=== PATIENT | female | born 1940 | race Caucasian/White ===

== ENCOUNTER 2024-06-05 11:45 | Inpatient (IN) | payer MEDICARE, SELFPAY ==
[2024-06-05 12:12] VITALS: PULSE 62; RESP 16; O2SAT 99
[2024-06-05 12:18] VITALS: BMI 23.8
--- NOTE | 2024-06-05 12:22 | XR_ITS ---
Examination: CT brain head without contrast. 2-D sagittal coronal reconstructions Date and time of exam:June 05, 2024 at 1320 hours INDICATIONS: Patient fell today with injury to the head, head pain CTDI: vol (mGy):45.7 DLP: (mGycm):871 Technique: Multiple CT axial sections of the brain have been obtained, 5 mm slice thickness. Contrast has not been administered. 2-D sagittal, coronal reconstructions have been obtained Low dose protocols were performed. One or more of the following dose reduction techniques were used; automated exposure control, adjustment of the mA and/or KV according to patient size, use of iterative reconstruction technique. Findings: No significant ventricular enlargement. Intra-axial or extra-axial hemorrhage density is not seen. No mass effect or midline shift Basal cisterns are not remarkable. Fourth ventricle is midline. Cranial vault intact. Impression: Negative for acute hemorrhage, mass effect or midline shift
--- NOTE | 2024-06-05 12:22 | XR_ITS ---
Examination: CT cervical spine without contrast 2-D sagittal reconstructions 2-D coronal reconstructions 3-D reconstructions. Exam date and time:June 05, 2024 1320 hours INDICATIONS: Patient fell today with into the neck, neck pain CTDI:vol (mGy) 7.24 DLP: (mGycm) 165 Technique: Multiple 2 mm axial sections of the cervical spine have been obtained. The coronal and sagittal reconstructions have been obtained. 3-D reconstructions have been obtained. Low dose protocols were performed. One or more of the following dose reduction techniques were used; automated exposure control, adjustment of the mA and/or KV according to patient size, use of iterative reconstruction technique. Findings: Axial sections demonstrate intact base of the skull. C1 exhibit satisfactory relationship to the odontoid. No acute cervical vertebral body fracture seen. Alignment posterior spinous processes satisfactory. Cervical fusion C6-C7 Impression: No acute cervical fracture.
--- NOTE | 2024-06-05 12:22 | EKG_ITS ---
[facility] Test Date: 2024-06-05 Pat Name: RADHA CANTU Department: Room: - Gender: Female [employer] Manager: : 1940 Requested By: Familia Sanford Order Number: [id number] Reading MD: Familia Sanford Measurements Intervals [place] Rate: 62 P: 78 ND: 170 QRS: 57 QRSD: 93 T: 49 QT: 426 QTc: 433 Interpretive Statements SINUS RHYTHM NONSPECIFIC ST & T-WAVE ABNORMALITY No previous ECG available for comparison /store/S0/[id number]
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
[2024-06-05 12:26] VITALS: BP 91/46; PULSE 57; RESP 16; TEMP 36.5; O2SAT 88
--- NOTE | 2024-06-05 12:47 | XR_ITS ---
Examination:Right hip AP, lateral, AP pelvis 3 views Technique: Hip AP lateral, AP pelvis, 3 views Exam date and time:June 05, 2024 1303 hours INDICATIONS: Patient fell today with injury to right hip, right hip pain. FINDINGS: Acute intertrochanteric fracture right hip, 19 mm separation at the main fracture site Angulation at the fracture site No hip dislocation Left hip bones of the pelvis intact IMPRESSION: Acute intertrochanteric fracture right hip.
[2024-06-05 13:08] LABS: Basophils # (Auto) 0.1 Thou/mm3 (0.0-0.2); Basophils % (Auto) 1 % (0-2.5); Eosinophils # (Auto) 0.1 Thou/mm3 (0.0-0.5); Eosinophils % (Auto) 1 % (0-10); Hematocrit 36.9 % (36.0-46.0); Hemoglobin 11.9 g/dL (12.0-16.0); Immature Granulocytes % (Auto) 2 % (0-0); Immature Granulocytes Auto 0.26 Thou/mm3 (0.00-0.00); Lymphocytes # (Auto) 1.3 Thou/mm3 (1.0-4.8); Lymphocytes % (Auto) 11 % (10-50); Mean Corpuscular HGB Conc 32.2 g/dl (31.0-37.0); Mean Corpuscular Hemoglobin 26.6 pg (25.0-35.0); Mean Corpuscular Volume 83 fL (80-100); Monocytes # (Auto) 0.5 Thou/mm3 (0.0-0.8); Monocytes % (Auto) 4 % (0-12); Neutrophils # (Auto) 10.2 Thou/mm3 (1.8-7.7); Neutrophils % (Auto) 82 % (37-80); Nucleated Red Blood Cell % 0 /100 WBC (0); Platelet Count 296 Thou/mm3 (140-440); RDW Standard Deviation 41.3 fL (36.4-46.3); Red Blood Count 4.47 Miln/mm3 (4.00-5.20); White Blood Count 12.4 Thou/mm3 (3.6-11.0)
[2024-06-05 13:26] LABS: Alanine Aminotransferase 25 U/L (10-49); Albumin, Serum 3.7 gm/dL (3.4-4.8); Albumin/Globulin Ratio 1.5 (1.2-2.2); Alkaline Phosphatase 66 U/L (46-116); Anion Gap 10 (7-16); Aspartate Amino Transferase 26 U/L (0-34); BUN/Creatinine Ratio 18 Ratio (12-20); Bilirubin,Total 0.7 mg/dL (0.3-1.2); Blood Urea Nitrogen 32 mg/dL (9-23); Calcium 9.5 mg/dL (8.3-10.6); Calcium (Corrected) 9.7 mg/dL (8.5-10.1); Chloride 100 mMol/L (98-107); Creatinine (Component) 1.8 mg/dL (0.6-1.3); Estimated Creatinine Clearance 19.1 mL/min (>60); Globulin 2.5 gm/dL (2.3-3.5); Glucose 184 mg/dL (74-106); LDH (Lactate Dehydrogenase) 308 U/L (120-246); Magnesium 1.5 mg/dL (1.6-2.6); Osmolality,Calculated 280 (275-295); Sodium 134 mMol/L (136-145); Total Protein 6.2 gm/dL (5.7-8.2); Troponin I < 0.020 ng/mL (0.0-0.045); eGFR 28 See Note
[2024-06-05 13:27] LABS: B-Type Natriuretic Peptide 131 pg/mL (0-100)
[2024-06-05 13:38] LABS: INR 1.2 (0.9-1.3); Partial Thromboplastin Time 25.8 Seconds (22.0-36.0); Prothrombin Time 13.3 Seconds (9.0-12.2)
[2024-06-05] MEDS: SODIUM CHLORIDE 0.9% 1000 ML 1,000 ML 999 ML IV (14:01)
--- NOTE | 2024-06-05 14:42 | ECHO_ITS ---
Transthoracic Echo Report Ht (in): 62 Wt (lb): 130 Exam Location: Portable Status: Emergency Guide [place]: Vianney Koch Indications: Procedure Performed: BP: 123 / 91 HR: 83 Rhythm: Sinus Technical Quality: Fair MEASUREMENTS (Male / Female) Normal Values 2D ECHO LV Diastolic Diameter PLAX 4.7 cm 4.2 - 5.9 / 3.9 - 5.3 cm LV Systolic Diameter PLAX 3.4 cm IVS Diastolic Thickness 0.8 cm 0.6 - 1.0 / 0.6 - 0.9 cm LVPW Diastolic Thickness 0.9 cm 0.6 - 1.0 / 0.6 - 0.9 cm LV Relative Wall Thickness 0.4 LVOT Diameter 1.9 cm LA Volume Index 22.2 cm?/m? 16 - 28 cm?/m? Ascending Aorta Diameter 3.4 cm M-MODE Aortic Root Diameter MM 2.6 cm LA Systolic Diameter MM 4.1 cm LA Ao Ratio MM 1.6 AV Cusp Separation MM 1.8 cm DOPPLER AV Peak Velocity 108.0 cm/s AV Peak Gradient 4.7 mmHg AV Mean Gradient 3.0 mmHg AV Velocity Time Integral 22.9 cm LVOT Peak Velocity 82.0 cm/s LVOT Peak Gradient 2.7 mmHg LVOT Velocity Time Integral 16.2 cm LVOT Cardiac Index 2360.5 cm?/min?m? AV Area Cont Eq vti 2.0 cm? AV Area Cont Eq pk 2.2 cm? MV Peak Velocity 93.3 cm/s MV Peak Gradient 3.5 mmHg MV Mean Velocity 54.8 cm/s MV Mean Gradient 1.0 mmHg MV Area PHT 4.3 cm? MR Peak Velocity 274.0 cm/s MR Peak Gradient 30.0 mmHg Mitral E Point Velocity 74.7 cm/s Mitral A Point Velocity 65.5 cm/s Mitral E to A Ratio 1.1 LV E' Lateral Velocity 7.6 cm/s Mitral E to LV E' Lateral Ratio 9.8 LV E' Septal Velocity 6.4 cm/s Mitral E to LV E' Septal Ratio 11.6 TR Peak Velocity 317.7 cm/s TR Peak Gradient 40.4 mmHg FINDINGS Left Ventricle Normal left ventricular size, wall thickness, systolic function with no obvious regional wall motion abnormalities. The ejection fraction is visually estimated at 55-60%. Right Ventricle The right ventricle is normal in size and systolic function. The estimated right ventricular systoli c pressure, 48 mmHg. RAP 5. Left Atrium The left atrium is normal by two-dimensional, color flow and Doppler imaging with no structural abnormalities, no thrombus formation present. Right Atrium The right atrium is normal by two-dimensional imaging, color flow and Doppler imaging with no struct ural abnormalities, no thrombus formation present. Atrial Septum The interatrial septum appears normal with no evidence of a shunt. Aorta The aorta is normal by two-dimensional, color flow and Doppler interrogation. Mitral Valve The mitral valve is normal by two-dimensional, color flow and Doppler interrogation. There is mild mitral valve regurgitation. Aortic Valve The aortic valve is trileaflet and normal by two-dimensional, color flow and Doppler interrogation. There is mild aortic valve regurgitation. Tricuspid Valve The tricuspid valve is normal by two-dimensional, color flow and Doppler interrogation. There is mo derate tricuspid valve regurgitation. Pulmonic Valve There is trace pulmonic valve regurgitation. Vessels The pulmonary artery appears normal. The inferior vena cava pulmonary and hepatic veins appear марина l. Pericardium The pericardium is normal by two-dimensional imaging. There is no significant pericardial effusion. CONCLUSIONS The transthoracic study is normal by two-dimensional, color flow imaging and Doppler interrogation. Normal LV size and function. Estimated EF 55-60% Normal RV size and function. Estimated RVSP 48mmHg Mild mitral and trace tricuspid regurgitation Della Ledezma (Electronically Signed) Final Date: 06 June 2024 15:32
--- NOTE | 2024-06-05 14:46 | ESHP_ITS ---
Documentation for date of: 06/05/24 [facility] History of Present Illness Chief complaint: Right Hip Pain History of present illness: Ms. Hogan is a 83-year-old female with past medical history of diabetes mellitus atrial fibrillation and hyperlipidemia who presented to [facility] on 06/05/2024 status post ground-level mechanical fall with right hip pain. Patient reported that she is originally from [place] came to [facility] in [place], tripped at the door of the [facility], denies hitting head, denies loss of consciousness and was brought in by ambulance to the emergency department. Patient denies any shortness of breath, chest pain and headache. Of note patient was discharged recently from [facility] for pneumonia on oral doxycycline for 10 days. Right hip fracture noted on hip pelvis x-ray, CT head and cervical spine unremarkable. Orthopedic surgeon was consulted in the ED recommended admission for possible surgical intervention and cardiac clearance for possible surgery. ED Course: ED Vitals: On presentation in ED BP 91/46, P57, RR 16, temp 97.7 O2 sat 88 on room air ED Labs: ED labs significant for WBC 12.4, hemoglobin 11.9, neutrophil 10.2, PT 13.3, sodium 134, BUN 32, creatinine 1.8, GFR 28 mL and 1.5, LDH 308, BNP 131 ED Imaging: CT head and cervical spine negative for any acute changes. Hip/pelvis x-ray shows Acute intertrochanteric fracture right hip. ED Treatment: Patient is given 1 L NS bolus in ED. Orthopedics was consulted. Patient admitted for management of acute intertrochanteric fracture right hip. Review of Systems Review of Systems Narrative Review of Systems: ROS: -CONSTITUTIONAL: Denies weight loss, fever and chills. -HEENT: Denies changes in vision and hearing. -RESPIRATORY: Denies SOB and cough. -CV: Denies palpitations and Chest Pain. -GI: Denies abdominal pain, nausea, vomiting,constipation and diarrhea. -: Denies dysuria and urinary frequency. -MSK: Positive for right hip pain -SKIN: Denies rash and pruritus. -NEUROLOGICAL: Denies headache and syncope. -PSYCHIATRIC: Denies recent changes in mood. Denies anxiety and depression. Past Medical History Past Medical History Comments PMH COMMENT: PMH: Positive for diabetes mellitus, hyperlipidemia and atrial fibrillation PSHx: Hysterectomy in the past Allergies: No known allergies Social history: -Smoking: Denies -Alcohol Use: Denies -Illicit Drug Use: Denies Family History: Denies any family history of heart disease Exam Vital Signs Temp Pulse Resp BP Pulse Ox O2 Del Method 97.7 F 57 L 16 91/46 L 88 L Room Air 06/05/24 12:26 06/05/24 12:26 06/05/24 12:06/05/24 12:06/05/24 12:06/05/24 12:26 Narrative Exam Physical Exam General: Awake and in no acute distress. Conversational and non-toxic appearing. HEENT: Normocephalic, atraumatic, mucous membranes dry. Heart: Regular rate and rhythm, no murmurs. Lungs: Clear to auscultation with no wheezing or crackles. Abdomen: Soft, nondistended, nontender, positive bowel sounds. ?No guarding or rebound tenderness. Neurologic: Alert and oriented x3, no gross neurological deficit, and patient able to move all 4 extremities. Extremities: Right leg externally rotated, right leg shorter than left. Skin: No rash or ecchymoses. Results: Labs 06/05/24 12:34 06/05/24 12:34 Labs: Short CBC 06/05/24 Range/Units 12:34 WBC 12.4 H (3.6-11.0) Thou/mm3 Hgb 11.9 L (12.0-16.0) g/dL Hct 36.9 (36.0-46.0) % Plt Count 296 (140-440) Thou/mm3 [facility] 06/05/24 12:34 Sodium 134 L Potassium 4.0 Chloride 100 Carbon Dioxide 24.0 BUN 32 H Creatinine 1.8 H Glucose 184 H Calcium 9.5 Cardiac Enzymes 06/05/24 Range/Units 12:34 Troponin I < 0.020 (0.0-0.045) ng/mL Liver Function 06/05/24 Range/Units 12:34 Total Bilirubin 0.7 (0.3-1.2) mg/dL AST 26 (0-34) U/L ALT 25 (10-49) U/L Alkaline Phosphatase 66 (46-116) U/L Albumin 3.7 (3.4-4.8) gm/dL Quality Measures Quality Measures VTE prophylaxis Advance care planning discussed with:: patient Medications Home Medications and Allergies Home Medications ?Medication ?Instructions ?Recorded ?Confirmed ?Type apixaban 2.5 mg tablet (Eliquis) 2.5 mg PO BID 06/05/24 06/05/24 History Allergies Allergy/AdvReac Type Severity Reaction Status Date / Time No Known Allergies Allergy Verified 06/05/24 12:15 Visit Medications Acetaminophen (Acetaminophen 325 Mg Tablet) 650 mg PO Q6H PRN PRN Reason: Pain (1-3) and Fever >101.5 Stop: 07/05/24 14:34 Hydrocodone Bitart/Acetaminophen (Hydrocodone/Apap 10/325 Tab) 1 tab PO Q4H PRN PRN Reason: PAIN SCALE 4-6 (Moderate Stop: 06/10/24 14:34 Dextrose (Dextrose 50%-Water Inj 50 Ml Syringe) 25 ml IV Q15MIN PRN PRN Reason: BG 50-70 responsive npo pt Stop: 07/05/24 14:39 Dextrose (Dextrose 50%-Water Inj 50 Ml Syringe) 50 ml IV Q15MIN PRN PRN Reason: BG <50 OR BG <70 & pt unresponsive Stop: 07/05/24 14:39 Glucagon (Glucagon Inj 1 Mg Vial) 1 mg IM Q15MIN PRN PRN Reason: BG <70, and no IV access Hydromorphone HCl (Hydromorphone Inj 2 Mg/Ml Vial) 0.5 mg IVP Q6H PRN PRN Reason: PAIN SCALE 7-10 (Severe Stop: 06/10/24 14:39 Sodium Chloride (Ns) 1,000 mls @ 999 mls/hr IV .Q1H1M ONE Stop: 06/05/24 14:55 Last Admin: 06/05/24 14:01 Dose: 999 mls/hr Sodium Chloride (Ns) 1,000 mls @ 60 mls/hr IV .[id number] CLAUDY Stop: 07/05/24 14:44 Magnesium Sulfate (Magnesium Sulfate Ivpb) 4 gm in 50 mls @ 12.5 mls/hr IV X1 ONE Stop: 06/05/24 18:43 Insulin Human Lispro (Insulin Lispro (Admelog) 1 Unit/0.01 Ml Unit) 0 unit SC ACHS CLAUDY; Protocol Stop: 07/05/24 16:59 Ondansetron HCl (Ondansetron Inj 2 Mg/Ml Inj 2 Ml) 4 mg IV Q6H PRN; Protocol PRN Reason: NAUSEA OR VOMITING Stop: 07/05/24 14:34 Pantoprazole Sodium (Pantoprazole Inj 40 Mg Vial) 40 mg IVP QDAY CLAUDY Stop: 07/06/24 08:59 Sennosides (Senna Tablet) 1 tab PO QDAY PRN; Protocol PRN Reason: constipation Stop: 07/05/24 14:34 Discontinued Medications Morphine Sulfate (Morphine Sulf Inj 10 Mg/Ml Vial) 2 mg IVP X1 ONE Stop: 06/05/24 12:23 Ondansetron HCl (Ondansetron Inj 2 Mg/Ml Inj 2 Ml) 4 mg IV X1 ONE; Protocol Stop: 06/05/24 12:23 Assessment & Plan Plan Summary: Ms. Hogan is a 83-year-old female with past medical history of diabetes mellitus atrial fibrillation and hyperlipidemia who presented to [facility] on 06/05/2024 status post ground-level mechanical fall with right hip pain. #Acute Intertrochanteric Fracture Right Hip #Status post ground-level mechanical fall Presented with right hip pain reported tripping and falling secondary to loss of balance, denies hitting head, denies loss of consciousness. CT head and cervical spine negative for any acute changes. Hip/pelvis x-ray shows Acute intertrochanteric fracture right hip. Patient is given 1 L NS bolus in ED. Orthopedics was consulted. Plan: -Maintenance fluid normal saline 60 cc/h -Tylenol, [place], hydromorphone for pain control -Ordered echo, EKG -Cardiology consult for cardiac clearance for possible surgical intervention -Orthopedics consulted, appreciate recommendations # Acute kidney injury #?Chronic kidney disease Patient's BUN 32, creatinine 1.8, GFR 28 on admission Baseline function not known Plan: -Patient was given 1 L bolus in ED -Maintenance fluids normal saline 60 cc/h -Renally dose medication -Avoid nephrotoxic agents -Monitor renal panel in a.m. # Atrial fibrillation Patient has history of A-fib, on amiodarone and Eliquis 2.5 mg at home -Resumed amiodarone 200 mg twice daily -Will hold Eliquis in anticipation of surgery -Telemonitoring # Diabetes mellitus # Hyperlipidemia Blood glucose 184 on admission. Plan: -Sliding scale insulin -Follow hemoglobin A1c in morning -Hypoglycemia protocol in place -Pending med reconciliation # Hypomagnesemia # Electrolyte imbalance Patient's magnesium 1.5 on admission Corrected replace electrolytes as needed DVT prophylaxis: SCDs Heparin GI prophylaxis: IV Protonix Diet: Carbohydrate consistent, cardiac Lines: Peripheral IV Code status: Full code Case discussed with Attending Dr. Mishra. Muna Garcia PGY1 Attending Provider Attestation/Addendum I have examined the patient, reviewed labs and imaging findings, discussed the case with the resident(s), and reviewed entered orders. I agree with the plan of care as outlined in this note, with these additional summaries/recommendations: Patient is a 83-year-old female with a medical history of chronic atrial fibrillation on Eliquis, diabetes mellitus type 2, primary hypertension, hyperlipidemia, COPD/asthma, and GERD who presented to [facility] emergency department on 06/05/2024 after a ground-level mechanical fall. Patient was found to have acute hip fracture and hospitalist team consulted for continuation of care. Patient seen at bedside. She endorses having a ground-level mechanical fall earlier and denies hitting her head or losing consciousness. She reports she does take a blood thinner. CT head negative for acute hemorrhage, mass effect or midline shift. CT cervical spine was negative for acute cervical fracture. X-ray of right hip revealed acute intertrochanteric fracture right hip with 19 mm separation at the main fracture site. Orthopedics was consulted and recommends admission. Start pain management and hold home Eliquis. Consult cardiology for cardiac clearance. Blood pressure noted to be soft in the emergency department and started on IV maintenance fluids. Hold home antihypertensives. Unknown baseline kidney function although creatinine 1.8 and BUN 32 on admission. Unknown if patient has underlying CKD. Continue maintenance fluids and repeat renal panel in AM. Start insulin sliding scale for diabetes mellitus type 2. Target blood sugar of 140-180 while hospitalized. Mild hypomagnesia present and replacement given. Resume home doxycycline for history of pneumonia and minimal leukocytosis on CBC. Repeat hematology and chemistry panel in AM. Dr. Mishra
[2024-06-05 15:30] VITALS: BP 128/57; PULSE 65; RESP 16; TEMP 36.4; O2SAT 96
[2024-06-05] MEDS: Magnesium Sulfate 4 GM Ivpb 4 GM/50 ML BAG IV (15:30)
[2024-06-05] MEDS: SODIUM CHLORIDE 0.9% 1000 ML 1,000 ML 60 ML IV (15:31)
[2024-06-05 15:40] VITALS: PULSE 63; RESP 14; RESP 87; O2SAT 94
--- NOTE | 2024-06-05 17:01 | PC.CC ---
Pt Juan Hogan is an 83 yr old female admitted to hospitalist services for acute interrochanteric fracture right hip, status ground leval mechanical fall. EDY. ASW met with pt at bedside introducing self and role in pt care. At time of encounter pt is noted to be alert and oriented to person, place and situation. Pt expressed understanding admission order. Pt able to confirm demographic information. Pt is from [id number] [place] [address] in [place]. Per pt she lives in her daughters Destiny Retana [phone], home. Pt identifies her daughter as surrogate DM. Per pt, she and her daughter came to [place] to the [facility] when she fell. Per pt at baseline she is independent with ambulation and in completion of her ADLs. Per pt at home, she does not require supplemental O2. Pt states she is not diabetic and is not on dialysis. Pt is followed by [facility] in [place] for primary care. ASW spoke with pt about possible recommendation for SNF placement, pending surgical consult/intervention. Per pt she has never been in a SNF but states she is open to idea if necessary. Per pt her preference would to be placed in [facility]. [id number] made contact with pts daughter Destiny Retana. Per Mrs. Retana pt recently moved in with her from an assisted living setting. Per pts daughter pt D/c from facility after she found out pts medications were not being dispensed to her. Per pts daughter she understands admission and is in agreement for pt to D/c to SNF in [facility]. Pts daughter expressed concerns over pt potentially having early onset dementia, experiencing sun downers. Per pts daughter plan will be for pt to D/c to SNF for rehab with transition back to assisted living. ASW provided education that request for SNF placement would be for short term stay with rehab. ASW informed pts daughter that pt would require middle or intermediate school principal health coverage to fpc placement in SNF. Pts daughter expressed understanding. Per pts daughter pt is diabetic. Pt has never received services from a [facility]. Pt has no hx of ID/DD. Pt is dx with anxiety and it taking anti-anxiety medications.
[2024-06-05] MEDS: INSULIN LISPRO (AdmeLOG) 1 UNIT/0.01 ML UNIT SC ×2 (17:24→20:23)
--- NOTE | 2024-06-05 18:18 | PC.NURSE ---
report received from the Nurse Mimi from ER
--- NOTE | 2024-06-05 18:43 | PC.NURSE ---
received pt. on the floor on the [facility] with the 2 l nc
[2024-06-05 20:00] VITALS: BP 126/58; PULSE 65; RESP 16; TEMP 36.3; O2SAT 91
[2024-06-05 20:22] VITALS: BP 126/54; PULSE 62
[2024-06-05] MEDS: AMIODARONE HCL 200 MG TABLET PO (20:22)
[2024-06-05] MEDS: DOXYCYCLINE 100 MG TABLET PO (20:22)
--- NOTE | 2024-06-05 22:11 | PD.ORTHCON ---
HPI Consult details Reason for consultation narrative: Pain right hip History of present illness: Patient very nice 83-year-old who [place] and [place] breaking the right hip. No other complaints as far as upper extremities left lower extremity right knee right ankle and foot Past Medical History Past Medical History CARDIAC: Positive Atrial Fibrillation; Negative Congestive Heart Failure RESPIRATORY: Negative Chronic Obstructive Pulmonary Disease (COPD) GENITOURINARY: Negative Renal Disease ENDOCRINE: Negative Diabetes Mellitus Type 1 or Diabetes Mellitus Type 2 Social History SMOKING STATUS: Never smoker Past Medical History Comments PMH COMMENT: PMH: Positive for diabetes mellitus, hyperlipidemia and atrial fibrillation PSHx: Hysterectomy in the past Allergies: No known allergies Social history: -Smoking: Denies -Alcohol Use: Denies -Illicit Drug Use: Denies Family History: Denies any family history of heart disease Meds Home Medications and Allergies Home Medications ?Medication ?Instructions ?Recorded ?Confirmed ?Type apixaban 2.5 mg tablet (Eliquis) 2.5 mg PO BID 06/05/24 06/05/24 History Allergies Allergy/AdvReac Type Severity Reaction Status Date / Time No Known Allergies Allergy Verified 06/05/24 12:15 Exam Vital Signs Temp Pulse Resp BP Pulse Ox O2 Del Method O2 Flow Rate 97.4 F 62 16 126/54 L 91 L Nasal Cannula 2 06/05/24 20:00 06/05/24 20:22 06/05/24 20:00 06/05/24 20:22 06/05/24 20:00 06/05/24 20:00 06/05/24 15:40 Blood pressure 126/54, pulse 62 Narrative Exam Patient is alert but seems to be disoriented. She said she fell going out of the can see no and then said she fell going into the [employer]. She said she was with her daughter when she fell and that her daughter left her. She then states that she spent the night with people that she met and then came to the hospital today. Turns head [id number] without neck pain. No pain to palpation shoulders elbows wrist hands or fingers. Able to lift both arms. No chest pain to palpation or abdominal discomfort. Examination left lower extremity shows she is able to actively extend flex and extend left hip left knee left ankle and foot. Examination of right lower extremity shows that it is short externally rotated. No pain swelling or effusion right knee. No pain right ankle right foot. Both feet are a little bit cool and not cyanotic. Unable to feel pulses in either lower extremity. Very dry skin upper and lower extremities with significant wrinkling present. Her skin does not appear to tent. I talked to her about dehydration and she says she is always dehydrated. Results - Ortho Labs 06/05/24 12:34 06/05/24 12:34 Labs: Short CBC 06/05/24 Range/Units 12:34 WBC 12.4 H (3.6-11.0) Thou/mm3 Hgb 11.9 L (12.0-16.0) g/dL Hct 36.9 (36.0-46.0) % Plt Count 296 (140-440) Thou/mm3 BMP 06/05/24 12:34 Sodium 134 L Potassium 4.0 Chloride 100 Carbon Dioxide 24.0 BUN 32 H Creatinine 1.8 H Glucose 184 H Calcium 9.5 Cardiac Enzymes 06/05/24 Range/Units 12:34 Troponin I < 0.020 (0.0-0.045) ng/mL Liver Function 06/05/24 Range/Units 12:34 Total Bilirubin 0.7 (0.3-1.2) mg/dL AST 26 (0-34) U/L ALT 25 (10-49) U/L Alkaline Phosphatase 66 (46-116) U/L Albumin 3.7 (3.4-4.8) gm/dL Hemoglobin 11.9, sodium 134, potassium 4.0, BUN 32, creatinine 1.8 Assessment & Plan Additional Assessment Additional comments: Right intertrochanteric hip fracture. History of atrial fibrillation. On Eliquis. I talked to Dr. Aidan Parada who has been consulted and he is going to do an echocardiogram tomorrow. With the Eliquis she will be ready for surgery until New 's day at the earliest she is not a candidate for surgery tomorrow. Plan She is going to get a cardiac workup tomorrow. Possible surgery 06/07 or 06/08 2024.
--- NOTE | 2024-06-05 23:48 | ESCONSULT_ITS ---
RE: RADHA CANTU : 1940 DATE OF CONSULTATION: 06/05/2024 CONSULTING PHYSICIAN: _Jabari Romero MD____ REASON FOR CONSULTATION: Evaluation of the patient for cardiac risk for surgery. CHIEF COMPLAINT: Fall and fracture of hip. HISTORY OF PRESENT ILLNESS: The patient is an 83-year-old female apparently in good health except for history of atrial fibrillation on Eliquis 2.5 mg twice daily,_ , came to the [facility] to [facility] and right in front of the [place], she lost her balance and fell and fractured her right hip, intertrochanteric fracture, recommended cardiac clearance for surgery. The patient has no medical problems except for atrial fibrillation and low-dose Eliquis. Otherwise, has not had any chest pain, shortness of breath, never had any heart problems. She does not recall seeing a manual plate filler. No recent cardiac echo. PAST MEDICAL HISTORY: Significant for history of atrial fibrillation, hypercholesterolemia and type 2 diabetes mellitus, diet controlled. The patient apparently recently was [facility] with a diagnosis of pneumonia, treated and released. MEDICATIONS: Eliquis 2.5 b.i.d. SOCIAL HISTORY: The patient does not smoke, does not do any alcoholic beverages. FAMILY HISTORY: Noncontributory. PHYSICAL EXAMINATION: GENERAL: Well nourished, thin build elderly female who is alert, awake, no acute distress. VITAL SIGNS: Blood pressure is 100/56. Pulse rate is 60 and regular. Respirations 16. Temperature is normal. Pulse ox 90% on room air. HEENT: Head is atraumatic and normocephalic. Eyes normal. ENT normal. NECK: Supple. No JVD. Carotid pulses are felt with no bruits. Chest is symmetrical. LUNGS: Mostly clear. No rales or rhonchi. HEART: S1 and S2 regular. Normal sinus rhythm. ABDOMEN: Abdomen is soft._ . AND RECTAL: Not performed. CORE MACHINE OPERATOR: Normal. DIAGNOSTIC DATA: Electrocardiogram shows normal sinus rhythm, rate of 62 beats per minute, nonsteroidal changes, within normal limits. ASSESSMENT: * Intertrochanteric fracture of the hip. * History of paroxysmal atrial fibrillation on Eliquis. * Type 2 diabetes mellitus, diet controlled. RECOMMENDATIONS: I have recommended the patient to discontinue Eliquis for next three days. The patient can have surgery earliest 06/07/2024. We will get ECHO FOR ejection fraction tomorrow. We would like to thank you for referring this patient for cardiovascular evaluation. We will be glad to follow this patient and give final cardiac clearance. Because of Eliquis on board, she took today's dose, the patient should wait at least 36 to 48 hours before proceeding with surgery because of increased bleeding risk. Also recommend continuing amiodarone 200 mg twice daily and Eliquis to stop. Resume Eliquis postop day one or day two depending on any bleeding problems postoperatively. DT: 22:53:16 TT: 23:41:00 Ref: [id number] - TID: [id number] MTDD
[2024-06-06] VITALS (12 sets, daily range): BP systolic 102–134; BP diastolic 62–91; PULSE 64–141; RESP 16–87; TEMP 36.2–37.1; O2SAT 91–96
[2024-06-06 06:00] LABS: Basophils % (Auto) 0 % (0-2.5); Eosinophils % (Auto) 0 % (0-10); Hematocrit 33.1 % (36.0-46.0); Hemoglobin 11.1 g/dL (12.0-16.0); Immature Granulocytes % (Auto) 1 % (0-0); Immature Granulocytes Auto 0.33 Thou/mm3 (0.00-0.00); Lymphocytes # (Auto) 0.7 Thou/mm3 (1.0-4.8); Lymphocytes % (Auto) 2 % (10-50); Mean Corpuscular HGB Conc 33.5 g/dl (31.0-37.0); Mean Corpuscular Hemoglobin 27.5 pg (25.0-35.0); Mean Corpuscular Volume 82 fL (80-100); Monocytes # (Auto) 0.8 Thou/mm3 (0.0-0.8); Monocytes % (Auto) 3 % (0-12); Neutrophils % (Auto) 94 % (37-80); Nucleated Red Blood Cell % 0 /100 WBC (0); Platelet Count 239 Thou/mm3 (140-440); RDW Standard Deviation 40.9 fL (36.4-46.3); Red Blood Count 4.03 Miln/mm3 (4.00-5.20); White Blood Count 28.9 Thou/mm3 (3.6-11.0)
[2024-06-06 06:29] LABS: INR 1.2 (0.9-1.3); Partial Thromboplastin Time 29.1 Seconds (22.0-36.0)
[2024-06-06 06:51] LABS: Glucose Estimated Average 126 mg/dL (80-131)
[2024-06-06 06:58] LABS: Alanine Aminotransferase 22 U/L (10-49); Albumin, Serum 3.6 gm/dL (3.4-4.8); Albumin/Globulin Ratio 1.6 (1.2-2.2); Alkaline Phosphatase 63 U/L (46-116); Anion Gap 8 (7-16); Aspartate Amino Transferase 22 U/L (0-34); BUN/Creatinine Ratio 26 Ratio (12-20); Bilirubin,Total 0.8 mg/dL (0.3-1.2); Blood Urea Nitrogen 41 mg/dL (9-23); Calcium (Corrected) 9.3 mg/dL (8.5-10.1); Carbon Dioxide 24.3 mMol/L (20.0-31.0); Cardiac Risk Estimate 2.2 RATIO (3.7-5.6); Chloride 104 mMol/L (98-107); Cholesterol 115 mg/dL (132-200); Creatinine (Component) 1.6 mg/dL (0.6-1.3); Estimated Creatinine Clearance 21.4 mL/min (>60); Globulin 2.2 gm/dL (2.3-3.5); Glucose 142 mg/dL (74-106); HDL Cholesterol 52 mg/dL (40-60); LDL Cholesterol,Calculated 49 mg/dL (0-130); Magnesium 2.5 mg/dL (1.6-2.6); Osmolality,Calculated 284 (275-295); Phosphorous 3.8 mg/dL (2.4-5.1); Potassium 3.9 mMol/L (3.4-5.1); Sodium 136 mMol/L (136-145); Thyroid Stimulating Hormone 0.73 uIU/mL (0.55-4.78); Total Protein 5.8 gm/dL (5.7-8.2); Triglycerides 68 mg/dL (30-150); eGFR 32 See Note
--- NOTE | 2024-06-06 07:19 | PC.NURSE ---
Addendum entered by Mitch Chapa RN 06/06/24 07:22: Dr. Villanueva placed patient on a consistent carbohydrate diet. Original Note: VARGAS Meyer called Dr. Villanueva to notify her that Dr. Romero will do surgery on June 07 for an open reduction and internal fixation of right hip fracture. Dr. Romero said patient does not have to be NPO at this time and to call hospitalists to put in a diet. Dr. Villanueva said she will put in a diet.
[2024-06-06] MEDS: INSULIN LISPRO (AdmeLOG) 1 UNIT/0.01 ML UNIT SC (07:23)
[2024-06-06] MEDS: AMIODARONE HCL 200 MG TABLET PO ×2 (08:14→20:43)
[2024-06-06] MEDS: PANTOPRAZOLE INJ 40 MG VIAL IVP (08:14)
[2024-06-06] MEDS: DOXYCYCLINE 100 MG TABLET PO ×2 (08:14→20:44)
[2024-06-06] MEDS: SODIUM CHLORIDE 0.9% 1000 ML 1,000 ML 60 ML IV (08:15)
--- NOTE | 2024-06-06 09:56 | PC.SS ---
Addendum entered by SALLY Reed 06/06/24 14:27: Patient's daughter, Destiny to present SNF options. Destiny [facility] in [place], [place]. Attempted contact with them via phone call and they were unavailable. Voicemail was provided requesting call back. Addendum entered by SALLY Reed 06/06/24 10:23: Attempted contact with; [facility] as they responded on [employer]. Left them a voicemail. Addendum entered by SALLY Reed 06/06/24 10:13: PASRR completed; level 2. Pending review for closure. Addendum entered by SALLY Reed 06/06/24 10:08: SNF inquiry sent via [employer] platform to SNF's in [facility]. Original Note: SS follow up: spoke with patient's daughtersDestiny @ to follow up on patient's discharge plan. Destiny would like SNF placement for the patient in the [facility]. No preferred facility. Informed Destiny that the patient will require insurance authorization for SNF.
--- NOTE | 2024-06-06 09:57 | ESPR_ITS ---
<Statement entered by Valentina Chaparro MD - 06/12/24 09:02> I reviewed above note and agree with findings and plans. I have also personally examined the patient with medicine team and went over assessment and plan with medical team including news intern and resident physician. Documentation for date of: 06/06/24 Subjective Subjective Interval history: Patient seen and examined at bedside. Pending ECHO. Cardiology was consulted for cardiac clearance. Scheduled for surgery in AM. Will keep NPO after midnight and will hold SC Heparin. Denies any pain currently. Will continue to monitor. Exam Vital Signs Temp Pulse Resp BP Pulse Ox O2 Del Method O2 Flow Rate 98.4 F 68 16 132/80 H 94 L Nasal Cannula 2 06/06/24 08:00 06/06/24 08:14 06/06/24 08:05 06/06/24 08:14 06/06/24 08:05 06/06/24 08:00 06/06/24 08:00 Narrative Exam Physical Exam General: Awake and in no acute distress. Conversational and non-toxic appearing. HEENT: Normocephalic, atraumatic, mucous membranes dry. Heart: Regular rate and rhythm, no murmurs. Lungs: Clear to auscultation with no wheezing or crackles. Abdomen: Soft, nondistended, nontender, positive bowel sounds. ?No guarding or rebound tenderness. Neurologic: Alert and oriented x3, no gross neurological deficit, and patient able to move all 4 extremities. Extremities: Right leg externally rotated, right leg shorter than left. Skin: No rash or ecchymoses. Objective Labs 06/11/24 05:12 06/11/24 05:12 Labs: Laboratory Results - last 24 hr 06/05/24 06/06/24 12:34 05:19 WBC 12.4 H 28.9 H D RBC 4.47 4.03 Hgb 11.9 L 11.1 L Hct 36.9 33.1 L MCV 83 82 MCH 26.6 27.5 MCHC 32.2 33.5 RDW Std Deviation 41.3 40.9 Plt Count 296 239 D Neut % (Auto) 82 H 94 H Lymph % (Auto) 11 2 L [place] % (Auto) 4 3 Eos % (Auto) 1 0 Baso % (Auto) 1 0 Neut # (Auto) 10.2 H 27.0 H Lymph # (Auto) 1.3 0.7 L [place] # (Auto) 0.5 0.8 Eos # (Auto) 0.1 0.0 Baso # (Auto) 0.1 0.0 Immature Gran # (Auto) 0.26 H 0.33 H Absolute Nucleated RBC 0.00 0.00 Immature Gran % 2 H 1 H Nucleated RBC % 0 0 PT 13.3 H 13.0 H INR 1.2 1.2 APTT 25.8 29.1 Sodium 134 L 136 Potassium 4.0 3.9 Chloride 100 104 Carbon Dioxide 24.0 24.3 Anion Gap 10 8 BUN 32 H 41 H Creatinine 1.8 H 1.6 H Estim Creat Clear Calc 19.1 L 21.4 L eGFR 28 L 32 L BUN/Creatinine Ratio 18 26 H Glucose [address] Glu mg/dL 126 Hemoglobin A1c 6.0 Calculated Osmolality 280 284 Calcium 9.5 9.0 Corrected Calcium 9.7 9.3 Phosphorus 3.8 Magnesium 1.5 L 2.5 Total Bilirubin 0.7 0.8 AST 26 22 ALT 25 22 Alkaline Phosphatase 66 63 Lactate Dehydrogenase 308 H Troponin I < 0.020 B-Natriuretic Peptide 131 H Total Protein 6.2 5.8 Albumin 3.7 3.6 Globulin 2.5 2.2 L Albumin/Globulin Ratio 1.5 1.6 Triglycerides 68 Cholesterol 115 L LDL Cholesterol, Calc 49 HDL Cholesterol 52 Cholesterol/HDL Ratio 2.2 L TSH 0.73 Quality Measures Quality Measures VTE prophylaxis Advance care planning discussed with:: patient Assessment & Plan Assessment Current Active Medications: Generic Name Dose Route Start Last Admin Trade Name Freq PRN Reason Stop Dose Admin Acetaminophen 650 mg 06/05/24 14:35 Acetaminophen 325 Mg Tablet PO 07/05/24 14:34 Q6H PRN Pain (1-3) and Fever >101.5 Hydrocodone Bitart/Acetaminophen 1 tab 06/05/24 14:35 Hydrocodone/Apap 10/325 Tab PO 06/10/24 14:34 Q4H PRN PAIN SCALE 4-6 (Moderate Albuterol/Ipratropium 3 ml 06/06/24 09:18 Albuterol/Ipratropium (Duoneb) Rt Charline 3 Ml Nebu INH 07/06/24 10:59 Q4HRRT PRN SOB/Wheeze Amiodarone HCl 200 mg 06/05/24 21:00 06/06/24 08:14 Amiodarone Hcl 200 Mg Tablet PO 07/05/24 20:59 200 mg BID CLAUDY Administration Dextrose 25 ml 06/05/24 14:40 Dextrose 50%-Water Inj 50 Ml Syringe IV 07/05/24 14:39 Q15MIN PRN BG 50-70 responsive npo pt Dextrose 50 ml 06/05/24 14:40 Dextrose 50%-Water Inj 50 Ml Syringe IV 07/05/24 14:39 Q15MIN PRN BG <50 OR BG <70 & pt unresponsive Doxycycline Hyclate 100 mg 06/05/24 21:00 06/06/24 08:14 Doxycycline 100 Mg Tablet PO 06/07/24 21:00 100 mg BID CLAUDY Administration Glucagon 1 mg 06/05/24 14:40 Glucagon Inj 1 Mg Vial IM Q15MIN PRN BG <70, and no IV access Heparin Sodium (Porcine) 5,000 unit 06/05/24 22:00 06/06/24 05:02 Heparin Sod Inj 5000 Unit/Ml Vial SC 06/19/24 21:59 Not Given Q8HR CLAUDY Hydromorphone HCl 0.5 mg 06/05/24 14:40 Hydromorphone Inj 2 Mg/Ml Vial IVP 06/10/24 14:39 Q6H PRN PAIN SCALE 7-10 (Severe Sodium Chloride 1,000 mls @ 60 mls/hr 06/05/24 14:45 06/06/24 08:15 Ns IV 07/05/24 14:44 60 mls/hr .[id number] CLAUDY Administration Insulin Human Lispro 0 unit 06/05/24 17:00 06/06/24 07:23 Insulin Lispro (Admelog) 1 Unit/0.01 Ml Unit SC 07/05/24 16:59 1 unit ACHS CLAUDY Administration Protocol Ondansetron HCl 4 mg 06/05/24 14:35 Ondansetron Inj 2 Mg/Ml Inj 2 Ml IV 07/05/24 14:34 Q6H PRN NAUSEA OR VOMITING Protocol Pantoprazole Sodium 40 mg 06/06/24 09:00 06/06/24 08:14 Pantoprazole Inj 40 Mg Vial IVP 07/06/24 08:59 40 mg QDAY CLAUDY Administration Sennosides 1 tab 06/05/24 14:35 Senna Tablet PO 07/05/24 14:34 QDAY PRN constipation Protocol Plan Summary: Ms. Hogan is a 83-year-old female with past medical history of diabetes mellitus atrial fibrillation and hyperlipidemia who presented to [facility] on 06/05/2024 status post ground-level mechanical fall with right hip pain. #Acute Intertrochanteric Fracture Right Hip #Status post ground-level mechanical fall Presented with right hip pain reported tripping and falling secondary to loss of balance, denies hitting head, denies loss of consciousness. CT head and cervical spine negative for any acute changes. Hip/pelvis x-ray shows Acute intertrochanteric fracture right hip. Patient is given 1 L NS bolus in ED. Orthopedics was consulted. Plan: -Maintenance fluid normal saline 60 cc/h -Tylenol, [place], hydromorphone for pain control -Ordered echo, EKG -Cardiology consult for cardiac clearance for possible surgical intervention -Orthopedics consulted, appreciate recommendations -NPO after midnight # Acute kidney injury #?Chronic kidney disease Patient's BUN 32, creatinine 1.8, GFR 28 on admission Baseline function not known Patient was given 1 L bolus in ED Plan: -Maintenance fluids normal saline 60 cc/h -Renally dose medication -Avoid nephrotoxic agents -Monitor renal panel in a.m. # Atrial fibrillation Patient has history of A-fib, on amiodarone and Eliquis 2.5 mg at home -Resumed amiodarone 200 mg twice daily -Will hold Eliquis in anticipation of surgery -Telemonitoring # Diabetes mellitus # Hyperlipidemia Blood glucose 184 on admission. Hgb A1c 6.0 Plan: -Sliding scale insulin -Hypoglycemia protocol in place -Pending med reconciliation #Pneumonia #COPD/Asthma Patient was discharged from [facility] for Pneumonia Patient discharged on Doxycycline PO 100mg BID Was prescribed Levalbuterol per records -Will continue PO Doxycycline -Duonebs PRN -Supplemental oxygen as needed # Hypomagnesemia # Electrolyte imbalance Corrected replace electrolytes as needed DVT prophylaxis: SCDs Heparin GI prophylaxis: IV Protonix Diet: Carbohydrate consistent, cardiac, NPO after midnight Lines: Peripheral IV Code status: Full code Case discussed with Attending Dr. Chaparro. Muna Garcia PGY1
--- NOTE | 2024-06-06 14:36 | PC.SS ---
SS update: patient scheduled for surgery tomorrow. Plan is for SNF. Patient will require insurance authorization for SNF.
[2024-06-06] MEDS: HYDROmorphone INJ 2 MG/ML VIAL 0.5 MG IVP (15:48)
[2024-06-06 16:42] LABS: Collection Type, Urine Clean Catch
[2024-06-06 16:53] LABS: Bacteria,Urine Rare; Bilirubin,Urine Negative (Negative); Blood,Urine 1+ (Negative); Clarity,Urine Clear (Clear/Hazy); Color,Urine Lt-Yellow (Lt Yel-Yel); Glucose, Urine Negative (Negative); Hyaline Casts,Urine < 1 /hpf (0-1); Ketones,Urine Negative (Negative); Leukocyte Esterase,Urine Negative (Negative); Nitrite,Urine Negative (Negative); Protein,Urine Negative (Neg - Trace); RBC,Urine 1 /hpf (0-3); Specific Gravity,Urine 1.013 (1.001-1.035); Squamous Epithelial Cell,Urine 1 /hpf (0-5); Urobilinogen,Urine Negative mg/dL (0.0-1.0); WBC,Urine 2 /hpf (0-5)
[2024-06-06 17:18] LABS: Amphetamine/Methamp Scrn,U Negative (Negative); Barbiturate Screen,Urine Negative (Negative); Benzodiazepines Screen,Urine Negative (Negative); Benzoylecgonine Screen, Ur Negative (Negative); Fentanyl Screen,Urine Positive (Negative); Opiate Screen,Urine Negative (Negative); THC Screen,Urine Negative (Negative)
--- NOTE | 2024-06-06 19:22 | PC.NURSE ---
biodiesel technology manager Cora called regarding patient's HR ranges in 120s-150s, showing A.fib. Current HR is 141 A. fib. Patient came in for R hip fracture, pending surgery tomorrow 06/07/24. Assessed patient, no c/o SOB or chest pain anywhere. Patient does have a history of a. fib and currently taking amiodarone. Called Dr. Urbina regarding this, per Doctor will look into patient's chart. No orders received at this time.
--- NOTE | 2024-06-06 19:36 | EKG_ITS ---
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
--- NOTE | 2024-06-06 19:41 | ESPR_ITS ---
RE: RADHA HOGAN : 1940 DATE OF SERVICE: 06/06/2024 HISTORY OF PRESENT ILLNESS: Radha Hogan is an 83-year-old lady who is visiting [place], admitted to the hospital with fracture of the [place]. History of paroxysmal A-fib, has been on Eliquis, which was discontinued yesterday. Cardiac assessment was performed. Echocardiogram showed normal ejection fraction of 55% to 60% and no significant valvular heart disease. Today, she is clinically doing well. No chest pain or shortness of breath. She is not having any temperature. White count went up 28,000 possibly reactive leukocytosis and hemoglobin and hematocrit stable. Chemistry showed that creatinine is 1.6, BUN 41. The patient is waiting to have the surgery, possibly had to wait 48 hours following discontinuation of Eliquis. PHYSICAL EXAM: General: Well-nourished female. Awake, alert and in no acute distress. Vital Signs: Blood pressure 132/80. Pulse rate is 74 and regular. Respiration 16, temperature is normal. Neck: Supple. No JVD. Lungs: No rhonchi. Heart: Heart sounds regular. Abdomen: Thin and soft. Extremities: No edema. IMPRESSION: 1. Intertrochanteric fracture of the hip, awaiting surgery. 2. History of paroxysmal atrial fibrillation on Eliquis, discontinued for now, now maintaining sinus rhythm. 3. Chronic kidney disease. Creatinine clearance is 21 as of yet. No clinical signs of infection. Possible reactive leukocytosis. RECOMMENDATIONS: Continue to monitor for any signs of infection. She will require antibiotics if necessary, but the patient should wait another day or so before she can have surgery. DT: 16:59:38 TT: 19:26:00 Ref: [id number] - TID: [id number] MTDD
[2024-06-06] MEDS: METOPROLOL TARTRATE 25 MG TABLET PO (19:56)
--- NOTE | 2024-06-06 20:29 | PC.NURSE ---
Patient's daughter Destiny called for updates for patient.
--- NOTE | 2024-06-06 21:50 | XR_ITS ---
Examination: AP chest single view Technique: AP portable upright chest single view Exam date and time: June 06, 2024 at 10:00 PM Indications: Leukocytosis today. Findings: Early bibasilar pneumonia Normal heart size No pulmonary edema Significant osteopenia Impression: Early bibasilar pneumonia
--- NOTE | 2024-06-06 22:02 | PD.ORTHCONPN ---
Subjective Subjective Brief History: Patient very nice 83-year-old who [place] and [place] breaking the right hip. No other complaints as far as upper extremities left lower extremity right knee right ankle and foot Narrative: No new complaints. Exam Vital Signs Temp Pulse Resp BP Pulse Ox O2 Del Method O2 Flow Rate 97.2 F 122 H 18 114/80 95 Humidified Nasal Cannula 2 06/06/24 20:00 06/06/24 20:43 06/06/24 20:00 06/06/24 20:43 06/06/24 20:00 06/06/24 20:00 06/06/24 20:00 Blood pressure 114/80, pulse ox 95% Narrative Exam Able to move both upper and lower extremities she is alert and disoriented. Objective - Ortho Labs 06/06/24 05:19 06/06/24 05:19 Labs: Laboratory Results - last 24 hr 06/06/24 06/06/24 05:19 16:00 WBC 28.9 H D RBC 4.03 Hgb 11.1 L Hct 33.1 L MCV 82 MCH 27.5 MCHC 33.5 RDW Std Deviation 40.9 Plt Count 239 D Neut % (Auto) 94 H Lymph % (Auto) 2 L [place] % (Auto) 3 Eos % (Auto) 0 Baso % (Auto) 0 Neut # (Auto) 27.0 H Lymph # (Auto) 0.7 L [place] # (Auto) 0.8 Eos # (Auto) 0.0 Baso # (Auto) 0.0 Immature Gran # (Auto) 0.33 H Absolute Nucleated RBC 0.00 Immature Gran % 1 H Nucleated RBC % 0 PT 13.0 H INR 1.2 APTT 29.1 Sodium 136 Potassium 3.9 Chloride 104 Carbon Dioxide 24.3 Anion Gap 8 BUN 41 H Creatinine 1.6 H Estim Creat Clear Calc 21.4 L eGFR 32 L BUN/Creatinine Ratio 26 H Glucose [address] Glu mg/dL 126 Hemoglobin A1c 6.0 Calculated Osmolality 284 Calcium 9.0 Corrected Calcium 9.3 Phosphorus 3.8 Magnesium 2.5 Total Bilirubin 0.8 AST 22 ALT 22 Alkaline Phosphatase 63 Total Protein 5.8 Albumin 3.6 Globulin 2.2 L Albumin/Globulin Ratio 1.6 Triglycerides 68 Cholesterol 115 L LDL Cholesterol, Calc 49 HDL Cholesterol 52 Cholesterol/HDL Ratio 2.2 L TSH 0.73 Ur Collection Type Clean Catch Urine Color Lt-Yellow Urine Clarity Clear Urine pH 5.0 Ur Specific [place] 1.013 Urine Protein Negative Urine Glucose (UA) Negative Urine Ketones Negative Urine Blood 1+ A Urine Nitrite Negative Urine Bilirubin Negative Urine Urobilinogen (Auto) Negative Ur Leukocyte Esterase Negative Urine RBC 1 Urine WBC 2 Ur Squamous Epith Cells 1 Urine Bacteria Rare Hyaline Casts < 1 Urine Opiates Screen Negative Urine Fentanyl Screen Positive A Ur Barbiturates Screen Negative U Amphetamin/Meth Scrn Negative U Benzodiazepines Scrn Negative U Cocaine Metab Screen Negative U Marijuana (THC) Screen Negative White count 29,000 Assessment & Plan Assessment Additional comments: Recently discharged with pneumonia on doxycycline Plan Repeat CBC tonight and in a.m. Will get blood gas tonight. I want to get chest x-ray. Documentation for date of: 06/06/24
[2024-06-06 22:56] LABS: Basophils % (Auto) 0 % (0-2.5); Eosinophils % (Auto) 0 % (0-10); Hematocrit 31.1 % (36.0-46.0); Hemoglobin 10.5 g/dL (12.0-16.0); Immature Granulocytes % (Auto) 1 % (0-0); Immature Granulocytes Auto 0.35 Thou/mm3 (0.00-0.00); Lymphocytes # (Auto) 0.9 Thou/mm3 (1.0-4.8); Lymphocytes % (Auto) 2 % (10-50); Mean Corpuscular HGB Conc 33.8 g/dl (31.0-37.0); Mean Corpuscular Hemoglobin 27.6 pg (25.0-35.0); Mean Corpuscular Volume 82 fL (80-100); Monocytes # (Auto) 1.1 Thou/mm3 (0.0-0.8); Monocytes % (Auto) 3 % (0-12); Neutrophils # (Auto) 39.4 Thou/mm3 (1.8-7.7); Neutrophils % (Auto) 94 % (37-80); Nucleated Red Blood Cell % 0 /100 WBC (0); Platelet Count 196 Thou/mm3 (140-440); Red Blood Count 3.81 Miln/mm3 (4.00-5.20)
--- NOTE | 2024-06-06 22:59 | PC.NURSE ---
lab called for critical lab WBC of 41.7, notified Dr. Urbina. Per will see patient at bedside.
[2024-06-06 23:00] LABS: White Blood Count 41.7 Thou/mm3 (3.6-11.0)
--- NOTE | 2024-06-06 23:20 | PC.NURSE ---
Dr. Clifton at bedside to assess patient.
[2024-06-06 23:35] LABS: Path Review Blood Smear Sent to Pathologist
[2024-06-07] VITALS (21 sets, daily range): BP systolic 81–128; BP diastolic 59–85; PULSE 81–146; RESP 16–24; TEMP 36.1–36.6; O2SAT 91–100
[2024-06-07] MEDS: cefTRIAXone/D5w 1gm IV premix 50 ML IV ×2 (00:15→20:28)
[2024-06-07] MEDS: SODIUM CHLORIDE 0.9% 1000 ML 1,000 ML 60 ML IV (00:51)
[2024-06-07] MEDS: SENNA TABLET 1 TAB PO (05:32)
[2024-06-07] MEDS: HYDROcodone/APAP 10/325 TAB PO ×2 (05:32→23:55)
[2024-06-07 05:36] LABS: Lactate (Lactic Acid) 1.3 mMol/L (0.4-2.0)
[2024-06-07 05:47] LABS: Basophils # (Auto) 0.1 Thou/mm3 (0.0-0.2); Basophils % (Auto) 0 % (0-2.5); Eosinophils % (Auto) 0 % (0-10); Hematocrit 32.3 % (36.0-46.0); Hemoglobin 10.6 g/dL (12.0-16.0); Immature Granulocytes % (Auto) 1 % (0-0); Immature Granulocytes Auto 0.41 Thou/mm3 (0.00-0.00); Lymphocytes # (Auto) 0.9 Thou/mm3 (1.0-4.8); Lymphocytes % (Auto) 2 % (10-50); Mean Corpuscular HGB Conc 32.8 g/dl (31.0-37.0); Mean Corpuscular Hemoglobin 27.2 pg (25.0-35.0); Mean Corpuscular Volume 83 fL (80-100); Monocytes % (Auto) 3 % (0-12); Neutrophils # (Auto) 35.7 Thou/mm3 (1.8-7.7); Neutrophils % (Auto) 94 % (37-80); Nucleated Red Blood Cell % 0 /100 WBC (0); Platelet Count 186 Thou/mm3 (140-440); RDW Standard Deviation 42.2 fL (36.4-46.3); Red Blood Count 3.89 Miln/mm3 (4.00-5.20)
[2024-06-07 05:50] LABS: White Blood Count 38.1 Thou/mm3 (3.6-11.0)
[2024-06-07 06:08] LABS: Alanine Aminotransferase 17 U/L (10-49); Albumin, Serum 3.3 gm/dL (3.4-4.8); Albumin/Globulin Ratio 1.5 (1.2-2.2); Alkaline Phosphatase 75 U/L (46-116); Anion Gap 8 (7-16); Aspartate Amino Transferase 27 U/L (0-34); BUN/Creatinine Ratio 27 Ratio (12-20); Bilirubin,Total 0.7 mg/dL (0.3-1.2); Blood Urea Nitrogen 35 mg/dL (9-23); Calcium 8.9 mg/dL (8.3-10.6); Calcium (Corrected) 9.5 mg/dL (8.5-10.1); Carbon Dioxide 22.4 mMol/L (20.0-31.0); Chloride 106 mMol/L (98-107); Creatinine (Component) 1.3 mg/dL (0.6-1.3); Estimated Creatinine Clearance 26.4 mL/min (>60); Globulin 2.2 gm/dL (2.3-3.5); Glucose 83 mg/dL (74-106); Magnesium 1.7 mg/dL (1.6-2.6); Osmolality,Calculated 278 (275-295); Procalcitonin 0.25 ng/ml (0.0-0.49); Sodium 136 mMol/L (136-145); Total Protein 5.5 gm/dL (5.7-8.2); eGFR 41 See Note
[2024-06-07] MEDS: AMIODARONE HCL 200 MG TABLET PO (07:43)
--- NOTE | 2024-06-07 07:44 | XR_ITS ---
Examination: AP chest single view Technique one AP portable semiupright chest single view Exam date and time: June 27, 20242023 hrs. Comparison June 06, 2024 Indications: Preop, acute intertrochanteric fracture right hip June 05, 2024 Findings: Mild enlargement cardiac contour Mild vascular congestion Scarring versus infiltrate in the lingular segment left upper lobe obscuring detail left cardiac contour No pulmonary edema Prominent osteopenia Impression: Recommend lateral chest view follow-up to exclude infiltrate in the lingular segment left upper lobe
[2024-06-07] MEDS: PANTOPRAZOLE INJ 40 MG VIAL IVP (09:19)
[2024-06-07] MEDS: DOXYCYCLINE 100 MG TABLET PO ×2 (09:20→20:28)
--- NOTE | 2024-06-07 10:48 | ESPR_ITS ---
Documentation for date of: 06/07/24 BRIEF PRE-OP NOTE: Dr. Romero asked for anesthesiology consult for this patient for R hip surgery possibly for tomorrow. I saw her in 267. She has h/o HTN, HLD, A fib, on Amio and Eliquis. RN reported she was transferred to tele this AM due to A fib RVR and hypotension. On my visit, her HR fluctuating from 110-130s A fib on tele. She is AAO * 1, calm in bed, NAD, on NC O2, denied chest pain and dyspnea recently. If her A fib remains under control and she is hemodynamically stable and no s ignificant electrolyte abnormality, surgery can proceed tomorrow from anesthesia standpoint unless there is change in her condition that requires re-evaluation. Will defer management to the primary/floor team until time of surgery. Cresencio Abarca MD Anesthesia Progress Note Progress Note Most recent Vital Signs: Last Vital Signs Temp 97.7 F 06/07/24 07:40 Pulse 112 H 06/07/24 09:13 Resp 16 06/07/24 08:02 BP 81/59 L 06/07/24 09:13 Pulse Ox 98 06/07/24 08:02 O2 Del Method Humidified Nasal Cannula 06/07/24 07:40 O2 Flow Rate 3.5 06/07/24 08:02
[2024-06-07] MEDS: ALBUTEROL/IPRATROPIUM (Duoneb) RT SOL 3 ML NEBU INH ×4 (11:02→23:19)
--- NOTE | 2024-06-07 11:08 | PD.RESPRO ---
Documentation for date of: 06/07/24 Subjective Subjective Interval history: Patient had a rapid response called earlier this morning around 7:30 AM. Patient's heart rate 135, atrial fibrillation noted on telemetry, patient will be given 200 mg p.o. amiodarone, otherwise low blood pressure noted on patient saturating well on 3.5 L nasal cannula. Ordered chest x-ray, patient will be started on heparin drip, pending PT, APTT and INR. Ordered Scheduled breathing treatment, Incentive spirometry, will follow CXR. Overnight patient had increased WBC count of 41.7, night team ordered blood cultures, C. difficile, sputum culture Gram stain and IV ceftriaxone. Home dose of metoprolol tartrate resumed. Chest x-ray ordered at night showed mild bibasilar pneumonia. Patient seen at bedside, blood pressure soft. Patient will be given 1 L bolus and will be started on maintenance fluids. Will continue IV antibiotics, follow-up on cultures in a.m. Will continue to monitor patient. Exam Vital Signs Temp Pulse Resp BP Pulse Ox O2 Del Method O2 Flow Rate 97.7 F 112 H 16 81/59 L 98 Humidified Nasal Cannula 3.5 06/07/24 07:40 06/07/24 09:13 06/07/24 08:02 06/07/24 09:13 06/07/24 08:02 06/07/24 07:40 06/07/24 08:02 Narrative Exam Physical Exam General: Awake and in no acute distress. Conversational and non-toxic appearing. HEENT: Normocephalic, atraumatic, mucous membranes dry. Heart: Irregular rate and A Fib noted, no murmurs. Lungs: Clear to auscultation with no wheezing or crackles. Abdomen: Soft, nondistended, nontender, positive bowel sounds. ?No guarding or rebound tenderness. Neurologic: Alert and oriented x3, no gross neurological deficit, and patient able to move all 4 extremities. Extremities: Right leg externally rotated, right leg shorter than left. Skin: No rash or ecchymoses. Objective Labs 06/13/24 04:55 06/13/24 04:55 Labs: Laboratory Results - last 24 hr 06/06/24 06/06/24 06/07/24 16:00 22:36 05:23 WBC 41.7 H* D 38.1 H* RBC 3.81 L 3.89 L Hgb 10.5 L 10.6 L Hct 31.1 L 32.3 L MCV 82 83 MCH 27.6 27.2 MCHC 33.8 32.8 RDW Std Deviation 41.0 42.2 Plt Count 196 D 186 Neut % (Auto) 94 H 94 H Lymph % (Auto) 2 L 2 L [place] % (Auto) 3 3 Eos % (Auto) 0 0 Baso % (Auto) 0 0 Neut # (Auto) 39.4 H 35.7 H Lymph # (Auto) 0.9 L 0.9 L [place] # (Auto) 1.1 H 1.0 H Eos # (Auto) 0.0 0.0 Baso # (Auto) 0.0 0.1 Immature Gran # (Auto) 0.35 H 0.41 H Absolute Nucleated RBC 0.00 0.00 Immature Gran % 1 H 1 H Nucleated RBC % 0 0 Smear Path Review Sent to Pathologist Sodium 136 Potassium 5.0 D Chloride 106 Carbon Dioxide 22.4 Anion Gap 8 BUN 35 H Creatinine 1.3 Estim Creat Clear Calc 26.4 L eGFR 41 L BUN/Creatinine Ratio 27 H Glucose 83 D Calculated Osmolality 278 Lactic Acid 1.3 Calcium 8.9 Corrected Calcium 9.5 Magnesium 1.7 Total Bilirubin 0.7 AST 27 ALT 17 Alkaline Phosphatase 75 Total Protein 5.5 L Albumin 3.3 L Globulin 2.2 L Albumin/Globulin Ratio 1.5 Procalcitonin 0.25 Ur Collection Type Clean Catch Urine Color Lt-Yellow Urine Clarity Clear Urine pH 5.0 Ur Specific [place] 1.013 Urine Protein Negative Urine Glucose (UA) Negative Urine Ketones Negative Urine Blood 1+ A Urine Nitrite Negative Urine Bilirubin Negative Urine Urobilinogen (Auto) Negative Ur Leukocyte Esterase Negative Urine RBC 1 Urine WBC 2 Ur Squamous Epith Cells 1 Urine Bacteria Rare Hyaline Casts < 1 Urine Opiates Screen Negative Urine Fentanyl Screen Positive A Ur Barbiturates Screen Negative U Amphetamin/Meth Scrn Negative U Benzodiazepines Scrn Negative U Cocaine Metab Screen Negative U Marijuana (THC) Screen Negative Quality Measures Quality Measures VTE prophylaxis Advance care planning discussed with:: patient Assessment & Plan Assessment Current Active Medications: Generic Name Dose Route Start Last Admin Trade Name Freq PRN Reason Stop Dose Admin Acetaminophen 650 mg 06/05/24 14:35 Acetaminophen 325 Mg Tablet PO 07/05/24 14:34 Q6H PRN Pain (1-3) and Fever >101.5 Hydrocodone Bitart/Acetaminophen 1 tab 06/05/24 14:35 06/07/24 05:32 Hydrocodone/Apap 10/325 Tab PO 06/10/24 14:34 1 tab Q4H PRN Administration PAIN SCALE 4-6 (Moderate Albuterol/Ipratropium 3 ml 06/07/24 11:00 06/07/24 11:02 Albuterol/Ipratropium (Duoneb) Rt Charline 3 Ml Nebu INH 07/07/24 10:59 3 ml Q4HRRT CLAUDY Administration Amiodarone HCl 200 mg 06/05/24 21:00 06/07/24 07:43 Amiodarone Hcl 200 Mg Tablet PO 07/05/24 20:59 200 mg BID CLAUDY Administration Atorvastatin Calcium 40 mg 06/07/24 21:00 Atorvastatin Calcium 20 Mg Tablet PO 07/07/24 20:59 HS CLAUDY Dextrose 25 ml 06/05/24 14:40 Dextrose 50%-Water Inj 50 Ml Syringe IV 07/05/24 14:39 Q15MIN PRN BG 50-70 responsive npo pt Dextrose 50 ml 06/05/24 14:40 Dextrose 50%-Water Inj 50 Ml Syringe IV 07/05/24 14:39 Q15MIN PRN BG <50 OR BG <70 & pt unresponsive Doxycycline Hyclate 100 mg 06/05/24 21:00 06/07/24 09:20 Doxycycline 100 Mg Tablet PO 06/07/24 21:00 100 mg BID CLAUDY Administration Escitalopram Oxalate 10 mg 06/08/24 09:00 Escitalopram Oxalate 10 Mg Tablet PO 07/08/24 08:59 QDAY CLAUDY Glucagon 1 mg 06/05/24 14:40 Glucagon Inj 1 Mg Vial IM Q15MIN PRN BG <70, and no IV access Hydromorphone HCl 0.5 mg 06/05/24 14:40 06/06/24 15:48 Hydromorphone Inj 2 Mg/Ml Vial IVP 06/10/24 14:39 0.5 mg Q6H PRN Administration PAIN SCALE 7-10 (Severe Ceftriaxone Sodium/Dextrose 50 mls @ 100 mls/hr 06/06/24 23:36 06/07/24 00:15 Rocephin/D5w 1gm Iv Premix IV 06/13/24 23:35 100 mls/hr DAILY@2100 CLAUDY Administration Sodium Chloride 1,000 mls @ 999 mls/hr 06/07/24 11:00 Ns IV 06/07/24 12:00 .Q1H1M ONE Sodium Chloride 500 mls @ 60 mls/hr 06/07/24 12:30 Ns IV 06/08/24 13:29 .Q8H20M CLAUDY Insulin Human Lispro 0 unit 06/05/24 17:00 06/07/24 07:23 Insulin Lispro (Admelog) 1 Unit/0.01 Ml Unit SC 07/05/24 16:59 Not Given ACHS CLAUDY Protocol Metoprolol Tartrate 25 mg 06/07/24 09:00 06/07/24 09:13 Metoprolol Tartrate 25 Mg Tablet PO 07/07/24 08:59 Not Given BID CLAUDY Ondansetron HCl 4 mg 06/05/24 14:35 Ondansetron Inj 2 Mg/Ml Inj 2 Ml IV 07/05/24 14:34 Q6H PRN NAUSEA OR VOMITING Protocol Pantoprazole Sodium 40 mg 06/06/24 09:00 06/07/24 09:19 Pantoprazole Inj 40 Mg Vial IVP 07/06/24 08:59 40 mg QDAY CLAUDY Administration Sennosides 1 tab 06/05/24 14:35 06/07/24 05:32 Senna Tablet PO 07/05/24 14:34 1 tab QDAY PRN Administration constipation Protocol Plan Summary: Ms. Hogan is a 83-year-old female with past medical history of diabetes mellitus atrial fibrillation and hyperlipidemia who presented to [facility] on 06/05/2024 status post ground-level mechanical fall with right hip pain. # Acute Intertrochanteric Fracture Right Hip # Status post ground-level mechanical fall Presented with right hip pain reported tripping and falling secondary to loss of balance, denies hitting head, denies loss of consciousness. CT head and cervical spine negative for any acute changes. Hip/pelvis x-ray shows Acute intertrochanteric fracture right hip. Patient is given 1 L NS bolus in ED. Orthopedics was consulted. Echo shows Normal LV size and function. Estimated EF 55-60% Normal RV size and function. Estimated RVSP 48mmHg Mild mitral and trace tricuspid regurgitation Plan: -Maintenance fluid normal saline 60 cc/h -Tylenol, [place], hydromorphone for pain control -Cardiology consult for cardiac clearance for possible surgical intervention -Orthopedics consulted, appreciate recommendations -NPO after midnight # Atrial fibrillation with RVR Patient has history of A-fib, on amiodarone and Eliquis 2.5 mg at home -Resumed amiodarone 200 mg twice daily -Metoprolol tartrate 25 twice daily. -Will be started on heparin drip -Will hold Eliquis in anticipation of surgery -Telemonitoring #Acute Pyelonrphritis Sepsis Patient is tachycardic elevated WBC count. Hypertension noted. Plan: -Will be given 1 L bolus -Will start on maintenance fluids -Continue IV ceftriaxone and p.o. doxycycline -Monitor closely -Follow blood culture, Gram stain sputum culture # Acute kidney injury, improving # ?Chronic kidney disease # Dehydration Pre-renal likely, patient's BUN 32, creatinine 1.8, GFR 28 on admission Baseline function not known Patient was given 1 L bolus in ED Plan: -Maintenance fluids normal saline 60 cc/h -Renally dose medication -Avoid nephrotoxic agents -Monitor renal panel in a.m. # Diabetes mellitus # Hyperlipidemia Blood glucose 184 on admission. Hgb A1c 6.0 Plan: -Sliding scale insulin -Hypoglycemia protocol in place -Pending med reconciliation # Pneumonia # COPD/Asthma Patient was discharged from [facility] for Pneumonia Patient discharged on Doxycycline PO 100mg BID Was prescribed Levalbuterol per records -Will continue PO Doxycycline -Duonebs PRN -Supplemental oxygen as needed # Hypomagnesemia # Electrolyte imbalance Corrected replace electrolytes as needed DVT prophylaxis: SCDs Heparin GI prophylaxis: IV Protonix Diet: Carbohydrate consistent, cardiac, NPO after midnight Lines: Peripheral IV Code status: Full code Case discussed with Attending Dr. Obad. Muna Garcia PGY1 Attending Provider Attestation/Addendum 83-year-old female with multiple comorbidities including type 2 diabetes mellitus, hypertension, hyperlipidemia and atrial fibrillation who presented with right hip pain status post ground-level fall. In the ER, patient was noted to have acute intertrochanteric fracture of the right hip subsequently orthopedic team was consulted. In addition, patient was noted to have atrial fibrillation with rapid ventricular rate and subsequently started on amiodarone and heparin drip for anticoagulation. In addition, patient also noted to have sepsis with source likely being acute pyelonephritis which was found on CT imaging and plan to continue IV Rocephin. Continue above-mentioned plan and appreciate orthopedic and cardiology team. I reviewed above note and agree with findings and plans. I have also personally examined the patient with medicine team and went over assessment and plan with medical team including network internship and resident physician.
[2024-06-07] MEDS: SODIUM CHLORIDE 0.9% 1000 ML 1,000 ML 999 ML IV (11:23)
[2024-06-07 12:55] LABS: INR 1.2 (0.9-1.3); Partial Thromboplastin Time 28.7 Seconds (22.0-36.0)
--- NOTE | 2024-06-07 13:22 | PC.SS ---
Warehouse Handler (SW) Violeta received a phone call from patient's daughter, Destiny whom reported that she is concerned with patient not having surgery due the infection and heart rate. Destiny reported that she recently pulled patient out of assisted living, and now that patient might be wheelchair bound; therefore, she is concerned with a discharge plan. SW provided attentive listening skills and reported that rounds occur at 2:00 pm, SW can ask the hospitalist team to clarify plan, then we can develop a discharge plan.
[2024-06-07] MEDS: SODIUM CHLORIDE 0.9% 500 ML 500 ML 60 ML IV (13:45)
[2024-06-07] MEDS: Heparin/D5w 25K 250 ML Ivpb 25,000 UNIT/250 ML BAG 6.988 UNIT IV (14:06)
[2024-06-07] MEDS: HEPARIN SOD INJ 5000 UNIT/ML VIAL 3500 UNIT IV (14:06)
[2024-06-07] MEDS: AMIODARONE 150 MG IVPB 150 MG/100 ML BAG 600 MG IV (15:53)
[2024-06-07] MEDS: AMIODARONE 360 MG IVPB 360 MG/200 ML BAG 33.333 MG IV (16:03)
--- NOTE | 2024-06-07 19:35 | XR_ITS ---
Examination: CT chest, without intravenous contrast. CT abdomen, without intravenous contrast. CT pelvis, without intravenous contrast. 2-D sagittal and coronal reconstructions. 3-D reconstructions. Date and time of exam:June 08, 2024 at 0213 hrs. Indications: Right hip fracture June 05, 2024, systemic inflammatory response syndrome CTDI vol (mgy) 7.22 DLP (MGycm)547 Technique: Multiple CT images, 3.0 mm slice thickness, obtained chest, abdomen, pelvis, with the high-resolution 64 slice scanner.. Sagittal and coronal 2-D reconstructions are obtained. 3-D reconstructions Low dose protocols were performed. One or more of the following dose reduction techniques were used; automated exposure control, adjustment of the mA and/or KV according to patient size, use of iterative reconstruction technique. Findings: 3 mm right thyroid nodule Thoracic aortic calcification AP dimension ascending thoracic aorta 3.5 cm Mean pulmonary artery segment 37 mm No paratracheal tracheobronchial or bronchopulmonary adenopathy Prominent calcification left anterior descending coronary artery No paratracheal tracheobronchial or bronchopulmonary adenopathy Moderate vascular congestion Atelectasis versus mild pneumonia left base No visualized liver or splenic lesion Absent gallbladder Mild fluid adjacent to the tail of pancreas and around the spleen Atrophic kidneys with perinephric stranding Heavy abdominal aortic calcification no aneurysmal dilatation Normal appendix No bowel obstruction Abundant stool in the rectum Contracted urinary bladder Severe osteopenia, moderate disc narrowing L4-L5 Acute angulated intertrochanteric fracture right hip IMPRESSION: 3 mm right thyroid nodule Pulmonary artery hypertension Mild pneumonia versus atelectasis left base, clinical correlation advised Mild fluid adjacent to the tail the pancreas and around the spleen, differential would include pancreatitis Atrophic kidneys with perinephric stranding, consider urinary tract infection, no hydronephrosis Normal appendix No bowel obstruction Severe osteopenia Acute intertrochanteric fracture right hip
[2024-06-07] MEDS: ATORVASTATIN CALCIUM 20 MG TABLET 40 MG PO (20:28)
[2024-06-07] MEDS: INSULIN LISPRO (AdmeLOG) 1 UNIT/0.01 ML UNIT SC (20:40)
--- NOTE | 2024-06-07 22:08 | PD.ORTHCONPN ---
Subjective Subjective Brief History: Patient very nice 83-year-old [place] breaking the right hip. No other complaints as far as upper extremities left lower extremity right knee right ankle and foot Narrative: Patient is alert. She is confused. She is watching television and thinks it is her son-in-law in [place] and thinks he should not get out. I told her it is just the TV and she said oh yes daughter says that she gets very confused at night. No new complaints. Exam Vital Signs Temp Pulse Resp BP Pulse Ox O2 Del Method O2 Flow Rate 97.0 F 134 H 24 H 121/80 96 Nasal Cannula 2 06/07/24 19:52 06/07/24 19:52 06/07/24 19:52 06/07/24 19:52 06/07/24 19:52 06/07/24 19:52 06/07/24 19:52 Blood pressure 121/80 Narrative Exam Pain right hip. Remains confused. Objective - Ortho Labs 06/07/24 05:23 06/07/24 05:23 Labs: Laboratory Results - last 24 hr 06/06/24 06/07/24 06/07/24 22:36 05:23 12:05 WBC 41.7 H* D 38.1 H* RBC 3.81 L 3.89 L Hgb 10.5 L 10.6 L Hct 31.1 L 32.3 L MCV 82 83 MCH 27.6 27.2 MCHC 33.8 32.8 RDW Std Deviation 41.0 42.2 Plt Count 196 D 186 Neut % (Auto) 94 H 94 H Lymph % (Auto) 2 L 2 L [place] % (Auto) 3 3 Eos % (Auto) 0 0 Baso % (Auto) 0 0 Neut # (Auto) 39.4 H 35.7 H Lymph # (Auto) 0.9 L 0.9 L [place] # (Auto) 1.1 H 1.0 H Eos # (Auto) 0.0 0.0 Baso # (Auto) 0.0 0.1 Immature Gran # (Auto) 0.35 H 0.41 H Absolute Nucleated RBC 0.00 0.00 Immature Gran % 1 H 1 H Nucleated RBC % 0 0 Smear Path Review Sent to Pathologist PT 13.0 H INR 1.2 APTT 28.7 Sodium 136 Potassium 5.0 D Chloride 106 Carbon Dioxide 22.4 Anion Gap 8 BUN 35 H Creatinine 1.3 Estim Creat Clear Calc 26.4 L eGFR 41 L BUN/Creatinine Ratio 27 H Glucose 83 D Calculated Osmolality 278 Lactic Acid 1.3 Calcium 8.9 Corrected Calcium 9.5 Magnesium 1.7 Total Bilirubin 0.7 AST 27 ALT 17 Alkaline Phosphatase 75 Total Protein 5.5 L Albumin 3.3 L Globulin 2.2 L Albumin/Globulin Ratio 1.5 Procalcitonin 0.25 06/07/24 20:14 WBC RBC Hgb Hct MCV MCH MCHC RDW Std Deviation Plt Count Neut % (Auto) Lymph % (Auto) [place] % (Auto) Eos % (Auto) Baso % (Auto) Neut # (Auto) Lymph # (Auto) [place] # (Auto) Eos # (Auto) Baso # (Auto) Immature Gran # (Auto) Absolute Nucleated RBC Immature Gran % Nucleated RBC % Smear Path Review PT INR APTT 88.0 H D Sodium Potassium Chloride Carbon Dioxide Anion Gap BUN Creatinine Estim Creat Clear Calc eGFR BUN/Creatinine Ratio Glucose Calculated Osmolality Lactic Acid Calcium Corrected Calcium Magnesium Total Bilirubin AST ALT Alkaline Phosphatase Total Protein Albumin Globulin Albumin/Globulin Ratio Procalcitonin White count 41,000 and its down to 39,000 big increase. Assessment & Plan Assessment Additional comments: I talked to Dr. Aidan Parada and he recommended a CT scan chest abdomen pelvis to make sure were not overlooking explanation of marked increase white count. I had chronic episode precipitating transfer to telemetry with marked increased heart rate from A-fib. I put in consult to Dr Ansari and Dr. Lei. Plan Hold off on surgery no surgery for tomorrow Documentation for date of: 06/07/24
[2024-06-07] MEDS: AMIODARONE 360 MG IVPB 360 MG/200 ML BAG 16.667 MG IV (22:47)
[2024-06-08] VITALS (16 sets, daily range): BP systolic 96–131; BP diastolic 51–80; PULSE 109–146; RESP 12–25; TEMP 36.1–36.4; O2SAT 95–100
[2024-06-08] MEDS: HYDROmorphone INJ 2 MG/ML VIAL 0.5 MG IVP (02:31)
[2024-06-08] MEDS: SODIUM CHLORIDE 0.9% 500 ML 500 ML 60 ML IV ×2 (02:33→08:34)
[2024-06-08 03:57] LABS: Basophils % (Auto) 0 % (0-2.5); Eosinophils % (Auto) 0 % (0-10); Immature Granulocytes % (Auto) 1 % (0-0); Immature Granulocytes Auto 0.21 Thou/mm3 (0.00-0.00); Lymphocytes # (Auto) 0.9 Thou/mm3 (1.0-4.8); Lymphocytes % (Auto) 3 % (10-50); Mean Corpuscular HGB Conc 33.8 g/dl (31.0-37.0); Mean Corpuscular Hemoglobin 27.8 pg (25.0-35.0); Mean Corpuscular Volume 82 fL (80-100); Monocytes % (Auto) 3 % (0-12); Neutrophils # (Auto) 27.1 Thou/mm3 (1.8-7.7); Neutrophils % (Auto) 93 % (37-80); Nucleated Red Blood Cell % 0 /100 WBC (0); Platelet Count 152 Thou/mm3 (140-440); RDW Standard Deviation 41.4 fL (36.4-46.3); Red Blood Count 3.16 Miln/mm3 (4.00-5.20); White Blood Count 29.2 Thou/mm3 (3.6-11.0)
[2024-06-08 04:02] LABS: Hemoglobin 8.8 g/dL (12.0-16.0)
[2024-06-08 04:18] LABS: Alanine Aminotransferase 15 U/L (10-49); Alkaline Phosphatase 55 U/L (46-116); Anion Gap 8 (7-16); Aspartate Amino Transferase 15 U/L (0-34); BUN/Creatinine Ratio 30 Ratio (12-20); Bilirubin,Total 0.3 mg/dL (0.3-1.2); Blood Urea Nitrogen 39 mg/dL (9-23); Calcium 8.1 mg/dL (8.3-10.6); Calcium (Corrected) 8.9 mg/dL (8.5-10.1); Carbon Dioxide 22.6 mMol/L (20.0-31.0); Chloride 103 mMol/L (98-107); Creatinine (Component) 1.3 mg/dL (0.6-1.3); Estimated Creatinine Clearance 26.4 mL/min (>60); Globulin 1.5 gm/dL (2.3-3.5); Glucose 97 mg/dL (74-106); Magnesium 1.5 mg/dL (1.6-2.6); Osmolality,Calculated 277 (275-295); Potassium 3.3 mMol/L (3.4-5.1); Sodium 134 mMol/L (136-145); Total Protein 4.5 gm/dL (5.7-8.2); eGFR 41 See Note
[2024-06-08] MEDS: ALBUTEROL/IPRATROPIUM (Duoneb) RT SOL 3 ML NEBU INH ×4 (06:34→19:41)
[2024-06-08 07:03] LABS: Partial Thromboplastin Time 53.4 Seconds (22.0-36.0)
[2024-06-08] MEDS: ESCITALOPRAM OXALATE 10 MG TABLET PO (08:34)
[2024-06-08] MEDS: Magnesium Sulfate 4 GM Ivpb 4 GM/50 ML BAG IV (08:34)
[2024-06-08] MEDS: POTASSIUM CHLORIDE 20 mEq TABCR 40 MEQ PO (08:34)
[2024-06-08] MEDS: PANTOPRAZOLE INJ 40 MG VIAL IVP (08:34)
--- NOTE | 2024-06-08 10:25 | PC.SS ---
RN SUPPORT SERVICES received a call from [facility] senior tableau developer, Tulio Hill, who informs patient Level 2 [facility] will be closed due to no SMI.
[2024-06-08] MEDS: DILTIAZEM INJ 5 MG/ML VIAL 5 ML 20 MG IV ×2 (10:55→17:41)
--- NOTE | 2024-06-08 10:58 | PD.ONCCONS ---
HPI Data of Consult Requesting Physician: Amrit Mishra MD Primary Care Provider: Montez Julian Consult Narrative Reason for consult: Significant leukocytosis and patient admitted with right hip fracture History of present illness: Patient is an 83-year-old lady who tripped while walking in [facility] and right hip x-ray 06/05/2024 revealed acute intertrochanteric fracture right hip. Patient was noted to have high and rapidly rising WBC count from 12.4 1230 24 to 41.7 on 06 06 24 94% neutrophils. Peripheral smear reviewed by pathologist revealed mature neutrophilia and monocytosis consistent with reactive acute process. No blasts or other signs of leukemia. Unremarkable platelets normal, chronic normocytic anemia. CT chest abdomen pelvis revealed a 3 mm right thyroid nodule mild pneumonia mild fluid adjacent to the tail of pancreas atrophic kidneys severe osteopenia and acute intertrochanteric fracture right hip. CMP revealed moderate renal insufficiency EKG A-fib with rapid ventricular rate, being followed by cardiology with amiodarone Eliquis. Patient was noted to have A-fib with rapid rate, currently at telemetry. Patient referred for oncological consultation. cc:: cc: Amrit Mishra MD Past Medical History Family History OTHER FAMILY HX: No family history of heart disease Surgical History OTHER SURGICAL HX: Prior hysterectomy Past Medical History Comments PMH COMMENT: Diabetes mellitus hyperlipidemia atrial fibrillation prior hysterectomy Meds Home Medications and Allergies Home Medications ?Medication ?Instructions ?Recorded ?Confirmed ?Type apixaban 2.5 mg tablet (Eliquis) 2.5 mg PO BID 06/05/24 06/05/24 History amlodipine 5 mg tablet 5 mg PO QDAY 06/06/24 06/06/24 History doxycycline hyclate 100 mg capsule 100 mg PO QDAY 06/06/24 06/06/24 History escitalopram oxalate 10 mg tablet 10 mg PO QDAY 06/06/24 06/06/24 History furosemide 20 mg tablet 20 mg PO QDAY 06/06/24 06/06/24 History glimepiride 1 mg tablet 1 mg PO QDAY 06/06/24 06/06/24 History lisinopril 20 mg tablet 20 mg PO QDAY 06/06/24 06/06/24 History metoprolol tartrate 25 mg tablet 50 mg PO QDAY 06/06/24 06/06/24 History potassium chloride 10 mEq 10 meq PO AC 06/06/24 06/06/24 History tablet,extended release rosuvastatin 10 mg tablet 10 mg PO QDAY 06/06/24 06/06/24 History Allergies Allergy/AdvReac Type Severity Reaction Status Date / Time No Known Allergies Allergy Verified 06/05/24 12:15 Exam Vital Signs Temp Pulse Resp BP Pulse Ox O2 Del Method O2 Flow Rate 97.0 F 146 H 21 H 118/71 98 Nasal Cannula 3 06/08/24 08:00 06/08/24 10:55 06/08/24 10:34 06/08/24 10:55 06/08/24 10:34 06/08/24 08:00 06/08/24 10:34 Narrative Exam Lying comfortably in no acute distress Results Labs 06/08/24 03:35 06/08/24 03:35 Labs: Short CBC 06/08/24 Range/Units 03:35 WBC 29.2 H D (3.6-11.0) Thou/mm3 Hgb 8.8 L (12.0-16.0) g/dL Hct 26.0 L (36.0-46.0) % Plt Count 152 D (140-440) Thou/mm3 BMP 06/08/24 03:35 Sodium 134 L Potassium 3.3 L D Chloride 103 Carbon Dioxide 22.6 BUN 39 H Creatinine 1.3 Glucose 97 Calcium 8.1 L Liver Function 06/08/24 Range/Units 03:35 Total Bilirubin 0.3 (0.3-1.2) mg/dL AST 15 (0-34) U/L ALT 15 (10-49) U/L Alkaline Phosphatase 55 D (46-116) U/L Albumin 3.0 L (3.4-4.8) gm/dL Assessment and Plan Additional Assessment & Plan Additional Plan: 1. Acute intertrochanteric fracture right hip following fall. Awaiting surgery with Dr Romero. Being followed by cardiology for A-fib with rapid rate. 2. Marked leukocytosis with neutrophilia as high as 41.7 06 06 24 which dropped to 29.2 today. 3. Reviewed CBC peripheral smear with Dr. Ordonez of [place] who sees no blasts or other signs of acute leukemia. Other labs and CT CAP also shows no sign of primary malignancy site. 4. There appears to be no evidence of either hematologic or solid tumor malignancy at this time. Will follow patient during her hospital stay. Thank you for allowing me to evaluate this patient.
[2024-06-08] MEDS: AMIODARONE 360 MG IVPB 360 MG/200 ML BAG 16.667 MG IV (11:10)
[2024-06-08 11:12] LABS: Lipase 42 U/L (12-53)
[2024-06-08] MEDS: DILTIAZEM 30 MG TABLET PO ×3 (11:53→20:25)
--- NOTE | 2024-06-08 12:21 | PD.RESPRO ---
Documentation for date of: 06/08/24 Subjective Subjective Interval history: Patient seen and examined at bedside. Has no current complaints. Patient was started on amiodarone drip yesterday due to atrial fibrillation RVR, heart rate 150. Patient's heart rate continues to remain high, cardiology consulted recommended IV diltiazem 20 mg IV every 4 hours as needed heart rate more than 130. Also started on Cardizem 30 mg p.o. 4 times daily, surgical intervention on hold for now Due to underlying suspicion of sepsis, CT chest abdomen pelvis was ordered shows 3 mm right thyroid nodule, pulmonary artery hypertension, mild pneumonia versus atelectasis left base, mild fluid adjacent to tail of pancreas and around spleen suspicion of pancreatitis, atrophic kidney with perinephric stranding, severe osteopenia and acute intertrochanteric fracture right hip. Patient's daughter was updated, patient is confused at times, suspicion of underlying etiology of sepsis worsening patient's mentation. Will continue to monitor patient. Exam Vital Signs Temp Pulse Resp BP Pulse Ox O2 Del Method O2 Flow Rate 97.1 F 120 H 15 101/66 100 Nasal Cannula 4 06/08/24 12:00 06/08/24 12:00 06/08/24 12:00 06/08/24 12:00 06/08/24 12:00 06/08/24 12:06/08/24 12:00 Narrative Exam Physical Exam General: Awake and in no acute distress. Conversational and non-toxic appearing. HEENT: Normocephalic, atraumatic, mucous membranes dry. Heart: Irregular rate and A Fib noted, no murmurs. Lungs: Clear to auscultation with no wheezing or crackles. Abdomen: Soft, nondistended, nontender, positive bowel sounds. ?No guarding or rebound tenderness. Neurologic: Alert and oriented x3, confused at times, no gross neurological deficit, and patient able to move all 4 extremities. Extremities: Right leg externally rotated, right leg shorter than left. Skin: No rash or ecchymoses. Objective Labs 06/13/24 04:55 06/13/24 04:55 Labs: Laboratory Results - last 24 hr 06/07/24 06/07/24 06/08/24 12:05 20:14 03:35 WBC 29.2 H D RBC 3.16 L Hgb 8.8 L Hct 26.0 L MCV 82 MCH 27.8 MCHC 33.8 RDW Std Deviation 41.4 Plt Count 152 D Neut % (Auto) 93 H Lymph % (Auto) 3 L [place] % (Auto) 3 Eos % (Auto) 0 Baso % (Auto) 0 Neut # (Auto) 27.1 H Lymph # (Auto) 0.9 L [place] # (Auto) 1.0 H Eos # (Auto) 0.0 Baso # (Auto) 0.0 Immature Gran # (Auto) 0.21 H Absolute Nucleated RBC 0.00 Immature Gran % 1 H Nucleated RBC % 0 PT 13.0 H INR 1.2 APTT 28.7 88.0 H D 53.4 H D Sodium 134 L Potassium 3.3 L D Chloride 103 Carbon Dioxide 22.6 Anion Gap 8 BUN 39 H Creatinine 1.3 Estim Creat Clear Calc 26.4 L eGFR 41 L BUN/Creatinine Ratio 30 H Glucose 97 Calculated Osmolality 277 Calcium 8.1 L Corrected Calcium 8.9 Magnesium 1.5 L Total Bilirubin 0.3 AST 15 ALT 15 Alkaline Phosphatase 55 D Total Protein 4.5 L Albumin 3.0 L Globulin 1.5 L Albumin/Globulin Ratio 2.0 Lipase 42 Quality Measures Quality Measures VTE prophylaxis Advance care planning discussed with:: patient and spouse Assessment & Plan Assessment Current Active Medications: Generic Name Dose Route Start Last Admin Trade Name Freq PRN Reason Stop Dose Admin Acetaminophen 650 mg 06/05/24 14:35 Acetaminophen 325 Mg Tablet PO 07/05/24 14:34 Q6H PRN Pain (1-3) and Fever >101.5 Hydrocodone Bitart/Acetaminophen 1 tab 06/05/24 14:35 06/07/24 23:55 Hydrocodone/Apap 10/325 Tab PO 06/10/24 14:34 1 tab Q4H PRN Administration PAIN SCALE 4-6 (Moderate Albuterol/Ipratropium 3 ml 06/07/24 11:00 06/08/24 10:33 Albuterol/Ipratropium (Duoneb) Rt Charline 3 Ml Nebu INH 07/07/24 10:59 3 ml Q4HRRT CLAUDY Administration Atorvastatin Calcium 40 mg 06/07/24 21:00 06/07/24 20:28 Atorvastatin Calcium 20 Mg Tablet PO 07/07/24 20:59 40 mg HS CLAUDY Administration Dextrose 25 ml 06/05/24 14:40 Dextrose 50%-Water Inj 50 Ml Syringe IV 07/05/24 14:39 Q15MIN PRN BG 50-70 responsive npo pt Dextrose 50 ml 06/05/24 14:40 Dextrose 50%-Water Inj 50 Ml Syringe IV 07/05/24 14:39 Q15MIN PRN BG <50 OR BG <70 & pt unresponsive Diltiazem HCl 20 mg 06/08/24 10:18 06/08/24 10:55 Diltiazem Inj 5 Mg/Ml Vial 5 Ml IV 07/08/24 10:17 20 mg Q4H PRN Administration HR>130 Diltiazem HCl 30 mg 06/08/24 12:00 06/08/24 11:53 Diltiazem 30 Mg Tablet PO 07/08/24 11:59 30 mg QID CLAUDY Administration Escitalopram Oxalate 10 mg 06/08/24 09:00 06/08/24 08:34 Escitalopram Oxalate 10 Mg Tablet PO 07/08/24 08:59 10 mg QDAY CLAUDY Administration Glucagon 1 mg 06/05/24 14:40 Glucagon Inj 1 Mg Vial IM Q15MIN PRN BG <70, and no IV access Hydromorphone HCl 0.5 mg 06/05/24 14:40 06/08/24 02:31 Hydromorphone Inj 2 Mg/Ml Vial IVP 06/10/24 14:39 0.5 mg Q6H PRN Administration PAIN SCALE 7-10 (Severe Ceftriaxone Sodium/Dextrose 50 mls @ 100 mls/hr 06/06/24 23:36 06/07/24 21:43 Rocephin/D5w 1gm Iv Premix IV 06/13/24 23:35 Infused DAILY@2100 CLAUDY Infusion Sodium Chloride 500 mls @ 60 mls/hr 06/07/24 12:30 06/08/24 08:34 Ns IV 06/08/24 13:29 60 mls/hr .Q8H20M CLAUDY Administration Heparin Sodium/Dextrose 25,000 unit in 250 mls @ 6.988 mls/hr 06/07/24 13:45 06/08/24 07:26 Heparin In D5w Ivpb IV 06/21/24 13:44 10 units/kg/hr .Q24H CLAUDY 5.823 mls/hr Titration Protocol 12 UNITS/KG/HR Amiodarone HCl/Dextrose 360 mg in 200 mls @ 16.667 mls/hr 06/07/24 21:46 06/08/24 11:10 Nexterone Ivpb IV 06/08/24 21:45 16.667 mls/hr .Q12H CLAUDY Administration Insulin Human Lispro 0 unit 06/05/24 17:00 06/08/24 11:06 Insulin Lispro (Admelog) 1 Unit/0.01 Ml Unit SC 07/05/24 16:59 Not Given ACHS CLAUDY Protocol Ondansetron HCl 4 mg 06/05/24 14:35 Ondansetron Inj 2 Mg/Ml Inj 2 Ml IV 07/05/24 14:34 Q6H PRN NAUSEA OR VOMITING Protocol Pantoprazole Sodium 40 mg 06/06/24 09:00 06/08/24 08:34 Pantoprazole Inj 40 Mg Vial IVP 07/06/24 08:59 40 mg QDAY CLAUDY Administration Sennosides 1 tab 06/05/24 14:35 06/07/24 05:32 Senna Tablet PO 07/05/24 14:34 1 tab QDAY PRN Administration constipation Protocol Plan Summary: Ms. Hogan is a 83-year-old female with past medical history of diabetes mellitus atrial fibrillation and hyperlipidemia who presented to [facility] on 06/05/2024 status post ground-level mechanical fall with right hip pain. # Atrial fibrillation with RVR Patient has history of A-fib, on amiodarone and Eliquis 2.5 mg at home Patient continues to be in atrial fibrillation on home regimen, was started on amiodarone drip on 06/07, continues to have rapid ventricular response. Echo shows Normal LV size and function. Estimated EF 55-60% Normal RV size and function. Estimated RVSP 48mmHg Mild mitral and trace tricuspid regurgitation -Amiodarone drip -Cardizem 30 mg p.o. 4 times daily -Diltiazem 20 mg IV every 4 hours as needed heart rate more than 130 -Will continue heparin drip -Will hold Eliquis in anticipation of surgery -Telemonitoring -Cardiology consulted, appreciate recommendations #Sepsis secondary to pyelonephritis Sepsis SIRS 2/4 secondary to pyelonephritis, endorgan damage evidence noted by on and off altered mental status Atrial fibrillation triggered secondary to sepsis Patient is tachycardic elevated WBC count. Hypotension was noted. CT chest abdomen pelvis was ordered shows 3 mm right thyroid nodule, pulmonary artery hypertension, mild pneumonia versus atelectasis left base, mild fluid adjacent to tail of pancreas and around spleen suspicion of pancreatitis, atrophic kidney with perinephric stranding, severe osteopenia and acute intertrochanteric fracture right hip. Patient was given adequate fluid resuscitation, blood pressure has improved, was given 2 L IV fluid 06/07 Plan: -Continue IV ceftriaxone (06/06- -Monitor closely -Follow blood culture, Gram stain sputum culture -Monitor vitals closely # Acute Intertrochanteric Fracture Right Hip # Status post ground-level mechanical fall Presented with right hip pain reported tripping and falling secondary to loss of balance, denies hitting head, denies loss of consciousness. CT head and cervical spine negative for any acute changes. Hip/pelvis x-ray shows Acute intertrochanteric fracture right hip. Patient is given 1 L NS bolus in ED. Orthopedics was consulted. Plan: -Surgery on hold, due to patient's atrial fibrillation -Tylenol, [place], hydromorphone for pain control -Cardiology consult for cardiac clearance for possible surgical intervention -Orthopedics consulted, appreciate recommendations # Acute kidney injury, improving # Chronic kidney disease stage IIIb # Dehydration, prerenal Pre-renal likely, patient's BUN 32, creatinine 1.8, GFR 28 on admission Baseline function not known, possible baseline GFR 41 Plan: -Renally dose medication -Avoid nephrotoxic agents -Monitor renal panel in a.m. # Diabetes mellitus # Hyperlipidemia Blood glucose 184 on admission. Hgb A1c 6.0 Plan: -Sliding scale insulin -Hypoglycemia protocol in place # Pneumonia # COPD/Asthma Patient was discharged from [facility] for Pneumonia Patient discharged on Doxycycline PO 100mg BID Was prescribed Levalbuterol per records -Completed p.o. doxycycline course on 06/07 -Diane PRN -Supplemental oxygen as needed # Hypomagnesemia # Hypokalemia # Electrolyte imbalance Corrected replace electrolytes as needed # 3 mm right thyroid nodule, incidental finding # Rule out pancreatitis -Consider outpatient workup for thyroid nodule -Suspicion of pancreatitis, per imaging, Lipase 42, patient denies abdominal pain, pancreatitis ruled out DVT prophylaxis: SCDs Heparin GI prophylaxis: IV Protonix Diet: Carbohydrate consistent, cardiac Lines: Peripheral IV Code status: DNR Case discussed with Attending Dr. Obad. Muna Garcia PGY1 Attending Provider Attestation/Addendum 83-year-old female with multiple comorbidities including type 2 diabetes mellitus, hypertension, hyperlipidemia and atrial fibrillation who presented with right hip pain status post ground-level fall. In the ER, patient was noted to have acute intertrochanteric fracture of the right hip subsequently orthopedic team was consulted. In addition, patient was noted to have atrial fibrillation with rapid ventricular rate and subsequently started on amiodarone and heparin drip for anticoagulation. In addition, patient also noted to have sepsis with source likely being acute pyelonephritis which was found on CT imaging and plan to continue IV Rocephin. Continue above-mentioned plan and appreciate orthopedic and cardiology team. Over I reviewed above note and agree with findings and plans. I have also personally examined the patient with medicine team and went over assessment and plan with medical team including international freight forwarder and resident physician.
[2024-06-08 13:11] LABS: Partial Thromboplastin Time 69.3 Seconds (22.0-36.0)
[2024-06-08] MEDS: Heparin/D5w 25K 250 ML Ivpb 25,000 UNIT/250 ML BAG 5.823 UNIT IV (14:00)
--- NOTE | 2024-06-08 14:23 | PC.SS ---
Rounding Note: Plan is for the patient to undergo surgery tomorrow with Dr. Romero.
[2024-06-08 19:10] LABS: Partial Thromboplastin Time 62.6 Seconds (22.0-36.0)
[2024-06-08] MEDS: cefTRIAXone/D5w 1gm IV premix 50 ML IV (20:24)
[2024-06-08] MEDS: ATORVASTATIN CALCIUM 20 MG TABLET 40 MG PO (20:25)
--- NOTE | 2024-06-08 21:50 | CONPN_ITS ---
Subjective Subjective Brief History: Patient very nice 83-year-old who [place] and [place]pped breaking the right hip. No other complaints as far as upper extremities left lower extremity right knee right ankle and foot Narrative: Patient is much more alert tonight. She knows where she is. She realized that she fell at the [employer] and says she does not want us go to any casinos anymore. She knows the president and knows the name of the hospital. She knows she is in [place] Exam Vital Signs Temp Pulse Resp BP Pulse Ox O2 Del Method O2 Flow Rate 97.3 F 127 H 12 110/80 100 Nasal Cannula 2 06/08/24 20:00 06/08/24 20:25 06/08/24 20:00 06/08/24 20:25 06/08/24 20:00 06/08/24 20:00 06/08/24 20:00 Heart rate 127 Narrative Exam Tonight she is alert and oriented. She has not known where she was what really happened what city she was in the circumstances of her fall and now remembers. Able to move both upper extremities including shoulders elbows wrist hands and fingers Right lower extremity shortened and externally rotated trace to 1+ effusion of her right knee no pain to palpation over the medial lateral collateral ligaments of the right knee Active flexion extension of right foot Objective - Ortho Labs 06/08/24 03:35 06/08/24 03:35 Labs: Laboratory Results - last 24 hr 06/08/24 06/08/24 06/08/24 03:35 11:49 17:40 WBC 29.2 H D RBC 3.16 L Hgb 8.8 L Hct 26.0 L MCV 82 MCH 27.8 MCHC 33.8 RDW Std Deviation 41.4 Plt Count 152 D Neut % (Auto) 93 H Lymph % (Auto) 3 L [place] % (Auto) 3 Eos % (Auto) 0 Baso % (Auto) 0 Neut # (Auto) 27.1 H Lymph # (Auto) 0.9 L [place] # (Auto) 1.0 H Eos # (Auto) 0.0 Baso # (Auto) 0.0 Immature Gran # (Auto) 0.21 H Absolute Nucleated RBC 0.00 Immature Gran % 1 H Nucleated RBC % 0 APTT 53.4 H D 69.3 H D 62.6 H Sodium 134 L Potassium 3.3 L D Chloride 103 Carbon Dioxide 22.6 Anion Gap 8 BUN 39 H Creatinine 1.3 Estim Creat Clear Calc 26.4 L eGFR 41 L BUN/Creatinine Ratio 30 H Glucose 97 Calculated Osmolality 277 Calcium 8.1 L Corrected Calcium 8.9 Magnesium 1.5 L Total Bilirubin 0.3 AST 15 ALT 15 Alkaline Phosphatase 55 D Total Protein 4.5 L Albumin 3.0 L Globulin 1.5 L Albumin/Globulin Ratio 2.0 Lipase 42 White count 29,000 magnesium and is low as well as potassium and she has been given both as a supplement today Assessment & Plan Assessment Additional comments: Thank you so much for everybody that seen her. Dr. Jimbo Lei's RN reviewed the peripheral smear with pathology and no acute malignant process noted in the blood. Plan Still has heart rates that have gone up into the 140s. Not ready for surgery tomorrow. I told her we will plan on it for Wednesday if everything continues to improve Documentation for date of: 06/08/24
--- NOTE | 2024-06-08 22:44 | ESPR_ITS ---
RE: RADHA CANTU : 1940 DATE OF SERVICE: 06/08/2024 The patient is an 83-year-old lady admitted to the hospital, fracture of the hip. Known history of AFib. Went back to AFib with RVR yesterday. Also, signs of infection. White count markedly elevated to 41,000 and 29,000. Started on antibiotic. Cultures were taken. CT of the abdomen and pelvis was performed. There was some perinephric fluid, possible pyelonephritis or urinary infection. There is some fluid in the pancreas, but no other acute findings were seen. The patient was receiving antibiotics. Appears to be clinically responding. She is feeling better. Mental status improved slightly. AFib rate is still faster at 120 beats per minute. She is on amiodarone IV so far, also received diltiazem dose with rate control. PHYSICAL EXAMINATION: General: Pleasantly lady. Alert, awake, in no acute distress. Vital Signs: Blood pressure 110/80, pulse rate is 110. HEENT: Normocephalic. Eyes normal. ENT normal. Neck: Supple. No JVD. Carotid pulses felt, but no bruits. Chest: Symmetrical. Lungs: Decreased breath sounds in bases. Heart: S1 and S2 irregular. Atrial fibrillation. Abdomen: Thin and soft. Extremities: Mild edema. Genitourinary and Rectal: Not performed. ASSESSMENT: 1. Atrial fibrillation with rapid ventricular response. 2. Severe leukocytosis with underlying infection, possible source still unclear with fracture of the hip, awaiting surgery for her to be stable. RECOMMENDATIONS: 1. Continue antibiotic therapy. 2. Continue IV amiodarone and diltiazem for rate control. When the rate is controlled well, infection is controlled, white count at least down to below 20,000, she may be able to have surgery, but may have to wait another 1-2 days before proceeding with surgery. DT: 21:40:09 TT: 22:43:00 Ref: [id number] - TID: [id number]
[2024-06-09] VITALS (38 sets, daily range): BP systolic 80–119; BP diastolic 56–96; PULSE 95–196; RESP 11–22; TEMP 36.2–36.7; O2SAT 90–100; BMI 23.6
[2024-06-09 05:17] LABS: Basophils % (Auto) 0 % (0-2.5); Eosinophils # (Auto) 0.1 Thou/mm3 (0.0-0.5); Eosinophils % (Auto) 1 % (0-10); Hematocrit 27.3 % (36.0-46.0); Hemoglobin 9.2 g/dL (12.0-16.0); Immature Granulocytes % (Auto) 1 % (0-0); Immature Granulocytes Auto 0.15 Thou/mm3 (0.00-0.00); Lymphocytes # (Auto) 0.7 Thou/mm3 (1.0-4.8); Lymphocytes % (Auto) 4 % (10-50); Mean Corpuscular HGB Conc 33.7 g/dl (31.0-37.0); Mean Corpuscular Hemoglobin 27.5 pg (25.0-35.0); Mean Corpuscular Volume 82 fL (80-100); Monocytes # (Auto) 0.8 Thou/mm3 (0.0-0.8); Monocytes % (Auto) 4 % (0-12); Neutrophils # (Auto) 17.6 Thou/mm3 (1.8-7.7); Neutrophils % (Auto) 91 % (37-80); Nucleated Red Blood Cell % 0 /100 WBC (0); Platelet Count 143 Thou/mm3 (140-440); RDW Standard Deviation 42.2 fL (36.4-46.3); Red Blood Count 3.35 Miln/mm3 (4.00-5.20); White Blood Count 19.3 Thou/mm3 (3.6-11.0)
[2024-06-09] MEDS: DILTIAZEM 30 MG TABLET PO (05:39)
[2024-06-09 05:46] LABS: INR 1.1 (0.9-1.3); Partial Thromboplastin Time 56.7 Seconds (22.0-36.0); Prothrombin Time 12.4 Seconds (9.0-12.2)
[2024-06-09 06:14] LABS: Alanine Aminotransferase 15 U/L (10-49); Albumin, Serum 2.9 gm/dL (3.4-4.8); Albumin/Globulin Ratio 1.5 (1.2-2.2); Alkaline Phosphatase 70 U/L (46-116); Anion Gap 8 (7-16); Aspartate Amino Transferase 11 U/L (0-34); BUN/Creatinine Ratio 29 Ratio (12-20); Bilirubin,Total 0.3 mg/dL (0.3-1.2); Blood Urea Nitrogen 41 mg/dL (9-23); Calcium 8.4 mg/dL (8.3-10.6); Calcium (Corrected) 9.3 mg/dL (8.5-10.1); Carbon Dioxide 22.6 mMol/L (20.0-31.0); Chloride 103 mMol/L (98-107); Creatinine (Component) 1.4 mg/dL (0.6-1.3); Estimated Creatinine Clearance 24.5 mL/min (>60); Globulin 1.9 gm/dL (2.3-3.5); Glucose 78 mg/dL (74-106); Osmolality,Calculated 277 (275-295); Potassium 3.9 mMol/L (3.4-5.1); Sodium 134 mMol/L (136-145); Total Protein 4.8 gm/dL (5.7-8.2); eGFR 38 See Note
[2024-06-09] MEDS: ALBUTEROL/IPRATROPIUM (Duoneb) RT SOL 3 ML NEBU INH ×3 (06:16→23:46)
[2024-06-09] MEDS: DILTIAZEM INJ 5 MG/ML VIAL 5 ML 20 MG IV ×3 (06:40→16:40)
--- NOTE | 2024-06-09 08:44 | PC.SS ---
Update: Plan is for the patient to undergo surgery tomorrow.
[2024-06-09] MEDS: ESCITALOPRAM OXALATE 10 MG TABLET PO (08:56)
[2024-06-09] MEDS: PANTOPRAZOLE INJ 40 MG VIAL IVP (08:56)
--- NOTE | 2024-06-09 10:04 | ESPR_ITS ---
RE: RADHA CANTU : 1940 DATE OF SERVICE: 06/07/2024 SUBJECTIVE: The patient is an 83-year-old admitted to the hospital with fracture of the hip, now has severe leukocytosis. White count is jumped up to _ 38,000, still quite high. Chest x-ray did not show any significant pneumonia or any issues, but she was recently apparently treated for pneumonia. The x-ray looks quite normal_ except left side slightly hazy. Not having any cough or shortness of breath. She says she wants to go home. She is not happy about her situation. OBJECTIVE: General: On examination, she looks acutely chronically ill, in no acute distress. Vital Signs: Her blood pressure is 90/60, pulse rate is 128. Heart: She developed atrial fibrillation, rapid rate. She is in AFib RVR, soft blood pressures. She is known to have atrial fibrillation in the past. She has been on Eliquis at home. She was started on IV amiodarone drip, slowed down slightly, but still going fast. Neck: Supple. No JVD. Lungs: Decreased breath sounds at the bases. Heart: Heart sounds irregular atrial fibrillation. Abdomen: Abdomen is thin and soft. Extremities: Mild edema. /Rectal: Not performed. Neurologic: Unremarkable. ASSESSMENT: 1. Fracture of the hip. 2. Paroxysmal atrial fibrillation, now in AFib RVR. 3. Severe leukocytosis, possible underlying infection, etiology uncertain. Chest x-ray negative. RECOMMENDATIONS: Recommend continuing antibiotic therapy. She is already started empirically on ceftriaxone, will be continued. Cultures are pending. Continue amiodarone IV drip and heparin for now. Watch for bleeding. The patient also should be investigated for any intraabdominal pathology such as sepsis. Apparently, did have possibly cholecystectomy in the past, but there could be other bowel issues or other sepsis and intraabdominal pathology hence the CT of the abdomen and chest _ recommended. Continue antibiotic therapy. Continue amiodarone for rate control. The patient's surgery should be postponed until she is stable. DT: 23:08:02 TT: 00:05:00 Ref: [id number] - TID: [id number] [facility]
[2024-06-09] MEDS: AMIODARONE HCL 200 MG TABLET PO ×2 (10:06→21:11)
--- NOTE | 2024-06-09 11:00 | PD.IDPROG ---
Subjective Subjective Interval history: unabel to see as pt out of room Exam Vital Signs Temp Pulse Resp BP Pulse Ox O2 Del Method O2 Flow Rate 98.0 F 128 H 20 101/65 95 Room Air 1 06/09/24 08:00 06/09/24 10:20 06/09/24 10:20 06/09/24 10:06 06/09/24 10:20 06/09/24 08:00 06/09/24 04:00 Narrative Exam out of room in endo per staff Objective - Internal Medicine Labs 06/09/24 04:29 06/09/24 04:29 Labs: Laboratory Results - last 24 hr 06/08/24 06/08/24 06/08/24 03:35 11:49 17:40 WBC RBC Hgb Hct MCV MCH MCHC RDW Std Deviation Plt Count Neut % (Auto) Lymph % (Auto) [place] % (Auto) Eos % (Auto) Baso % (Auto) Neut # (Auto) Lymph # (Auto) [place] # (Auto) Eos # (Auto) Baso # (Auto) Immature Gran # (Auto) Absolute Nucleated RBC Immature Gran % Nucleated RBC % PT INR APTT 69.3 H D 62.6 H Sodium Potassium Chloride Carbon Dioxide Anion Gap BUN Creatinine Estim Creat Clear Calc eGFR BUN/Creatinine Ratio Glucose Calculated Osmolality Calcium Corrected Calcium Total Bilirubin AST ALT Alkaline Phosphatase Total Protein Albumin Globulin Albumin/Globulin Ratio Lipase 42 06/09/24 04:29 WBC 19.3 H D RBC 3.35 L Hgb 9.2 L Hct 27.3 L MCV 82 MCH 27.5 MCHC 33.7 RDW Std Deviation 42.2 Plt Count 143 Neut % (Auto) 91 H Lymph % (Auto) 4 L [place] % (Auto) 4 Eos % (Auto) 1 Baso % (Auto) 0 Neut # (Auto) 17.6 H Lymph # (Auto) 0.7 L [place] # (Auto) 0.8 Eos # (Auto) 0.1 Baso # (Auto) 0.0 Immature Gran # (Auto) 0.15 H Absolute Nucleated RBC 0.00 Immature Gran % 1 H Nucleated RBC % 0 PT 12.4 H INR 1.1 APTT 56.7 H Sodium 134 L Potassium 3.9 D Chloride 103 Carbon Dioxide 22.6 Anion Gap 8 BUN 41 H Creatinine 1.4 H Estim Creat Clear Calc 24.5 L eGFR 38 L BUN/Creatinine Ratio 29 H Glucose 78 Calculated Osmolality 277 Calcium 8.4 Corrected Calcium 9.3 Total Bilirubin 0.3 AST 11 ALT 15 Alkaline Phosphatase 70 D Total Protein 4.8 L Albumin 2.9 L Globulin 1.9 L Albumin/Globulin Ratio 1.5 Lipase Assessment & Plan A&P Narrative presumptive pneumonia hip fx. PMH as noted if cx allow, ok to use po cefuroxime as ua benign can not see till wednesday due to pt being in endo Time Spent With Patient Time: Total time spent is greater than 50% in coordination of care (as documented) at patient's floor/unit and/or counseling patient:
[2024-06-09] MEDS: fentaNYL CIT INJ 50 mCg/ML AMP 2ML IVP (12:15)
[2024-06-09] MEDS: MIDAZOLAM INJ 1 MG/ML VIAL 2 ML 1.5 MG IV (12:15)
[2024-06-09] MEDS: DILTIAZEM INJ 125 MG in DEXTROSE 5%-WATER 100 ML 10 MG IV (13:33)
--- NOTE | 2024-06-09 13:37 | PD.RESPRO ---
Documentation for date of: 06/09/24 Subjective Subjective Interval history: 06/09: no acute overnight events. Pt is seen and examined at [facility]. Pt is saturating on room air, denies any chest pain or hip pain. Pt express she wishes to go home but understand that she may need to stay until after surgery. Pt was planned to undergo surgery today but since new onset of a-fib with RVR and leukocytosis the surgery is rescheduled until the patient is stable. Pt. remains tachycardic with HR of 120's, Pt. is switched from amiodrip to PO and diltiazem is added for rate control and heparin drip is started for anticoagulation. Per cardiology plans to cardiovert the patient at 2pm. leukocytosis is downtrending. Pt. has no other complaints. Exam Vital Signs Temp Pulse Resp BP Pulse Ox O2 Del Method O2 Flow Rate 98.0 F 132 H 14 101/65 99 Nasal Cannula 3 06/09/24 08:00 06/09/24 13:33 06/09/24 13:30 06/09/24 13:33 06/09/24 13:30 06/09/24 13:30 06/09/24 13:30 Narrative Exam GENERAL: A&Ox3, Awake, Not in acute distress NEURO: no focal neurological deficits HEENT: Atraumatic, Normocephalic. mucous membranes moist. Eyes open, symmetrical, & clear HEART: Normal Heart Sounds LUNGS: Clear to auscultation with no wheezing or crackles. ABDOMEN: soft, non-distended, non-tender, bowel sounds heard, no guarding or rebound tenderness SKIN: No Rash or ecchymoses EXTREMITIES: right leg externally roated, No edema,pedal pulses palpated Objective Labs 06/13/24 04:55 06/13/24 04:55 Labs: Laboratory Results - last 24 hr 06/08/24 06/09/24 17:40 04:29 WBC 19.3 H D RBC 3.35 L Hgb 9.2 L Hct 27.3 L MCV 82 MCH 27.5 MCHC 33.7 RDW Std Deviation 42.2 Plt Count 143 Neut % (Auto) 91 H Lymph % (Auto) 4 L [place] % (Auto) 4 Eos % (Auto) 1 Baso % (Auto) 0 Neut # (Auto) 17.6 H Lymph # (Auto) 0.7 L [place] # (Auto) 0.8 Eos # (Auto) 0.1 Baso # (Auto) 0.0 Immature Gran # (Auto) 0.15 H Absolute Nucleated RBC 0.00 Immature Gran % 1 H Nucleated RBC % 0 PT 12.4 H INR 1.1 APTT 62.6 H 56.7 H Sodium 134 L Potassium 3.9 D Chloride 103 Carbon Dioxide 22.6 Anion Gap 8 BUN 41 H Creatinine 1.4 H Estim Creat Clear Calc 24.5 L eGFR 38 L BUN/Creatinine Ratio 29 H Glucose 78 Calculated Osmolality 277 Calcium 8.4 Corrected Calcium 9.3 Total Bilirubin 0.3 AST 11 ALT 15 Alkaline Phosphatase 70 D Total Protein 4.8 L Albumin 2.9 L Globulin 1.9 L Albumin/Globulin Ratio 1.5 Quality Measures Quality Measures VTE prophylaxis Advance care planning discussed with:: patient and child Assessment & Plan Assessment Current Active Medications: Generic Name Dose Route Start Last Admin Trade Name Freq PRN Reason Stop Dose Admin Acetaminophen 650 mg 06/05/24 14:35 Acetaminophen 325 Mg Tablet PO 07/05/24 14:34 Q6H PRN Pain (1-3) and Fever >101.5 Hydrocodone Bitart/Acetaminophen 1 tab 06/05/24 14:35 06/07/24 23:55 Hydrocodone/Apap 10/325 Tab PO 06/10/24 14:34 1 tab Q4H PRN Administration PAIN SCALE 4-6 (Moderate Albuterol/Ipratropium 3 ml 06/07/24 11:00 06/09/24 10:16 Albuterol/Ipratropium (Duoneb) Rt Charline 3 Ml Nebu INH 07/07/24 10:59 3 ml Q4HRRT CLAUDY Administration Amiodarone HCl 200 mg 06/09/24 10:00 06/09/24 10:06 Amiodarone Hcl 200 Mg Tablet PO 07/09/24 09:59 200 mg BID CLAUDY Administration Atorvastatin Calcium 40 mg 06/07/24 21:00 06/08/24 20:25 Atorvastatin Calcium 20 Mg Tablet PO 07/07/24 20:59 40 mg HS CLAUDY Administration Dextrose 25 ml 06/05/24 14:40 Dextrose 50%-Water Inj 50 Ml Syringe IV 07/05/24 14:39 Q15MIN PRN BG 50-70 responsive npo pt Dextrose 50 ml 06/05/24 14:40 Dextrose 50%-Water Inj 50 Ml Syringe IV 07/05/24 14:39 Q15MIN PRN BG <50 OR BG <70 & pt unresponsive Diltiazem HCl 20 mg 06/08/24 10:18 06/09/24 06:40 Diltiazem Inj 5 Mg/Ml Vial 5 Ml IV 07/08/24 10:17 20 mg Q4H PRN Administration HR>130 Escitalopram Oxalate 10 mg 06/08/24 09:00 06/09/24 08:56 Escitalopram Oxalate 10 Mg Tablet PO 07/08/24 08:59 10 mg QDAY CLAUDY Administration Glucagon 1 mg 06/05/24 14:40 Glucagon Inj 1 Mg Vial IM Q15MIN PRN BG <70, and no IV access Hydromorphone HCl 0.5 mg 06/05/24 14:40 06/08/24 02:31 Hydromorphone Inj 2 Mg/Ml Vial IVP 06/10/24 14:39 0.5 mg Q6H PRN Administration PAIN SCALE 7-10 (Severe Ceftriaxone Sodium/Dextrose 50 mls @ 100 mls/hr 06/06/24 23:36 06/08/24 22:03 Rocephin/D5w 1gm Iv Premix IV 06/13/24 23:35 Infused DAILY@2100 CLAUDY Infusion Heparin Sodium/Dextrose 25,000 unit in 250 mls @ 6.988 mls/hr 06/07/24 13:45 06/09/24 05:51 Heparin In D5w Ivpb IV 06/21/24 13:44 10 units/kg/hr .Q24H CLAUDY 5.823 mls/hr Titration Protocol 12 UNITS/KG/HR Diltiazem HCl 125 mg/ Dextrose 125 mls @ 10 mls/hr 06/09/24 13:00 06/09/24 13:33 IV 07/09/24 12:59 10 mg/hr .[id number] CLAUDY 10 mls/hr Administration 10 MG/HR Insulin Human Lispro 0 unit 06/05/24 17:00 06/09/24 12:30 Insulin Lispro (Admelog) 1 Unit/0.01 Ml Unit SC 07/05/24 16:59 Not Given ACHS CLAUDY Protocol Ondansetron HCl 4 mg 06/05/24 14:35 Ondansetron Inj 2 Mg/Ml Inj 2 Ml IV 07/05/24 14:34 Q6H PRN NAUSEA OR VOMITING Protocol Pantoprazole Sodium 40 mg 06/06/24 09:00 06/09/24 08:56 Pantoprazole Inj 40 Mg Vial IVP 07/06/24 08:59 40 mg QDAY CLAUDY Administration Sennosides 1 tab 06/05/24 14:35 06/07/24 05:32 Senna Tablet PO 07/05/24 14:34 1 tab QDAY PRN Administration constipation Protocol Plan Ms. Hogan is a 83-year-old female with past medical history of diabetes mellitus, atrial fibrillation and hyperlipidemia who presented to [facility] on 06/05[facility]2024 status post ground-level mechanical fall with right hip pain and found to have right hip fracture. Pt is admitted for hip surgery. # Atrial fibrillation with RVR Patient has history of A-fib, on amiodarone and Eliquis 2.5 mg at home Patient continues to be in atrial fibrillation on home regimen, was started on amiodarone drip on 06/07, continues to have rapid ventricular response. Echo shows Normal LV size and function. Estimated EF 55-60% Normal RV size and function. Estimated RVSP 48mmHg Mild mitral and trace tricuspid regurgitation -Pt is switched from amiodarone drip to amiodarone 200mg PO BID -Cardizem 30 mg p.o. 4 times daily -Diltiazem 20 mg IV every 4 hours as needed heart rate more than 130 -Will continue heparin drip for anticoagulation -Will hold Eliquis in anticipation of surgery -Telemonitoring -Cardiology consulted- Dr. Parada plans to cardiovert the patient today #Sepsis secondary to pyelonephritis likely secondary to hip fracture, less likely pneumonia as patient is afebrile and no cough. CT of chest findings show mild pneumonia versus atelectasis left base CXR show early bibasilar pneumonia Patient is tachycardic due to new onset of afib with RVR CT chest abdomen pelvis was ordered shows 3 mm right thyroid nodule, pulmonary artery hypertension, mild pneumonia versus atelectasis left base, mild fluid adjacent to tail of pancreas and around spleen suspicion of pancreatitis, atrophic kidney with perinephric stranding, severe osteopenia and acute intertrochanteric fracture right hip. Patient was given adequate fluid resuscitation, blood pressure has improved, was given 2 L IV fluid 06/07 Plan: -Continue IV ceftriaxone (06/06- -Monitor closely -blood culture- no growth in 48 hours 07/09 -Gram stain sputum culture -Monitor vitals closely # Acute Intertrochanteric Fracture Right Hip # Status post ground-level mechanical fall Presented with right hip pain reported tripping and falling secondary to loss of balance, denies hitting head, denies loss of consciousness. CT head and cervical spine negative for any acute changes. Hip/pelvis x-ray shows Acute intertrochanteric fracture right hip. Patient is given 1 L NS bolus in ED. Orthopedics was consulted. Plan: -Surgery on hold, due to patient's atrial fibrillation and leukocytosis -Tylenol, [place], hydromorphone for pain control -Cardiology consult for cardiac clearance for possible surgical intervention -Orthopedics consulted, appreciate recommendations # Acute kidney injury, improving # Chronic kidney disease stage IIIb # Dehydration, prerenal Pre-renal likely, patient's BUN 32, creatinine 1.8, GFR 28 on admission Baseline function not known, possible baseline GFR 41 Today BUN 41. Cr 1.4, eGFR 38 Plan: -Renally dose medication -Avoid nephrotoxic agents -Monitor renal panel in a.m. # Diabetes mellitus # Hyperlipidemia Blood glucose 184 on admission. Hgb A1c 6.0 on 06/06/24 Plan: -Sliding scale insulin -Hypoglycemia protocol in place # Pneumonia # COPD/Asthma Patient was discharged from [facility] for Pneumonia Patient discharged on Doxycycline PO 100mg BID Was prescribed Levalbuterol per records -Completed p.o. doxycycline course on 06/07 -Duonebs PRN -Supplemental oxygen as needed # 3 mm right thyroid nodule, incidental finding # Rule out pancreatitis -TSH on 06/06/24 is 0.73 -Consider outpatient workup for thyroid nodule -Suspicion of pancreatitis, per imaging, Lipase 42, patient denies abdominal pain, pancreatitis ruled out DVT prophylaxis: SCDs, Heparin drip for anticoagulation in the setting of a-fib GI prophylaxis: IV Protonix Diet: Carbohydrate consistent, cardiac Lines: Peripheral IV Code status: DNR Assessment and plan discussed with my senior resident Dr. Viveros & attending physician Dr. Shankar Patel (PGY-1)- Internal medicine resident Senior resident attestation: Patient evaluated and examined at the bedside, plan of care discussed with rest of the team including my attending physician, except as noted. Patient is an 83-year-old female past medical history of DM, A-fib, hyperlipidemia who presented after ground-level mechanical fall, found to have right hip fracture, patient admitted for hip surgery, Dr Romero orthopedic surgeon consulted, patient, found to have marked leukocytosis, likely reactive as patient stayed afebrile throughout, the patient was previously diagnosed with pneumonia and was discharged with p.o. antibiotics doxycycline which she completed on 06/07/2024. She was also found to be tachycardic likely secondary to A-fib RVR requiring IV diltiazem pushes. Also found to have EDY, gradually improving levels unknown baseline creatinine. ? Cardiology consulted, plan for DC cardioversion later today. Continue amiodarone and heparin drip for now. Cardiology added digoxin loading dose 500 mcg, recommended hold off on Cardizem pushes and continue with Cardizem drip for rate control. ? Orthopedic surgery consulted, tentative plan for surgery per Dr. Doran ? Sliding scale insulin for diabetes mellitus ? Continue antibiotics ceftriaxone for pneumonia. Quresh PGY2 Attending Provider Attestation/Addendum 83-year-old female with multiple comorbidities including type 2 diabetes mellitus, hypertension, hyperlipidemia and atrial fibrillation who presented with right hip pain status post ground-level fall. In the ER, patient was noted to have acute intertrochanteric fracture of the right hip subsequently orthopedic team was consulted. In addition, patient was noted to have atrial fibrillation with rapid ventricular rate and subsequently started on amiodarone and heparin drip for anticoagulation. In addition, patient also noted to have sepsis with source likely being acute pyelonephritis which was found on CT imaging and plan to continue IV Rocephin. Continue above-mentioned plan and appreciate orthopedic and cardiology team. Overnight, patient with significant leukocytosis however improving with IV Rocephin. Heart rate under control and appreciate cardiology input. Surgical intervention was delayed given that patient's heart rate was high and needed to be under control prior to surgical intervention. Will continue pain control, amiodarone and IV fluid resuscitation. Patient and family were updated and they are in agreement with our current plan. Over I reviewed above note and agree with findings and plans. I have also personally examined the patient with medicine team and went over assessment and plan with medical team including sales intern and resident physician.
--- NOTE | 2024-06-09 14:28 | PC.SS ---
Rounding Note: Patient pending cardioversion today. Surgery tomorrow.
[2024-06-09] MEDS: DILTIAZEM INJ 5 MG/ML VIAL 5 ML 15 MG IV (14:30)
--- NOTE | 2024-06-09 14:38 | ESPR_ITS ---
<Statement entered by Isa Parada MD - 06/10/24 14:52> The patient examined by me all essential complaints are reviewed patient is doing better but remains in atrial fibrillation rapid rates diltiazem boluses are given 50 mg p.o. diltiazem IV is given rate is reasonably controlled still 110 bpm recommend adding digoxin to doses will be given today IV 0.25 mg for better rate control eventually decrease the diltiazem dose tomorrow possibly plan on having surgery Wednesday for the hip surgery by the time white count should come down as well she is responding to the antibiotic therapy possible sources UTI pyonephritis. Evaluated the patient personally and treatment plan recommendation is given degree with the treatment plan recommendation as documented by Dr. Angie Rich, PGY 2 Documentation for date of: 06/09/24 Subjective Subjective Interval history: Patient seen and examined at bedside. Patient denies any chest or hip pain, as well as any shortness of breath or palpitations. However, patient has been in A-fib RVR despite being on on amiodarone as well as IV Dilt pushes as needed if heart rate is above 130. Due to patient not being able to be rate controlled with medical therapy overnight, cardioversion was planned today. However, patient was unable to maintain sinus rhythm after successful cardioversion. Patient will continue to be on IV diltiazem drip, with 20 mg bolus followed by 10 mg drip/hour and IV heparin drip. Few hours later, patient continued to be running with HR in the 140s. Patient given another 20mg x 1 IV push, and increased from 10 to 15mg of Diltiazem gtt/hr. Patient also given digoxin 0.25 x 1, and repeat dose of digoxin 0.25 x 1 given scheduled for 18:45PM. After surgery of right hip, patient can convert to oral diltiazem 240 mg daily along with amiodarone 200 mg twice daily. Exam Vital Signs Temp Pulse Resp BP Pulse Ox O2 Del Method O2 Flow Rate 98.0 F 131 H 22 H 90/56 L 94 L Room Air 3 06/09/24 08:00 06/09/24 14:30 06/09/24 13:45 06/09/24 14:30 06/09/24 13:45 06/09/24 13:45 06/09/24 13:30 Narrative Exam General Appearance: Pt in NAD laying comfortably in bed. HEENT: NC/AT, no scleral icterus, no conjunctival pallor, MMM Lungs: CTAB, no wheezes or crackles appreciated CVS: Irregularly, irregular and tachycardic, S1/S2 heard, no murmurs or rubs appreciated ABD: Soft, non-tender, non-distended, BS + in all 4 quadrants EXT: Right leg externally rotated, otherwise no edema or deformities noted, radial pulses 2+ BL, DP pulses 2 + BL SKIN: Skin exam normal without any rashes. Neuro: A&O x 3. No gross neurological deficits. Motor and sensory grossly intact in B/L UL and LL except for right lower leg. Psych: Appropriate mood and affect Objective Labs 06/09/24 04:29 06/09/24 04:29 Labs: Laboratory Results - last 24 hr 06/08/24 06/09/24 17:40 04:29 WBC 19.3 H D RBC 3.35 L Hgb 9.2 L Hct 27.3 L MCV 82 MCH 27.5 MCHC 33.7 RDW Std Deviation 42.2 Plt Count 143 Neut % (Auto) 91 H Lymph % (Auto) 4 L [place] % (Auto) 4 Eos % (Auto) 1 Baso % (Auto) 0 Neut # (Auto) 17.6 H Lymph # (Auto) 0.7 L [place] # (Auto) 0.8 Eos # (Auto) 0.1 Baso # (Auto) 0.0 Immature Gran # (Auto) 0.15 H Absolute Nucleated RBC 0.00 Immature Gran % 1 H Nucleated RBC % 0 PT 12.4 H INR 1.1 APTT 62.6 H 56.7 H Sodium 134 L Potassium 3.9 D Chloride 103 Carbon Dioxide 22.6 Anion Gap 8 BUN 41 H Creatinine 1.4 H Estim Creat Clear Calc 24.5 L eGFR 38 L BUN/Creatinine Ratio 29 H Glucose 78 Calculated Osmolality 277 Calcium 8.4 Corrected Calcium 9.3 Total Bilirubin 0.3 AST 11 ALT 15 Alkaline Phosphatase 70 D Total Protein 4.8 L Albumin 2.9 L Globulin 1.9 L Albumin/Globulin Ratio 1.5 Quality Measures Quality Measures VTE prophylaxis Advance care planning discussed with:: patient Assessment & Plan Assessment Current Active Medications: Generic Name Dose Route Start Last Admin Trade Name Freq PRN Reason Stop Dose Admin Acetaminophen 650 mg 06/05/24 14:35 Acetaminophen 325 Mg Tablet PO 07/05/24 14:34 Q6H PRN Pain (1-3) and Fever >101.5 Hydrocodone Bitart/Acetaminophen 1 tab 06/05/24 14:35 06/07/24 23:55 Hydrocodone/Apap 10/325 Tab PO 06/10/24 14:34 1 tab Q4H PRN Administration PAIN SCALE 4-6 (Moderate Albuterol/Ipratropium 3 ml 06/07/24 11:00 06/09/24 10:16 Albuterol/Ipratropium (Duoneb) Rt Charline 3 Ml Nebu INH 07/07/24 10:59 3 ml Q4HRRT CLAUDY Administration Amiodarone HCl 200 mg 06/09/24 10:00 06/09/24 10:06 Amiodarone Hcl 200 Mg Tablet PO 07/09/24 09:59 200 mg BID CLAUDY Administration Atorvastatin Calcium 40 mg 06/07/24 21:00 06/08/24 20:25 Atorvastatin Calcium 20 Mg Tablet PO 07/07/24 20:59 40 mg HS CLAUDY Administration Dextrose 25 ml 06/05/24 14:40 Dextrose 50%-Water Inj 50 Ml Syringe IV 07/05/24 14:39 Q15MIN PRN BG 50-70 responsive npo pt Dextrose 50 ml 06/05/24 14:40 Dextrose 50%-Water Inj 50 Ml Syringe IV 07/05/24 14:39 Q15MIN PRN BG <50 OR BG <70 & pt unresponsive Diltiazem HCl 20 mg 06/08/24 10:18 06/09/24 06:40 Diltiazem Inj 5 Mg/Ml Vial 5 Ml IV 07/08/24 10:17 20 mg Q4H PRN Administration HR>130 Escitalopram Oxalate 10 mg 06/08/24 09:00 06/09/24 08:56 Escitalopram Oxalate 10 Mg Tablet PO 07/08/24 08:59 10 mg QDAY CLAUDY Administration Glucagon 1 mg 06/05/24 14:40 Glucagon Inj 1 Mg Vial IM Q15MIN PRN BG <70, and no IV access Hydromorphone HCl 0.5 mg 06/05/24 14:40 06/08/24 02:31 Hydromorphone Inj 2 Mg/Ml Vial IVP 06/10/24 14:39 0.5 mg Q6H PRN Administration PAIN SCALE 7-10 (Severe Ceftriaxone Sodium/Dextrose 50 mls @ 100 mls/hr 06/06/24 23:36 06/08/24 22:03 Rocephin/D5w 1gm Iv Premix IV 06/13/24 23:35 Infused DAILY@2100 CLAUDY Infusion Heparin Sodium/Dextrose 25,000 unit in 250 mls @ 6.988 mls/hr 06/07/24 13:45 06/09/24 05:51 Heparin In D5w Ivpb IV 06/21/24 13:44 10 units/kg/hr .Q24H CLAUDY 5.823 mls/hr Titration Protocol 12 UNITS/KG/HR Diltiazem HCl 125 mg/ Dextrose 125 mls @ 10 mls/hr 06/09/24 13:00 06/09/24 13:33 IV 07/09/24 12:59 10 mg/hr .[id number] CLAUDY 10 mls/hr Administration 10 MG/HR Insulin Human Lispro 0 unit 06/05/24 17:00 06/09/24 12:30 Insulin Lispro (Admelog) 1 Unit/0.01 Ml Unit SC 07/05/24 16:59 Not Given ACHS CLAUDY Protocol Ondansetron HCl 4 mg 06/05/24 14:35 Ondansetron Inj 2 Mg/Ml Inj 2 Ml IV 07/05/24 14:34 Q6H PRN NAUSEA OR VOMITING Protocol Pantoprazole Sodium 40 mg 06/06/24 09:00 06/09/24 08:56 Pantoprazole Inj 40 Mg Vial IVP 07/06/24 08:59 40 mg QDAY CLAUDY Administration Sennosides 1 tab 06/05/24 14:35 06/07/24 05:32 Senna Tablet PO 07/05/24 14:34 1 tab QDAY PRN Administration constipation Protocol Plan Patient is an 83-year-old female with past medical history of paroxysmal A-fib on Eliquis 2.5 mg and admitted to hospital service for further management of right hip intertrochanteric fracture. Cardiology was consulted for cardiac clearance prior to surgery. Patient however has been consistently back into A- fib with RVR despite being on oral amiodarone and IV diltiazem pushes. #Atrial fibrillation with rapid ventricular response #History of paroxysmal A-fib #Hx of Hyperlipidemia Patient presented with right hip fracture status post ground-level fall in [facility]. Cardiology was initially consulted for cardiac clearance however started going into A-fib with RVR. Edward Vascore is 4. HAS-BLED score is 1. Patient takes home Rousvastatin 10mg HS. -Cardioversion planned today, however unsuccessful as patient unable to sustain sinus rhythm -Continue with IV diltiazem drip, with 55 mg bolus followed by 10 mg/hour, later increased to 15mg/hr to be continued during surgery -Gave 2 doses of digoxin 0.25 x 1 (17:45PM and 18:45PM) -No need for any intervention for rate control beyond current medications; HR is acceptable to be as high as 140 if noticed. -Status post surgery, plan to transition to oral diltiazem 240 mg daily in addition to amiodarone 200 mg twice daily -Continue with IV heparin -Keep potassium above 4, magnesium above 2 -Continue to monitor on tele -Restart apixaban twice daily at least on discharge -Continue with Atorvastatin 40mg HS Rest of problems continue as per primary team #Reactive Leukocytosis #Acute Intertrochanteric Fracture Right Hip #Status post ground-level mechanical fall #Acute kidney injury, improving #Chronic kidney disease stage IIIb #Dehydration, prerenal #Diabetes mellitus #Pneumonia #COPD/Asthma #3 mm right thyroid nodule, incidental finding Patient's plan and care discussed with my attending, Dr. Tal Rich MD PGY-2
[2024-06-09] MEDS: Heparin/D5w 25K 250 ML Ivpb 25,000 UNIT/250 ML BAG 5.823 UNIT IV (14:53)
--- NOTE | 2024-06-09 14:57 | ESOP_ITS ---
RE: RADHA CANTU : 1940 DATE OF OPERATION: 06/09/2024 PROCEDURE PERFORMED: Synchronized cardioversion. POST PROCEDURE DIAGNOSIS: Unsuccessful synchronized cardioversion, unable to maintain sinus rhythm, multiple attempts, so converted sinus rhythm, unsuccessful. DIAGNOSES: Atrial fibrillation, rapid rate, unstable. HISTORY AND INDICATIONS: The patient is an 83-year-old with a fracture of the hip, paroxysmal atrial fibrillation in the past, AFib RVR, difficult to control heart rate despite IV amiodarone and multiple medications. Continue with a very fast heart rate at 140 beats per minute. Unable to tolerate medications, synchronized cardioversion was recommended. PROCEDURE IN DETAIL: The patient was brought to cardiac catheterization recovery room given conscious sedation 2 mg of Versed and 50 mg fentanyl. Synchronized cardioversion was performed 100 joules, converted to sinus rhythm stayed about a minute or two went back AFib, second conversion at 100 joules unsuccessful, 150 joules were used again unsuccessful. The patient went back to AFib within a minute or two. Decided at this time for rate control strategy. IV diltiazem drip will be given since the patient requires surgery starting on 20 mg bolus followed by 10 mg drip to maintain the rate control for now. Continue IV heparin drip as well. The patient is doing better as for the general health. White count is coming down with antibiotics. SUMMARY: Unsuccessful cardioversion due to inability to maintain sinus rhythm after successful cardioversion. Plan is to IV diltiazem drip 10 mg per hour later on when she is able to eat. After surgery, we will switch to oral diltiazem at least 240 mg daily for rate control along with amiodarone 200 mg twice daily p.o. DT: 13:26:02 TT: 14:05:00 Ref: [id number] - TID: [id number]
[2024-06-09] MEDS: DIGOXIN INJ 0.25 MG/ML AMP 2 ML IVP ×2 (18:27→19:50)
--- NOTE | 2024-06-09 20:58 | PD.ORTHCONPN ---
Subjective Subjective Brief History: Patient very nice 83-year-old [place] breaking the right hip. No other complaints as far as upper extremities left lower extremity right knee right ankle and foot Narrative: Patient is confused tonight. I talked to Dr. Aidan Parada who did several attempts to cardiovert her. She is on diltiazem. Exam Vital Signs Temp Pulse Resp BP Pulse Ox O2 Del Method O2 Flow Rate 97.2 F 121 H 19 117/96 H 99 Nasal Cannula 2 06/09/24 19:59 06/09/24 19:59 06/09/24 19:59 06/09/24 19:59 06/09/24 19:59 06/09/24 19:59 06/09/24 19:59 Blood pressure 117/96. Heart rate 121 Narrative Exam No change in physical exam with shortening right lower extremity unchanged. Pain to palpation right knee right ankle foot. Objective - Ortho Labs 06/09/24 04:29 06/09/24 04:29 Labs: Laboratory Results - last 24 hr 06/09/24 04:29 WBC 19.3 H D RBC 3.35 L Hgb 9.2 L Hct 27.3 L MCV 82 MCH 27.5 MCHC 33.7 RDW Std Deviation 42.2 Plt Count 143 Neut % (Auto) 91 H Lymph % (Auto) 4 L [place] % (Auto) 4 Eos % (Auto) 1 Baso % (Auto) 0 Neut # (Auto) 17.6 H Lymph # (Auto) 0.7 L [place] # (Auto) 0.8 Eos # (Auto) 0.1 Baso # (Auto) 0.0 Immature Gran # (Auto) 0.15 H Absolute Nucleated RBC 0.00 Immature Gran % 1 H Nucleated RBC % 0 PT 12.4 H INR 1.1 APTT 56.7 H Sodium 134 L Potassium 3.9 D Chloride 103 Carbon Dioxide 22.6 Anion Gap 8 BUN 41 H Creatinine 1.4 H Estim Creat Clear Calc 24.5 L eGFR 38 L BUN/Creatinine Ratio 29 H Glucose 78 Calculated Osmolality 277 Calcium 8.4 Corrected Calcium 9.3 Total Bilirubin 0.3 AST 11 ALT 15 Alkaline Phosphatase 70 D Total Protein 4.8 L Albumin 2.9 L Globulin 1.9 L Albumin/Globulin Ratio 1.5 White count is gone from 42,002 19,000 Assessment & Plan Assessment Additional comments: Talked at length with Dr. Aidan Parada. I like to see how she does tomorrow. I told him sometimes we just cannot get people to the operating room they are too unstable. Plan Expectant management possible surgery Wednesday. I want to see how she does tomorrow she has great clara in [place] and we prayed Documentation for date of: 06/09/24
[2024-06-09] MEDS: ATORVASTATIN CALCIUM 20 MG TABLET 40 MG PO (21:11)
[2024-06-09] MEDS: cefTRIAXone/D5w 1gm IV premix 50 ML IV (21:11)
[2024-06-09] MEDS: DILTIAZEM INJ 125 MG in DEXTROSE 5%-WATER 100 ML 15 MG IV (22:54)
[2024-06-10] VITALS (16 sets, daily range): BP systolic 107–122; BP diastolic 55–69; PULSE 75–116; RESP 14–22; TEMP 35.6–36.6; O2SAT 94–100
--- NOTE | 2024-06-10 03:00 | PC.NURSE ---
HR DOWN TO 43, AFIB. ASYMPTOMATIC. RHYTHM DID NOT SUSTAIN. HR BACK UP TO 80-100'S. SPOKE WITH DR. BANKS AND STATES HE WILL MAINTAIN CURRENT RATE FOR THE CARDICLIFTON DRIP. STATES TO CALL BACK IF LOW HR SUSTAINS.
[2024-06-10 06:18] LABS: Basophils % (Auto) 0 % (0-2.5); Eosinophils # (Auto) 0.2 Thou/mm3 (0.0-0.5); Eosinophils % (Auto) 2 % (0-10); Hematocrit 26.3 % (36.0-46.0); Hemoglobin 8.9 g/dL (12.0-16.0); Immature Granulocytes % (Auto) 1 % (0-0); Immature Granulocytes Auto 0.06 Thou/mm3 (0.00-0.00); Lymphocytes # (Auto) 0.5 Thou/mm3 (1.0-4.8); Lymphocytes % (Auto) 4 % (10-50); Mean Corpuscular HGB Conc 33.8 g/dl (31.0-37.0); Mean Corpuscular Hemoglobin 27.3 pg (25.0-35.0); Mean Corpuscular Volume 81 fL (80-100); Monocytes # (Auto) 0.8 Thou/mm3 (0.0-0.8); Monocytes % (Auto) 6 % (0-12); Neutrophils % (Auto) 87 % (37-80); Nucleated Red Blood Cell % 0 /100 WBC (0); Platelet Count 154 Thou/mm3 (140-440); RDW Standard Deviation 41.8 fL (36.4-46.3); Red Blood Count 3.26 Miln/mm3 (4.00-5.20); White Blood Count 12.6 Thou/mm3 (3.6-11.0)
[2024-06-10] MEDS: ALBUTEROL/IPRATROPIUM (Duoneb) RT SOL 3 ML NEBU INH (06:42)
[2024-06-10 06:52] LABS: Alanine Aminotransferase 14 U/L (10-49); Albumin, Serum 2.6 gm/dL (3.4-4.8); Albumin/Globulin Ratio 1.4 (1.2-2.2); Alkaline Phosphatase 68 U/L (46-116); Anion Gap 9 (7-16); Aspartate Amino Transferase 22 U/L (0-34); BUN/Creatinine Ratio 29 Ratio (12-20); Bilirubin,Total 0.7 mg/dL (0.3-1.2); Blood Urea Nitrogen 38 mg/dL (9-23); Calcium 8.2 mg/dL (8.3-10.6); Calcium (Corrected) 9.3 mg/dL (8.5-10.1); Carbon Dioxide 21.1 mMol/L (20.0-31.0); Chloride 105 mMol/L (98-107); Creatinine (Component) 1.3 mg/dL (0.6-1.3); Estimated Creatinine Clearance 27.4 mL/min (>60); Globulin 1.8 gm/dL (2.3-3.5); Glucose 87 mg/dL (74-106); Osmolality,Calculated 278 (275-295); Potassium 3.8 mMol/L (3.4-5.1); Sodium 135 mMol/L (136-145); Total Protein 4.4 gm/dL (5.7-8.2); eGFR 41 See Note
[2024-06-10 06:59] LABS: Partial Thromboplastin Time 76.5 Seconds (22.0-36.0)
[2024-06-10] MEDS: DILTIAZEM INJ 125 MG in DEXTROSE 5%-WATER 100 ML 15 MG IV ×2 (07:30→16:57)
[2024-06-10] MEDS: AMIODARONE HCL 200 MG TABLET PO ×2 (08:39→21:36)
[2024-06-10] MEDS: PANTOPRAZOLE INJ 40 MG VIAL IVP (08:39)
[2024-06-10] MEDS: ESCITALOPRAM OXALATE 10 MG TABLET PO (08:39)
[2024-06-10 09:31] LABS: Magnesium 1.9 mg/dL (1.6-2.6)
--- NOTE | 2024-06-10 10:31 | ESPR_ITS ---
<Statement entered by Isa Parada MD - 06/10/24 14:50> I personally examined the patient evaluated the patient admitted hospital fracture of the hip A-fib RVR now also sepsis possibly pyelonephritis responded very well white count is almost normal clinically she is doing better after additional dose of digoxin to dose yesterday in A-fib rate is controlled with diltiazem and digoxin combination for now clinically stable no heart failure patient stable to have surgery tomorrow we will give additional dose of digoxin only 0.25 once dose today and continue diltiazem drip 15 mg/h later and reduce it to 10 mg/h proceed with surgery tomorrow while keeping the diltiazem on board if heart rate is really controlled well we might cut down the dosage further and stop eventually but will require oral diltiazem when she is able to eat. Heparin drip can be stopped tonight in preparation for surgery tomorrow. Agree with the treatment plan recommendation as documented with PGY 2 Dr. Angie Rich Documentation for date of: 06/10/24 Subjective Subjective Interval history: Patient seen and examined at bedside. Patient denies any chest pain shortness of breath or palpitations. Her heart rate has been in the range of 80-1 21 in the last 24 hours. Potassium was slightly low at 3.8, repleted with 20 mill equivalents of potassium. Will give another digoxin 0.25 x 1 and if patient's heart rate sustains under 80s, will down titrate drip from 15 mg/h to 10 mg/hr. From cardiology standpoint, patient is safe for surgery tomorrow, and can transition to oral diltiazem status post surgery. Exam Vital Signs Temp Pulse Resp BP Pulse Ox O2 Del Method O2 Flow Rate 97.1 F 111 H 16 107/58 L 94 L Room Air 2 06/10/24 08:00 06/10/24 08:39 06/10/24 08:00 06/10/24 08:39 06/10/24 08:00 06/10/24 08:00 06/09/24 19:59 Narrative Exam General Appearance: Pt in NAD laying comfortably in bed. HEENT: NC/AT, no scleral icterus, no conjunctival pallor, MMM Lungs: CTAB, no wheezes or crackles appreciated CVS: Irregularly, irregular and tachycardic, S1/S2 heard, no murmurs or rubs appreciated ABD: Soft, non-tender, non-distended, BS + in all 4 quadrants EXT: Right leg externally rotated, otherwise no edema or deformities noted, radial pulses 2+ BL, DP pulses 2 + BL SKIN: Skin exam normal without any rashes. Neuro: A&O x 3. No gross neurological deficits. Motor and sensory grossly intact in B/L UL and LL except for right lower leg. Psych: Appropriate mood and affect Objective Labs 06/10/24 05:13 06/10/24 05:13 Labs: Laboratory Results - last 24 hr 06/10/24 05:13 WBC 12.6 H D RBC 3.26 L Hgb 8.9 L Hct 26.3 L MCV 81 MCH 27.3 MCHC 33.8 RDW Std Deviation 41.8 Plt Count 154 Neut % (Auto) 87 H Lymph % (Auto) 4 L [place] % (Auto) 6 Eos % (Auto) 2 Baso % (Auto) 0 Neut # (Auto) 11.0 H Lymph # (Auto) 0.5 L [place] # (Auto) 0.8 Eos # (Auto) 0.2 Baso # (Auto) 0.0 Immature Gran # (Auto) 0.06 H Absolute Nucleated RBC 0.00 Immature Gran % 1 H Nucleated RBC % 0 APTT 76.5 H D Sodium 135 L Potassium 3.8 Chloride 105 Carbon Dioxide 21.1 Anion Gap 9 BUN 38 H Creatinine 1.3 Estim Creat Clear Calc 27.4 L eGFR 41 L BUN/Creatinine Ratio 29 H Glucose 87 Calculated Osmolality 278 Calcium 8.2 L Corrected Calcium 9.3 Magnesium 1.9 Total Bilirubin 0.7 AST 22 ALT 14 Alkaline Phosphatase 68 Total Protein 4.4 L Albumin 2.6 L Globulin 1.8 L Albumin/Globulin Ratio 1.4 Quality Measures Quality Measures VTE prophylaxis Advance care planning discussed with:: patient Assessment & Plan Assessment Current Active Medications: Generic Name Dose Route Start Last Admin Trade Name Freq PRN Reason Stop Dose Admin Acetaminophen 650 mg 06/05/24 14:35 Acetaminophen 325 Mg Tablet PO 07/05/24 14:34 Q6H PRN Pain (1-3) and Fever >101.5 Hydrocodone Bitart/Acetaminophen 1 tab 06/05/24 14:35 06/07/24 23:55 Hydrocodone/Apap 10/325 Tab PO 06/10/24 14:34 1 tab Q4H PRN Administration PAIN SCALE 4-6 (Moderate Albuterol/Ipratropium 3 ml 06/07/24 11:00 06/10/24 10:13 Albuterol/Ipratropium (Duoneb) Rt Charline 3 Ml Nebu INH 07/07/24 10:59 Not Given Q4HRRT CLAUDY Amiodarone HCl 200 mg 06/09/24 10:00 06/10/24 08:39 Amiodarone Hcl 200 Mg Tablet PO 07/09/24 09:59 200 mg BID CLAUDY Administration Atorvastatin Calcium 40 mg 06/07/24 21:00 06/09/24 21:11 Atorvastatin Calcium 20 Mg Tablet PO 07/07/24 20:59 40 mg HS CLAUDY Administration Dextrose 25 ml 06/05/24 14:40 Dextrose 50%-Water Inj 50 Ml Syringe IV 07/05/24 14:39 Q15MIN PRN BG 50-70 responsive npo pt Dextrose 50 ml 06/05/24 14:40 Dextrose 50%-Water Inj 50 Ml Syringe IV 07/05/24 14:39 Q15MIN PRN BG <50 OR BG <70 & pt unresponsive Escitalopram Oxalate 10 mg 06/08/24 09:00 06/10/24 08:39 Escitalopram Oxalate 10 Mg Tablet PO 07/08/24 08:59 10 mg QDAY CLAUDY Administration Glucagon 1 mg 06/05/24 14:40 Glucagon Inj 1 Mg Vial IM Q15MIN PRN BG <70, and no IV access Hydromorphone HCl 0.5 mg 06/05/24 14:40 06/08/24 02:31 Hydromorphone Inj 2 Mg/Ml Vial IVP 06/10/24 14:39 0.5 mg Q6H PRN Administration PAIN SCALE 7-10 (Severe Ceftriaxone Sodium/Dextrose 50 mls @ 100 mls/hr 06/06/24 23:36 06/09/24 21:11 Rocephin/D5w 1gm Iv Premix IV 06/13/24 23:35 100 mls/hr DAILY@2100 CLAUDY Administration Heparin Sodium/Dextrose 25,000 unit in 250 mls @ 6.988 mls/hr 06/07/24 13:45 06/10/24 07:30 Heparin In D5w Ivpb IV 06/21/24 13:44 10 units/kg/hr .Q24H CLAUDY 5.823 mls/hr Titration Protocol 12 UNITS/KG/HR Diltiazem HCl 125 mg/ Dextrose 125 mls @ 15 mls/hr 06/09/24 16:27 06/10/24 07:30 IV 07/09/24 16:26 15 mg/hr .Q8H20M CLAUDY 15 mls/hr Administration 15 MG/HR Insulin Human Lispro 0 unit 06/05/24 17:00 06/09/24 20:04 Insulin Lispro (Admelog) 1 Unit/0.01 Ml Unit SC 07/05/24 16:59 Not Given ACHS CLAUDY Protocol Ondansetron HCl 4 mg 06/05/24 14:35 Ondansetron Inj 2 Mg/Ml Inj 2 Ml IV 07/05/24 14:34 Q6H PRN NAUSEA OR VOMITING Protocol Pantoprazole Sodium 40 mg 06/06/24 09:00 06/10/24 08:39 Pantoprazole Inj 40 Mg Vial IVP 07/06/24 08:59 40 mg QDAY CLAUDY Administration Sennosides 1 tab 06/05/24 14:35 06/07/24 05:32 Senna Tablet PO 07/05/24 14:34 1 tab QDAY PRN Administration constipation Protocol Plan Patient is an 83-year-old female with past medical history of paroxysmal A-fib on Eliquis 2.5 mg and admitted to hospital service for further management of right hip intertrochanteric fracture. Cardiology was consulted for cardiac clearance prior to surgery. Patient however has been consistently back into A- fib with RVR despite being on oral amiodarone and IV diltiazem pushes. #Atrial fibrillation with rapid ventricular response #History of paroxysmal A-fib #Hx of Hyperlipidemia Patient presented with right hip fracture status post ground[facility] fall [facility]. Cardiology was initially consulted for cardiac clearance however started going into A-fib with RVR. Edward Vascore is 4. HAS-BLED score is 1. Patient takes home Rousvastatin 10mg HS. Unsuccessful cardioversion as patient unable to sustain sinus rhythm. -Continue with IV diltiazem drip, at 15mg/hr and can transition to 10mg/hr if HR sustains to 80 and under, to be continued during surgery -Patient is safe to have surgery tomorrow with Dr. Romero -Gave 2 doses of digoxin 0.25 x 1 yesterday, and will give one more dose 0.25 today. -No need for any intervention for rate control beyond current medications; HR is acceptable to be as high as 140 if noticed. -Status post surgery, plan to transition to oral diltiazem 240 mg daily in addition to amiodarone 200 mg twice daily -Continue with IV heparin -Keep potassium above 4, magnesium above 2 -Continue to monitor on tele -Restart apixaban twice daily at least on discharge -Continue with Atorvastatin 40mg HS Rest of problems continue as per primary team #Reactive Leukocytosis #Acute Intertrochanteric Fracture Right Hip #Status post ground-level mechanical fall #Acute kidney injury, improving #Chronic kidney disease stage IIIb #Dehydration, prerenal #Diabetes mellitus #Pneumonia #COPD/Asthma #3 mm right thyroid nodule, incidental finding Patient's plan and care discussed with my attending, Dr. Tal Rich MD PGY-2
[2024-06-10] MEDS: POTASSIUM CHLORIDE 20 mEq TABCR PO (11:13)
[2024-06-10] MEDS: DIGOXIN 0.125 MG TABLET 0.25 MG PO (12:31)
--- NOTE | 2024-06-10 13:21 | PD.RESPRO ---
Documentation for date of: 06/10/24 Subjective Subjective Interval history: Patient seen at bedside today. Family was also at bedside. Updated them on the plans in regards to Dr Romero potentially doing surgery on Wednesday. Patient has been on Cardizem 15 mg/h with heart rate being very well-controlled. On plan for discharge they would prefer a SNF in [place] due to the fact that that is where the whole family lives. Patient is resting without complaints. Continue with heparin drip. Exam Vital Signs Temp Pulse Resp BP Pulse Ox O2 Del Method O2 Flow Rate 96.4 F L 95 16 107/55 L 97 Room Air 2 06/10/24 12:00 06/10/24 12:31 06/10/24 12:00 06/10/24 12:31 06/10/24 12:06/10/24 12:06/09/24 19:59 Narrative Exam GENERAL: A&Ox3, Awake, Not in acute distress NEURO: no focal neurological deficits HEENT: Atraumatic, Normocephalic. mucous membranes moist. Eyes open, symmetrical, & clear HEART: Normal Heart Sounds LUNGS: Clear to auscultation with no wheezing or crackles. ABDOMEN: soft, non-distended, non-tender, bowel sounds heard, no guarding or rebound tenderness SKIN: No Rash or ecchymoses EXTREMITIES: right leg externally roated, No edema,pedal pulses palpated Objective Labs 06/13/24 04:55 06/13/24 04:55 Labs: Laboratory Results - last 24 hr 06/10/24 05:13 WBC 12.6 H D RBC 3.26 L Hgb 8.9 L Hct 26.3 L MCV 81 MCH 27.3 MCHC 33.8 RDW Std Deviation 41.8 Plt Count 154 Neut % (Auto) 87 H Lymph % (Auto) 4 L [place] % (Auto) 6 Eos % (Auto) 2 Baso % (Auto) 0 Neut # (Auto) 11.0 H Lymph # (Auto) 0.5 L [place] # (Auto) 0.8 Eos # (Auto) 0.2 Baso # (Auto) 0.0 Immature Gran # (Auto) 0.06 H Absolute Nucleated RBC 0.00 Immature Gran % 1 H Nucleated RBC % 0 APTT 76.5 H D Sodium 135 L Potassium 3.8 Chloride 105 Carbon Dioxide 21.1 Anion Gap 9 BUN 38 H Creatinine 1.3 Estim Creat Clear Calc 27.4 L eGFR 41 L BUN/Creatinine Ratio 29 H Glucose 87 Calculated Osmolality 278 Calcium 8.2 L Corrected Calcium 9.3 Magnesium 1.9 Total Bilirubin 0.7 AST 22 ALT 14 Alkaline Phosphatase 68 Total Protein 4.4 L Albumin 2.6 L Globulin 1.8 L Albumin/Globulin Ratio 1.4 Quality Measures Quality Measures VTE prophylaxis Advance care planning discussed with:: patient Assessment & Plan Assessment Current Active Medications: Generic Name Dose Route Start Last Admin Trade Name Freq PRN Reason Stop Dose Admin Acetaminophen 650 mg 06/05/24 14:35 Acetaminophen 325 Mg Tablet PO 07/05/24 14:34 Q6H PRN Pain (1-3) and Fever >101.5 Hydrocodone Bitart/Acetaminophen 1 tab 06/05/24 14:35 06/07/24 23:55 Hydrocodone/Apap 10/325 Tab PO 06/10/24 14:34 1 tab Q4H PRN Administration PAIN SCALE 4-6 (Moderate Albuterol/Ipratropium 3 ml 06/07/24 11:00 06/10/24 10:13 Albuterol/Ipratropium (Duoneb) Rt Charline 3 Ml Nebu INH 07/07/24 10:59 Not Given Q4HRRT CLAUDY Amiodarone HCl 200 mg 06/09/24 10:00 06/10/24 08:39 Amiodarone Hcl 200 Mg Tablet PO 07/09/24 09:59 200 mg BID CLAUDY Administration Atorvastatin Calcium 40 mg 06/07/24 21:00 06/09/24 21:11 Atorvastatin Calcium 20 Mg Tablet PO 07/07/24 20:59 40 mg HS CLAUDY Administration Dextrose 25 ml 06/05/24 14:40 Dextrose 50%-Water Inj 50 Ml Syringe IV 07/05/24 14:39 Q15MIN PRN BG 50-70 responsive npo pt Dextrose 50 ml 06/05/24 14:40 Dextrose 50%-Water Inj 50 Ml Syringe IV 07/05/24 14:39 Q15MIN PRN BG <50 OR BG <70 & pt unresponsive Escitalopram Oxalate 10 mg 06/08/24 09:00 06/10/24 08:39 Escitalopram Oxalate 10 Mg Tablet PO 07/08/24 08:59 10 mg QDAY CLAUDY Administration Glucagon 1 mg 06/05/24 14:40 Glucagon Inj 1 Mg Vial IM Q15MIN PRN BG <70, and no IV access Hydromorphone HCl 0.5 mg 06/05/24 14:40 06/08/24 02:31 Hydromorphone Inj 2 Mg/Ml Vial IVP 06/10/24 14:39 0.5 mg Q6H PRN Administration PAIN SCALE 7-10 (Severe Ceftriaxone Sodium/Dextrose 50 mls @ 100 mls/hr 06/06/24 23:36 06/09/24 21:11 Rocephin/D5w 1gm Iv Premix IV 06/13/24 23:35 100 mls/hr DAILY@2100 CLAUDY Administration Heparin Sodium/Dextrose 25,000 unit in 250 mls @ 6.988 mls/hr 06/07/24 13:45 06/10/24 07:30 Heparin In D5w Ivpb IV 06/21/24 13:44 10 units/kg/hr .Q24H CLAUDY 5.823 mls/hr Titration Protocol 12 UNITS/KG/HR Diltiazem HCl 125 mg/ Dextrose 125 mls @ 15 mls/hr 06/09/24 16:27 06/10/24 07:30 IV 07/09/24 16:26 15 mg/hr .Q8H20M CLAUDY 15 mls/hr Administration 15 MG/HR Insulin Human Lispro 0 unit 06/05/24 17:00 06/10/24 11:19 Insulin Lispro (Admelog) 1 Unit/0.01 Ml Unit SC 07/05/24 16:59 Not Given ACHS CLAUDY Protocol Ondansetron HCl 4 mg 06/05/24 14:35 Ondansetron Inj 2 Mg/Ml Inj 2 Ml IV 07/05/24 14:34 Q6H PRN NAUSEA OR VOMITING Protocol Pantoprazole Sodium 40 mg 06/06/24 09:00 06/10/24 08:39 Pantoprazole Inj 40 Mg Vial IVP 07/06/24 08:59 40 mg QDAY CLAUDY Administration Sennosides 1 tab 06/05/24 14:35 06/07/24 05:32 Senna Tablet PO 07/05/24 14:34 1 tab QDAY PRN Administration constipation Protocol Plan Ms. Hogan is a 83-year-old female with past medical history of diabetes mellitus, atrial fibrillation and hyperlipidemia who presented to [facility] on 06/05/2024 status post ground-level mechanical fall with right hip pain and found to have right hip fracture. Pt is admitted for hip surgery. # Atrial fibrillation with RVR Patient has history of A-fib, on amiodarone and Eliquis 2.5 mg at home Trialed on amiodarone drip and failed to convert, later received synchronized cardioversion and failed to remain in sinus rhythm, Echo shows Normal LV size and function. Estimated EF 55-60% Normal RV size and function. Estimated RVSP 48mmHg Mild mitral and trace tricuspid regurgitation -Pt is switched from amiodarone drip to amiodarone 200mg PO BID -Cardizem 30 mg p.o. 4 times daily discontinued and patient has been placed on diltiazem drip 15 mg/h -Will continue heparin drip for anticoagulation -Will hold Eliquis in anticipation of surgery -Telemonitoring -Cardiology consulted-we attempted cardioversion on June 09 but was unsuccessful to maintain sinus rhythm. Patient was transitioned over to Cardizem drip at 15 mg/h. Heart rate has been very well-controlled. Will transition to p.o. Cardizem following surgery and continue with amiodarone p.o. for further management of cardiac arrhythmia. Will resume Eliquis 2.5 mg p.o. twice daily following surgery with approval of both vehicle assembly inspector and orthopedic surgeon. Patient received digoxin by cardiology once again #Sepsis secondary to pyelonephritis likely secondary to hip fracture, less likely pneumonia as patient is afebrile and no cough. CT of chest findings show mild pneumonia versus atelectasis left base CXR show early bibasilar pneumonia Patient is tachycardic due to new onset of afib with RVR CT chest abdomen pelvis was ordered shows 3 mm right thyroid nodule, pulmonary artery hypertension, mild pneumonia versus atelectasis left base, mild fluid adjacent to tail of pancreas and around spleen suspicion of pancreatitis, atrophic kidney with perinephric stranding, severe osteopenia and acute intertrochanteric fracture right hip. Patient was given adequate fluid resuscitation, blood pressure has improved, was given 2 L IV fluid 06/07 Plan: -Continue IV ceftriaxone prophylactically (06/06- -Monitor closely -blood culture- no growth in 48 hours 07/09 -Gram stain sputum culture -Monitor vitals closely # Acute Intertrochanteric Fracture Right Hip # Status post ground-level mechanical fall Presented with right hip pain reported tripping and falling secondary to loss of balance, denies hitting head, denies loss of consciousness. CT head and cervical spine negative for any acute changes. Hip/pelvis x-ray shows Acute intertrochanteric fracture right hip. Patient is given 1 L NS bolus in ED. Orthopedics was consulted. Plan: -Surgery on hold, due to patient's atrial fibrillation and leukocytosis -Tylenol, [place], hydromorphone for pain control -Cardiology consult for cardiac clearance for possible surgical intervention -Orthopedics consulted, Dr Romero may consider surgery on Wednesday after reviewing the patient's case on Wednesday. # Acute kidney injury, improving # Chronic kidney disease stage IIIb # Dehydration, prerenal Pre-renal likely, patient's BUN 32, creatinine 1.8, GFR 28 on admission Baseline function not known, possible baseline GFR 41 Today BUN 41. Cr 1.4, eGFR 38 Plan: -Renally dose medication -Avoid nephrotoxic agents -Monitor renal panel in a.m. # Diabetes mellitus # Hyperlipidemia Blood glucose 184 on admission. Hgb A1c 6.0 on 06/06/24 Plan: -Sliding scale insulin -Hypoglycemia protocol in place # Pneumonia # COPD/Asthma Patient was discharged from [facility] for Pneumonia Patient discharged on Doxycycline PO 100mg BID Was prescribed Levalbuterol per records -Completed p.o. doxycycline course on 06/07 -Duonebs PRN -Supplemental oxygen as needed # 3 mm right thyroid nodule, incidental finding # Rule out pancreatitis -TSH on 06/06/24 is 0.73 -Consider outpatient workup for thyroid nodule -Suspicion of pancreatitis, per imaging, Lipase 42, patient denies abdominal pain, pancreatitis ruled out DVT prophylaxis: SCDs, Heparin drip for anticoagulation in the setting of a-fib GI prophylaxis: IV Protonix Diet: Carbohydrate consistent, cardiac Lines: Peripheral IV Code status: DNR Assessment and plan discussed with my supervising attending Dr. Shankar Washington M.D. PGY-3 Attending Provider Attestation/Addendum 83-year-old female with multiple comorbidities including type 2 diabetes mellitus, hypertension, hyperlipidemia and atrial fibrillation who presented with right hip pain status post ground-level fall. In the ER, patient was noted to have acute intertrochanteric fracture of the right hip subsequently orthopedic team was consulted. In addition, patient was noted to have atrial fibrillation with rapid ventricular rate and subsequently started on amiodarone and heparin drip for anticoagulation. In addition, patient also noted to have sepsis with source likely being acute pyelonephritis which was found on CT imaging and plan to continue IV Rocephin. Continue above-mentioned plan and appreciate orthopedic and cardiology team. Overnight, patient with significant leukocytosis however improving with IV Rocephin. Heart rate under control and appreciate cardiology input. Surgical intervention was delayed given that patient's heart rate was high and needed to be under control prior to surgical intervention. Will continue pain control, amiodarone and IV fluid resuscitation. Patient and family were updated and they are in agreement with our current plan. Over I reviewed above note and agree with findings and plans. I have also personally examined the patient with medicine team and went over assessment and plan with medical team including internet database specialist and resident physician.
[2024-06-10] MEDS: Heparin/D5w 25K 250 ML Ivpb 25,000 UNIT/250 ML BAG 5.823 UNIT IV (15:36)
--- NOTE | 2024-06-10 20:53 | PD.ORTHCONPN ---
Subjective Subjective Brief History: Patient very nice 83-year-old [place] breaking the right hip. No other complaints as far as upper extremities left lower extremity right knee right ankle and foot Narrative: Patient is disoriented tonight. Seeing family members that are not there or have passed. Has pain right hip Exam Vital Signs Temp Pulse Resp BP Pulse Ox O2 Del Method O2 Flow Rate 97.8 F 92 18 117/58 L 97 Room Air 2 06/10/24 19:36 06/10/24 20:08 06/10/24 20:08 06/10/24 19:36 06/10/24 20:08 06/10/24 19:36 06/09/24 19:59 Pulse 92. Blood pressure 117/58 Narrative Exam Denied she is unable to complete sentences. Certainly understandable considering early dementia and the fact that family says she is disoriented in the evening. Examination of right lower extremity shows that she has a trace effusion right knee joint active flexion extension right foot Objective - Ortho Labs 06/10/24 05:13 06/10/24 05:13 Labs: Laboratory Results - last 24 hr 06/10/24 05:13 WBC 12.6 H D RBC 3.26 L Hgb 8.9 L Hct 26.3 L MCV 81 MCH 27.3 MCHC 33.8 RDW Std Deviation 41.8 Plt Count 154 Neut % (Auto) 87 H Lymph % (Auto) 4 L [place] % (Auto) 6 Eos % (Auto) 2 Baso % (Auto) 0 Neut # (Auto) 11.0 H Lymph # (Auto) 0.5 L [place] # (Auto) 0.8 Eos # (Auto) 0.2 Baso # (Auto) 0.0 Immature Gran # (Auto) 0.06 H Absolute Nucleated RBC 0.00 Immature Gran % 1 H Nucleated RBC % 0 APTT 76.5 H D Sodium 135 L Potassium 3.8 Chloride 105 Carbon Dioxide 21.1 Anion Gap 9 BUN 38 H Creatinine 1.3 Estim Creat Clear Calc 27.4 L eGFR 41 L BUN/Creatinine Ratio 29 H Glucose 87 Calculated Osmolality 278 Calcium 8.2 L Corrected Calcium 9.3 Magnesium 1.9 Total Bilirubin 0.7 AST 22 ALT 14 Alkaline Phosphatase 68 Total Protein 4.4 L Albumin 2.6 L Globulin 1.8 L Albumin/Globulin Ratio 1.4 I am concerned about her hemoglobin 8.9. Assessment & Plan Assessment Additional comments: Patient is a high risk for hip surgery. Dementia markedly increases postoperative risk as well as intraoperative risk. Type and cross 2 units of packed cells. I am concerned about her hemoglobin I am going to reconsult anesthesia. Family aware of the risk in an 83-year-old with diabetes hypertension atrial fibrillation chronic kidney disease low hemoglobin. during anesthesia. I told him there always is a risk of intraoperative and perioperative . Postoperative considerations include pulmonary embolus infection need for further surgery Plan Type and cross 2 units of blood.. I would like to have her to good days in a row. I would like to see what her hemoglobin is in the morning to see whether we need to give her some blood preoperatively white count is normalizing. It would be good to have 2 days where she shows solid improvement. Documentation for date of: 06/10/24
[2024-06-10] MEDS: ATORVASTATIN CALCIUM 20 MG TABLET 40 MG PO (21:36)
[2024-06-10] MEDS: cefTRIAXone/D5w 1gm IV premix 50 ML IV (21:36)
[2024-06-11] VITALS (19 sets, daily range): BP systolic 105–145; BP diastolic 43–89; PULSE 64–98; RESP 15–93; TEMP 36.1–37.1; O2SAT 93–97
--- NOTE | 2024-06-11 00:24 | PC.NURSE ---
DR. ROSENTHAL WITH RETURN PHONE CALL. RN REQUESTING CLARIFICATION OF 2 U PRBC ORDERED URGENT. MD STATES 2 U PRBC ARE PENDING FOR SURGERY AND ARE TO BE ON HOLD. STATES SURGERY POSSIBLY WEDNESDAY. ORDERS GIVEN TO HOLD HEPARIN DRIP AT NOON 06/11/24 AND REQUEST FOR FURNACE BUILDER CONSULT TO HELP PT INCREASE CALORIC INTAKE SINCE RN STATES THAT SHE HAS LOW APPETITE.
[2024-06-11] MEDS: DILTIAZEM INJ 125 MG in DEXTROSE 5%-WATER 100 ML 15 MG IV (02:40)
[2024-06-11 06:26] LABS: Basophils % (Auto) 0 % (0-2.5); Eosinophils # (Auto) 0.2 Thou/mm3 (0.0-0.5); Eosinophils % (Auto) 1 % (0-10); Hematocrit 25.7 % (36.0-46.0); Immature Granulocytes % (Auto) 1 % (0-0); Immature Granulocytes Auto 0.06 Thou/mm3 (0.00-0.00); Lymphocytes # (Auto) 0.6 Thou/mm3 (1.0-4.8); Lymphocytes % (Auto) 5 % (10-50); Mean Corpuscular HGB Conc 33.9 g/dl (31.0-37.0); Mean Corpuscular Hemoglobin 27.5 pg (25.0-35.0); Mean Corpuscular Volume 81 fL (80-100); Monocytes # (Auto) 0.9 Thou/mm3 (0.0-0.8); Monocytes % (Auto) 7 % (0-12); Neutrophils # (Auto) 10.1 Thou/mm3 (1.8-7.7); Neutrophils % (Auto) 86 % (37-80); Nucleated Red Blood Cell % 0 /100 WBC (0); Platelet Count 180 Thou/mm3 (140-440); RDW Standard Deviation 41.3 fL (36.4-46.3); Red Blood Count 3.16 Miln/mm3 (4.00-5.20); White Blood Count 11.8 Thou/mm3 (3.6-11.0)
[2024-06-11 06:32] LABS: Hemoglobin 8.7 g/dL (12.0-16.0)
[2024-06-11 06:56] LABS: Alanine Aminotransferase 14 U/L (10-49); Albumin, Serum 2.7 gm/dL (3.4-4.8); Albumin/Globulin Ratio 1.4 (1.2-2.2); Alkaline Phosphatase 73 U/L (46-116); Anion Gap 7 (7-16); Aspartate Amino Transferase 30 U/L (0-34); BUN/Creatinine Ratio 29 Ratio (12-20); Bilirubin,Total 0.7 mg/dL (0.3-1.2); Blood Urea Nitrogen 35 mg/dL (9-23); Calcium 8.3 mg/dL (8.3-10.6); Calcium (Corrected) 9.3 mg/dL (8.5-10.1); Carbon Dioxide 22.7 mMol/L (20.0-31.0); Chloride 102 mMol/L (98-107); Creatinine (Component) 1.2 mg/dL (0.6-1.3); Estimated Creatinine Clearance 29.7 mL/min (>60); Globulin 1.9 gm/dL (2.3-3.5); Glucose 89 mg/dL (74-106); Osmolality,Calculated 271 (275-295); Potassium 4.5 mMol/L (3.4-5.1); Sodium 132 mMol/L (136-145); Total Protein 4.6 gm/dL (5.7-8.2); eGFR 45 See Note
[2024-06-11 06:58] LABS: Partial Thromboplastin Time 56.1 Seconds (22.0-36.0)
--- NOTE | 2024-06-11 07:22 | PC.CC ---
Late Entry 06/10/24: Rounding note: Pending ortho consult for possible surgery due to hip fx.
[2024-06-11] MEDS: PANTOPRAZOLE INJ 40 MG VIAL IVP (08:04)
[2024-06-11] MEDS: SENNA TABLET 1 TAB PO (08:05)
[2024-06-11] MEDS: AMIODARONE HCL 200 MG TABLET PO ×2 (08:05→20:53)
[2024-06-11] MEDS: ESCITALOPRAM OXALATE 10 MG TABLET PO (08:05)
[2024-06-11] MEDS: DILTIAZEM 30 MG TABLET 60 MG PO ×3 (10:38→20:52)
--- NOTE | 2024-06-11 12:31 | PC.CC ---
Rounding note: pt pending surgery for hip fx. Dr. Romero to do surgery once pts hemoglobin stabilizes.
--- NOTE | 2024-06-11 13:17 | ESPR_ITS ---
RE: RADHA CANTU : 1940 DATE OF SERVICE: 06/11/2024 S: The patient is doing much better today. She was admitted to the hospital with fractured hip, paroxysmal atrial fibrillation, AFib with RVR, rate controlled well now, back in normal sinus rhythm. PACs, which is excellent. The patient is still on a Cardizem drip 15 mg per hour. She converted to sinus rhythm, which is excellent. The patient is stable to have surgery. I spoke to Dr. Romero who will do the surgery tomorrow. O: General: She is in much better mood today. Vital Signs: Blood pressure 130/60, pulse rate is 80, respirations 16, temperature normal. Neck: Supple. No JVD. Lungs: Decreased breath sounds. No rales or rhonchi. Heart: S1, S2 regular. No gallops. Abdomen: Soft. Extremities: Mild edema. Genital/Rectal: Not performed. Central Nervous System: Normal. Diagnostic Data: EKG shows 100% sinus rhythm. A: 1. Paroxysmal atrial fibrillation with rapid ventricular response. 2. Hypertension. 3. Possible pyelonephritis, improving. 4. Fracture of the hip. P: The patient is stable to have surgery tomorrow. She is back to normal sinus rhythm. Continue oral diltiazem. We will stop the IV diltiazem and IV heparin in preparation for surgery tomorrow. DT: 11:19:54 TT: 13:15:00 Ref: [id number] - TID: [id number]
--- NOTE | 2024-06-11 13:42 | PD.IDPROG ---
Subjective Subjective Interval history: afebrile throughout course. pt not seen though, events noted may have surgery today Exam Vital Signs Temp Pulse Resp BP Pulse Ox O2 Del Method O2 Flow Rate 97.2 F 66 18 135/43 H 96 Room Air 2 06/11/24 12:00 06/11/24 12:00 06/11/24 12:00 06/11/24 12:00 06/11/24 12:00 06/11/24 12:00 06/09/24 19:59 Narrative Exam not seen again. noted that she was still on rocephin, so changed with no fevers and normalized wbc to cefuroxime po Objective - Internal Medicine Labs 06/11/24 05:12 06/11/24 05:12 Labs: Laboratory Results - last 24 hr 06/10/24 06/11/24 21:25 05:12 WBC 11.8 H RBC 3.16 L Hgb 8.7 L Hct 25.7 L MCV 81 MCH 27.5 MCHC 33.9 RDW Std Deviation 41.3 Plt Count 180 Neut % (Auto) 86 H Lymph % (Auto) 5 L [place] % (Auto) 7 Eos % (Auto) 1 Baso % (Auto) 0 Neut # (Auto) 10.1 H Lymph # (Auto) 0.6 L [place] # (Auto) 0.9 H Eos # (Auto) 0.2 Baso # (Auto) 0.0 Immature Gran # (Auto) 0.06 H Absolute Nucleated RBC 0.00 Immature Gran % 1 H Nucleated RBC % 0 APTT 56.1 H D Sodium 132 L Potassium 4.5 D Chloride 102 Carbon Dioxide 22.7 Anion Gap 7 BUN 35 H Creatinine 1.2 Estim Creat Clear Calc 29.7 L eGFR 45 L BUN/Creatinine Ratio 29 H Glucose 89 Calculated Osmolality 271 L Calcium 8.3 Corrected Calcium 9.3 Total Bilirubin 0.7 AST 30 ALT 14 Alkaline Phosphatase 73 Total Protein 4.6 L Albumin 2.7 L Globulin 1.9 L Albumin/Globulin Ratio 1.4 Blood Type O Positive Antibody Screen NEGATIVE Crossmatch See Detail Blood Bank Wristband ID Yes Assessment & Plan A&P Narrative presumptive pneumonia hip fx. PMH as noted ok to use po cefuroxime as ua benign and no urine cx noted. can not see in person till wednesday due to finish abx on moshe 1/7/25 Time Spent With Patient Time: Total time spent is greater than 50% in coordination of care (as documented) at patient's floor/unit and/or counseling patient:
--- NOTE | 2024-06-11 15:28 | PD.ORTHCONPN ---
Subjective Subjective Brief History: Patient very nice 83-year-old who [place] and [place] breaking the right hip. No other complaints as far as upper extremities left lower extremity right knee right ankle and foot Narrative: Patient has pain in her right hip. She is tired of being in [place]. She wants to go to [place]. We talked about doing surgery in [place] and she said she was fine with that. She does have some concerns about dying. She said just last week both of her brothers while sitting in a chair. She still has features of dementia. We talked at length about the surgery and she said she would be willing to have the surgery if we put her to sleep prior to the operation I told her that is what we would do Exam Vital Signs Temp Pulse Resp BP Pulse Ox O2 Del Method O2 Flow Rate 97.2 F 66 18 135/43 H 96 Room Air 2 06/11/24 12:00 06/11/24 12:00 06/11/24 12:00 06/11/24 12:00 06/11/24 12:00 06/11/24 12:00 06/09/24 19:59 Pulse 66, blood pressure 135/43 Narrative Exam Patient is alert but disoriented. Pain and shortening right lower extremity. Objective - Ortho Labs 06/11/24 05:12 06/11/24 05:12 Labs: Laboratory Results - last 24 hr 06/10/24 06/11/24 21:25 05:12 WBC 11.8 H RBC 3.16 L Hgb 8.7 L Hct 25.7 L MCV 81 MCH 27.5 MCHC 33.9 RDW Std Deviation 41.3 Plt Count 180 Neut % (Auto) 86 H Lymph % (Auto) 5 L [place] % (Auto) 7 Eos % (Auto) 1 Baso % (Auto) 0 Neut # (Auto) 10.1 H Lymph # (Auto) 0.6 L [place] # (Auto) 0.9 H Eos # (Auto) 0.2 Baso # (Auto) 0.0 Immature Gran # (Auto) 0.06 H Absolute Nucleated RBC 0.00 Immature Gran % 1 H Nucleated RBC % 0 APTT 56.1 H D Sodium 132 L Potassium 4.5 D Chloride 102 Carbon Dioxide 22.7 Anion Gap 7 BUN 35 H Creatinine 1.2 Estim Creat Clear Calc 29.7 L eGFR 45 L BUN/Creatinine Ratio 29 H Glucose 89 Calculated Osmolality 271 L Calcium 8.3 Corrected Calcium 9.3 Total Bilirubin 0.7 AST 30 ALT 14 Alkaline Phosphatase 73 Total Protein 4.6 L Albumin 2.7 L Globulin 1.9 L Albumin/Globulin Ratio 1.4 Blood Type O Positive Antibody Screen NEGATIVE Crossmatch See Detail Blood Bank Wristband ID Yes Hemoglobin 8.7, creatinine 1.2 Assessment & Plan Assessment Additional comments: Right intertrochanteric hip fracture. Will schedule for surgery tomorrow. Her hemoglobin is low and we are going to be operating her hip. I talked to Dr. Aidan Parada and I told him we will transfuse her 2 units of blood and he agreed Plan Surgery tomorrow Documentation for date of: 06/11/24
--- NOTE | 2024-06-11 16:20 | PC.NURSE ---
Daughter Destiny gave phone consent for blood transfusion and ORIF TO R.hip tomorrow ,stated explained to her the procedure and blood transfusion,she does not have any questions ,she understood.
--- NOTE | 2024-06-11 18:48 | ESPR_ITS ---
Documentation for date of: 06/11/24 Subjective Subjective Interval history: 06/11: No acute overnight events. Patient is seen and examined at bedside this morning patient's daughter and grandson are also at bedside. Patient currently is awake and recognizes her daughter and grandson however she is unable to tell me where she is other than she is in [place]. Patient states that she does not have pain in her hip unless she moves. Patient's daughter expressed that they would like to proceed with hip surgery and would like to take her to rehab in [place] and understands all the risks associated with surgery considering Ms. Hogan's current of [facility]. Per Dr. Romero plans for surgery tomorrow patient has no other complaints. Exam Vital Signs Temp Pulse Resp BP Pulse Ox O2 Del Method O2 Flow Rate 98.3 F 86 15 140/65 H 96 Room Air 0 06/11/24 17:45 06/11/24 17:45 06/11/24 17:45 06/11/24 17:45 06/11/24 17:30 06/11/24 16:00 06/11/24 17:30 Narrative Exam GENERAL: A&Ox3, Awake, Not in acute distress NEURO: no focal neurological deficits HEENT: Atraumatic, Normocephalic. mucous membranes moist. Eyes open, symmetrical, & clear HEART: Normal Heart Sounds LUNGS: Clear to auscultation with no wheezing or crackles. ABDOMEN: soft, non-distended, non-tender, bowel sounds heard, no guarding or rebound tenderness SKIN: No Rash or ecchymoses EXTREMITIES: right leg externally rotated, No edema,pedal pulses palpated Objective Labs 06/13/24 04:55 06/13/24 04:55 Labs: Laboratory Results - last 24 hr 06/10/24 06/11/24 21:25 05:12 WBC 11.8 H RBC 3.16 L Hgb 8.7 L Hct 25.7 L MCV 81 MCH 27.5 MCHC 33.9 RDW Std Deviation 41.3 Plt Count 180 Neut % (Auto) 86 H Lymph % (Auto) 5 L [place] % (Auto) 7 Eos % (Auto) 1 Baso % (Auto) 0 Neut # (Auto) 10.1 H Lymph # (Auto) 0.6 L [place] # (Auto) 0.9 H Eos # (Auto) 0.2 Baso # (Auto) 0.0 Immature Gran # (Auto) 0.06 H Absolute Nucleated RBC 0.00 Immature Gran % 1 H Nucleated RBC % 0 APTT 56.1 H D Sodium 132 L Potassium 4.5 D Chloride 102 Carbon Dioxide 22.7 Anion Gap 7 BUN 35 H Creatinine 1.2 Estim Creat Clear Calc 29.7 L eGFR 45 L BUN/Creatinine Ratio 29 H Glucose 89 Calculated Osmolality 271 L Calcium 8.3 Corrected Calcium 9.3 Total Bilirubin 0.7 AST 30 ALT 14 Alkaline Phosphatase 73 Total Protein 4.6 L Albumin 2.7 L Globulin 1.9 L Albumin/Globulin Ratio 1.4 Blood Type O Positive Antibody Screen NEGATIVE Crossmatch See Detail Blood Bank Wristband ID Yes Quality Measures Quality Measures VTE prophylaxis Advance care planning discussed with:: patient and child Assessment & Plan Assessment Current Active Medications: Generic Name Dose Route Start Last Admin Trade Name Freq PRN Reason Stop Dose Admin Acetaminophen 650 mg 06/05/24 14:35 Acetaminophen 325 Mg Tablet PO 07/05/24 14:34 Q6H PRN Pain (1-3) and Fever >101.5 Albuterol/Ipratropium 3 ml 06/10/24 13:53 Albuterol/Ipratropium (Duoneb) Rt Charline 3 Ml Nebu INH 07/07/24 10:59 Q4HRRT PRN SOB/Wheeze Amiodarone HCl 200 mg 06/09/24 10:00 06/11/24 08:05 Amiodarone Hcl 200 Mg Tablet PO 07/09/24 09:59 200 mg BID CLAUDY Administration Atorvastatin Calcium 40 mg 06/07/24 21:00 06/10/24 21:36 Atorvastatin Calcium 20 Mg Tablet PO 07/07/24 20:59 40 mg HS CLAUDY Administration Cefuroxime Axetil 500 mg 06/11/24 21:00 Cefuroxime Axetil 250 Mg Tablet PO 06/13/24 22:50 BID CLAUDY Dextrose 25 ml 06/05/24 14:40 Dextrose 50%-Water Inj 50 Ml Syringe IV 07/05/24 14:39 Q15MIN PRN BG 50-70 responsive npo pt Dextrose 50 ml 06/05/24 14:40 Dextrose 50%-Water Inj 50 Ml Syringe IV 07/05/24 14:39 Q15MIN PRN BG <50 OR BG <70 & pt unresponsive Diltiazem HCl 60 mg 06/11/24 10:29 06/11/24 16:52 Diltiazem 30 Mg Tablet PO 07/11/24 10:28 60 mg QID CLAUDY Administration Escitalopram Oxalate 10 mg 06/08/24 09:00 06/11/24 08:05 Escitalopram Oxalate 10 Mg Tablet PO 07/08/24 08:59 10 mg QDAY CLAUDY Administration Glucagon 1 mg 06/05/24 14:40 Glucagon Inj 1 Mg Vial IM Q15MIN PRN BG <70, and no IV access Insulin Human Lispro 0 unit 06/05/24 17:00 06/11/24 16:54 Insulin Lispro (Admelog) 1 Unit/0.01 Ml Unit SC 07/05/24 16:59 Not Given ACHS CLAUDY Protocol Ondansetron HCl 4 mg 06/05/24 14:35 Ondansetron Inj 2 Mg/Ml Inj 2 Ml IV 07/05/24 14:34 Q6H PRN NAUSEA OR VOMITING Protocol Pantoprazole Sodium 40 mg 06/06/24 09:00 06/11/24 08:04 Pantoprazole Inj 40 Mg Vial IVP 07/06/24 08:59 40 mg QDAY CLAUDY Administration Sennosides 1 tab 06/05/24 14:35 06/11/24 08:05 Senna Tablet PO 07/05/24 14:34 1 tab QDAY PRN Administration constipation Protocol Plan Ms. Hogan is a 83-year-old female with past medical history of diabetes mellitus, atrial fibrillation and hyperlipidemia who presented to [facility] on 06/05/2024 status post ground-level mechanical fall with right hip pain and found to have right hip fracture. Pt is admitted for hip surgery. # Atrial fibrillation with RVR Patient has history of A-fib, on amiodarone and Eliquis 2.5 mg at home Trialed on amiodarone drip and failed to convert, later received synchronized cardioversion and failed to remain in sinus rhythm, Echo shows Normal LV size and function. Estimated EF 55-60% Normal RV size and function. Estimated RVSP 48mmHg Mild mitral and trace tricuspid regurgitation -Pt is switched from amiodarone drip to amiodarone 200mg PO BID -Cardizem 30 mg p.o. 4 times daily discontinued and patient has been placed on diltiazem drip 15 mg/h -Will continue heparin drip for anticoagulation -Will hold Eliquis in anticipation of surgery -Telemonitoring -Cardiology consulted-we attempted cardioversion on June 09 but was unsuccessful to maintain sinus rhythm. Patient was transitioned over to Cardizem drip at 15 mg/h. Heart rate has been very well-controlled. Will transition to p.o. Cardizem following surgery and continue with amiodarone p.o. for further management of cardiac arrhythmia. Will resume Eliquis 2.5 mg p.o. twice daily following surgery with approval of both brim and crown presser and orthopedic surgeon. #Sepsis secondary to pyelonephritis Sepsis SIRS 2/4 secondary to pyelonephritis, endorgan damage evidence noted by on and off altered mental status Atrial fibrillation triggered secondary to sepsis Patient is tachycardic elevated WBC count. Hypotension was noted. CT chest abdomen pelvis was ordered shows 3 mm right thyroid nodule, pulmonary artery hypertension, mild pneumonia versus atelectasis left base, mild fluid adjacent to tail of pancreas and around spleen suspicion of pancreatitis, a trophic kidney with perinephric stranding, severe osteopenia and acute intertrochanteric fracture right hip. Patient was given adequate fluid resuscitation, blood pressure has improved, was given 2 L IV fluid 06/07 Plan: -Continue IV ceftriaxone (06/06- -blood culture- no growth in 48 hours 07/09 -Monitor vitals closely # Acute Intertrochanteric Fracture Right Hip # Status post ground-level mechanical fall Presented with right hip pain reported tripping and falling secondary to loss of balance, denies hitting head, denies loss of consciousness. CT head and cervical spine negative for any acute changes. Hip/pelvis x-ray shows Acute intertrochanteric fracture right hip. Patient is given 1 L NS bolus in ED. Orthopedics was consulted. Plan: -Surgery on hold, due to patient's atrial fibrillation and leukocytosis -Tylenol, [employer], hydromorphone for pain control -Cardiology consult for cardiac clearance for possible surgical intervention -Orthopedics consulted, Dr Romero plans for surgery on monday 06/12. # Acute kidney injury, improving # Chronic kidney disease stage IIIb # Dehydration, prerenal Pre-renal likely, patient's BUN 32, creatinine 1.8, GFR 28 on admission Baseline function not known, possible baseline GFR 41 Today BUN 41. Cr 1.4, eGFR 38 Plan: -Renally dose medication -Avoid nephrotoxic agents -Monitor renal panel in a.m. # Diabetes mellitus # Hyperlipidemia Blood glucose 184 on admission. Hgb A1c 6.0 on 06/06/24 Plan: -Sliding scale insulin -Hypoglycemia protocol in place # Pneumonia # COPD/Asthma Patient was discharged from [facility] for Pneumonia Patient discharged on Doxycycline PO 100mg BID Was prescribed Levalbuterol per records -Completed p.o. doxycycline course on 06/07 -Duonebs PRN -Supplemental oxygen as needed # 3 mm right thyroid nodule, incidental finding # Rule out pancreatitis -TSH on 06/06/24 is 0.73 -Consider outpatient workup for thyroid nodule -Suspicion of pancreatitis, per imaging, Lipase 42, patient denies abdominal pain, pancreatitis ruled out DVT prophylaxis: SCDs, Heparin drip for anticoagulation in the setting of a-fib GI prophylaxis: IV Protonix Diet: Carbohydrate consistent, cardiac Lines: Peripheral IV Code status: DNR Assessment and plan discussed with my attending physician Dr. Shankar Patel (PGY-1)- Internal medicine resident Attending Provider Attestation/Addendum 83-year-old female with multiple comorbidities including type 2 diabetes mellitus, hypertension, hyperlipidemia and atrial fibrillation who presented with right hip pain status post ground-level fall. In the ER, patient was noted to have acute intertrochanteric fracture of the right hip subsequently orthopedic team was consulted. In addition, patient was noted to have atrial fibrillation with rapid ventricular rate and subsequently started on amiodarone and heparin drip for anticoagulation. In addition, patient also noted to have sepsis with source likely being acute pyelonephritis which was found on CT imaging and plan to continue IV Rocephin. Continue above-mentioned plan and appreciate orthopedic and cardiology team. Overnight, patient with significant leukocytosis however improving with IV Rocephin. Heart rate under control and appreciate cardiology input. Surgical intervention was delayed given that patient's heart rate was high and needed to be under control prior to surgical intervention. Will continue pain control, amiodarone and IV fluid resuscitation. Patient and family were updated and they are in agreement with our current plan. Overnight, heart rate under control, leukocytosis improving and plan for surgical intervention tomorrow. I reviewed above note and agree with findings and plans. I have also personally examined the patient with medicine team and went over assessment and plan with medical team including internet designer and resident physician.
[2024-06-11] MEDS: ATORVASTATIN CALCIUM 20 MG TABLET 40 MG PO (20:52)
[2024-06-11] MEDS: cefuroxime axetiL 250 MG TABLET 500 MG PO (20:53)
[2024-06-11] MEDS: QUEtiapine FUMARATE 25 MG TABLET PO (22:07)
[2024-06-11 23:00] LABS: Hematocrit 31.4 % (36.0-46.0); Hemoglobin 10.7 g/dL (12.0-16.0)
--- NOTE | 2024-06-11 23:52 | PC.NURSE ---
patient is npo post midnight for her surgery in the morning and she has a due of julius gtz at [address] Dhillon and said to give it still with small sips of water. Also informed dr. Dhillon about the result of repeat H&H and said okay.
[2024-06-12] VITALS (17 sets, daily range): BP systolic 123–149; BP diastolic 65–104; PULSE 54–110; RESP 13–92; TEMP 36.1–36.6; O2SAT 92–100
[2024-06-12] MEDS: DILTIAZEM 30 MG TABLET 60 MG PO ×2 (05:20→21:58)
[2024-06-12 05:56] LABS: Basophils % (Auto) 0 % (0-2.5); Eosinophils # (Auto) 0.1 Thou/mm3 (0.0-0.5); Eosinophils % (Auto) 1 % (0-10); Hematocrit 30.9 % (36.0-46.0); Hemoglobin 10.6 g/dL (12.0-16.0); Immature Granulocytes % (Auto) 1 % (0-0); Immature Granulocytes Auto 0.08 Thou/mm3 (0.00-0.00); Lymphocytes # (Auto) 0.6 Thou/mm3 (1.0-4.8); Lymphocytes % (Auto) 5 % (10-50); Mean Corpuscular HGB Conc 34.3 g/dl (31.0-37.0); Mean Corpuscular Hemoglobin 27.3 pg (25.0-35.0); Mean Corpuscular Volume 80 fL (80-100); Monocytes # (Auto) 0.9 Thou/mm3 (0.0-0.8); Monocytes % (Auto) 8 % (0-12); Neutrophils # (Auto) 10.2 Thou/mm3 (1.8-7.7); Neutrophils % (Auto) 85 % (37-80); Nucleated Red Blood Cell % 0 /100 WBC (0); Platelet Count 185 Thou/mm3 (140-440); RDW Standard Deviation 41.8 fL (36.4-46.3); Red Blood Count 3.88 Miln/mm3 (4.00-5.20)
[2024-06-12 06:31] LABS: Alanine Aminotransferase 15 U/L (10-49); Albumin, Serum 2.7 gm/dL (3.4-4.8); Albumin/Globulin Ratio 1.3 (1.2-2.2); Alkaline Phosphatase 82 U/L (46-116); Anion Gap 7 (7-16); Aspartate Amino Transferase 23 U/L (0-34); BUN/Creatinine Ratio 28 Ratio (12-20); Bilirubin,Total 1.4 mg/dL (0.3-1.2); Blood Urea Nitrogen 31 mg/dL (9-23); Calcium 8.5 mg/dL (8.3-10.6); Calcium (Corrected) 9.5 mg/dL (8.5-10.1); Carbon Dioxide 23.8 mMol/L (20.0-31.0); Chloride 102 mMol/L (98-107); Creatinine (Component) 1.1 mg/dL (0.6-1.3); Estimated Creatinine Clearance 32.4 mL/min (>60); Globulin 2.1 gm/dL (2.3-3.5); Glucose 89 mg/dL (74-106); Osmolality,Calculated 271 (275-295); Potassium 4.2 mMol/L (3.4-5.1); Sodium 133 mMol/L (136-145); Total Protein 4.8 gm/dL (5.7-8.2); eGFR 50 See Note
[2024-06-12] MEDS: PANTOPRAZOLE INJ 40 MG VIAL IVP (08:40)
--- NOTE | 2024-06-12 11:40 | ESPR_ITS ---
Subjective Subjective Interval history: pt with pneumonia associated with hip fx other problems noted see med list Exam Vital Signs Temp Pulse Resp BP Pulse Ox O2 Del Method O2 Flow Rate 97.0 F 85 20 140/79 H 97 Room Air 0 06/12/24 08:00 06/12/24 08:00 06/12/24 08:00 06/12/24 08:00 06/12/24 08:00 06/12/24 08:00 06/12/24 08:00 Narrative Exam awake alert. thirsty but staff states she is npo. so no drink given to pt Objective - Internal Medicine Labs 06/12/24 05:07 06/12/24 05:07 Labs: Laboratory Results - last 24 hr 06/10/24 06/11/24 06/12/24 21:25 22:47 05:07 WBC 12.0 H RBC 3.88 L Hgb 10.7 L D 10.6 L Hct 31.4 L 30.9 L MCV 80 MCH 27.3 MCHC 34.3 RDW Std Deviation 41.8 Plt Count 185 Neut % (Auto) 85 H Lymph % (Auto) 5 L [place] % (Auto) 8 Eos % (Auto) 1 Baso % (Auto) 0 Neut # (Auto) 10.2 H Lymph # (Auto) 0.6 L [place] # (Auto) 0.9 H Eos # (Auto) 0.1 Baso # (Auto) 0.0 Immature Gran # (Auto) 0.08 H Absolute Nucleated RBC 0.00 Immature Gran % 1 H Nucleated RBC % 0 Sodium 133 L Potassium 4.2 Chloride 102 Carbon Dioxide 23.8 Anion Gap 7 BUN 31 H Creatinine 1.1 Estim Creat Clear Calc 32.4 L eGFR 50 L BUN/Creatinine Ratio 28 H Glucose 89 Calculated Osmolality 271 L Calcium 8.5 Corrected Calcium 9.5 Total Bilirubin 1.4 H D AST 23 ALT 15 Alkaline Phosphatase 82 Total Protein 4.8 L Albumin 2.7 L Globulin 2.1 L Albumin/Globulin Ratio 1.3 Blood Type O Positive Antibody Screen NEGATIVE Crossmatch See Detail Blood Bank Wristband ID Yes Assessment & Plan A&P Narrative presumptive pneumonia rt hip fx. PMH as noted due to finish abx on wednesday06/13/24 will look in superficially on wed06/14/24 if still here, sadly, at her age, anything can happen. a hip fx is often a pre-morbid event btw. Time Spent With Patient Time: Total time spent is greater than 50% in coordination of care (as documented) at patient's floor/unit and/or counseling patient:
--- NOTE | 2024-06-12 13:18 | ESCONSULT_ITS ---
RE: RADHA CANTU : 1940 DATE OF CONSULTATION: 06/12/2024 REFERRING PHYSICIAN: Jabari Romero MD and Valentina Chaparro MD REASON FOR CONSULTATION: Hip fracture and pneumonia. HISTORY OF PRESENT ILLNESS: The patient is admitted for hip fracture repair. She apparently fell at home and is still very thirsty now. She would like to drink of water, but she is n.p.o. according to nursing staff. Dr. Romero has seen her. [place] her [place]. She has some features of dementia according to records and is a poor historian. She denies other health problems. She has had cardioversion on this admission and has seen various other providers. I tried to see her on Wednesday last week, but she was away from the room. Her medical problems include atrial fibrillation, chronic kidney disease, creatinine of 1.4 listed and a leukocytosis that has improved. She was seen by Oncology and Dr. Romero as well as Dr. Lei. No striking findings were noted and she is improved. Because her white count was so high at 38.1, she was given broad spectrum antibiotic coverage and has improved. Her white count is down to 12. Creatinine is still a bit impaired. BUN is still a little bit high, so she should be ready to go home in the near future. ASSESSMENT: 1. Apparent pneumonia 2. Hip fracture on the right 3. Cardiac issues as noted by Cardiology pmh: benign. limited to information on file as pt is not a good historian psh. : also benign fh: neg. sh. also neg but limited as pt not a good historian no admitted etoh or tobacco use noted pe: neg. no O2 need. not ill appearing RECOMMENDATIONS: I am going to see her again briefly on Wednesday. Otherwise, I have no other specific recommendations. DT: 12:01:15 TT: 13:03:00 Ref: [id number] - TID: [id number] MTDD
--- NOTE | 2024-06-12 14:27 | PC.SS ---
Addendum entered by SALLY Reed 06/12/24 15:34: Received a call from admissions at [facility]: [facility] and spoke with Jacy, informs they can accept the patient at their facility. Booked on [employer]. Addendum entered by SALLY Reed 06/12/24 14:32: Contacted admissions at [facility]: [facility] and spoke with Jacy, she informs she will review patient's insurance to determine if contracted and give a call back if able to accept the patient at their facility. Addendum entered by SALLY Reed 06/12/24 14:28: SS Update: spoke with patient's daughter, Destiny and the discharge plan is for [facility]: [facility]. Original Note: Rounding: patient to have surgery today. Recommendation for SNF.
--- NOTE | 2024-06-12 14:38 | PD.RESPRO ---
Documentation for date of: 06/12/24 Subjective Subjective Interval history: 06/11: No acute overnight events. Patient is seen and examined at bedside this morning. Patient is resting comfortably, saturating on room air. Per Dr. Haney's note patient will undergo hip surgery today patient was ordered 2 units of pRBC last night. Hemoglobin is stable at 10.6 and hematocrit 30.9 leukocytosis is downtrending. Patient has no complaints just awaiting surgery. Pt has no other complaints. Exam Vital Signs Temp Pulse Resp BP Pulse Ox O2 Del Method O2 Flow Rate 97.1 F 96 17 146/67 H 97 Room Air 0 06/12/24 12:00 06/12/24 12:41 06/12/24 12:00 06/12/24 12:41 06/12/24 12:00 06/12/24 12:00 06/12/24 12:00 Narrative Exam GENERAL: A&Ox3, Awake, Not in acute distress NEURO: no focal neurological deficits HEENT: Atraumatic, Normocephalic. mucous membranes moist. Eyes open, symmetrical, & clear HEART: Normal Heart Sounds LUNGS: Clear to auscultation with no wheezing or crackles. ABDOMEN: soft, non-distended, non-tender, bowel sounds heard, no guarding or rebound tenderness SKIN: No Rash or ecchymoses EXTREMITIES: right leg externally rotated, No edema,pedal pulses palpated Objective Labs 06/13/24 04:55 06/13/24 04:55 Labs: Laboratory Results - last 24 hr 06/10/24 06/11/24 06/12/24 21:25 22:47 05:07 WBC 12.0 H RBC 3.88 L Hgb 10.7 L D 10.6 L Hct 31.4 L 30.9 L MCV 80 MCH 27.3 MCHC 34.3 RDW Std Deviation 41.8 Plt Count 185 Neut % (Auto) 85 H Lymph % (Auto) 5 L [place] % (Auto) 8 Eos % (Auto) 1 Baso % (Auto) 0 Neut # (Auto) 10.2 H Lymph # (Auto) 0.6 L [place] # (Auto) 0.9 H Eos # (Auto) 0.1 Baso # (Auto) 0.0 Immature Gran # (Auto) 0.08 H Absolute Nucleated RBC 0.00 Immature Gran % 1 H Nucleated RBC % 0 Sodium 133 L Potassium 4.2 Chloride 102 Carbon Dioxide 23.8 Anion Gap 7 BUN 31 H Creatinine 1.1 Estim Creat Clear Calc 32.4 L eGFR 50 L BUN/Creatinine Ratio 28 H Glucose 89 Calculated Osmolality 271 L Calcium 8.5 Corrected Calcium 9.5 Total Bilirubin 1.4 H D AST 23 ALT 15 Alkaline Phosphatase 82 Total Protein 4.8 L Albumin 2.7 L Globulin 2.1 L Albumin/Globulin Ratio 1.3 Blood Type O Positive Antibody Screen NEGATIVE Crossmatch See Detail Blood Bank Wristband ID Yes Quality Measures Quality Measures VTE prophylaxis Advance care planning discussed with:: patient and child Assessment & Plan Assessment Current Active Medications: Generic Name Dose Route Start Last Admin Trade Name Freq PRN Reason Stop Dose Admin Acetaminophen 650 mg 06/05/24 14:35 Acetaminophen 325 Mg Tablet PO 07/05/24 14:34 Q6H PRN Pain (1-3) and Fever >101.5 Albuterol/Ipratropium 3 ml 06/10/24 13:53 Albuterol/Ipratropium (Duoneb) Rt Charline 3 Ml Nebu INH 07/07/24 10:59 Q4HRRT PRN SOB/Wheeze Amiodarone HCl 200 mg 06/09/24 10:00 06/12/24 12:05 Amiodarone Hcl 200 Mg Tablet PO 07/09/24 09:59 Not Given BID CLAUDY Atorvastatin Calcium 40 mg 06/07/24 21:00 06/11/24 20:52 Atorvastatin Calcium 20 Mg Tablet PO 07/07/24 20:59 40 mg HS CLAUDY Administration Cefuroxime Axetil 500 mg 06/11/24 21:00 06/12/24 12:05 Cefuroxime Axetil 250 Mg Tablet PO 06/13/24 22:50 Not Given BID CLAUDY Dextrose 25 ml 06/05/24 14:40 Dextrose 50%-Water Inj 50 Ml Syringe IV 07/05/24 14:39 Q15MIN PRN BG 50-70 responsive npo pt Dextrose 50 ml 06/05/24 14:40 Dextrose 50%-Water Inj 50 Ml Syringe IV 07/05/24 14:39 Q15MIN PRN BG <50 OR BG <70 & pt unresponsive Diltiazem HCl 60 mg 06/11/24 10:29 06/12/24 12:41 Diltiazem 30 Mg Tablet PO 07/11/24 10:28 Not Given QID CLAUDY Escitalopram Oxalate 10 mg 06/08/24 09:00 06/12/24 12:06 Escitalopram Oxalate 10 Mg Tablet PO 07/08/24 08:59 Not Given QDAY CLAUDY Glucagon 1 mg 06/05/24 14:40 Glucagon Inj 1 Mg Vial IM Q15MIN PRN BG <70, and no IV access Insulin Human Lispro 0 unit 06/05/24 17:00 06/12/24 12:06 Insulin Lispro (Admelog) 1 Unit/0.01 Ml Unit SC 07/05/24 16:59 Not Given ACHS CLAUDY Protocol Ondansetron HCl 4 mg 06/05/24 14:35 Ondansetron Inj 2 Mg/Ml Inj 2 Ml IV 07/05/24 14:34 Q6H PRN NAUSEA OR VOMITING Protocol Pantoprazole Sodium 40 mg 06/06/24 09:00 06/12/24 08:40 Pantoprazole Inj 40 Mg Vial IVP 07/06/24 08:59 40 mg QDAY CLAUDY Administration Sennosides 1 tab 06/05/24 14:35 06/11/24 08:05 Senna Tablet PO 07/05/24 14:34 1 tab QDAY PRN Administration constipation Protocol Plan Ms. Hogan is a 83-year-old female with past medical history of diabetes mellitus, atrial fibrillation and hyperlipidemia who presented to [facility] on 06/05/2024 status post ground-level mechanical fall with right hip pain and found to have right hip fracture. Pt is admitted for hip surgery. # Atrial fibrillation with RVR Patient has history of A-fib, on amiodarone and Eliquis 2.5 mg at home Trialed on amiodarone drip and failed to convert, later received synchronized cardioversion and failed to remain in sinus rhythm, Echo shows Normal LV size and function. Estimated EF 55-60% Normal RV size and function. Estimated RVSP 48mmHg Mild mitral and trace tricuspid regurgitation -Pt is switched from amiodarone drip to amiodarone 200mg PO BID -Cardizem 30 mg p.o. 4 times daily discontinued and patient has been placed on diltiazem drip 15 mg/h -Will continue heparin drip for anticoagulation -Will hold Eliquis in anticipation of surgery -Telemonitoring -Cardiology consulted-we attempted cardioversion on June 09 but was unsuccessful to maintain sinus rhythm. Patient was transitioned over to Cardizem drip at 15 mg/h. Heart rate has been very well-controlled. Will transition to p.o. Cardizem following surgery and continue with amiodarone p.o. for further management of cardiac arrhythmia. Will resume Eliquis 2.5 mg p.o. twice daily following surgery with approval of both electric motor repairing supervisor and orthopedic surgeon. #Sepsis secondary to pyelonephritis Sepsis SIRS 2/4 secondary to pyelonephritis, endorgan damage evidence noted by on and off altered mental status Atrial fibrillation triggered secondary to sepsis Patient is tachycardic elevated WBC count. Hypotension was noted. CT chest abdomen pelvis was ordered shows 3 mm right thyroid nodule, pulmonary artery hypertension, mild pneumonia versus atelectasis left base, mild fluid adjacent to tail of pancreas and around spleen suspicion of pancreatitis, atrophic kidney with perinephric stranding, severe osteopenia and acute intertrochanteric fracture right hip. Patient was given adequate fluid resuscitation, blood pressure has improved, was given 2 L IV fluid 06/07 Plan: -Continue IV ceftriaxone (06/06- -blood culture- no growth in 48 hours 07/09 -Monitor vitals closely # Acute Intertrochanteric Fracture Right Hip # Status post ground-level mechanical fall Presented with right hip pain reported tripping and falling secondary to loss of balance, denies hitting head, denies loss of consciousness. CT head and cervical spine negative for any acute changes. Hip/pelvis x-ray shows Acute intertrochanteric fracture right hip. Patient is given 1 L NS bolus in ED. Orthopedics was consulted. Plan: -Surgery on hold, due to patient's atrial fibrillation and leukocytosis -Tylenol, [place], hydromorphone for pain control -Cardiology consult for cardiac clearance for possible surgical intervention -Orthopedics consulted, Dr oRmero plans for surgery today monday 06/12. # Acute kidney injury, improving # Chronic kidney disease stage IIIb # Dehydration, prerenal Pre-renal likely, patient's BUN 32, creatinine 1.8, GFR 28 on admission Baseline function not known, possible baseline GFR 50 Today BUN 31. Cr 1.1, eGFR 38 Plan: -Renally dose medication -Avoid nephrotoxic agents -Monitor renal panel in a.m. # Diabetes mellitus # Hyperlipidemia Blood glucose 184 on admission. Hgb A1c 6.0 on 06/06/24 Plan: -Sliding scale insulin -Hypoglycemia protocol in place # Pneumonia # COPD/Asthma Patient was discharged from [facility] for Pneumonia Patient discharged on Doxycycline PO 100mg BID Was prescribed Levalbuterol per records -Completed p.o. doxycycline course on 06/07 -Duonebs PRN -Supplemental oxygen as needed # 3 mm right thyroid nodule, incidental finding # Rule out pancreatitis -TSH on 06/06/24 is 0.73 -Consider outpatient workup for thyroid nodule -Suspicion of pancreatitis, per imaging, Lipase 42, patient denies abdominal pain, pancreatitis ruled out DVT prophylaxis: SCDs, Heparin drip for anticoagulation in the setting of a-fib, awaiting surgery GI prophylaxis: IV Protonix Diet: Carbohydrate consistent, cardiac Lines: Peripheral IV Code status: DNR Assessment and plan discussed with my attending physician Dr. Shankar Patel (PGY-1)- Internal medicine resident Attending Provider Attestation/Addendum 83-year-old female with multiple comorbidities including type 2 diabetes mellitus, hypertension, hyperlipidemia and atrial fibrillation who presented with right hip pain status post ground-level fall. In the ER, patient was noted to have acute intertrochanteric fracture of the right hip subsequently orthopedic team was consulted. In addition, patient was noted to have atrial fibrillation with rapid ventricular rate and subsequently started on amiodarone and heparin drip for anticoagulation. In addition, patient also noted to have sepsis with source likely being acute pyelonephritis which was found on CT imaging and plan to continue IV Rocephin. Continue above-mentioned plan and appreciate orthopedic and cardiology team. Overnight, patient with significant leukocytosis however improving with IV Rocephin. Heart rate under control and appreciate cardiology input. Surgical intervention was delayed given that patient's heart rate was high and needed to be under control prior to surgical intervention. Will continue pain control, amiodarone and IV fluid resuscitation. Patient and family were updated and they are in agreement with our current plan. Overnight, heart rate under control, leukocytosis improving and plan for surgical intervention for today.. I reviewed above note and agree with findings and plans. I have also personally examined the patient with medicine team and went over assessment and plan with medical team including continuous improvement intern and resident physician.
--- NOTE | 2024-06-12 15:00 | XR_ITS ---
Examination: Right hip AP lateral 4 spot fluoroscopic views Fluoroscopy Exam date and time: June 12, 2024 1839 hrs. Indications: Acute right hip fracture June 05, 2024, operative reduction internal fixation today Technique And Findings: Operative reduction internal fixation intertrochanteric fracture right hip Satisfactory alignment Satisfactory position orthopedic hardware Fluoroscopy 26 seconds radiation dose 24.79 milligray Impression: Operative reduction internal fixation right hip fracture with satisfactory alignment
--- NOTE | 2024-06-12 15:36 | ESPR_ITS ---
<Statement entered by Isa Parada MD - 06/14/24 13:10> The patient is examined by me personally and patient is doing fairly well following surgery recovered she has had paroxysmal atrial fibrillation continue diltiazem and monitor for further arrhythmias agree with the treatment plan recommendation as documented with PGY 2 Dr. Rich Documentation for date of: 06/12/24 Subjective Subjective Interval history: Overnight, patient received Seroquel 25mg x 1. Otherwise, heart rate has been in the range of 83-96, no acute events reported. Patient denies any complaints at this time. Patient is awaiting surgery scheduled with orthopedics today. On tele monitor, patient as remained in NSR with occasional PACs. Labs significant for decrease in creatinine to 1.1 however increasing to bilirubin to 1.4. Exam Vital Signs Temp Pulse Resp BP Pulse Ox O2 Del Method O2 Flow Rate 97.1 F 96 17 146/67 H 97 Room Air 0 06/12/24 12:00 06/12/24 12:41 06/12/24 12:00 06/12/24 12:41 06/12/24 12:00 06/12/24 12:00 06/12/24 12:00 Narrative Exam General Appearance: Pt in NAD laying comfortably in bed. HEENT: NC/AT, no scleral icterus, no conjunctival pallor, MMM Lungs: CTAB, no wheezes or crackles appreciated CVS: RRR, S1/S2 heard, no murmurs or rubs appreciated ABD: Soft, non-tender, non-distended, BS + in all 4 quadrants EXT: Right leg externally rotated, otherwise no edema or deformities noted, radial pulses 2+ BL, DP pulses 2 + BL SKIN: Skin exam normal without any rashes. Neuro: A&O x 3. No gross neurological deficits. Motor and sensory grossly intact in B/L UL and LL except for right lower leg. Psych: Appropriate mood and affect Objective Labs 06/12/24 05:07 06/12/24 05:07 Labs: Laboratory Results - last 24 hr 06/10/24 06/11/24 06/12/24 21:25 22:47 05:07 WBC 12.0 H RBC 3.88 L Hgb 10.7 L D 10.6 L Hct 31.4 L 30.9 L MCV 80 MCH 27.3 MCHC 34.3 RDW Std Deviation 41.8 Plt Count 185 Neut % (Auto) 85 H Lymph % (Auto) 5 L [place] % (Auto) 8 Eos % (Auto) 1 Baso % (Auto) 0 Neut # (Auto) 10.2 H Lymph # (Auto) 0.6 L [place] # (Auto) 0.9 H Eos # (Auto) 0.1 Baso # (Auto) 0.0 Immature Gran # (Auto) 0.08 H Absolute Nucleated RBC 0.00 Immature Gran % 1 H Nucleated RBC % 0 Sodium 133 L Potassium 4.2 Chloride 102 Carbon Dioxide 23.8 Anion Gap 7 BUN 31 H Creatinine 1.1 Estim Creat Clear Calc 32.4 L eGFR 50 L BUN/Creatinine Ratio 28 H Glucose 89 Calculated Osmolality 271 L Calcium 8.5 Corrected Calcium 9.5 Total Bilirubin 1.4 H D AST 23 ALT 15 Alkaline Phosphatase 82 Total Protein 4.8 L Albumin 2.7 L Globulin 2.1 L Albumin/Globulin Ratio 1.3 Blood Type O Positive Antibody Screen NEGATIVE Crossmatch See Detail Blood Bank Wristband ID Yes Quality Measures Quality Measures VTE prophylaxis Advance care planning discussed with:: patient Assessment & Plan Assessment Current Active Medications: Generic Name Dose Route Start Last Admin Trade Name Freq PRN Reason Stop Dose Admin Acetaminophen 650 mg 06/05/24 14:35 Acetaminophen 325 Mg Tablet PO 07/05/24 14:34 Q6H PRN Pain (1-3) and Fever >101.5 Albuterol/Ipratropium 3 ml 06/10/24 13:53 Albuterol/Ipratropium (Duoneb) Rt Charline 3 Ml Nebu INH 07/07/24 10:59 Q4HRRT PRN SOB/Wheeze Amiodarone HCl 200 mg 06/09/24 10:00 06/12/24 12:05 Amiodarone Hcl 200 Mg Tablet PO 07/09/24 09:59 Not Given BID CLAUDY Atorvastatin Calcium 40 mg 06/07/24 21:00 06/11/24 20:52 Atorvastatin Calcium 20 Mg Tablet PO 07/07/24 20:59 40 mg HS CLAUDY Administration Cefuroxime Axetil 500 mg 06/11/24 21:00 06/12/24 12:05 Cefuroxime Axetil 250 Mg Tablet PO 06/13/24 22:50 Not Given BID CLAUDY Dextrose 25 ml 06/05/24 14:40 Dextrose 50%-Water Inj 50 Ml Syringe IV 07/05/24 14:39 Q15MIN PRN BG 50-70 responsive npo pt Dextrose 50 ml 06/05/24 14:40 Dextrose 50%-Water Inj 50 Ml Syringe IV 07/05/24 14:39 Q15MIN PRN BG <50 OR BG <70 & pt unresponsive Diltiazem HCl 60 mg 06/11/24 10:29 06/12/24 12:41 Diltiazem 30 Mg Tablet PO 07/11/24 10:28 Not Given QID CLAUDY Escitalopram Oxalate 10 mg 06/08/24 09:00 06/12/24 12:06 Escitalopram Oxalate 10 Mg Tablet PO 07/08/24 08:59 Not Given QDAY CLAUDY Glucagon 1 mg 06/05/24 14:40 Glucagon Inj 1 Mg Vial IM Q15MIN PRN BG <70, and no IV access Insulin Human Lispro 0 unit 06/05/24 17:00 06/12/24 12:06 Insulin Lispro (Admelog) 1 Unit/0.01 Ml Unit SC 07/05/24 16:59 Not Given ACHS CLAUDY Protocol Ondansetron HCl 4 mg 06/05/24 14:35 Ondansetron Inj 2 Mg/Ml Inj 2 Ml IV 07/05/24 14:34 Q6H PRN NAUSEA OR VOMITING Protocol Pantoprazole Sodium 40 mg 06/06/24 09:00 06/12/24 08:40 Pantoprazole Inj 40 Mg Vial IVP 07/06/24 08:59 40 mg QDAY CLAUDY Administration Sennosides 1 tab 06/05/24 14:35 06/11/24 08:05 Senna Tablet PO 07/05/24 14:34 1 tab QDAY PRN Administration constipation Protocol Plan Patient is an 83-year-old female with past medical history of paroxysmal A-fib on Eliquis 2.5 mg and admitted to hospital service for further management of right hip intertrochanteric fracture. Cardiology was consulted for cardiac clearance prior to surgery. Patient however has been consistently back into A- fib with RVR despite being on oral amiodarone and IV diltiazem pushes. #Atrial fibrillation with rapid ventricular response #History of paroxysmal A-fib #Hx of Hyperlipidemia Patient presented with right hip fracture status post ground-level fall in [facility]. Cardiology was initially consulted for cardiac clearance however started going into A-fib with RVR. Edward Vascore is 4. HAS-BLED score is 1. Patient takes home Rousvastatin 10mg HS. Unsuccessful cardioversion as patient unable to sustain sinus rhythm. Patient is currently off IV Diltiazem and heparin gtt. -Patient is scheduled to have surgery with Dr. Romero today -Continue with Diltiazem 60mg QID and amiodarone 200 mg twice daily -Keep potassium above 4, magnesium above 2 -Continue to monitor on tele -Restart apixaban twice daily at least on discharge -Continue with Atorvastatin 40mg HS Rest of problems continue as per primary team #Reactive Leukocytosis #Acute Intertrochanteric Fracture Right Hip #Status post ground-level mechanical fall #Acute kidney injury, improving #Chronic kidney disease stage IIIb #Dehydration, prerenal #Diabetes mellitus #Pneumonia #COPD/Asthma #3 mm right thyroid nodule, incidental finding Patient's plan and care discussed with my attending, Dr. Tal Rich MD PGY-2
--- NOTE | 2024-06-12 18:20 | SUR.PHASEI ---
pt received from OR in recovery bay 1. pt asleep but responds to voice, breathing unlabored on oxymask 6l, v/s stable. pt dressing to right hip cdi. report received from Stephanie KAYE and Lu ATKINSON.
--- NOTE | 2024-06-12 18:22 | XR_ITS ---
Examination: AP pelvis single view Technique portable AP supine pelvis single view Exam date and time: June 12, 2024 1834 hrs. Indications: Postop reduction hip fracture Findings: Postop reduction internal fixation intertrochanteric fracture right hip Satisfactory alignment Bones of the pelvis intact Impression: Postop reduction internal fixation right hip fracture with satisfactory alignment
--- NOTE | 2024-06-12 18:55 | SUR.PHASEI ---
pt awake and alert, breathing unlabored on room air. v/s stable. pt dressing to right hip cdi. report called to Pernell KAYE. pt will be transferred to room at this time.
[2024-06-12] MEDS: AMIODARONE HCL 200 MG TABLET PO (21:58)
[2024-06-12] MEDS: ATORVASTATIN CALCIUM 20 MG TABLET 40 MG PO (21:59)
[2024-06-12] MEDS: cefuroxime axetiL 250 MG TABLET 500 MG PO (22:00)
--- NOTE | 2024-06-12 22:08 | ESOP_ITS ---
Date of Procedure 06/12/24 Pre Op Diagnosis Right intertrochanteric hip fracture Post Op Diagnosis Right intertrochanteric hip fracture Procedure Open reduction internal fixation of right intertrochanteric hip fracture using [employer] TFN implant system Findings Displaced right intertrochanteric hip fracture Procedure Description Patient taken the operating room and the right lower extremity was noted as the correct extremity during the timeout procedure. She received 2 g of Ancef and 1 g of tranexamic acid at the beginning of the procedure and 1 g of tranexamic acid at the end of the procedure. She was placed on the fracture table and satisfactory images were achieved. Right lower extremity was prepped and draped in the standard fashion. An 18- gauge spinal needle was used to find the tip of the greater trochanter. An incision was made proximally through the skin. subcutaneous tissue and fascia overlying the muscle. Threaded guidepin was passed through the tip of the greater trochanter and a second pass was required and it was noted to be centered nicely in the femoral canal. Trochanteric reamer was then passed over the guidepin. A 10 x 170 mm trochanteric femoral implant was passed over the guidepin. Using the outrigger an incision was made over the proximal lateral thigh. The guidepin was then passed into the femoral head after the trocar was placed against the lateral femoral cortex. First pass was too proximal and anterior. The second pass was noted to be in satisfactory position. It measured 100 mm. The lateral femoral cortex reamer was then used to broach the lateral cortex. a 95 mm helical bolt was selected. The graduated drill bit was then passed into the femoral head and after that was done the 95 mm helical bolt was passed over the guidepin. It was noted to be in satisfactory position both in the AP and lateral planes. The proximal screw was advanced and then backed off 180 degrees. Using the outrigger the distal hole in the 170 mm navya was drilled and measured. A 34 x 5 mm screw was then passed distally through the navya and noted be in good position both in the AP and lateral planes. Wound was copious irrigated throughout with Betadine and saline solution. Good hemostasis. Gelfoam and vancomycin were placed on the proximal and distal wounds. They were placed deep to the fascia. The fascia and subcutaneous tissue were closed in layers. Monocryl subcuticular suture was then employed to close the wound. Bulky dressing was applied using 4 x 4's and ABD pads. It was secured with 3 inch Medipore tape. Vital images were obtained showing again satisfactory alignment. The patient was taken recovery room uneventfully. Sponge needle counts correct. Anesthesia GETA Drains None Implants 10 x 170 mm TFN intramedullary implant, 95 mm helical bolt, 34 mm 5 mm scre Pathology / specimen None IVF Infused 900 Urine Output 0 Estimated Blood Loss 35 Condition Stable Disposition PACU Surgeon Jabari Romero MD Surgical Staff Operation Date: 06/12/24 16:15 Case Staff PUBLIC STENOGRAPHER: Lu Galvez RN First Assistant: Della Armendariz
[2024-06-13] VITALS (13 sets, daily range): BP systolic 91–134; BP diastolic 54–81; PULSE 65–120; RESP 15–95; TEMP 36.1–36.4; O2SAT 93–95; BMI 12.0; BMI 23.6
--- NOTE | 2024-06-13 00:07 | PC.NURSE ---
Dr. Wild notified of patient new onset A. Flutter. No new orders at this time. This RN also asked MD for pain medication to have ready when patient needs it after anesthesia wears off as all that is ordered at this time is Tylenol; no new orders, he stated to call when patient is in pain.
[2024-06-13 06:42] LABS: Basophils % (Auto) 0 % (0-2.5); Eosinophils % (Auto) 0 % (0-10); Hematocrit 34.3 % (36.0-46.0); Hemoglobin 11.6 g/dL (12.0-16.0); Immature Granulocytes % (Auto) 1 % (0-0); Immature Granulocytes Auto 0.12 Thou/mm3 (0.00-0.00); Lymphocytes # (Auto) 0.4 Thou/mm3 (1.0-4.8); Lymphocytes % (Auto) 3 % (10-50); Mean Corpuscular HGB Conc 33.8 g/dl (31.0-37.0); Mean Corpuscular Hemoglobin 27.2 pg (25.0-35.0); Mean Corpuscular Volume 81 fL (80-100); Monocytes # (Auto) 0.2 Thou/mm3 (0.0-0.8); Monocytes % (Auto) 2 % (0-12); Neutrophils % (Auto) 94 % (37-80); Nucleated Red Blood Cell % 0 /100 WBC (0); Platelet Count 224 Thou/mm3 (140-440); RDW Standard Deviation 41.9 fL (36.4-46.3); Red Blood Count 4.26 Miln/mm3 (4.00-5.20); White Blood Count 12.8 Thou/mm3 (3.6-11.0)
[2024-06-13 07:08] LABS: Albumin, Serum 2.9 gm/dL (3.4-4.8); Anion Gap 12 (7-16); BUN/Creatinine Ratio 32 Ratio (12-20); Blood Urea Nitrogen 35 mg/dL (9-23); Calcium 8.7 mg/dL (8.3-10.6); Calcium (Corrected) 9.6 mg/dL (8.5-10.1); Carbon Dioxide 19.9 mMol/L (20.0-31.0); Chloride 101 mMol/L (98-107); Creatinine (Component) 1.1 mg/dL (0.6-1.3); Estimated Creatinine Clearance 32.4 mL/min (>60); Glucose 114 mg/dL (74-106); Osmolality,Calculated 275 (275-295); Phosphorous 5.7 mg/dL (2.4-5.1); Potassium 5.2 mMol/L (3.4-5.1); Sodium 133 mMol/L (136-145); eGFR 50 See Note
--- NOTE | 2024-06-13 09:06 | PC.SS ---
Addendum entered by SALLY Reed 06/13/24 16:09: Spoke with Jacy at [facility] in [place] , confirms they will begin insurance authorization for the patient. Original Note: SS update: sent updated clinicals to SNF via [email or web address] platform.
[2024-06-13] MEDS: AMIODARONE HCL 200 MG TABLET PO ×2 (09:28→21:25)
[2024-06-13] MEDS: ACETAMINOPHEN 325 MG TABLET 650 MG PO ×2 (09:28→21:23)
[2024-06-13] MEDS: ESCITALOPRAM OXALATE 10 MG TABLET PO (09:28)
[2024-06-13] MEDS: PANTOPRAZOLE INJ 40 MG VIAL IVP (09:28)
[2024-06-13] MEDS: cefuroxime axetiL 250 MG TABLET 500 MG PO ×2 (10:46→21:23)
[2024-06-13] MEDS: INSULIN LISPRO (AdmeLOG) 1 UNIT/0.01 ML UNIT SC (12:10)
--- NOTE | 2024-06-13 14:25 | ESPR_ITS ---
<Statement entered by Isa Parada MD - 06/16/24 09:06> I personally examined the patient evaluated the patient along with resident physician patient remains having intermittent episodes of A-fib rate controlled reasonably well with diltiazem underwent successful surgery not have any complications so far we will continue to monitor the patient telemetry agree with the treatment plan recommendation as documented by Dr. Rich PGY 2 Documentation for date of: 06/13/24 Subjective Subjective Interval history: Overnight, no acute events reported. Patient had an open reduction internal fixation of her right intra trochanteric hip fracture. PT [facility]. Patient's heart rate has been in the range of 64-100 for last 24 hours. Patient at bedside is resting comfortably, somewhat lethargic and sleepy. Patient has been in and out of sinus on her oral amiodarone and diltiazem. Patient at bedside monitor was showing consistent A-fib with RVR, HR 110s-120s. Will increase Diltiazem 60mg to 90mg QID. For now, patient's home Eliquis 2.5 mg p.o. twice daily is held, pending final Ortho recs regarding anticoagulation. Exam Vital Signs Temp Pulse Resp BP Pulse Ox O2 Del Method O2 Flow Rate 97.0 F 104 H 18 91/64 95 Room Air 3 06/13/24 12:00 06/13/24 12:18 06/13/24 12:00 06/13/24 12:18 06/13/24 12:00 06/13/24 12:00 06/12/24 18:25 Narrative Exam General Appearance: Pt in NAD laying comfortably in bed. Lethargic today. HEENT: NC/AT, no scleral icterus, no conjunctival pallor, MMM Lungs: CTAB, no wheezes or crackles appreciated CVS: Irregularly, irregular; tachycardic, S1/S2 heard, no murmurs or rubs appreciated ABD: Soft, non-tender, non-distended, BS + in all 4 quadrants EXT: Right leg externally rotated, otherwise no edema or deformities noted, radial pulses 2+ BL, DP pulses 2 + BL SKIN: Skin exam normal without any rashes. Neuro: A&O x 1. No gross neurological deficits. Motor and sensory grossly intact in B/L UL and LL except for right lower leg. Psych: Appropriate mood and affect Objective Labs 06/13/24 04:55 06/13/24 04:55 Labs: Laboratory Results - last 24 hr 06/13/24 04:55 WBC 12.8 H RBC 4.26 Hgb 11.6 L Hct 34.3 L MCV 81 MCH 27.2 MCHC 33.8 RDW Std Deviation 41.9 Plt Count 224 D Neut % (Auto) 94 H Lymph % (Auto) 3 L [place] % (Auto) 2 Eos % (Auto) 0 Baso % (Auto) 0 Neut # (Auto) 12.0 H Lymph # (Auto) 0.4 L [place] # (Auto) 0.2 Eos # (Auto) 0.0 Baso # (Auto) 0.0 Immature Gran # (Auto) 0.12 H Absolute Nucleated RBC 0.00 Immature Gran % 1 H Nucleated RBC % 0 Sodium 133 L Potassium 5.2 H D Chloride 101 Carbon Dioxide 19.9 L Anion Gap 12 BUN 35 H Creatinine 1.1 Estim Creat Clear Calc 32.4 L eGFR 50 L BUN/Creatinine Ratio 32 H Glucose 114 H Calculated Osmolality 275 Calcium 8.7 Corrected Calcium 9.6 Phosphorus 5.7 H Albumin 2.9 L Quality Measures Quality Measures VTE prophylaxis Advance care planning discussed with:: patient Assessment & Plan Assessment Current Active Medications: Generic Name Dose Route Start Last Admin Trade Name Freq PRN Reason Stop Dose Admin Acetaminophen 650 mg 06/05/24 14:35 06/13/24 09:28 Acetaminophen 325 Mg Tablet PO 07/05/24 14:34 650 mg Q6H PRN Administration Pain (1-3) and Fever >101.5 Albuterol/Ipratropium 3 ml 06/10/24 13:53 Albuterol/Ipratropium (Duoneb) Rt Charline 3 Ml Nebu INH 07/07/24 10:59 Q4HRRT PRN SOB/Wheeze Amiodarone HCl 200 mg 06/09/24 10:00 06/13/24 09:28 Amiodarone Hcl 200 Mg Tablet PO 07/09/24 09:59 200 mg BID CLAUDY Administration Atorvastatin Calcium 40 mg 06/07/24 21:00 06/12/24 21:59 Atorvastatin Calcium 20 Mg Tablet PO 07/07/24 20:59 40 mg HS CLAUDY Administration Cefuroxime Axetil 500 mg 06/11/24 21:00 06/13/24 10:46 Cefuroxime Axetil 250 Mg Tablet PO 06/13/24 22:50 500 mg BID CLAUDY Administration Dextrose 25 ml 06/05/24 14:40 Dextrose 50%-Water Inj 50 Ml Syringe IV 07/05/24 14:39 Q15MIN PRN BG 50-70 responsive npo pt Dextrose 50 ml 06/05/24 14:40 Dextrose 50%-Water Inj 50 Ml Syringe IV 07/05/24 14:39 Q15MIN PRN BG <50 OR BG <70 & pt unresponsive Diltiazem HCl 60 mg 06/11/24 10:29 06/13/24 12:18 Diltiazem 30 Mg Tablet PO 07/11/24 10:28 Not Given QID CLAUDY Escitalopram Oxalate 10 mg 06/08/24 09:00 06/13/24 09:28 Escitalopram Oxalate 10 Mg Tablet PO 07/08/24 08:59 10 mg QDAY CLAUDY Administration Glucagon 1 mg 06/05/24 14:40 Glucagon Inj 1 Mg Vial IM Q15MIN PRN BG <70, and no IV access Sodium Chloride 1,000 mls @ 20 mls/hr 06/13/24 18:19 Ns IV 07/13/24 18:18 .Q24H CLAUDY Insulin Human Lispro 0 unit 06/05/24 17:00 06/13/24 12:10 Insulin Lispro (Admelog) 1 Unit/0.01 Ml Unit SC 07/05/24 16:59 2 unit ACHS CLAUDY Administration Protocol Ondansetron HCl 4 mg 06/12/24 18:19 Ondansetron Inj 2 Mg/Ml Inj 2 Ml IV 07/12/24 18:18 Q6H PRN NAUSEA Pantoprazole Sodium 40 mg 06/06/24 09:00 06/13/24 09:28 Pantoprazole Inj 40 Mg Vial IVP 07/06/24 08:59 40 mg QDAY CLAUDY Administration Sennosides 1 tab 06/05/24 14:35 06/11/24 08:05 Senna Tablet PO 07/05/24 14:34 1 tab QDAY PRN Administration constipation Protocol Plan Patient is an 83-year-old female with past medical history of paroxysmal A-fib on Eliquis 2.5 mg and admitted to hospital service for further management of right hip intertrochanteric fracture. Cardiology was consulted for cardiac clearance prior to surgery. Patient continues to be in A-fib with RVR. Will increase Oral diltiazem to 90mg QID. #Atrial fibrillation with rapid ventricular response #History of paroxysmal A-fib #Hx of Hyperlipidemia Patient presented with right hip fracture status post ground-level fall in [facility]. Cardiology was initially consulted for cardiac clearance however started going into A-fib with RVR. Edward Vascore is 4. HAS-BLED score is 1. Patient takes home Rousvastatin 10mg HS. Unsuccessful cardioversion as patient unable to sustain sinus rhythm. Patient is currently off IV Diltiazem and heparin gtt. ORIF performed yesterday with Ortho. -Increased Diltiazem 60mg QID to 90mg QID d/t continued A-fib with RVR in rates 110s to 120s -Continue with amiodarone 200 mg twice daily -Keep potassium above 4, magnesium above 2 -Continue to monitor on tele -Restart apixaban twice daily as per ortho recs -Continue with Atorvastatin 40mg HS Rest of problems continue as per primary team #Reactive Leukocytosis #Acute Intertrochanteric Fracture Right Hip s/p ORIF #Status post ground-level mechanical fall #Acute kidney injury, improving #Chronic kidney disease stage IIIb #Dehydration, prerenal #Diabetes mellitus #Pneumonia #COPD/Asthma #3 mm right thyroid nodule, incidental finding Patient's plan and care discussed with my attending, Dr. Tal Rich MD PGY-2
--- NOTE | 2024-06-13 15:35 | ESPR_ITS ---
<Statement entered by Valentina Chaparro MD - 06/26/24 07:58> I reviewed above note and agree with findings and plans. I have also personally examined the patient with medicine team and went over assessment and plan with medical team including epidemiology internship and resident physician. Documentation for date of: 06/13/24 Subjective Subjective Interval history: Patient is resting comfortably in bed. She is more confused stating that she believes she is in [place]. Patient underwent ORIF with Dr. Schulz yesterday and tolerated the procedure without complaints. Today we will start her on Lovenox 60 mg twice daily. Will await orthopedic recommendations upon discharge. Patient will be discharged to SNF in [place] for further management. Exam Vital Signs Temp Pulse Resp BP Pulse Ox O2 Del Method O2 Flow Rate 97.0 F 104 H 18 91/64 95 Room Air 3 06/13/24 12:00 06/13/24 12:18 06/13/24 12:00 06/13/24 12:18 06/13/24 12:00 06/13/24 12:00 06/12/24 18:25 Narrative Exam GENERAL: A&Ox1, Awake, Not in acute distress NEURO: no focal neurological deficits HEENT: Atraumatic, Normocephalic. mucous membranes moist. Eyes open, symmetrical, & clear HEART: Normal Heart Sounds LUNGS: Clear to auscultation with no wheezing or crackles. ABDOMEN: soft, non-distended, non-tender, bowel sounds heard, no guarding or rebound tenderness SKIN: No Rash or ecchymoses EXTREMITIES: , No edema,pedal pulses palpated Objective Labs 06/13/24 04:55 06/13/24 04:55 Labs: Laboratory Results - last 24 hr 06/13/24 04:55 WBC 12.8 H RBC 4.26 Hgb 11.6 L Hct 34.3 L MCV 81 MCH 27.2 MCHC 33.8 RDW Std Deviation 41.9 Plt Count 224 D Neut % (Auto) 94 H Lymph % (Auto) 3 L [place] % (Auto) 2 Eos % (Auto) 0 Baso % (Auto) 0 Neut # (Auto) 12.0 H Lymph # (Auto) 0.4 L [place] # (Auto) 0.2 Eos # (Auto) 0.0 Baso # (Auto) 0.0 Immature Gran # (Auto) 0.12 H Absolute Nucleated RBC 0.00 Immature Gran % 1 H Nucleated RBC % 0 Sodium 133 L Potassium 5.2 H D Chloride 101 Carbon Dioxide 19.9 L Anion Gap 12 BUN 35 H Creatinine 1.1 Estim Creat Clear Calc 32.4 L eGFR 50 L BUN/Creatinine Ratio 32 H Glucose 114 H Calculated Osmolality 275 Calcium 8.7 Corrected Calcium 9.6 Phosphorus 5.7 H Albumin 2.9 L Quality Measures Quality Measures VTE prophylaxis Advance care planning discussed with:: patient Assessment & Plan Assessment Current Active Medications: Generic Name Dose Route Start Last Admin Trade Name Freq PRN Reason Stop Dose Admin Acetaminophen 650 mg 06/05/24 14:35 06/13/24 09:28 Acetaminophen 325 Mg Tablet PO 07/05/24 14:34 650 mg Q6H PRN Administration Pain (1-3) and Fever >101.5 Albuterol/Ipratropium 3 ml 06/10/24 13:53 Albuterol/Ipratropium (Duoneb) Rt Charline 3 Ml Nebu INH 07/07/24 10:59 Q4HRRT PRN SOB/Wheeze Amiodarone HCl 200 mg 06/09/24 10:00 06/13/24 09:28 Amiodarone Hcl 200 Mg Tablet PO 07/09/24 09:59 200 mg BID CLAUDY Administration Atorvastatin Calcium 40 mg 06/07/24 21:00 06/12/24 21:59 Atorvastatin Calcium 20 Mg Tablet PO 07/07/24 20:59 40 mg HS CLAUDY Administration Cefuroxime Axetil 500 mg 06/11/24 21:00 06/13/24 10:46 Cefuroxime Axetil 250 Mg Tablet PO 06/13/24 22:50 500 mg BID CLAUDY Administration Dextrose 25 ml 06/05/24 14:40 Dextrose 50%-Water Inj 50 Ml Syringe IV 07/05/24 14:39 Q15MIN PRN BG 50-70 responsive npo pt Dextrose 50 ml 06/05/24 14:40 Dextrose 50%-Water Inj 50 Ml Syringe IV 07/05/24 14:39 Q15MIN PRN BG <50 OR BG <70 & pt unresponsive Diltiazem HCl 60 mg 06/11/24 10:29 06/13/24 12:18 Diltiazem 30 Mg Tablet PO 07/11/24 10:28 Not Given QID CLAUDY Enoxaparin Sodium 60 mg 06/13/24 21:00 Enoxaparin Sod Inj 100 Mg/Ml Syringe 1 mg/kg (60 mg) 06/27/24 20:59 SC BID CLAUDY Escitalopram Oxalate 10 mg 06/08/24 09:00 06/13/24 09:28 Escitalopram Oxalate 10 Mg Tablet PO 07/08/24 08:59 10 mg QDAY CLAUDY Administration Glucagon 1 mg 06/05/24 14:40 Glucagon Inj 1 Mg Vial IM Q15MIN PRN BG <70, and no IV access Sodium Chloride 1,000 mls @ 20 mls/hr 06/13/24 18:19 Ns IV 07/13/24 18:18 .Q24H CLAUDY Insulin Human Lispro 0 unit 06/05/24 17:00 06/13/24 12:10 Insulin Lispro (Admelog) 1 Unit/0.01 Ml Unit SC 07/05/24 16:59 2 unit ACHS CLAUDY Administration Protocol Ondansetron HCl 4 mg 06/12/24 18:19 Ondansetron Inj 2 Mg/Ml Inj 2 Ml IV 07/12/24 18:18 Q6H PRN NAUSEA Pantoprazole Sodium 40 mg 06/06/24 09:00 06/13/24 09:28 Pantoprazole Inj 40 Mg Vial IVP 07/06/24 08:59 40 mg QDAY CLAUYD Administration Sennosides 1 tab 06/05/24 14:35 06/11/24 08:05 Senna Tablet PO 07/05/24 14:34 1 tab QDAY PRN Administration constipation Protocol Plan Ms. Hogan is a 83-year-old female with past medical history of diabetes mellitus, atrial fibrillation and hyperlipidemia who presented to [facility] on 06/05/2024 status post ground-level mechanical fall with right hip pain and found to have right hip fracture. Pt is admitted for hip surgery. # Atrial fibrillation with RVR Patient has history of A-fib, on amiodarone and Eliquis 2.5 mg at home Trialed on amiodarone drip and failed to convert, later received synchronized cardioversion and failed to remain in sinus rhythm, Echo shows Normal LV size and function. Estimated EF 55-60% Normal RV size and function. Estimated RVSP 48mmHg Mild mitral and trace tricuspid regurgitation -Pt is switched from amiodarone drip to amiodarone 200mg PO BID -Cardizem 30 mg p.o. 4 times daily -Transition over Lovenox 60 mg twice daily -Telemonitoring -Cardiology consulted-we attempted cardioversion on June 09 but was unsuccessful to maintain sinus rhythm. Patient was transitioned over to Cardizem drip at 15 mg/h. Heart rate has been very well-controlled. Will transition to p.o. Cardizem following surgery and continue with amiodarone p.o. for further management of cardiac arrhythmia. Will resume Eliquis 2.5 mg p.o. twice daily following surgery with approval of both cloth printing back tender and orthopedic surgeon. #Sepsis secondary to pyelonephritis Sepsis SIRS 2/4 secondary to pyelonephritis, endorgan damage evidence noted by on and off altered mental status Atrial fibrillation triggered secondary to sepsis Patient is tachycardic elevated WBC count. Hypotension was noted. CT chest abdomen pelvis was ordered shows 3 mm right thyroid nodule, pulmonary artery hypertension, mild pneumonia versus atelectasis left base, mild fluid adjacent to tail of pancreas and around spleen suspicion of pancreatitis, a trophic kidney with perinephric stranding, severe osteopenia and acute intertrochanteric fracture right hip. Patient was given adequate fluid resuscitation, blood pressure has improved, was given 2 L IV fluid 06/07 Plan: -Completed IV ceftriaxone (06/06-06/12) -blood culture- no growth in 48 hours 07/09 -Monitor vitals closely # Acute Intertrochanteric Fracture Right Hip # Status post ground-level mechanical fall Presented with right hip pain reported tripping and falling secondary to loss of balance, denies hitting head, denies loss of consciousness. CT head and cervical spine negative for any acute changes. Hip/pelvis x-ray shows Acute intertrochanteric fracture right hip. Patient is given 1 L NS bolus in ED. Orthopedics was consulted. Plan: -Patient underwent uncomplicated ORIF of the right hip on June 12, [address] Romero Pending PT evaluation -Tylenol, [place], hydromorphone for pain control # Acute kidney injury, improving # Chronic kidney disease stage IIIb # Dehydration, prerenal Pre-renal likely, patient's BUN 32, creatinine 1.8, GFR 28 on admission Baseline function not known, possible baseline GFR 50 Today BUN 31. Cr 1.1, eGFR 38 Plan: -Renally dose medication -Avoid nephrotoxic agents -Monitor renal panel in a.m. # Diabetes mellitus # Hyperlipidemia Blood glucose 184 on admission. Hgb A1c 6.0 on 06/06/24 Plan: -Sliding scale insulin -Hypoglycemia protocol in place # Pneumonia # COPD/Asthma Patient was discharged from [facility] for Pneumonia Patient discharged on Doxycycline PO 100mg BID Was prescribed Levalbuterol per records -Completed p.o. doxycycline course on 06/07 -Duonebs PRN -Supplemental oxygen as needed # 3 mm right thyroid nodule, incidental finding # Rule out pancreatitis -TSH on 06/06/24 is 0.73 -Consider outpatient workup for thyroid nodule -Suspicion of pancreatitis, per imaging, Lipase 42, patient denies abdominal pain, pancreatitis ruled out DVT prophylaxis: Lovenox 60 mg twice daily GI prophylaxis: IV Protonix Diet: Carbohydrate consistent, cardiac Lines: Peripheral IV Code status: DNR Assessment and plan discussed with my attending physician Dr. Shankar Patel (PGY-1)- Internal medicine resident Attending Provider Attestation/Addendum 83-year-old female with multiple comorbidities including type 2 diabetes mellitus, hypertension, hyperlipidemia and atrial fibrillation who presented with right hip pain status post ground-level fall. In the ER, patient was noted to have acute intertrochanteric fracture of the right hip subsequently orthopedic team was consulted. In addition, patient was noted to have atrial fibrillation with rapid ventricular rate and subsequently started on amiodarone and heparin drip for anticoagulation. In addition, patient also noted to have sepsis with source likely being acute pyelonephritis which was found on CT imaging and plan to continue IV Rocephin. Continue above-mentioned plan and appreciate orthopedic and cardiology team. Overnight, patient with significant leukocytosis however improving with IV Rocephin. Heart rate under control and appreciate cardiology input. Surgical intervention was delayed given that patient's heart rate was high and needed to be under control prior to surgical intervention. Will continue pain control, amiodarone and IV fluid resuscitation. Patient and family were updated and they are in agreement with our current plan. Overnight, heart rate under control, leukocytosis improving and plan for surgical intervention for today.. I reviewed above note and agree with findings and plans. I have also personally examined the patient with medicine team and went over assessment and plan with medical team including epidemiology internship and resident physician.
[2024-06-13] MEDS: SODIUM CHLORIDE 0.9% 1000 ML 1,000 ML 20 ML IV (18:46)
--- NOTE | 2024-06-13 18:55 | PD.ORTHCONPN ---
Subjective Subjective Brief History: Patient very nice 83-year-[place] breaking the right hip. No other complaints as far as upper extremities left lower extremity right knee right ankle and foot Narrative: Post op day 1. Patient is alert and wants to go home. She is able to actively flex and extend her right knee. Exam Vital Signs Temp Pulse Resp BP Pulse Ox O2 Del Method O2 Flow Rate 97.0 F 106 H 18 109/68 95 Room Air 3 06/13/24 15:56 06/13/24 15:56 06/13/24 15:56 06/13/24 15:56 06/13/24 15:56 06/13/24 15:56 06/12/24 18:25 Pulse 106 Narrative Exam Physical examination shows that she is alert and knows she is in the hospital tonight. She knows she broke her hip. She does not want to eat Have active flexion extension right knee right ankle and foot Objective - Ortho Labs 06/13/24 04:55 06/13/24 04:55 Labs: Laboratory Results - last 24 hr 06/13/24 04:55 WBC 12.8 H RBC 4.26 Hgb 11.6 L Hct 34.3 L MCV 81 MCH 27.2 MCHC 33.8 RDW Std Deviation 41.9 Plt Count 224 D Neut % (Auto) 94 H Lymph % (Auto) 3 L [place] % (Auto) 2 Eos % (Auto) 0 Baso % (Auto) 0 Neut # (Auto) 12.0 H Lymph # (Auto) 0.4 L [place] # (Auto) 0.2 Eos # (Auto) 0.0 Baso # (Auto) 0.0 Immature Gran # (Auto) 0.12 H Absolute Nucleated RBC 0.00 Immature Gran % 1 H Nucleated RBC % 0 Sodium 133 L Potassium 5.2 H D Chloride 101 Carbon Dioxide 19.9 L Anion Gap 12 BUN 35 H Creatinine 1.1 Estim Creat Clear Calc 32.4 L eGFR 50 L BUN/Creatinine Ratio 32 H Glucose 114 H Calculated Osmolality 275 Calcium 8.7 Corrected Calcium 9.6 Phosphorus 5.7 H Albumin 2.9 L Hemoglobin 11.6, white count 12,800 down from the white count of 41,000 earlier in hospitalization Potassium 5.2 Platelet count 224,000 Assessment & Plan Assessment Additional comments: Postop day 1. Doing well considering length of hospitalization before being able to take her to surgery. I talked to Dr. Aidan Parada and she is back in Plan Will work on getting her transferred down to retirement facility in [place]. Documentation for date of: 06/13/24
--- NOTE | 2024-06-13 19:30 | PC.NURSE ---
Dr. Patel notified of elevated potassium of 5.2. She stated that she would look into it.
[2024-06-13] MEDS: ATORVASTATIN CALCIUM 20 MG TABLET 40 MG PO (21:23)
[2024-06-13] MEDS: SENNA TABLET 1 TAB PO (21:23)
[2024-06-13] MEDS: DILTIAZEM 30 MG TABLET 90 MG PO (21:28)
[2024-06-13] MEDS: ENOXAPARIN SOD INJ 100 MG/ML SYRINGE 60 MG SC (21:28)
[2024-06-14] VITALS (15 sets, daily range): BP systolic 93–110; BP diastolic 43–74; PULSE 63–118; RESP 15–95; TEMP 36–36.4; O2SAT 94–96; BMI 12.0
[2024-06-14] MEDS: DILTIAZEM 30 MG TABLET 90 MG PO ×4 (05:13→21:00)
[2024-06-14] MEDS: ESCITALOPRAM OXALATE 10 MG TABLET PO (08:18)
[2024-06-14] MEDS: AMIODARONE HCL 200 MG TABLET PO ×2 (08:18→21:00)
[2024-06-14] MEDS: ENOXAPARIN SOD INJ 100 MG/ML SYRINGE 60 MG SC ×2 (08:19→20:44)
[2024-06-14] MEDS: PANTOPRAZOLE INJ 40 MG VIAL IVP (08:19)
[2024-06-14] MEDS: ACETAMINOPHEN 325 MG TABLET 650 MG PO (08:22)
[2024-06-14 09:18] LABS: Basophils % (Auto) 0 % (0-2.5); Eosinophils % (Auto) 0 % (0-10); Hematocrit 30.2 % (36.0-46.0); Hemoglobin 10.4 g/dL (12.0-16.0); Immature Granulocytes % (Auto) 1 % (0-0); Immature Granulocytes Auto 0.18 Thou/mm3 (0.00-0.00); Lymphocytes # (Auto) 0.7 Thou/mm3 (1.0-4.8); Lymphocytes % (Auto) 4 % (10-50); Mean Corpuscular HGB Conc 34.4 g/dl (31.0-37.0); Mean Corpuscular Hemoglobin 27.4 pg (25.0-35.0); Mean Corpuscular Volume 80 fL (80-100); Monocytes # (Auto) 0.8 Thou/mm3 (0.0-0.8); Monocytes % (Auto) 5 % (0-12); Neutrophils # (Auto) 14.9 Thou/mm3 (1.8-7.7); Neutrophils % (Auto) 90 % (37-80); Nucleated Red Blood Cell % 0 /100 WBC (0); Platelet Count 282 Thou/mm3 (140-440); RDW Standard Deviation 41.4 fL (36.4-46.3); White Blood Count 16.6 Thou/mm3 (3.6-11.0)
[2024-06-14 09:49] LABS: Alanine Aminotransferase 14 U/L (10-49); Albumin, Serum 2.8 gm/dL (3.4-4.8); Albumin/Globulin Ratio 1.3 (1.2-2.2); Alkaline Phosphatase 75 U/L (46-116); Anion Gap 8 (7-16); Aspartate Amino Transferase 18 U/L (0-34); BUN/Creatinine Ratio 37 Ratio (12-20); Bilirubin,Total 0.5 mg/dL (0.3-1.2); Blood Urea Nitrogen 44 mg/dL (9-23); Calcium 8.7 mg/dL (8.3-10.6); Calcium (Corrected) 9.7 mg/dL (8.5-10.1); Carbon Dioxide 23.2 mMol/L (20.0-31.0); Chloride 102 mMol/L (98-107); Creatinine (Component) 1.2 mg/dL (0.6-1.3); Estimated Creatinine Clearance 29.7 mL/min (>60); Globulin 2.1 gm/dL (2.3-3.5); Glucose 156 mg/dL (74-106); Osmolality,Calculated 280 (275-295); Potassium 4.6 mMol/L (3.4-5.1); Sodium 133 mMol/L (136-145); Total Protein 4.9 gm/dL (5.7-8.2); eGFR 45 See Note
[2024-06-14] MEDS: INSULIN LISPRO (AdmeLOG) 1 UNIT/0.01 ML UNIT SC ×3 (11:45→20:47)
--- NOTE | 2024-06-14 13:26 | PC.SS ---
Addendum entered by SALLY Reed 06/14/24 15:07: Received a call back from Jacy at [facility] in [place], informs the authorization is pending. Jacy currently on phone with patient's insurance. Addendum entered by SALLY Reed 06/14/24 15:01: Attempted contact with Main , was transferred to [facility] and left a voicemail. Sent message via [employer] platform requesting updated status. Addendum entered by SALLY Reed 06/14/24 14:56: SS Update: Attempted contact with [facility] in [place] to get a status update for the patient in regards to authorization. They were unavailable and voicemail was provided. Original Note: SS Update: Attempted contact with [facility] in [place] to get an update for insurance authorization. They were unavailable and voicemail was provided.
--- NOTE | 2024-06-14 13:31 | ESPR_ITS ---
<Statement entered by Isa Parada MD - 06/16/24 09:08> I examined the patient with resident physician Dr Rich agree with the treatment plan recommendation patient still on diltiazem 90 and amiodarone combination for rate control and rhythm control still having episodes of A-fib with rate control patient stable to be discharged to alf facility for rehabilitation Documentation for date of: 06/14/24 Subjective Subjective Interval history: Overnight, no acute events reported. Patient's heart rate has been 80-118. Patient continues to be in and out of sinus rhythm. Patient denies any complaints at this time. Patient is currently waiting for Auth for SNF placement. Exam Vital Signs Temp Pulse Resp BP Pulse Ox O2 Del Method O2 Flow Rate 97.0 F 81 16 93/58 L 94 L Room Air 3 06/14/24 12:00 06/14/24 12:00 06/14/24 12:00 06/14/24 12:00 06/14/24 12:00 06/14/24 12:00 06/12/24 18:25 Narrative Exam General Appearance: Pt in NAD laying comfortably in bed. HEENT: NC/AT, no scleral icterus, no conjunctival pallor, MMM Lungs: CTAB, no wheezes or crackles appreciated CVS: Irregularly, irregular; tachycardic, S1/S2 heard, no murmurs or rubs appreciated ABD: Soft, non-tender, non-distended, BS + in all 4 quadrants EXT: Right leg externally rotated, otherwise no edema or deformities noted, radial pulses 2+ BL, DP pulses 2 + BL SKIN: Skin exam normal without any rashes. Neuro: A&O x 2. No gross neurological deficits. Motor and sensory grossly intact in B/L UL and LL except for right lower leg. Psych: Appropriate mood and affect Objective Labs 06/14/24 08:30 06/14/24 08:30 Labs: Laboratory Results - last 24 hr 06/10/24 06/14/24 21:25 08:30 WBC 16.6 H RBC 3.80 L Hgb 10.4 L Hct 30.2 L MCV 80 MCH 27.4 MCHC 34.4 RDW Std Deviation 41.4 Plt Count 282 D Neut % (Auto) 90 H Lymph % (Auto) 4 L [place] % (Auto) 5 Eos % (Auto) 0 Baso % (Auto) 0 Neut # (Auto) 14.9 H Lymph # (Auto) 0.7 L [place] # (Auto) 0.8 Eos # (Auto) 0.0 Baso # (Auto) 0.0 Immature Gran # (Auto) 0.18 H Absolute Nucleated RBC 0.00 Immature Gran % 1 H Nucleated RBC % 0 Sodium 133 L Potassium 4.6 D Chloride 102 Carbon Dioxide 23.2 Anion Gap 8 BUN 44 H Creatinine 1.2 Estim Creat Clear Calc 29.7 L eGFR 45 L BUN/Creatinine Ratio 37 H Glucose 156 H Calculated Osmolality 280 Calcium 8.7 Corrected Calcium 9.7 Total Bilirubin 0.5 D AST 18 ALT 14 Alkaline Phosphatase 75 Total Protein 4.9 L Albumin 2.8 L Globulin 2.1 L Albumin/Globulin Ratio 1.3 Crossmatch See Detail Quality Measures Quality Measures VTE prophylaxis Advance care planning discussed with:: patient Assessment & Plan Assessment Current Active Medications: Generic Name Dose Route Start Last Admin Trade Name Freq PRN Reason Stop Dose Admin Acetaminophen 650 mg 06/05/24 14:35 06/14/24 08:22 Acetaminophen 325 Mg Tablet PO 07/05/24 14:34 650 mg Q6H PRN Administration Pain (1-3) and Fever >101.5 Albuterol/Ipratropium 3 ml 06/10/24 13:53 Albuterol/Ipratropium (Duoneb) Rt Charline 3 Ml Nebu INH 07/07/24 10:59 Q4HRRT PRN SOB/Wheeze Amiodarone HCl 200 mg 06/09/24 10:00 06/14/24 08:18 Amiodarone Hcl 200 Mg Tablet PO 07/09/24 09:59 200 mg BID CLAUDY Administration Atorvastatin Calcium 40 mg 06/07/24 21:00 06/13/24 21:23 Atorvastatin Calcium 20 Mg Tablet PO 07/07/24 20:59 40 mg HS CLAUDY Administration Dextrose 25 ml 06/05/24 14:40 Dextrose 50%-Water Inj 50 Ml Syringe IV 07/05/24 14:39 Q15MIN PRN BG 50-70 responsive npo pt Dextrose 50 ml 06/05/24 14:40 Dextrose 50%-Water Inj 50 Ml Syringe IV 07/05/24 14:39 Q15MIN PRN BG <50 OR BG <70 & pt unresponsive Diltiazem HCl 90 mg 06/13/24 21:00 06/14/24 11:40 Diltiazem 30 Mg Tablet PO 07/13/24 20:59 90 mg QID CLAUDY Administration Enoxaparin Sodium 60 mg 06/13/24 21:00 06/14/24 08:19 Enoxaparin Sod Inj 100 Mg/Ml Syringe 1 mg/kg (60 mg) 06/27/24 20:59 60 mg SC Administration BID CLAUDY Escitalopram Oxalate 10 mg 06/08/24 09:00 06/14/24 08:18 Escitalopram Oxalate 10 Mg Tablet PO 07/08/24 08:59 10 mg QDAY CLAUDY Administration Glucagon 1 mg 06/05/24 14:40 Glucagon Inj 1 Mg Vial IM Q15MIN PRN BG <70, and no IV access Sodium Chloride 1,000 mls @ 20 mls/hr 06/13/24 18:19 06/13/24 18:46 Ns IV 07/13/24 18:18 20 mls/hr .Q24H CLAUDY Administration Insulin Human Lispro 0 unit 06/05/24 17:00 06/14/24 11:45 Insulin Lispro (Admelog) 1 Unit/0.01 Ml Unit SC 07/05/24 16:59 1 unit ACHS CLAUDY Administration Protocol Ondansetron HCl 4 mg 06/12/24 18:19 Ondansetron Inj 2 Mg/Ml Inj 2 Ml IV 07/12/24 18:18 Q6H PRN NAUSEA Pantoprazole Sodium 40 mg 06/06/24 09:00 06/14/24 08:19 Pantoprazole Inj 40 Mg Vial IVP 07/06/24 08:59 40 mg QDAY CLAUDY Administration Sennosides 1 tab 06/05/24 14:35 06/13/24 21:23 Senna Tablet PO 07/05/24 14:34 1 tab QDAY PRN Administration constipation Protocol Plan Patient is an 83-year-old female with past medical history of paroxysmal A-fib on Eliquis 2.5 mg and admitted to hospital service for further management of right hip intertrochanteric fracture. Cardiology was consulted for cardiac clearance prior to surgery. Patient continues to be in A-fib with RVR. Will increase Oral diltiazem to 90mg QID. #Atrial fibrillation with rapid ventricular response #History of paroxysmal A-fib #Hx of Hyperlipidemia Patient presented with right hip fracture status post ground-level fall in [facility]. Cardiology was initially consulted for cardiac clearance however started going into A-fib with RVR. Edward Vascore is 4. HAS-BLED score is 1. Patient takes home Rousvastatin 10mg HS. Unsuccessful cardioversion as patient unable to sustain sinus rhythm. Patient is currently off IV Diltiazem and heparin gtt. ORIF performed yesterday with Ortho. -Continue with Diltiazem 90mg QID -Continue with amiodarone 200 mg twice daily -Keep potassium above 4, magnesium above 2 -Continue to monitor on tele -Restart apixaban twice daily as per ortho recs -Continue with Atorvastatin 40mg HS Rest of problems continue as per primary team #Reactive Leukocytosis #Acute Intertrochanteric Fracture Right Hip s/p ORIF #Status post ground-level mechanical fall #Acute kidney injury, improving #Chronic kidney disease stage IIIb #Dehydration, prerenal #Diabetes mellitus #Pneumonia #COPD/Asthma #3 mm right thyroid nodule, incidental finding Patient's plan and care discussed with my attending, Dr. Tal Rich MD PGY-2
--- NOTE | 2024-06-14 13:56 | PD.IDPROG ---
Subjective Subjective Interval history: planned abx finished. ok to minimize labs. it has become traditional if not evidence based to do daily labs. I am not sure what the rationale is Exam Vital Signs Temp Pulse Resp BP Pulse Ox O2 Del Method O2 Flow Rate 97.0 F 81 16 93/58 L 94 L Room Air 3 06/14/24 12:00 06/14/24 12:00 06/14/24 12:00 06/14/24 12:00 06/14/24 12:00 06/14/24 12:00 06/12/24 18:25 Narrative Exam limited eval Objective - Internal Medicine Labs 06/14/24 08:30 06/14/24 08:30 Labs: Laboratory Results - last 24 hr 06/10/24 06/14/24 21:25 08:30 WBC 16.6 H RBC 3.80 L Hgb 10.4 L Hct 30.2 L MCV 80 MCH 27.4 MCHC 34.4 RDW Std Deviation 41.4 Plt Count 282 D Neut % (Auto) 90 H Lymph % (Auto) 4 L [place] % (Auto) 5 Eos % (Auto) 0 Baso % (Auto) 0 Neut # (Auto) 14.9 H Lymph # (Auto) 0.7 L [place] # (Auto) 0.8 Eos # (Auto) 0.0 Baso # (Auto) 0.0 Immature Gran # (Auto) 0.18 H Absolute Nucleated RBC 0.00 Immature Gran % 1 H Nucleated RBC % 0 Sodium 133 L Potassium 4.6 D Chloride 102 Carbon Dioxide 23.2 Anion Gap 8 BUN 44 H Creatinine 1.2 Estim Creat Clear Calc 29.7 L eGFR 45 L BUN/Creatinine Ratio 37 H Glucose 156 H Calculated Osmolality 280 Calcium 8.7 Corrected Calcium 9.7 Total Bilirubin 0.5 D AST 18 ALT 14 Alkaline Phosphatase 75 Total Protein 4.9 L Albumin 2.8 L Globulin 2.1 L Albumin/Globulin Ratio 1.3 Crossmatch See Detail Assessment & Plan A&P Narrative presumptive pneumonia, treated and clinically resolved w/o hypoxia rt hip fx. PMH as noted due to finish abx on wednesday06/13/24 will look in superficially on wed06/14/24 if still here, sadly, at her age, anything can happen. a hip fx is often a pre-morbid event btw. will see again prn Time Spent With Patient Time: Total time spent is greater than 50% in coordination of care (as documented) at patient's floor/unit and/or counseling patient:
--- NOTE | 2024-06-14 15:10 | PC.SS ---
Rounding note: patient ready to d/c, pending insurance authorization for SNF.
[2024-06-14 15:35] LABS: Hepatitis C Antibody Non Reactive (Non React)
--- NOTE | 2024-06-14 16:44 | PD.RESPRO ---
Documentation for date of: 06/14/24 Subjective Subjective Interval history: 06/14: No acute overnight events patient seen and examined at bedside this morning PT is in the room working on ambulating the patient patient denies any pain surgical site of the right hip looks clean. Encouraged the patient to let the nurse know if she has pain so they can administer pain medication patient appears to be in good spirit. Patient has no complaints currently waiting on insurance approval for rehab facility in [place] anticoagulation for DVT prophylaxis is started. Exam Vital Signs Temp Pulse Resp BP Pulse Ox O2 Del Method O2 Flow Rate 97.0 F 81 16 93/58 L 94 L Room Air 3 06/14/24 12:00 06/14/24 12:00 06/14/24 12:00 06/14/24 12:00 06/14/24 12:00 06/14/24 12:00 06/12/24 18:25 Narrative Exam GENERAL: A&Ox3 . Awake, Not in acute distress NEURO: no focal neurological deficits HEENT: Atraumatic, Normocephalic. mucous membranes moist. Eyes open, symmetrical, & clear HEART: Normal Heart Sounds LUNGS: Clear to auscultation with no wheezing or crackles. ABDOMEN: soft, non-distended, non-tender, bowel sounds heard, no guarding or rebound tenderness SKIN: No Rash or ecchymoses EXTREMITIES: No edema, tenderness, able to move all 4 extremities, pedal pulses palpated. Surgical site is clean Objective Labs 06/14/24 08:30 06/14/24 08:30 Labs: Laboratory Results - last 24 hr 06/10/24 06/14/24 21:25 08:30 WBC 16.6 H RBC 3.80 L Hgb 10.4 L Hct 30.2 L MCV 80 MCH 27.4 MCHC 34.4 RDW Std Deviation 41.4 Plt Count 282 D Neut % (Auto) 90 H Lymph % (Auto) 4 L [place] % (Auto) 5 Eos % (Auto) 0 Baso % (Auto) 0 Neut # (Auto) 14.9 H Lymph # (Auto) 0.7 L [place] # (Auto) 0.8 Eos # (Auto) 0.0 Baso # (Auto) 0.0 Immature Gran # (Auto) 0.18 H Absolute Nucleated RBC 0.00 Immature Gran % 1 H Nucleated RBC % 0 Sodium 133 L Potassium 4.6 D Chloride 102 Carbon Dioxide 23.2 Anion Gap 8 BUN 44 H Creatinine 1.2 Estim Creat Clear Calc 29.7 L eGFR 45 L BUN/Creatinine Ratio 37 H Glucose 156 H Calculated Osmolality 280 Calcium 8.7 Corrected Calcium 9.7 Total Bilirubin 0.5 D AST 18 ALT 14 Alkaline Phosphatase 75 Total Protein 4.9 L Albumin 2.8 L Globulin 2.1 L Albumin/Globulin Ratio 1.3 Hepatitis C Antibody Non Reactive Crossmatch See Detail Quality Measures Quality Measures VTE prophylaxis Advance care planning discussed with:: patient Assessment & Plan Assessment Current Active Medications: Generic Name Dose Route Start Last Admin Trade Name Freq PRN Reason Stop Dose Admin Acetaminophen 650 mg 06/05/24 14:35 06/14/24 08:22 Acetaminophen 325 Mg Tablet PO 07/05/24 14:34 650 mg Q6H PRN Administration Pain (1-3) and Fever >101.5 Albuterol/Ipratropium 3 ml 06/10/24 13:53 Albuterol/Ipratropium (Duoneb) Rt Charline 3 Ml Nebu INH 07/07/24 10:59 Q4HRRT PRN SOB/Wheeze Amiodarone HCl 200 mg 06/09/24 10:00 06/14/24 08:18 Amiodarone Hcl 200 Mg Tablet PO 07/09/24 09:59 200 mg BID CLAUDY Administration Atorvastatin Calcium 40 mg 06/07/24 21:00 06/13/24 21:23 Atorvastatin Calcium 20 Mg Tablet PO 07/07/24 20:59 40 mg HS CLAUDY Administration Dextrose 25 ml 06/05/24 14:40 Dextrose 50%-Water Inj 50 Ml Syringe IV 07/05/24 14:39 Q15MIN PRN BG 50-70 responsive npo pt Dextrose 50 ml 06/05/24 14:40 Dextrose 50%-Water Inj 50 Ml Syringe IV 07/05/24 14:39 Q15MIN PRN BG <50 OR BG <70 & pt unresponsive Diltiazem HCl 90 mg 06/13/24 21:00 06/14/24 11:40 Diltiazem 30 Mg Tablet PO 07/13/24 20:59 90 mg QID CLAUDY Administration Enoxaparin Sodium 60 mg 06/13/24 21:00 06/14/24 08:19 Enoxaparin Sod Inj 100 Mg/Ml Syringe 1 mg/kg (60 mg) 06/27/24 20:59 60 mg SC Administration BID CLAUDY Escitalopram Oxalate 10 mg 06/08/24 09:00 06/14/24 08:18 Escitalopram Oxalate 10 Mg Tablet PO 07/08/24 08:59 10 mg QDAY CLAUDY Administration Glucagon 1 mg 06/05/24 14:40 Glucagon Inj 1 Mg Vial IM Q15MIN PRN BG <70, and no IV access Sodium Chloride 1,000 mls @ 20 mls/hr 06/13/24 18:19 06/13/24 18:46 Ns IV 07/13/24 18:18 20 mls/hr .Q24H CLAUDY Administration Insulin Human Lispro 0 unit 06/05/24 17:00 06/14/24 11:45 Insulin Lispro (Admelog) 1 Unit/0.01 Ml Unit SC 07/05/24 16:59 1 unit ACHS CLAUDY Administration Protocol Ondansetron HCl 4 mg 06/12/24 18:19 Ondansetron Inj 2 Mg/Ml Inj 2 Ml IV 07/12/24 18:18 Q6H PRN NAUSEA Pantoprazole Sodium 40 mg 06/06/24 09:00 06/14/24 08:19 Pantoprazole Inj 40 Mg Vial IVP 07/06/24 08:59 40 mg QDAY CLAUDY Administration Sennosides 1 tab 06/05/24 14:35 06/13/24 21:23 Senna Tablet PO 07/05/24 14:34 1 tab QDAY PRN Administration constipation Protocol Plan Ms. Hogan is a 83-year-old female with past medical history of diabetes mellitus, atrial fibrillation and hyperlipidemia who presented to [facility] on 06/05/2024 status post ground-level mechanical fall with right hip pain and found to have right hip fracture. Pt is admitted for hip surgery. # Atrial fibrillation with RVR Patient has history of A-fib, on amiodarone and Eliquis 2.5 mg at home Trialed on amiodarone drip and failed to convert, later received synchronized cardioversion and failed to remain in sinus rhythm, Echo shows Normal LV size and function. Estimated EF 55-60% Normal RV size and function. Estimated RVSP 48mmHg Mild mitral and trace tricuspid regurgitation -Pt is switched from amiodarone drip to amiodarone 200mg PO BID -Cardizem 30 mg p.o. 4 times daily -Transition over Lovenox 60 mg twice daily -Telemonitoring -Cardiology consulted-we attempted cardioversion on June 09 but was unsuccessful to maintain sinus rhythm. Patient was transitioned over to Cardizem drip at 15 mg/h. Heart rate has been very well-controlled. Will transition to p.o. Cardizem following surgery and continue with amiodarone p.o. for further management of cardiac arrhythmia. Currently patient is on Lovenox and will resume Eliquis 2.5 mg p.o. twice daily on discharge with approval of both property valuer and orthopedic surgeon. # Acute Intertrochanteric Fracture Right Hip # Status post ground-level mechanical fall #Status post hip surgery Presented with right hip pain reported tripping and falling secondary to loss of balance, denies hitting head, denies loss of consciousness. CT head and cervical spine negative for any acute changes. Hip/pelvis x-ray shows Acute intertrochanteric fracture right hip. Patient is given 1 L NS bolus in ED. Orthopedics was consulted. -Patient is status post open reduction internal fixation of right intertrochanteric hip fracture using [employer] TFN implant system on 06/12/2024 Plan: -Patient underwent uncomplicated ORIF of the right hip on June 12, [address] Romero -Physical therapy ordered -Tylenol, [place], hydromorphone for pain control -Patient is on Lovenox twice daily for DVT prophylaxis #Sepsis secondary to pyelonephritis Sepsis SIRS 2/4 secondary to pyelonephritis, endorgan damage evidence noted by on and off altered mental status Atrial fibrillation triggered secondary to sepsis Patient is tachycardic elevated WBC count. Hypotension was noted. CT chest abdomen pelvis was ordered shows 3 mm right thyroid nodule, pulmonary artery hypertension, mild pneumonia versus atelectasis left base, mild fluid adjacent to tail of pancreas and around spleen suspicion of pancreatitis, atrophic kidney with perinephric stranding, severe osteopenia and acute intertrochanteric fracture right hip. Patient was given adequate fluid resuscitation, blood pressure has improved, was given 2 L IV fluid 06/07 Plan: -Completed IV ceftriaxone (06/06-06/12) -blood culture- no growth in 48 hours 07/09 -Monitor vitals closely # Acute kidney injury, improving # Chronic kidney disease stage IIIb # Dehydration, prerenal Pre-renal likely, patient's BUN 32, creatinine 1.8, GFR 28 on admission Baseline function not known, possible baseline GFR 50 Today BUN 44. Cr 1.2, eGFR 45 Plan: -Renally dose medication -Avoid nephrotoxic agents -Monitor daily CMP # Diabetes mellitus # Hyperlipidemia Blood glucose 184 on admission. Hgb A1c 6.0 on 06/06/24 Plan: -Sliding scale insulin -Hypoglycemia protocol in place # Pneumonia # COPD/Asthma Patient was discharged from [facility] for Pneumonia Patient discharged on Doxycycline PO 100mg BID Was prescribed Levalbuterol per records -Completed p.o. doxycycline course on 06/07 -Duonebs PRN -Supplemental oxygen as needed # 3 mm right thyroid nodule, incidental finding # Rule out pancreatitis -TSH on 06/06/24 is 0.73 -Consider outpatient workup for thyroid nodule -Suspicion of pancreatitis, per imaging, Lipase 42, patient denies abdominal pain, pancreatitis ruled out DVT prophylaxis: Lovenox BID GI prophylaxis: IV Protonix Diet: Carbohydrate consistent, cardiac Lines: Peripheral IV Code status: DNR Assessment and plan discussed with my senior resident Dr. Viveros & attending physician Dr. Enid Patel (PGY-1)- Internal medicine resident Attending Provider Attestation/Addendum I reviewed labs, imaging, EKG, home medications and prior available records. Face to face evaluation was performed by me. I have personally examined the patient and discussed assessment and plan with the IM team. I reviewed the resident note and agree with the plan with exceptions as below. Right hip fracture status post OR Leukocytosis, likely reactive CKD stage III Chronic A-fib Debility Continue working with PT Management of pain as needed Continue amiodarone and apixaban She is pending authorization to go to SNF in [place]
[2024-06-14] MEDS: ATORVASTATIN CALCIUM 20 MG TABLET 40 MG PO (20:43)
--- NOTE | 2024-06-14 21:27 | PD.ORTHCONPN ---
Subjective Subjective Brief History: Patient very nice 83-year-old [place] breaking the right hip. No other complaints as far as upper extremities left lower extremity right knee right ankle and foot Narrative: Alert tonight Exam Vital Signs Temp Pulse Resp BP Pulse Ox O2 Del Method O2 Flow Rate 96.9 F 99 19 103/44 L 96 Room Air 3 06/14/24 20:00 06/14/24 21:00 06/14/24 20:00 06/14/24 21:00 06/14/24 20:00 06/14/24 20:00 06/12/24 18:25 Blood pressure 103/94 Narrative Exam More alert tonight. Wants to go to [place]. Objective - Ortho Labs 06/14/24 08:30 06/14/24 08:30 Labs: Laboratory Results - last 24 hr 06/14/24 08:30 WBC 16.6 H RBC 3.80 L Hgb 10.4 L Hct 30.2 L MCV 80 MCH 27.4 MCHC 34.4 RDW Std Deviation 41.4 Plt Count 282 D Neut % (Auto) 90 H Lymph % (Auto) 4 L [place] % (Auto) 5 Eos % (Auto) 0 Baso % (Auto) 0 Neut # (Auto) 14.9 H Lymph # (Auto) 0.7 L [place] # (Auto) 0.8 Eos # (Auto) 0.0 Baso # (Auto) 0.0 Immature Gran # (Auto) 0.18 H Absolute Nucleated RBC 0.00 Immature Gran % 1 H Nucleated RBC % 0 Sodium 133 L Potassium 4.6 D Chloride 102 Carbon Dioxide 23.2 Anion Gap 8 BUN 44 H Creatinine 1.2 Estim Creat Clear Calc 29.7 L eGFR 45 L BUN/Creatinine Ratio 37 H Glucose 156 H Calculated Osmolality 280 Calcium 8.7 Corrected Calcium 9.7 Total Bilirubin 0.5 D AST 18 ALT 14 Alkaline Phosphatase 75 Total Protein 4.9 L Albumin 2.8 L Globulin 2.1 L Albumin/Globulin Ratio 1.3 Hepatitis C Antibody Non Reactive Hemoglobin 10.4, white count 16,600. Albumin 2.8 Assessment & Plan Assessment Additional comments: Moving right lower extremity better. Dressing dry. No redness Plan Will discharge to long term facility in [place] once arrangements made Documentation for date of: 06/14/24
[2024-06-14] MEDS: SENNA TABLET 1 TAB PO (21:53)
[2024-06-15] VITALS (12 sets, daily range): BP systolic 95–122; BP diastolic 40–68; PULSE 61–102; RESP 14–19; TEMP 35.7–36.4; O2SAT 91–96; BMI 11.0
[2024-06-15] MEDS: ACETAMINOPHEN 325 MG TABLET 650 MG PO (08:57)
[2024-06-15] MEDS: SENNA TABLET 1 TAB PO (08:58)
[2024-06-15] MEDS: DILTIAZEM CD 120 MG CAPCR 360 MG PO (08:58)
[2024-06-15] MEDS: AMIODARONE HCL 200 MG TABLET PO ×2 (08:59→20:36)
[2024-06-15] MEDS: ENOXAPARIN SOD INJ 100 MG/ML SYRINGE 60 MG SC ×2 (08:59→20:42)
[2024-06-15] MEDS: PANTOPRAZOLE INJ 40 MG VIAL IVP (08:59)
[2024-06-15] MEDS: ESCITALOPRAM OXALATE 10 MG TABLET PO (08:59)
--- NOTE | 2024-06-15 11:25 | PC.SS ---
Addendum entered by SALLY Reed 06/15/24 11:34: Received call from Jacy at [facility] in [place] , informs authorization is pending, waiting for patient's insurance to give determination if approved for SNF. Addendum entered by SALLY Reed 06/15/24 11:25: Updated patient's daughter, Destiny on current status. Destiny was requesting to apply for medi-ariel for the patient. Contacted Tiara our financial counselor who informed family would have to apply in [facility] as patient comes from there. Destiny verbalized understanding. Original Note: SS Update: Attempted contact with [facility] in [place] to get a status update for the patient in regards to authorization. They were unavailable and voicemail was provided.
[2024-06-15] MEDS: INSULIN LISPRO (AdmeLOG) 1 UNIT/0.01 ML UNIT SC ×2 (12:14→20:40)
--- NOTE | 2024-06-15 14:49 | ESPR_ITS ---
<Statement entered by Isa Parada MD - 06/16/24 09:14> I personally examined and reviewed the patient's history and patient appears to be stable now following surgery still has episodes of A-fib but rate controlled patient can be discharged [facility] facility whenever the bed is available Documentation for date of: 06/15/24 Subjective Subjective Interval history: Overnight, no acute events reported. However, patient's heart rate went as low as 39 but nonsustained. Otherwise, patient's rate has been well-controlled with oral diltiazem and amiodarone but still in A-fib. Patient is waiting for authorization to [facility] facility. Exam Vital Signs Temp Pulse Resp BP Pulse Ox O2 Del Method O2 Flow Rate 96.7 F L 67 17 97/40 L 96 Room Air 3 06/15/24 12:00 06/15/24 12:00 06/15/24 12:00 06/15/24 12:00 06/15/24 12:00 06/15/24 12:00 06/12/24 18:25 Narrative Exam General Appearance: Pt in NAD laying comfortably in bed. HEENT: NC/AT, no scleral icterus, no conjunctival pallor, MMM Lungs: CTAB, no wheezes or crackles appreciated CVS: Irregularly, irregular; tachycardic, S1/S2 heard, no murmurs or rubs appreciated ABD: Soft, non-tender, non-distended, BS + in all 4 quadrants EXT: Right leg externally rotated, otherwise no edema or deformities noted, radial pulses 2+ BL, DP pulses 2 + BL SKIN: Skin exam normal without any rashes. Neuro: A&O x 2. No gross neurological deficits. Motor and sensory grossly intact in B/L UL and LL except for right lower leg. Psych: Appropriate mood and affect Objective Labs 06/14/24 08:30 06/14/24 08:30 Labs: Laboratory Results - last 24 hr 06/14/24 08:30 Hepatitis C Antibody Non Reactive Quality Measures Quality Measures VTE prophylaxis Advance care planning discussed with:: patient Assessment & Plan Assessment Current Active Medications: Generic Name Dose Route Start Last Admin Trade Name Freq PRN Reason Stop Dose Admin Acetaminophen 650 mg 06/05/24 14:35 06/15/24 08:57 Acetaminophen 325 Mg Tablet PO 07/05/24 14:34 650 mg Q6H PRN Administration Pain (1-3) and Fever >101.5 Albuterol/Ipratropium 3 ml 06/10/24 13:53 Albuterol/Ipratropium (Duoneb) Rt Charline 3 Ml Nebu INH 07/07/24 10:59 Q4HRRT PRN SOB/Wheeze Amiodarone HCl 200 mg 06/09/24 10:00 06/15/24 08:59 Amiodarone Hcl 200 Mg Tablet PO 07/09/24 09:59 200 mg BID CLAUDY Administration Atorvastatin Calcium 40 mg 06/07/24 21:00 06/14/24 20:43 Atorvastatin Calcium 20 Mg Tablet PO 07/07/24 20:59 40 mg HS CLAUDY Administration Dextrose 25 ml 06/05/24 14:40 Dextrose 50%-Water Inj 50 Ml Syringe IV 07/05/24 14:39 Q15MIN PRN BG 50-70 responsive npo pt Dextrose 50 ml 06/05/24 14:40 Dextrose 50%-Water Inj 50 Ml Syringe IV 07/05/24 14:39 Q15MIN PRN BG <50 OR BG <70 & pt unresponsive Diltiazem HCl 360 mg 06/15/24 09:00 06/15/24 08:58 Diltiazem Cd 120 Mg Capcr PO 07/15/24 08:59 360 mg QDAY CLAUDY Administration Enoxaparin Sodium 60 mg 06/13/24 21:00 06/15/24 08:59 Enoxaparin Sod Inj 100 Mg/Ml Syringe 1 mg/kg (60 mg) 06/27/24 20:59 60 mg SC Administration BID CLAUDY Escitalopram Oxalate 10 mg 06/08/24 09:00 06/15/24 08:59 Escitalopram Oxalate 10 Mg Tablet PO 07/08/24 08:59 10 mg QDAY CLAUDY Administration Glucagon 1 mg 06/05/24 14:40 Glucagon Inj 1 Mg Vial IM Q15MIN PRN BG <70, and no IV access Insulin Human Lispro 0 unit 06/05/24 17:00 06/15/24 12:14 Insulin Lispro (Admelog) 1 Unit/0.01 Ml Unit SC 07/05/24 16:59 2 unit ACHS CLAUDY Administration Protocol Ondansetron HCl 4 mg 06/12/24 18:19 Ondansetron Inj 2 Mg/Ml Inj 2 Ml IV 07/12/24 18:18 Q6H PRN NAUSEA Pantoprazole Sodium 40 mg 06/06/24 09:00 06/15/24 08:59 Pantoprazole Inj 40 Mg Vial IVP 07/06/24 08:59 40 mg QDAY CLAUDY Administration Sennosides 1 tab 06/05/24 14:35 06/15/24 08:58 Senna Tablet PO 07/05/24 14:34 1 tab QDAY PRN Administration constipation Protocol Plan Patient is an 83-year-old female with past medical history of paroxysmal A-fib on Eliquis 2.5 mg and admitted to hospital service for further management of right hip intertrochanteric fracture. Cardiology was consulted for cardiac clearance prior to surgery. Patient continues to be in A-fib with RVR. #Atrial fibrillation with rapid ventricular response #History of paroxysmal A-fib #Hx of Hyperlipidemia Patient presented with right hip fracture status post ground-level fall in [facility]. Cardiology was initially consulted for cardiac clearance however started going into A-fib with RVR. Edward Vascore is 4. HAS-BLED score is 1. Patient takes home Rousvastatin 10mg HS. Unsuccessful cardioversion as patient unable to sustain sinus rhythm. Patient is currently off IV Diltiazem and heparin gtt. ORIF performed yesterday with Ortho. -Continue with Diltiazem 360mg QD -Continue with amiodarone 200 mg twice daily -Keep potassium above 4, magnesium above 2 -Continue to monitor on tele -Restart apixaban twice daily as per ortho recs -Continue with Atorvastatin 40mg HS Rest of problems continue as per primary team #Reactive Leukocytosis #Acute Intertrochanteric Fracture Right Hip s/p ORIF #Status post ground-level mechanical fall #Acute kidney injury, improving #Chronic kidney disease stage IIIb #Dehydration, prerenal #Diabetes mellitus #Pneumonia #COPD/Asthma #3 mm right thyroid nodule, incidental finding Patient's plan and care discussed with my attending, Dr. Tal Rich MD PGY-2
--- NOTE | 2024-06-15 16:28 | PD.RESDS ---
Planned Discharge Date 06/15/24 DS: Providers Provider Date of admission: 06/05/24 14:35 Primary care physician: Montez Julian Admitting Provider: Amrit Mishra MD Attending Provider on Admission: Rambo Rossi MD Consults: 06/05/24 14:01 Consult to Orthopedic Stat Comment: Consulting Provider: Jabari Peña 06/05/24 14:42 Consult to Cardiology Routine Comment: Cardiac Clearance Consulting Provider: Isa Parada 06/06/24 22:14 Consult to Infectious Diseases Routine Comment: Consulting Provider: David Ansari Instructions: Patient white count 12,000 on admission. White count 29,000 today. Recently discharged with diagnosis pneumonia [place] on doxycycline. Thanks for your fyo licensed professional counselor. 06/07/24 19:51 Consult to Oncology Routine Comment: dr peña requested you for elevated wbc Consulting Provider: Jimbo Lei 06/11/24 00:24 Referral Registered Dietitian Urgent Comment: Instructions: PER MD REQUEST; REQUEST TO HELP INCREASE CALORIC INTAKE 06/12/24 18:24 Referral Physical Therapy Routine Comment: Gait Training Physician Instructions: Instructions: wbtt with walker Attending Provider on DC: Bharathi Washington MD Discharging Provider: Bharathi Washington MD DS: Diagnosis Problem List Completed Was Problem List Reviewed/Reconciled?: Yes Hospital Course Hospital Course Hospital course: Ms. Hogan is an 83-year-old female with past medical history of type 2 diabetes, A-fib, hyperlipidemia who presented to [facility] with a chief complaint of ground-level fall. Patient was going to [facility] and upon entry happened to have an accidental slip and fall at which point EMS services were called and she was brought to the emergency department. A CT was ordered along with a hip and pelvis x-ray which revealed an acute intertrochanteric fracture of the right hip so orthopedic surgery was consulted in regards to the fracture. Patient's hospital stay was complicated with atrial fibrillation with RVR leading to the use of Cardizem drip to assist in rate control which was initially unsuccessful requiring the patient to receive synchronized cardioversion which momentarily converted the patient to sinus rhythm but then transition her back into atrial fibrillation so Cardizem drip was resumed at a higher rate along with amiodarone and amiodarone drip. Over the course of a few days patient did convert into normal sinus rhythm and at following the surgery her Cardizem drip was discontinued and she was transitioned over to p.o. antiarrhythmics. Patient's hospitalization was also complicated with leukocytosis that had gone into the 40,000 range but's appeared to be reactive due to the fact that no source of infection was ever found and patient did not have any fevers and a significant improvement in her white count resulted over a short course of prophylactic antibiotic therapy. Patient underwent surgery with Dr. Jabari Peña without any complications and following surgery physical therapy services were ordered for the patient. Patient also had Eliquis resumed for management of atrial fibrillation and both DVT prophylaxis. Only source of infection was noted to be a pyelonephritis and Rocephin was given but blood cultures remain negative. Patient was requesting to be discharged to a group home facility close to [place] due to logistical reasons and being close to family so we will attempt to discharge her to [place]. We recommend to continue with amiodarone 200 mg p.o. twice daily along with Cardizem 360 mg p.o. once daily. She is also recommended to continue with lifelong anticoagulation with Eliquis 2.5 mg twice daily. She is recommended to reconcile with her primary care physician with within 1 week to discuss recent hospitalization and with her orthopedic surgeon Dr. Jabari Peña in 2 weeks to assess for any postsurgical complications. Plan of care discussed with supervising attending Dr. Enid Washington M.D. PGY-3 Ms. Hogan is a 83-year-old female with past medical history of diabetes mellitus, atrial fibrillation and hyperlipidemia who presented to [facility] on 06/05/2024 status post ground-level mechanical fall with right hip pain and found to have right hip fracture. Pt is admitted for hip surgery. # Atrial fibrillation with RVR Patient has history of A-fib, on amiodarone and Eliquis 2.5 mg at home Trialed on amiodarone drip and failed to convert, later received synchronized cardioversion and failed to remain in sinus rhythm, Echo shows Normal LV size and function. Estimated EF 55-60% Normal RV size and function. Estimated RVSP 48mmHg Mild mitral and trace tricuspid regurgitation -Pt is switched from amiodarone drip to amiodarone 200mg PO BID -Cardizem 30 mg p.o. 4 times daily -Transition over Lovenox 60 mg twice daily -Telemonitoring -Cardiology consulted-we attempted cardioversion on June 09 but was unsuccessful to maintain sinus rhythm. Patient was transitioned over to Cardizem drip at 15 mg/h. Heart rate has been very well-controlled. Will transition to p.o. Cardizem following surgery and continue with amiodarone p.o. for further management of cardiac arrhythmia. Currently patient is on Lovenox and will resume Eliquis 2.5 mg p.o. twice daily on discharge with approval of both technical consultant and orthopedic surgeon. # Acute Intertrochanteric Fracture Right Hip # Status post ground-level mechanical fall #Status post hip surgery Presented with right hip pain reported tripping and falling secondary to loss of balance, denies hitting head, denies loss of consciousness. CT head and cervical spine negative for any acute changes. Hip/pelvis x-ray shows Acute intertrochanteric fracture right hip. Patient is given 1 L NS bolus in ED. Orthopedics was consulted. -Patient is status post open reduction internal fixation of right intertrochanteric hip fracture using [employer] TFN implant system on 06/12/2024 Plan: -Patient underwent uncomplicated ORIF of the right hip on June 12, [address] Peña -Physical therapy ordered -Tylenol, Max, hydromorphone for pain control -Patient is on Lovenox twice daily for DVT prophylaxis #Sepsis secondary to pyelonephritis Sepsis SIRS 2/4 secondary to pyelonephritis, endorgan damage evidence noted by on and off altered mental status Atrial fibrillation triggered secondary to sepsis Patient is tachycardic elevated WBC count. Hypotension was noted. CT chest abdomen pelvis was ordered shows 3 mm right thyroid nodule, pulmonary artery hypertension, mild pneumonia versus atelectasis left base, mild fluid adjacent to tail of pancreas and around spleen suspicion of pancreatitis, atrophic kidney with perinephric stranding, severe osteopenia and acute intertrochanteric fracture right hip. Patient was given adequate fluid resuscitation, blood pressure has improved, was given 2 L IV fluid 06/07 Plan: -Completed IV ceftriaxone (06/06-06/12) -blood culture- no growth in 48 hours 07/09 -Monitor vitals closely # Acute kidney injury, improving # Chronic kidney disease stage IIIb # Dehydration, prerenal Pre-renal likely, patient's BUN 32, creatinine 1.8, GFR 28 on admission Baseline function not known, possible baseline GFR 50 Today BUN 44. Cr 1.2, eGFR 45 Plan: -Renally dose medication -Avoid nephrotoxic agents -Monitor daily CMP # Diabetes mellitus # Hyperlipidemia Blood glucose 184 on admission. Hgb A1c 6.0 on 06/06/24 Plan: -Sliding scale insulin -Hypoglycemia protocol in place # Pneumonia # COPD/Asthma Patient was discharged from [facility] for Pneumonia Patient discharged on Doxycycline PO 100mg BID Was prescribed Levalbuterol per records -Completed p.o. doxycycline course on 06/07 -Duonebs PRN -Supplemental oxygen as needed # 3 mm right thyroid nodule, incidental finding # Rule out pancreatitis -TSH on 06/06/24 is 0.73 -Consider outpatient workup for thyroid nodule -Suspicion of pancreatitis, per imaging, Lipase 42, patient denies abdominal pain, pancreatitis ruled out DVT prophylaxis: Lovenox BID GI prophylaxis: IV Protonix Diet: Carbohydrate consistent, cardiac Lines: Peripheral IV Code status: DNR Status at Discharge Functional status at discharge: bed bound Overall status at discharge: patient is progressing back to baseline Time Spent with Patient Time attestation: Total time spent providing and/or coordinating discharge services: Time spent: Greater than 30 minutes Exam Vital Signs Temp Pulse Resp BP Pulse Ox O2 Del Method O2 Flow Rate 96.8 F 79 14 121/57 L 92 L Room Air 3 06/15/24 16:00 06/15/24 16:00 06/15/24 16:00 06/15/24 16:00 06/15/24 16:00 06/15/24 16:00 06/12/24 18:25 Discharge Plan Plan Patient Disposition: [facility] ([facility]) Patient condition on transfer: Stable Care Plan Goals: Patient is recommended to follow-up with primary care within 1 week Due to patient's history of A-fib we will send her on Eliquis for both atrial fibrillation and DVT prophylaxis Patient will be sent home on amiodarone 200 mg twice daily and Cardizem 360 mg p.o. daily Patient is recommended to follow-up with a strict bowel regimen including docusate and senna for soft stool passage especially the use of opioid narcotics for pain. Prescriptions/Referrals Prescriptions/Med Rec: New sennosides [Senna Lax] 8.6 mg Tablet 8.6 mg PO QDAY PRN (Reason: constipation) 30 Days Qty: 30 0RF amiodarone 200 mg tablet 200 mg PO BID Qty: 60 0RF Eliquis 2.5 mg tablet 2.5 mg PO BID Qty: 60 0RF diltiazem HCl [Cardizem CD] 360 mg capsule,extended release 24hr 360 mg PO Q24H Qty: 30 0RF Continued lisinopril 20 mg tablet 20 mg PO QDAY potassium chloride 10 mEq tablet extended release 10 meq PO AC amlodipine 5 mg tablet 5 mg PO QDAY glimepiride 1 mg tablet 1 mg PO QDAY furosemide 20 mg tablet 20 mg PO QDAY escitalopram oxalate 10 mg tablet 10 mg PO QDAY rosuvastatin 10 mg tablet 10 mg PO QDAY Discontinued Eliquis 2.5 mg tablet 2.5 mg PO BID doxycycline hyclate 100 mg capsule 100 mg PO QDAY metoprolol tartrate 25 mg tablet 50 mg PO QDAY Referrals: Montez Julian [Primary Care Provider] - Patient/Caregiver Discharge Instructions Discharge Activity: walk with walker only Other Discharge Activity Instructions:: Patient can weight-bear to tolerance right lower extremity with physical therapy. Would be nice to get her up twice a day while in [place]. She should take meals sitting if at all possible. Change dressing every other day x 2 weeks. If she gets marked increased redness heat erythema drainage please call me at [phone] or [phone] these are my cell phones(Jabari Peña). Office #[phone]. I would like to repeat her x-ray in 1 month. Print Language: Mongolian Stand Alone Forms: Pretty Award Info., Patient Portal Info Letter Quality Discharge Quality Measures none MD Attestestation MD Attestation I reviewed labs, imaging, EKG, home medications and prior available records. Face to face evaluation was performed by me. I have personally examined the patient and discussed assessment and plan with the IM team. I reviewed the resident note and agree with the plan with exceptions as below. Right hip fracture status post OR Leukocytosis, likely reactive CKD stage III Chronic A-fib Debility Continue working with PT Management of pain as needed Continue amiodarone and apixaban. Discussed with cardiology: Added diltiazem 360 mg CD She is pending authorization to go to SNF in [place]. Discussed with social professionals
[2024-06-15] MEDS: ATORVASTATIN CALCIUM 20 MG TABLET 40 MG PO (20:36)
--- NOTE | 2024-06-15 21:58 | PD.ORTHCONPN ---
Subjective Subjective Brief History: Patient very nice 83-year-[place] breaking the right hip. No other complaints as far as upper extremities left lower extremity right knee right ankle and foot Narrative: Presently sleeping I did not awaken patient Exam Vital Signs Temp Pulse Resp BP Pulse Ox O2 Del Method O2 Flow Rate 97.5 F 96 18 119/68 95 Room Air 3 06/15/24 19:53 06/15/24 20:36 06/15/24 19:53 06/15/24 20:36 06/15/24 19:53 06/15/24 19:53 06/12/24 18:25 Heart rate 96, blood pressure 119/68 Narrative Exam Sleeping Objective - Ortho Labs 06/14/24 08:30 06/14/24 08:30 Labs: Hemoglobin 10.4 yesterday Assessment & Plan Assessment Additional comments: Awaiting transfer to [facility] I spoke with her daughter and told her that we would really want her on a walker the rest of her days. Her balance is an issue and was before the fall. Documentation for date of: 06/15/24
[2024-06-15] MEDS: LACTULOSE SYRUP 20 GM/30 ML UDC PO (22:18)
[2024-06-16] VITALS (13 sets, daily range): BP systolic 98–134; BP diastolic 51–72; PULSE 63–111; RESP 13–19; TEMP 35.8–36.8; O2SAT 93–95
[2024-06-16] MEDS: DILTIAZEM CD 120 MG CAPCR 360 MG PO (08:18)
[2024-06-16] MEDS: ACETAMINOPHEN 325 MG TABLET 650 MG PO (08:18)
[2024-06-16] MEDS: ESCITALOPRAM OXALATE 10 MG TABLET PO (08:18)
[2024-06-16] MEDS: PANTOPRAZOLE INJ 40 MG VIAL IVP (08:20)
[2024-06-16] MEDS: AMIODARONE HCL 200 MG TABLET PO ×2 (08:20→21:07)
[2024-06-16] MEDS: ENOXAPARIN SOD INJ 100 MG/ML SYRINGE 60 MG SC ×2 (08:20→21:13)
[2024-06-16] MEDS: LACTULOSE SYRUP 20 GM/30 ML UDC PO (08:20)
--- NOTE | 2024-06-16 08:58 | PC.SS ---
Addendum entered by SALLY Reed 06/16/24 14:58: Rounding note: patient ready for discharge, just waiting on insurance authorization. Addendum entered by SALLY Reed 06/16/24 14:56: Spoke with Charli at [facility] in [place], [facility] . He informs authorization remains still pending. Addendum entered by SALLY Reed 06/16/24 11:46: Attempted contact with Main , was transferred to [facility] and spoke with Charli. He informs authorization is pending. Charli informs main number can be contacted over the weekend. Original Note: SS Update: Attempted contact with [facility] in [place] to get a status update for the patient in regards to authorization. They were unavailable and voicemail was provided request call back with update.
[2024-06-16] MEDS: INSULIN LISPRO (AdmeLOG) 1 UNIT/0.01 ML UNIT SC (11:54)
[2024-06-16 14:05] LABS: Basophils % (Auto) 0 % (0-2.5); Eosinophils # (Auto) 0.1 Thou/mm3 (0.0-0.5); Eosinophils % (Auto) 1 % (0-10); Hematocrit 33.3 % (36.0-46.0); Hemoglobin 10.9 g/dL (12.0-16.0); Immature Granulocytes % (Auto) 1 % (0-0); Lymphocytes # (Auto) 0.7 Thou/mm3 (1.0-4.8); Lymphocytes % (Auto) 6 % (10-50); Mean Corpuscular HGB Conc 32.7 g/dl (31.0-37.0); Mean Corpuscular Volume 83 fL (80-100); Monocytes # (Auto) 0.7 Thou/mm3 (0.0-0.8); Monocytes % (Auto) 6 % (0-12); Neutrophils # (Auto) 10.1 Thou/mm3 (1.8-7.7); Neutrophils % (Auto) 87 % (37-80); Nucleated Red Blood Cell % 0 /100 WBC (0); Platelet Count 293 Thou/mm3 (140-440); RDW Standard Deviation 44.3 fL (36.4-46.3); Red Blood Count 4.03 Miln/mm3 (4.00-5.20); White Blood Count 11.6 Thou/mm3 (3.6-11.0)
--- NOTE | 2024-06-16 14:17 | ESPR_ITS ---
<Statement entered by Isa Parada MD - 06/18/24 14:55> I evaluated the patient along with resident physician PGY 2 Dr Rich agree with the treatment plan recommendation patient remains in sinus rhythm but intermittent A-fib rate controlled well recommended to continue the diltiazem CD3 60 mg along with amiodarone also anticoagulation regimen. Clinically stable to be transferred when the bed is available for SNF Documentation for date of: 06/16/24 Subjective Subjective Interval history: Overnight, no acute events reported. Patient denies any complaints at this time. Patient is pending auth for SNF placement. Patient continues to be in A-fib but will controlled with oral agents. Exam Vital Signs Temp Pulse Resp BP Pulse Ox O2 Del Method O2 Flow Rate 97.0 F 75 18 134/61 H 95 Room Air 3 06/16/24 12:00 06/16/24 12:00 06/16/24 12:00 06/16/24 12:00 06/16/24 12:00 06/16/24 12:00 06/12/24 18:25 Narrative Exam General Appearance: Pt in NAD laying comfortably in bed. HEENT: NC/AT, no scleral icterus, no conjunctival pallor, MMM Lungs: CTAB, no wheezes or crackles appreciated CVS: Irregularly, irregular; tachycardic, S1/S2 heard, no murmurs or rubs appreciated ABD: Soft, non-tender, non-distended, BS + in all 4 quadrants EXT: Right leg externally rotated, otherwise no edema or deformities noted, radial pulses 2+ BL, DP pulses 2 + BL SKIN: Skin exam normal without any rashes. Neuro: A&O x 2. No gross neurological deficits. Motor and sensory grossly intact in B/L UL and LL except for right lower leg. Psych: Appropriate mood and affect Objective Labs 06/16/24 13:40 06/14/24 08:30 Quality Measures Quality Measures none Advance care planning discussed with:: patient Assessment & Plan Assessment Current Active Medications: Generic Name Dose Route Start Last Admin Trade Name Freq PRN Reason Stop Dose Admin Acetaminophen 650 mg 06/05/24 14:35 06/16/24 08:18 Acetaminophen 325 Mg Tablet PO 07/05/24 14:34 650 mg Q6H PRN Administration Pain (1-3) and Fever >101.5 Albuterol/Ipratropium 3 ml 06/10/24 13:53 Albuterol/Ipratropium (Duoneb) Rt Charline 3 Ml Nebu INH 07/07/24 10:59 Q4HRRT PRN SOB/Wheeze Amiodarone HCl 200 mg 06/09/24 10:00 06/16/24 08:20 Amiodarone Hcl 200 Mg Tablet PO 07/09/24 09:59 200 mg BID CLAUDY Administration Atorvastatin Calcium 40 mg 06/07/24 21:00 06/15/24 20:36 Atorvastatin Calcium 20 Mg Tablet PO 07/07/24 20:59 40 mg HS CLAUDY Administration Dextrose 25 ml 06/05/24 14:40 Dextrose 50%-Water Inj 50 Ml Syringe IV 07/05/24 14:39 Q15MIN PRN BG 50-70 responsive npo pt Dextrose 50 ml 06/05/24 14:40 Dextrose 50%-Water Inj 50 Ml Syringe IV 07/05/24 14:39 Q15MIN PRN BG <50 OR BG <70 & pt unresponsive Diltiazem HCl 360 mg 06/15/24 09:00 06/16/24 08:18 Diltiazem Cd 120 Mg Capcr PO 07/15/24 08:59 360 mg QDAY CLAUDY Administration Enoxaparin Sodium 60 mg 06/13/24 21:00 06/16/24 08:20 Enoxaparin Sod Inj 100 Mg/Ml Syringe 1 mg/kg (60 mg) 06/27/24 20:59 60 mg SC Administration BID CLAUDY Escitalopram Oxalate 10 mg 06/08/24 09:00 06/16/24 08:18 Escitalopram Oxalate 10 Mg Tablet PO 07/08/24 08:59 10 mg QDAY CLAUDY Administration Glucagon 1 mg 06/05/24 14:40 Glucagon Inj 1 Mg Vial IM Q15MIN PRN BG <70, and no IV access Insulin Human Lispro 0 unit 06/05/24 17:00 06/16/24 11:54 Insulin Lispro (Admelog) 1 Unit/0.01 Ml Unit SC 07/05/24 16:59 1 unit ACHS CLAUDY Administration Protocol Ondansetron HCl 4 mg 06/12/24 18:19 Ondansetron Inj 2 Mg/Ml Inj 2 Ml IV 07/12/24 18:18 Q6H PRN NAUSEA Pantoprazole Sodium 40 mg 06/06/24 09:00 06/16/24 08:20 Pantoprazole Inj 40 Mg Vial IVP 07/06/24 08:59 40 mg QDAY CLAUDY Administration Sennosides 1 tab 06/05/24 14:35 06/15/24 08:58 Senna Tablet PO 07/05/24 14:34 1 tab QDAY PRN Administration constipation Protocol Plan Patient is an 83-year-old female with past medical history of paroxysmal A-fib on Eliquis 2.5 mg and admitted to hospital service for further management of right hip intertrochanteric fracture. Cardiology was consulted for cardiac clearance prior to surgery. Patient continues to be in A-fib with RVR. #Atrial fibrillation with rapid ventricular response #History of paroxysmal A-fib #Hx of Hyperlipidemia Patient presented with right hip fracture status post ground-level fall in [facility]. Cardiology was initially consulted for cardiac clearance however started going into A-fib with RVR. Edward Vascore is 4. HAS-BLED score is 1. Patient takes home Rousvastatin 10mg HS. Unsuccessful cardioversion as patient unable to sustain sinus rhythm. Patient is currently off IV Diltiazem and heparin gtt. ORIF performed yesterday with Ortho. -Continue with Diltiazem 360mg QD -Continue with amiodarone 200 mg twice daily -Keep potassium above 4, magnesium above 2 -Continue to monitor on tele -Restart apixaban twice daily as per ortho recs -Continue with Atorvastatin 40mg HS Rest of problems continue as per primary team #Reactive Leukocytosis #Acute Intertrochanteric Fracture Right Hip s/p ORIF #Status post ground-level mechanical fall #Acute kidney injury, improving #Chronic kidney disease stage IIIb #Dehydration, prerenal #Diabetes mellitus #Pneumonia #COPD/Asthma #3 mm right thyroid nodule, incidental finding Patient's plan and care discussed with my attending, Dr. Tal Rich MD PGY-2
--- NOTE | 2024-06-16 14:43 | ESPR_ITS ---
Documentation for date of: 06/16/24 Subjective Subjective Interval history: 06/16: no acute overnight events. pt is seen this morning and she was sleeping comfortably saturating on room air. Pt'jean pierre is well controlled, deies any pain, she is working with PT daily. Patient is pending auth for SNF placement in [place]. Medical management remains the same as previosuly documented. cardiology is following, a-fib is well controlled and pt is on anticoagulation. Exam Vital Signs Temp Pulse Resp BP Pulse Ox O2 Del Method O2 Flow Rate 97.0 F 75 18 134/61 H 95 Room Air 3 06/16/24 12:00 06/16/24 12:00 06/16/24 12:00 06/16/24 12:00 06/16/24 12:00 06/16/24 12:00 06/12/24 18:25 Narrative Exam GENERAL: A&Ox3 . Awake, Not in acute distress NEURO: no focal neurological deficits HEENT: Atraumatic, Normocephalic. mucous membranes moist. Eyes open, symmetrical, & clear HEART: Normal Heart Sounds LUNGS: Clear to auscultation with no wheezing or crackles. ABDOMEN: soft, non-distended, non-tender, bowel sounds heard, no guarding or rebound tenderness SKIN: No Rash or ecchymoses EXTREMITIES: No edema, tenderness, able to move all 4 extremities, pedal pulses palpated. Surgical site is clean Objective Labs 06/16/24 13:40 06/14/24 08:30 Quality Measures Quality Measures none Advance care planning discussed with:: patient Assessment & Plan Assessment Current Active Medications: Generic Name Dose Route Start Last Admin Trade Name Freq PRN Reason Stop Dose Admin Acetaminophen 650 mg 06/05/24 14:35 06/16/24 08:18 Acetaminophen 325 Mg Tablet PO 07/05/24 14:34 650 mg Q6H PRN Administration Pain (1-3) and Fever >101.5 Albuterol/Ipratropium 3 ml 06/10/24 13:53 Albuterol/Ipratropium (Duoneb) Rt Charline 3 Ml Nebu INH 07/07/24 10:59 Q4HRRT PRN SOB/Wheeze Amiodarone HCl 200 mg 06/09/24 10:00 06/16/24 08:20 Amiodarone Hcl 200 Mg Tablet PO 07/09/24 09:59 200 mg BID CLAUDY Administration Atorvastatin Calcium 40 mg 06/07/24 21:00 06/15/24 20:36 Atorvastatin Calcium 20 Mg Tablet PO 07/07/24 20:59 40 mg HS CLAUDY Administration Dextrose 25 ml 06/05/24 14:40 Dextrose 50%-Water Inj 50 Ml Syringe IV 07/05/24 14:39 Q15MIN PRN BG 50-70 responsive npo pt Dextrose 50 ml 06/05/24 14:40 Dextrose 50%-Water Inj 50 Ml Syringe IV 07/05/24 14:39 Q15MIN PRN BG <50 OR BG <70 & pt unresponsive Diltiazem HCl 360 mg 06/15/24 09:00 06/16/24 08:18 Diltiazem Cd 120 Mg Capcr PO 07/15/24 08:59 360 mg QDAY CLAUDY Administration Enoxaparin Sodium 60 mg 06/13/24 21:00 06/16/24 08:20 Enoxaparin Sod Inj 100 Mg/Ml Syringe 1 mg/kg (60 mg) 06/27/24 20:59 60 mg SC Administration BID CLAUDY Escitalopram Oxalate 10 mg 06/08/24 09:00 06/16/24 08:18 Escitalopram Oxalate 10 Mg Tablet PO 07/08/24 08:59 10 mg QDAY CLAUDY Administration Glucagon 1 mg 06/05/24 14:40 Glucagon Inj 1 Mg Vial IM Q15MIN PRN BG <70, and no IV access Insulin Human Lispro 0 unit 06/05/24 17:00 06/16/24 11:54 Insulin Lispro (Admelog) 1 Unit/0.01 Ml Unit SC 07/05/24 16:59 1 unit ACHS CLAUDY Administration Protocol Ondansetron HCl 4 mg 06/12/24 18:19 Ondansetron Inj 2 Mg/Ml Inj 2 Ml IV 07/12/24 18:18 Q6H PRN NAUSEA Pantoprazole Sodium 40 mg 06/06/24 09:00 06/16/24 08:20 Pantoprazole Inj 40 Mg Vial IVP 07/06/24 08:59 40 mg QDAY CLAUDY Administration Sennosides 1 tab 06/05/24 14:35 06/15/24 08:58 Senna Tablet PO 07/05/24 14:34 1 tab QDAY PRN Administration constipation Protocol Plan Ms. Hogan is a 83-year-old female with past medical history of diabetes mellitus, atrial fibrillation and hyperlipidemia who presented to [facility] on 06/05/2024 status post ground-level mechanical fall with right hip pain and found to have right hip fracture. Pt is admitted for hip surgery. # Atrial fibrillation with RVR Patient has history of A-fib, on amiodarone and Eliquis 2.5 mg at home Trialed on amiodarone drip and failed to convert, later received synchronized cardioversion and failed to remain in sinus rhythm, Echo shows Normal LV size and function. Estimated EF 55-60% Normal RV size and function. Estimated RVSP 48mmHg Mild mitral and trace tricuspid regurgitation -Pt is switched from amiodarone drip to amiodarone 200mg PO BID -Cardizem 30 mg p.o. 4 times daily -Transition over Lovenox 60 mg twice daily -Telemonitoring -Cardiology consulted-we attempted cardioversion on June 09 but was unsuccessful to maintain sinus rhythm. Patient was transitioned over to Cardizem drip at 15 mg/h. Heart rate has been very well-controlled. Will transition to p.o. Cardizem following surgery and continue with amiodarone p.o. for further management of cardiac arrhythmia. Currently patient is on Lovenox and will resume Eliquis 2.5 mg p.o. twice daily on discharge with approval of both personal injury law specialist and orthopedic surgeon. # Acute Intertrochanteric Fracture Right Hip # Status post ground-level mechanical fall #Status post hip surgery Presented with right hip pain reported tripping and falling secondary to loss of balance, denies hitting head, denies loss of consciousness. CT head and cervical spine negative for any acute changes. Hip/pelvis x-ray shows Acute intertrochanteric fracture right hip. Patient is given 1 L NS bolus in ED. Orthopedics was consulted. -Patient is status post open reduction internal fixation of right intertrochanteric hip fracture using Synthes TFN implant system on 06/12/2024 Plan: -Patient underwent uncomplicated ORIF of the right hip on June 12, [address]ero -Physical therapy ordered -Tylenol, [place], hydromorphone for pain control -Patient is on Lovenox twice daily for DVT prophylaxis #Sepsis secondary to pyelonephritis Sepsis SIRS 2/4 secondary to pyelonephritis, endorgan damage evidence noted by on and off altered mental status Atrial fibrillation triggered secondary to sepsis Patient is tachycardic elevated WBC count. Hypotension was noted. CT chest abdomen pelvis was ordered shows 3 mm right thyroid nodule, pulmonary artery hypertension, mild pneumonia versus atelectasis left base, mild fluid adjacent to tail of pancreas and around spleen suspicion of pancreatitis, a trophic kidney with perinephric stranding, severe osteopenia and acute intertrochanteric fracture right hip. Patient was given adequate fluid resuscitation, blood pressure has improved, was given 2 L IV fluid 06/07 Plan: -Completed IV ceftriaxone (06/06-06/12) -blood culture- no growth in 48 hours 07/09 -Monitor vitals closely # Acute kidney injury, improving # Chronic kidney disease stage IIIb # Dehydration, prerenal Pre-renal likely, patient's BUN 32, creatinine 1.8, GFR 28 on admission Baseline function not known, possible baseline GFR 50 Today BUN 44. Cr 1.2, eGFR 45 Plan: -Renally dose medication -Avoid nephrotoxic agents -Monitor daily CMP # Diabetes mellitus # Hyperlipidemia Blood glucose 184 on admission. Hgb A1c 6.0 on 06/06/24 Plan: -Sliding scale insulin -Hypoglycemia protocol in place # Pneumonia # COPD/Asthma Patient was discharged from [facility] Patient discharged on Doxycycline PO 100mg BID Was prescribed Levalbuterol per records -Completed p.o. doxycycline course on 06/07 -Duonebs PRN -Supplemental oxygen as needed # 3 mm right thyroid nodule, incidental finding # Rule out pancreatitis -TSH on 06/06/24 is 0.73 -Consider outpatient workup for thyroid nodule -Suspicion of pancreatitis, per imaging, Lipase 42, patient denies abdominal pain, pancreatitis ruled out DVT prophylaxis: Lovenox BID GI prophylaxis: IV Protonix Diet: Carbohydrate consistent, cardiac Lines: Peripheral IV Code status: DNR Assessment and plan discussed with my senior resident Dr. Viveros & attending physician Dr. Enid Patel (PGY-1)- Internal medicine resident Attending Provider Attestation/Addendum I reviewed labs, imaging, EKG, home medications and prior available records. Face to face evaluation was performed by me. I have personally examined the patient and discussed assessment and plan with the IM team. I reviewed the resident note and agree with the plan with exceptions as below. Right hip fracture status post OR Leukocytosis, likely reactive CKD stage III Chronic A-fib Debility Continue working with PT Management of pain as needed Continue amiodarone and apixaban. Discussed with cardiology: Added diltiazem 360 mg CD Trend WBC She is pending authorization to go to SNF in [place]. Discussed with social work manager
[2024-06-16] MEDS: ATORVASTATIN CALCIUM 20 MG TABLET 40 MG PO (21:24)
[2024-06-17] VITALS (11 sets, daily range): BP systolic 114–136; BP diastolic 59–85; PULSE 74–118; RESP 15–19; TEMP 36.1–36.4; O2SAT 93–96; BMI 12.0
[2024-06-17] MEDS: DILTIAZEM CD 120 MG CAPCR 360 MG PO (08:21)
[2024-06-17] MEDS: AMIODARONE HCL 200 MG TABLET PO ×2 (08:22→20:12)
[2024-06-17] MEDS: ESCITALOPRAM OXALATE 10 MG TABLET PO (08:22)
[2024-06-17] MEDS: PANTOPRAZOLE INJ 40 MG VIAL IVP (08:23)
[2024-06-17] MEDS: ENOXAPARIN SOD INJ 100 MG/ML SYRINGE 60 MG SC (08:23)
--- NOTE | 2024-06-17 12:31 | ESPR_ITS ---
<Statement entered by Isa Parada MD - 06/18/24 15:00> I personally examined evaluated the patient with resident physician appears to be doing much better A-fib rate controlled well mostly sinus rhythm patient appears to be stable to be discharged whenever the bed is available agree with the treatment plan recommendation will start the patient Eliquis 2.5 twice daily post for for prevention of DVT as well as A-fib to prevent stroke I reviewed the findings and all essential components of the note as documented by Dr. Rich PGY 2 agree with the treatment plan recommendations Documentation for date of: 06/17/24 Subjective Subjective Interval history: Overnight, no acute events are noted. Patient seen and examined at bedside. Patient denies any complaints at this time. Will transition patient from Lovenox to Eliquis 2.5 mg twice daily for both anticoagulation status post hip surgery as well as her current A-fib. Exam Vital Signs Temp Pulse Resp BP Pulse Ox O2 Del Method O2 Flow Rate 97.0 F 83 16 131/73 H 96 Room Air 3 06/17/24 08:00 06/17/24 11:16 06/17/24 11:16 06/17/24 08:22 06/17/24 11:16 06/17/24 08:00 06/12/24 18:25 Narrative Exam General Appearance: Pt in NAD laying comfortably in bed. HEENT: NC/AT, no scleral icterus, no conjunctival pallor, MMM Lungs: CTAB, no wheezes or crackles appreciated CVS: Irregularly, irregular, S1/S2 heard, no murmurs or rubs appreciated ABD: Soft, non-tender, non-distended, BS + in all 4 quadrants EXT: No edema or deformities noted, radial pulses 2+ BL, DP pulses 2 + BL SKIN: Skin exam normal without any rashes. Neuro: A&O x 3. No gross neurological deficits. Motor and sensory grossly intact in B/L UL and LL except for right lower leg, but is able to bend with minimal pain. Psych: Appropriate mood and affect Objective Labs 06/16/24 13:40 06/14/24 08:30 Labs: Laboratory Results - last 24 hr 06/16/24 13:40 WBC 11.6 H D RBC 4.03 Hgb 10.9 L Hct 33.3 L MCV 83 MCH 27.0 MCHC 32.7 RDW Std Deviation 44.3 Plt Count 293 Neut % (Auto) 87 H Lymph % (Auto) 6 L [place] % (Auto) 6 Eos % (Auto) 1 Baso % (Auto) 0 Neut # (Auto) 10.1 H Lymph # (Auto) 0.7 L [place] # (Auto) 0.7 Eos # (Auto) 0.1 Baso # (Auto) 0.0 Immature Gran # (Auto) 0.10 H Absolute Nucleated RBC 0.00 Immature Gran % 1 H Nucleated RBC % 0 Quality Measures Quality Measures none Advance care planning discussed with:: patient Assessment & Plan Assessment Current Active Medications: Generic Name Dose Route Start Last Admin Trade Name Freq PRN Reason Stop Dose Admin Acetaminophen 650 mg 06/05/24 14:35 06/16/24 08:18 Acetaminophen 325 Mg Tablet PO 07/05/24 14:34 650 mg Q6H PRN Administration Pain (1-3) and Fever >101.5 Albuterol/Ipratropium 3 ml 06/10/24 13:53 Albuterol/Ipratropium (Duoneb) Rt Charline 3 Ml Nebu INH 07/07/24 10:59 Q4HRRT PRN SOB/Wheeze Amiodarone HCl 200 mg 06/09/24 10:00 06/17/24 08:22 Amiodarone Hcl 200 Mg Tablet PO 07/09/24 09:59 200 mg BID CLAUDY Administration Apixaban 2.5 mg 06/17/24 21:00 Apixaban 2.5 Mg Tablet PO 07/17/24 20:59 BID CLAUDY Atorvastatin Calcium 40 mg 06/07/24 21:00 06/16/24 21:24 Atorvastatin Calcium 20 Mg Tablet PO 07/07/24 20:59 40 mg HS CLAUDY Administration Dextrose 25 ml 06/05/24 14:40 Dextrose 50%-Water Inj 50 Ml Syringe IV 07/05/24 14:39 Q15MIN PRN BG 50-70 responsive npo pt Dextrose 50 ml 06/05/24 14:40 Dextrose 50%-Water Inj 50 Ml Syringe IV 07/05/24 14:39 Q15MIN PRN BG <50 OR BG <70 & pt unresponsive Diltiazem HCl 360 mg 06/15/24 09:00 06/17/24 08:21 Diltiazem Cd 120 Mg Capcr PO 07/15/24 08:59 360 mg QDAY CLAUDY Administration Escitalopram Oxalate 10 mg 06/08/24 09:00 06/17/24 08:22 Escitalopram Oxalate 10 Mg Tablet PO 07/08/24 08:59 10 mg QDAY CLAUDY Administration Glucagon 1 mg 06/05/24 14:40 Glucagon Inj 1 Mg Vial IM Q15MIN PRN BG <70, and no IV access Insulin Human Lispro 0 unit 06/05/24 17:00 06/17/24 12:10 Insulin Lispro (Admelog) 1 Unit/0.01 Ml Unit SC 07/05/24 16:59 Not Given ACHS CLAUDY Protocol Ondansetron HCl 4 mg 06/12/24 18:19 Ondansetron Inj 2 Mg/Ml Inj 2 Ml IV 07/12/24 18:18 Q6H PRN NAUSEA Pantoprazole Sodium 40 mg 06/06/24 09:00 06/17/24 08:23 Pantoprazole Inj 40 Mg Vial IVP 07/06/24 08:59 40 mg QDAY CLAUDY Administration Sennosides 1 tab 06/05/24 14:35 06/15/24 08:58 Senna Tablet PO 07/05/24 14:34 1 tab QDAY PRN Administration constipation Protocol Plan Patient is an 83-year-old female with past medical history of paroxysmal A-fib on Eliquis 2.5 mg and admitted to hospital service for further management of right hip intertrochanteric fracture. Cardiology was consulted for cardiac clearance prior to surgery. Patient continues to be in A-fib with RVR. #Atrial fibrillation with rapid ventricular response #History of paroxysmal A-fib #Hx of Hyperlipidemia Patient presented with right hip fracture status post [facility] [employer]. Cardiology was initially consulted for cardiac clearance however started going into A-fib with RVR. Edward Vascore is 4. HAS-BLED score is 1. Patient takes home Rousvastatin 10mg HS. Unsuccessful cardioversion as patient unable to sustain sinus rhythm. Patient is currently off IV Diltiazem and heparin gtt. ORIF performed yesterday with Ortho. -Continue with Diltiazem 360mg QD -Continue with amiodarone 200 mg twice daily -Keep potassium above 4, magnesium above 2 -Continue to monitor on tele -Restarted home Eliquis 2.5mg BID for both her current A-fib and anticoagulation s/p hip surgery -DC her Lovenox -Continue with Atorvastatin 40mg HS Rest of problems continue as per primary team #Reactive Leukocytosis #Acute Intertrochanteric Fracture Right Hip s/p ORIF #Status post ground-level mechanical fall #Acute kidney injury, improving #Chronic kidney disease stage IIIb #Dehydration, prerenal #Diabetes mellitus #Pneumonia #COPD/Asthma #3 mm right thyroid nodule, incidental finding Patient's plan and care discussed with my attending, Dr. Tal Rich MD PGY-2
--- NOTE | 2024-06-17 12:34 | ESPR_ITS ---
Documentation for date of: 06/17/24 Subjective Subjective Interval history: Patient is evaluated the bedside, no active complaints, patient is pending authorization for transfer to SNF. Exam Vital Signs Temp Pulse Resp BP Pulse Ox O2 Del Method O2 Flow Rate 97.0 F 83 16 131/73 H 96 Room Air 3 06/17/24 08:00 06/17/24 11:16 06/17/24 11:16 06/17/24 08:22 06/17/24 11:16 06/17/24 08:00 06/12/24 18:25 Narrative Exam GENERAL: A&Ox3 . Awake, Not in acute distress NEURO: no focal neurological deficits HEENT: Atraumatic, Normocephalic. mucous membranes moist. Eyes open, symmetrical, & clear HEART: Normal Heart Sounds LUNGS: Clear to auscultation with no wheezing or crackles. ABDOMEN: soft, non-distended, non-tender, bowel sounds heard, no guarding or rebound tenderness SKIN: No Rash or ecchymoses EXTREMITIES: No edema, tenderness, able to move all 4 extremities, pedal pulses palpated. Surgical site is clean Objective Labs 06/16/24 13:40 06/14/24 08:30 Labs: Laboratory Results - last 24 hr 06/16/24 13:40 WBC 11.6 H D RBC 4.03 Hgb 10.9 L Hct 33.3 L MCV 83 MCH 27.0 MCHC 32.7 RDW Std Deviation 44.3 Plt Count 293 Neut % (Auto) 87 H Lymph % (Auto) 6 L [place] % (Auto) 6 Eos % (Auto) 1 Baso % (Auto) 0 Neut # (Auto) 10.1 H Lymph # (Auto) 0.7 L [place] # (Auto) 0.7 Eos # (Auto) 0.1 Baso # (Auto) 0.0 Immature Gran # (Auto) 0.10 H Absolute Nucleated RBC 0.00 Immature Gran % 1 H Nucleated RBC % 0 Quality Measures Quality Measures none Advance care planning discussed with:: patient Assessment & Plan Assessment Current Active Medications: Generic Name Dose Route Start Last Admin Trade Name Freq PRN Reason Stop Dose Admin Acetaminophen 650 mg 06/05/24 14:35 06/16/24 08:18 Acetaminophen 325 Mg Tablet PO 07/05/24 14:34 650 mg Q6H PRN Administration Pain (1-3) and Fever >101.5 Albuterol/Ipratropium 3 ml 06/10/24 13:53 Albuterol/Ipratropium (Duoneb) Rt Charline 3 Ml Nebu INH 07/07/24 10:59 Q4HRRT PRN SOB/Wheeze Amiodarone HCl 200 mg 06/09/24 10:00 06/17/24 08:22 Amiodarone Hcl 200 Mg Tablet PO 07/09/24 09:59 200 mg BID CLAUDY Administration Apixaban 2.5 mg 06/17/24 21:00 Apixaban 2.5 Mg Tablet PO 07/17/24 20:59 BID CLAUDY Atorvastatin Calcium 40 mg 06/07/24 21:00 06/16/24 21:24 Atorvastatin Calcium 20 Mg Tablet PO 07/07/24 20:59 40 mg HS CLAUDY Administration Dextrose 25 ml 06/05/24 14:40 Dextrose 50%-Water Inj 50 Ml Syringe IV 07/05/24 14:39 Q15MIN PRN BG 50-70 responsive npo pt Dextrose 50 ml 06/05/24 14:40 Dextrose 50%-Water Inj 50 Ml Syringe IV 07/05/24 14:39 Q15MIN PRN BG <50 OR BG <70 & pt unresponsive Diltiazem HCl 360 mg 06/15/24 09:00 06/17/24 08:21 Diltiazem Cd 120 Mg Capcr PO 07/15/24 08:59 360 mg QDAY CLAUDY Administration Escitalopram Oxalate 10 mg 06/08/24 09:00 06/17/24 08:22 Escitalopram Oxalate 10 Mg Tablet PO 07/08/24 08:59 10 mg QDAY CLAUDY Administration Glucagon 1 mg 06/05/24 14:40 Glucagon Inj 1 Mg Vial IM Q15MIN PRN BG <70, and no IV access Insulin Human Lispro 0 unit 06/05/24 17:00 06/17/24 12:10 Insulin Lispro (Admelog) 1 Unit/0.01 Ml Unit SC 07/05/24 16:59 Not Given ACHS [facility] Protocol Ondansetron HCl 4 mg 06/12/24 18:19 Ondansetron Inj 2 Mg/Ml Inj 2 Ml IV 07/12/24 18:18 Q6H PRN NAUSEA Pantoprazole Sodium 40 mg 06/06/24 09:00 06/17/24 08:23 Pantoprazole Inj 40 Mg Vial IVP 07/06/24 08:59 40 mg QDAY CLAUDY Administration Sennosides 1 tab 06/05/24 14:35 06/15/24 08:58 Senna Tablet PO 07/05/24 14:34 1 tab QDAY PRN Administration constipation Protocol Plan Ms. Hogan is a 83-year-old female with past medical history of diabetes mellitus, atrial fibrillation and hyperlipidemia who presented to [facility] on 06/05/2024 status post ground-level mechanical fall with right hip pain and found to have right hip fracture. Pt is admitted for hip surgery. # Atrial fibrillation with RVR?rate controlled Patient has history of A-fib, on amiodarone and Eliquis 2.5 mg at home Cardiology consulted-we attempted cardioversion on June 09 but was unsuccessful to maintain sinus rhythm. Patient was transitioned over to Cardizem drip at 15 mg/h. Heart rate has been very well-controlled. Will transition to p.o. Cardizem following surgery and continue with amiodarone p.o. for further management of cardiac arrhythmia. Currently patient is on Lovenox and will resume Eliquis 2.5 mg p.o. twice daily on discharge with approval of both card boxer and orthopedic surgeon. Echo shows Normal LV size and function. Estimated EF 55-60% Normal RV size and function. Estimated RVSP 48mmHg Mild mitral and trace tricuspid regurgitation -Pt is switched from amiodarone drip to amiodarone 200mg PO BID -Cardizem CD 360 mg daily -Anticoagulation with apixaban 2.5 twice daily # Acute Intertrochanteric Fracture Right Hip # Status post ground-level mechanical fall # Status post hip surgery Presented with right hip pain reported tripping and falling secondary to loss of balance, denies hitting head, denies loss of consciousness. CT head and cervical spine negative for any acute changes. Hip/pelvis x-ray shows Acute intertrochanteric fracture right hip. Patient is given 1 L NS bolus in ED. Orthopedics was consulted. -Patient is status post open reduction internal fixation of right intertrochanteric hip fracture using [employer] TFN implant system on 06/12/2024 Plan: -Patient underwent uncomplicated ORIF of the right hip on June 12, [address] Romero -Physical therapy ordered -Tylenol, [place], hydromorphone for pain control -Patient is on Lovenox twice daily for DVT prophylaxis # Sepsis secondary to pyelonephritis?now resolved Sepsis SIRS 2/4 secondary to pyelonephritis, endorgan damage evidence noted by on and off altered mental status Atrial fibrillation triggered secondary to sepsis Patient is tachycardic elevated WBC count. Hypotension was noted. CT chest abdomen pelvis was ordered shows 3 mm right thyroid nodule, pulmonary artery hypertension, mild pneumonia versus atelectasis left base, mild fluid adjacent to tail of pancreas and around spleen suspicion of pancreatitis, a trophic kidney with perinephric stranding, severe osteopenia and acute intertrochanteric fracture right hip. Patient was given adequate fluid resuscitation, blood pressure has improved, was given 2 L IV fluid 06/07 Plan: -Completed IV ceftriaxone (06/06-06/12) -blood culture- no growth in 48 hours 07/09 -Monitor vitals closely # Acute kidney injury, improving # Chronic kidney disease stage IIIb # Dehydration, prerenal Pre-renal likely, patient's BUN 32, creatinine 1.8, GFR 28 on admission Baseline function not known, possible baseline GFR 50 Today BUN 44. Cr 1.2, eGFR 45 Plan: -Renally dose medication -Avoid nephrotoxic agents -Monitor daily CMP # Diabetes mellitus # Hyperlipidemia Blood glucose 184 on admission. Hgb A1c 6.0 on 06/06/24 Plan: -Sliding scale insulin -Hypoglycemia protocol in place # Pneumonia # COPD/Asthma Patient was discharged from [facility] for Pneumonia Patient discharged on Doxycycline PO 100mg BID Was prescribed Levalbuterol per records -Completed p.o. doxycycline course on 06/07 -Duonesaeed PRN -Supplemental oxygen as needed # 3 mm right thyroid nodule, incidental finding # Rule out pancreatitis -TSH on 06/06/24 is 0.73 -Consider outpatient workup for thyroid nodule -Suspicion of pancreatitis, per imaging, Lipase 42, patient denies abdominal pain, pancreatitis ruled out DVT prophylaxis: Lovenox BID GI prophylaxis: IV Protonix Diet: Carbohydrate consistent, cardiac Lines: Peripheral IV Code status: DNR Assessment and plan discussed with attending physician Dr. Enid Viveros PGY2 Attending Provider Attestation/Addendum I reviewed labs, imaging, EKG, home medications and prior available records. Face to face evaluation was performed by me. I have personally examined the patient and discussed assessment and plan with the IM team. I reviewed the resident note and agree with the plan with exceptions as below. Right hip fracture status post OR Leukocytosis, likely reactive CKD stage III Chronic A-fib Debility Continue working with PT Management of pain as needed Continue amiodarone and apixaban. Discussed with cardiology: Added diltiazem 360 mg CD Trend WBC: Downtrending She is pending authorization to go to SNF in [place]. Discussed with health and social care teacher
--- NOTE | 2024-06-17 13:36 | PC.SS ---
SS spoke with LILA Ying, still waiting for insurance auth
[2024-06-17] MEDS: ATORVASTATIN CALCIUM 20 MG TABLET 40 MG PO (20:13)
[2024-06-17] MEDS: APIXABAN 2.5 MG TABLET PO (20:13)
[2024-06-17] MEDS: INSULIN LISPRO (AdmeLOG) 1 UNIT/0.01 ML UNIT SC (20:17)
[2024-06-18] VITALS (12 sets, daily range): BP systolic 101–135; BP diastolic 58–86; PULSE 71–108; RESP 15–18; TEMP 36.2–37.1; O2SAT 92–98
[2024-06-18] MEDS: AMIODARONE HCL 200 MG TABLET PO ×2 (08:54→21:27)
[2024-06-18] MEDS: ESCITALOPRAM OXALATE 10 MG TABLET PO (08:54)
[2024-06-18] MEDS: APIXABAN 2.5 MG TABLET PO ×2 (08:54→21:27)
[2024-06-18] MEDS: DILTIAZEM CD 120 MG CAPCR 360 MG PO (08:54)
[2024-06-18] MEDS: PANTOPRAZOLE INJ 40 MG VIAL IVP (08:55)
--- NOTE | 2024-06-18 09:04 | PC.SS ---
SS called and left message [place] [phone] asking for update
--- NOTE | 2024-06-18 14:56 | ESPR_ITS ---
Documentation for date of: 06/18/24 Subjective Subjective Interval history: 06/18: no acute overnight events. pt is seen this morning and she was sleeping comfortably saturating on room air. Pt's pain is well controlled, denies any pain. Patient is pending auth for SNF placement in [place]. Medical management remains the same as previously documented. cardiology is following, a-fib is well controlled and pt is on anticoagulation. Exam Vital Signs Temp Pulse Resp BP Pulse Ox O2 Del Method O2 Flow Rate 98.7 F 79 17 135/61 H 98 Room Air 3 06/18/24 11:51 06/18/24 12:00 06/18/24 11:51 06/18/24 11:51 06/18/24 11:51 06/18/24 11:51 06/12/24 18:25 Narrative Exam GENERAL: A&Ox3 . Awake, Not in acute distress NEURO: no focal neurological deficits HEENT: Atraumatic, Normocephalic. mucous membranes moist. Eyes open, symmetrical, & clear HEART: Normal Heart Sounds LUNGS: Clear to auscultation with no wheezing or crackles. ABDOMEN: soft, non-distended, non-tender, bowel sounds heard, no guarding or rebound tenderness SKIN: No Rash or ecchymoses EXTREMITIES: No edema, tenderness, able to move all 4 extremities, pedal pulses palpated. Surgical site is clean Objective Labs 06/16/24 13:40 06/14/24 08:30 Quality Measures Quality Measures none Advance care planning discussed with:: patient and child Assessment & Plan Assessment Current Active Medications: Generic Name Dose Route Start Last Admin Trade Name Freq PRN Reason Stop Dose Admin Acetaminophen 650 mg 06/05/24 14:35 06/16/24 08:18 Acetaminophen 325 Mg Tablet PO 07/05/24 14:34 650 mg Q6H PRN Administration Pain (1-3) and Fever >101.5 Albuterol/Ipratropium 3 ml 06/10/24 13:53 Albuterol/Ipratropium (Duoneb) Rt Charline 3 Ml Nebu INH 07/07/24 10:59 Q4HRRT PRN SOB/Wheeze Amiodarone HCl 200 mg 06/09/24 10:00 06/18/24 08:54 Amiodarone Hcl 200 Mg Tablet PO 07/09/24 09:59 200 mg BID CLAUDY Administration Apixaban 2.5 mg 06/17/24 21:00 06/18/24 08:54 Apixaban 2.5 Mg Tablet PO 07/17/24 20:59 2.5 mg BID CLAUDY Administration Atorvastatin Calcium 40 mg 06/07/24 21:00 06/17/24 20:13 Atorvastatin Calcium 20 Mg Tablet PO 07/07/24 20:59 40 mg HS CLAUDY Administration Dextrose 25 ml 06/05/24 14:40 Dextrose 50%-Water Inj 50 Ml Syringe IV 07/05/24 14:39 Q15MIN PRN BG 50-70 responsive npo pt Dextrose 50 ml 06/05/24 14:40 Dextrose 50%-Water Inj 50 Ml Syringe IV 07/05/24 14:39 Q15MIN PRN BG <50 OR BG <70 & pt unresponsive Diltiazem HCl 360 mg 06/15/24 09:00 06/18/24 08:54 Diltiazem Cd 120 Mg Capcr PO 07/15/24 08:59 360 mg QDAY CLAUDY Administration Escitalopram Oxalate 10 mg 06/08/24 09:00 06/18/24 08:54 Escitalopram Oxalate 10 Mg Tablet PO 07/08/24 08:59 10 mg QDAY CLAUDY Administration Glucagon 1 mg 06/05/24 14:40 Glucagon Inj 1 Mg Vial IM Q15MIN PRN BG <70, and no IV access Insulin Human Lispro 0 unit 06/05/24 17:00 06/18/24 11:48 Insulin Lispro (Admelog) 1 Unit/0.01 Ml Unit SC 07/05/24 16:59 Not Given ACHS CLAUDY Protocol Ondansetron HCl 4 mg 06/12/24 18:19 Ondansetron Inj 2 Mg/Ml Inj 2 Ml IV 07/12/24 18:18 Q6H PRN NAUSEA Pantoprazole Sodium 40 mg 06/06/24 09:00 06/18/24 08:55 Pantoprazole Inj 40 Mg Vial IVP 07/06/24 08:59 40 mg QDAY CLAUDY Administration Sennosides 1 tab 06/05/24 14:35 06/15/24 08:58 Senna Tablet PO 07/05/24 14:34 1 tab QDAY PRN Administration constipation Protocol Plan Ms. Hogan is a 83-year-old female with past medical history of diabetes mellitus, atrial fibrillation and hyperlipidemia who presented to [facility] on 06/05/2024 status post ground-level mechanical fall with right hip pain and found to have right hip fracture. Pt is admitted for hip surgery. # Atrial fibrillation with RVR?rate controlled Patient has history of A-fib, on amiodarone and Eliquis 2.5 mg at home Cardiology consulted-we attempted cardioversion on June 09 but was unsuccessful to maintain sinus rhythm. Patient was transitioned over to Cardizem drip at 15 mg/h. Heart rate has been very well-controlled. Will transition to p.o. Cardizem following surgery and continue with amiodarone p.o. for further management of cardiac arrhythmia. Currently patient is on Lovenox and will resume Eliquis 2.5 mg p.o. twice daily on discharge with approval of both call or contact centre team leader and orthopedic surgeon. Echo shows Normal LV size and function. Estimated EF 55-60% Normal RV size and function. Estimated RVSP 48mmHg Mild mitral and trace tricuspid regurgitation -Pt is switched from amiodarone drip to amiodarone 200mg PO BID -Cardizem CD 360 mg daily -Anticoagulation with apixaban 2.5 twice daily # Acute Intertrochanteric Fracture Right Hip # Status post ground-level mechanical fall # Status post hip surgery Presented with right hip pain reported tripping and falling secondary to loss of balance, denies hitting head, denies loss of consciousness. CT head and cervical spine negative for any acute changes. Hip/pelvis x-ray shows Acute intertrochanteric fracture right hip. Patient is given 1 L NS bolus in ED. Orthopedics was consulted. -Patient is status post open reduction internal fixation of right intertrochanteric hip fracture using [employer]ynthes TFN implant system on 06/12/2024 Plan: -Patient underwent uncomplicated ORIF of the right hip on June 12, [address]ero -Physical therapy ordered -Tylenol, [place], hydromorphone for pain control -Patient is on Lovenox twice daily for DVT prophylaxis # Sepsis secondary to pyelonephritis?now resolved Sepsis SIRS 2/4 secondary to pyelonephritis, endorgan damage evidence noted by on and off altered mental status Atrial fibrillation triggered secondary to sepsis Patient is tachycardic elevated WBC count. Hypotension was noted. CT chest abdomen pelvis was ordered shows 3 mm right thyroid nodule, pulmonary artery hypertension, mild pneumonia versus atelectasis left base, mild fluid adjacent to tail of pancreas and around spleen suspicion of pancreatitis, a trophic kidney with perinephric stranding, severe osteopenia and acute intertrochanteric fracture right hip. Patient was given adequate fluid resuscitation, blood pressure has improved, was given 2 L IV fluid 06/07 Plan: -Completed IV ceftriaxone (06/06-06/12) -blood culture- no growth in 48 hours 07/09 -Monitor vitals closely # Acute kidney injury, improving # Chronic kidney disease stage IIIb # Dehydration, prerenal Pre-renal likely, patient's BUN 32, creatinine 1.8, GFR 28 on admission Baseline function not known, possible baseline GFR 50 Today BUN 44. Cr 1.2, eGFR 45 Plan: -Renally dose medication -Avoid nephrotoxic agents -Monitor daily CMP # Diabetes mellitus # Hyperlipidemia Blood glucose 184 on admission. Hgb A1c 6.0 on 06/06/24 Plan: -Sliding scale insulin -Hypoglycemia protocol in place # Pneumonia # COPD/Asthma Patient was discharged from [facility] for Pneumonia Patient discharged on Doxycycline PO 100mg BID Was prescribed Levalbuterol per records -Completed p.o. doxycycline course on 06/07 -Duonebs PRN -Supplemental oxygen as needed # 3 mm right thyroid nodule, incidental finding # Rule out pancreatitis -TSH on 06/06/24 is 0.73 -Consider outpatient workup for thyroid nodule -Suspicion of pancreatitis, per imaging, Lipase 42, patient denies abdominal pain, pancreatitis ruled out DVT prophylaxis: Lovenox BID GI prophylaxis: IV Protonix Diet: Carbohydrate consistent, cardiac Lines: Peripheral IV Code status: DNR Assessment and plan discussed with my attending physician Dr. Enid Patel (PGY-1)- Internal medicine resident Attending Provider Attestation/Addendum I reviewed labs, imaging, EKG, home medications and prior available records. Face to face evaluation was performed by me. I have personally examined the patient and discussed assessment and plan with the IM team. I reviewed the resident note and agree with the plan with exceptions as below. Right hip fracture status post OR Leukocytosis, likely reactive CKD stage III Chronic A-fib Debility Continue working with PT Management of pain as needed Continue amiodarone and apixaban. Discussed with cardiology: Added diltiazem 360 mg CD Trend WBC: Downtrending She is pending authorization to go to SNF in [place]. Discussed with certified social workers in health care
--- NOTE | 2024-06-18 16:33 | CONPN_ITS ---
Subjective Subjective Brief History: Patient very nice 83-year-old [place] breaking the right hip. No other complaints as far as upper extremities left lower extremity right knee right ankle and foot Narrative: Patient is alert. Not complain of any pain right hip Exam Vital Signs Temp Pulse Resp BP Pulse Ox O2 Del Method O2 Flow Rate 98.7 F 79 17 135/61 H 98 Room Air 3 06/18/24 11:51 06/18/24 12:00 06/18/24 11:51 06/18/24 11:51 06/18/24 11:51 06/18/24 11:51 06/12/24 18:25 Vital signs stable pulse 79 blood pressure 135/61 Narrative Exam Moving right hip right knee very nicely no redness heat noted no pain right knee right ankle foot Objective - Ortho Labs 06/16/24 13:40 06/14/24 08:30 Assessment & Plan Assessment Additional comments: Awaiting transfer to assisted facility Plan Continue vigorous PT Documentation for date of: 06/18/24
[2024-06-18] MEDS: ONDANSETRON INJ 2 MG/ML INJ 2 ML 4 MG IV (19:23)
--- NOTE | 2024-06-18 19:35 | ESPR_ITS ---
RE: RADHA CANTU : 1940 DATE OF SERVICE: 06/18/2024 DATE OF PROGRESS: 06/18/2024 SUBJECTIVE: The patient is an 83-year-old lady admitted to the hospital prolonged hospitalization because of multiple problems including cardiac arrhythmias, difficult to control. Finally underwent surgery successfully, feeling well. No chest pain or shortness of breath. She was in and out of AFib. Today appears to be in sinus rhythm, on amiodarone now. She is also started on Eliquis 2.5 b.i.d. just for the age and body weight as well as creatinine levels and also continued him on diltiazem 360 daily along with amiodarone for good rate control. Doing well chronically having chest pain, shortness of breath, waiting for a transfer to [facility]. OBJECTIVE: Vital Signs: Blood pressure 110/70. Pulse rate is 79 and regular, respiration 16, temperature normal. Neck: Supple. No JVD. Lungs: Clear. Heart: Sounds regular. No gallops or murmurs. Abdomen: Thin and soft. Extremities: No edema. ASSESSMENT: * Atrial fibrillation back in sinus rhythm. * Fracture of hip, underwent surgery. RECOMMENDATIONS: The patient will be discharged to [facility] on three drugs including diltiazem 360 mg daily, amiodarone 200 twice a day along with Eliquis 2.5 b.i.d. Recommend the patient to be seen by local MD and tourist guide when he is still in [facility]. DT: 14:52:31 TT: 19:25:00 Ref: [id number] - TID: [id number] MTDD
[2024-06-18] MEDS: ATORVASTATIN CALCIUM 20 MG TABLET 40 MG PO (21:27)
[2024-06-19] VITALS (12 sets, daily range): BP systolic 106–137; BP diastolic 64–85; PULSE 65–112; RESP 12–18; TEMP 36.1–36.6; O2SAT 92–94; BMI 12.0
[2024-06-19] MEDS: APIXABAN 2.5 MG TABLET PO ×2 (08:38→20:22)
[2024-06-19] MEDS: DILTIAZEM CD 120 MG CAPCR 360 MG PO (08:38)
[2024-06-19] MEDS: PANTOPRAZOLE INJ 40 MG VIAL IVP (08:38)
[2024-06-19] MEDS: ESCITALOPRAM OXALATE 10 MG TABLET PO (08:39)
[2024-06-19] MEDS: AMIODARONE HCL 200 MG TABLET PO ×2 (08:39→20:22)
[2024-06-19 09:39] LABS: Basophils % (Auto) 0 % (0-2.5); Eosinophils # (Auto) 0.1 Thou/mm3 (0.0-0.5); Eosinophils % (Auto) 1 % (0-10); Hematocrit 33.3 % (36.0-46.0); Hemoglobin 11.3 g/dL (12.0-16.0); Immature Granulocytes % (Auto) 1 % (0-0); Immature Granulocytes Auto 0.11 Thou/mm3 (0.00-0.00); Lymphocytes # (Auto) 0.6 Thou/mm3 (1.0-4.8); Lymphocytes % (Auto) 4 % (10-50); Mean Corpuscular HGB Conc 33.9 g/dl (31.0-37.0); Mean Corpuscular Hemoglobin 27.6 pg (25.0-35.0); Mean Corpuscular Volume 81 fL (80-100); Monocytes # (Auto) 0.5 Thou/mm3 (0.0-0.8); Monocytes % (Auto) 4 % (0-12); Neutrophils % (Auto) 91 % (37-80); Nucleated Red Blood Cell % 0 /100 WBC (0); Platelet Count 329 Thou/mm3 (140-440); RDW Standard Deviation 43.1 fL (36.4-46.3); White Blood Count 14.3 Thou/mm3 (3.6-11.0)
[2024-06-19 09:56] LABS: Alanine Aminotransferase 31 U/L (10-49); Albumin, Serum 3.4 gm/dL (3.4-4.8); Albumin/Globulin Ratio 1.4 (1.2-2.2); Alkaline Phosphatase 97 U/L (46-116); Anion Gap 9 (7-16); Aspartate Amino Transferase 33 U/L (0-34); BUN/Creatinine Ratio 18 Ratio (12-20); Bilirubin,Total 0.8 mg/dL (0.3-1.2); Blood Urea Nitrogen 16 mg/dL (9-23); Calcium 8.8 mg/dL (8.3-10.6); Calcium (Corrected) 9.3 mg/dL (8.5-10.1); Chloride 95 mMol/L (98-107); Creatinine (Component) 0.9 mg/dL (0.6-1.3); Estimated Creatinine Clearance 39.5 mL/min (>60); Globulin 2.5 gm/dL (2.3-3.5); Glucose 102 mg/dL (74-106); Osmolality,Calculated 267 (275-295); Potassium 3.9 mMol/L (3.4-5.1); Sodium 133 mMol/L (136-145); Total Protein 5.9 gm/dL (5.7-8.2); eGFR > 60 See Note
[2024-06-19] MEDS: RINGERS LACTATED 1000 ML 1,000 ML 150 ML IV (11:15)
--- NOTE | 2024-06-19 12:51 | PC.SS ---
NATE followed up with Jacy at [facility] to follow up with insurance authorization. Jacy states she will follow up with patient's health insurance and contact SS. NATE provided contact information. Insurance authorization is still pending.
[2024-06-19] MEDS: ONDANSETRON INJ 2 MG/ML INJ 2 ML 4 MG IV (14:04)
--- NOTE | 2024-06-19 15:38 | ESPR_ITS ---
Documentation for date of: 06/19/24 Subjective Subjective Interval history: 06/19: no acute overnight events. pt is seen this morning and she was sleeping comfortably saturating on room air. Breakfast tray was untouched, I informed the patient's nurse that patient requires assistance with breakfast lunch and dinner and want to make sure that patient eats her meals . Due to poor oral intake patient is also given 1 L of LR. Today's labs showed mild leukocytosis so we will repeat labs tomorrow. pt's pain is well controlled, denies any pain. Patient is pending auth for SNF placement in [place]. Medical management remains the same as previously documented. cardiology is following, a-fib is well controlled and pt is on anticoagulation. Exam Vital Signs Temp Pulse Resp BP Pulse Ox O2 Del Method O2 Flow Rate 97.0 F 90 12 112/64 93 L Room Air 3 06/19/24 12:00 06/19/24 12:00 06/19/24 12:00 06/19/24 12:00 06/19/24 12:00 06/19/24 12:00 06/12/24 18:25 Narrative Exam GENERAL: A&Ox3 . Awake, Not in acute distress NEURO: no focal neurological deficits HEENT: Atraumatic, Normocephalic. mucous membranes moist. Eyes open, symmetrical, & clear HEART: Normal Heart Sounds LUNGS: Clear to auscultation with no wheezing or crackles. ABDOMEN: soft, non-distended, non-tender, bowel sounds heard, no guarding or rebound tenderness SKIN: No Rash or ecchymoses EXTREMITIES: No edema, tenderness, able to move all 4 extremities, pedal pulses palpated. Surgical site is clean Objective Labs 06/19/24 09:05 06/19/24 09:05 Labs: Laboratory Results - last 24 hr 06/19/24 09:05 WBC 14.3 H RBC 4.10 Hgb 11.3 L Hct 33.3 L MCV 81 MCH 27.6 MCHC 33.9 RDW Std Deviation 43.1 Plt Count 329 D Neut % (Auto) 91 H Lymph % (Auto) 4 L [place] % (Auto) 4 Eos % (Auto) 1 Baso % (Auto) 0 Neut # (Auto) 13.0 H Lymph # (Auto) 0.6 L [place] # (Auto) 0.5 Eos # (Auto) 0.1 Baso # (Auto) 0.0 Immature Gran # (Auto) 0.11 H Absolute Nucleated RBC 0.00 Immature Gran % 1 H Nucleated RBC % 0 Sodium 133 L Potassium 3.9 Chloride 95 L Carbon Dioxide 29.0 Anion Gap 9 BUN 16 Creatinine 0.9 Estim Creat Clear Calc 39.5 L eGFR > 60 BUN/Creatinine Ratio 18 Glucose 102 Calculated Osmolality 267 L Calcium 8.8 Corrected Calcium 9.3 Total Bilirubin 0.8 AST 33 ALT 31 Alkaline Phosphatase 97 Total Protein 5.9 Albumin 3.4 Globulin 2.5 Albumin/Globulin Ratio 1.4 Quality Measures Quality Measures none Advance care planning discussed with:: patient and child Assessment & Plan Assessment Current Active Medications: Generic Name Dose Route Start Last Admin Trade Name Freq PRN Reason Stop Dose Admin Acetaminophen 650 mg 06/05/24 14:35 06/16/24 08:18 Acetaminophen 325 Mg Tablet PO 07/05/24 14:34 650 mg Q6H PRN Administration Pain (1-3) and Fever >101.5 Albuterol/Ipratropium 3 ml 06/10/24 13:53 Albuterol/Ipratropium (Duoneb) Rt Charline 3 Ml Nebu INH 07/07/24 10:59 Q4HRRT PRN SOB/Wheeze Amiodarone HCl 200 mg 06/09/24 10:00 06/19/24 08:39 Amiodarone Hcl 200 Mg Tablet PO 07/09/24 09:59 200 mg BID CLAUDY Administration Apixaban 2.5 mg 06/17/24 21:00 06/19/24 08:38 Apixaban 2.5 Mg Tablet PO 07/17/24 20:59 2.5 mg BID CLAUDY Administration Atorvastatin Calcium 40 mg 06/07/24 21:00 06/18/24 21:27 Atorvastatin Calcium 20 Mg Tablet PO 07/07/24 20:59 40 mg HS CLAUDY Administration Dextrose 25 ml 06/05/24 14:40 Dextrose 50%-Water Inj 50 Ml Syringe IV 07/05/24 14:39 Q15MIN PRN BG 50-70 responsive npo pt Dextrose 50 ml 06/05/24 14:40 Dextrose 50%-Water Inj 50 Ml Syringe IV 07/05/24 14:39 Q15MIN PRN BG <50 OR BG <70 & pt unresponsive Diltiazem HCl 360 mg 06/15/24 09:00 06/19/24 08:38 Diltiazem Cd 120 Mg Capcr PO 07/15/24 08:59 360 mg QDAY CLAUDY Administration Escitalopram Oxalate 10 mg 06/08/24 09:00 06/19/24 08:39 Escitalopram Oxalate 10 Mg Tablet PO 07/08/24 08:59 10 mg QDAY CLAUDY Administration Glucagon 1 mg 06/05/24 14:40 Glucagon Inj 1 Mg Vial IM Q15MIN PRN BG <70, and no IV access Lactated Ringer's 1,000 mls @ 150 mls/hr 06/19/24 09:45 06/19/24 11:15 Lactated Ringers IV 06/19/24 16:24 150 mls/hr .Q6H40M CLAUDY Administration Insulin Human Lispro 0 unit 06/05/24 17:00 06/19/24 11:17 Insulin Lispro (Admelog) 1 Unit/0.01 Ml Unit SC 07/05/24 16:59 Not Given ACHS CLAUDY Protocol Ondansetron HCl 4 mg 06/12/24 18:19 06/19/24 14:04 Ondansetron Inj 2 Mg/Ml Inj 2 Ml IV 07/12/24 18:18 4 mg Q6H PRN Administration NAUSEA Pantoprazole Sodium 40 mg 06/06/24 09:00 06/19/24 08:38 Pantoprazole Inj 40 Mg Vial IVP 07/06/24 08:59 40 mg QDAY CLAUDY Administration Sennosides 1 tab 06/05/24 14:35 06/15/24 08:58 Senna Tablet PO 07/05/24 14:34 1 tab QDAY PRN Administration constipation Protocol Plan Ms. Hogan is a 83-year-old female with past medical history of diabetes mellitus, atrial fibrillation and hyperlipidemia who presented to [facility] on 06/05/2024 status post ground-level mechanical fall with right hip pain and found to have right hip fracture. Pt is admitted for hip surgery. # Atrial fibrillation with RVR?rate controlled Patient has history of A-fib, on amiodarone and Eliquis 2.5 mg at home Cardiology consulted-we attempted cardioversion on June 09 but was unsuccessful to maintain sinus rhythm. Patient was transitioned over to Cardizem drip at 15 mg/h. Heart rate has been very well-controlled. Will transition to p.o. Cardizem following surgery and continue with amiodarone p.o. for further management of cardiac arrhythmia. Currently patient is on Lovenox and will resume Eliquis 2.5 mg p.o. twice daily on discharge with approval of both receptionist doctor's office and orthopedic surgeon. Echo shows Normal LV size and function. Estimated EF 55-60% Normal RV size and function. Estimated RVSP 48mmHg Mild mitral and trace tricuspid regurgitation -Pt is switched from amiodarone drip to amiodarone 200mg PO BID -Cardizem CD 360 mg daily -Anticoagulation with apixaban 2.5 twice daily # Acute Intertrochanteric Fracture Right Hip # Status post ground-level mechanical fall # Status post hip surgery Presented with right hip pain reported tripping and falling secondary to loss of balance, denies hitting head, denies loss of consciousness. CT head and cervical spine negative for any acute changes. Hip/pelvis x-ray shows Acute intertrochanteric fracture right hip. Patient is given 1 L NS bolus in ED. Orthopedics was consulted. -Patient is status post open reduction internal fixation of right intertrochanteric hip fracture using [employer] TFN implant system on 06/12/2024 Plan: -Patient underwent uncomplicated ORIF of the right hip on June 12, [address] Romero -Physical therapy ordered -Tylenol, [place], hydromorphone for pain control -Patient is on Lovenox twice daily for DVT prophylaxis #Sepsis secondary to pyelonephritis?now resolved Sepsis SIRS 2/4 secondary to pyelonephritis, endorgan damage evidence noted by on and off altered mental status Atrial fibrillation triggered secondary to sepsis Patient is tachycardic elevated WBC count. Hypotension was noted. CT chest abdomen pelvis was ordered shows 3 mm right thyroid nodule, pulmonary artery hypertension, mild pneumonia versus atelectasis left base, mild fluid adjacent to tail of pancreas and around spleen suspicion of pancreatitis, a trophic kidney with perinephric stranding, severe osteopenia and acute intertrochanteric fracture right hip. Patient was given adequate fluid resuscitation, blood pressure has improved, was given 2 L IV fluid 06/07 Plan: -Completed IV ceftriaxone (06/06-06/12) -blood culture- no growth in 48 hours / -Monitor vitals closely # Acute kidney injury, improving # Chronic kidney disease stage IIIb # Dehydration, prerenal Pre-renal likely, patient's BUN 32, creatinine 1.8, GFR 28 on admission Baseline function not known, possible baseline GFR 50 Today BUN 44. Cr 1.2, eGFR 45 Plan: -Renally dose medication -Avoid nephrotoxic agents -Monitor daily CMP # Diabetes mellitus # Hyperlipidemia Blood glucose 184 on admission. Hgb A1c 6.0 on 06/06/24 Plan: -Sliding scale insulin -Hypoglycemia protocol in place # Pneumonia # COPD/Asthma Patient was [facility] from [facility] Patient discharged on Doxycycline PO 100mg BID Was prescribed Levalbuterol per records -Completed p.o. doxycycline course on 06/07 -Duonebs PRN -Supplemental oxygen as needed # 3 mm right thyroid nodule, incidental finding # Rule out pancreatitis -TSH on 06/06/24 is 0.73 -Consider outpatient workup for thyroid nodule -Suspicion of pancreatitis, per imaging, Lipase 42, patient denies abdominal pain, pancreatitis ruled out DVT prophylaxis: Lovenox BID GI prophylaxis: IV Protonix Diet: Carbohydrate consistent, cardiac Lines: Peripheral IV Code status: DNR Assessment and plan discussed with my senior resident Dr. Viveros & attending physician Dr. Enid Patel (PGY-1)- Internal medicine resident Attending Provider Attestation/Addendum I reviewed labs, imaging, EKG, home medications and prior available records. Face to face evaluation was performed by me. I have personally examined the patient and discussed assessment and plan with the IM team. I reviewed the resident note and agree with the plan with exceptions as below. Right hip fracture status post OR Leukocytosis, likely reactive CKD stage III Chronic A-fib Debility Continue working with PT Management of pain as needed Continue amiodarone and apixaban. Discussed with cardiology: Added diltiazem 360 mg CD Trend WBC: Downtrending She is pending authorization to go to SNF in [place]. Discussed with social insurance adviser
--- NOTE | 2024-06-19 16:55 | ESPR_ITS ---
<Statement entered by Isa Parada MD - 06/20/24 08:39> The patient is evaluated by me appears to be doing well now cardiac foy sinus rhythm awaiting [facility] to [facility] recommend the patient to be followed by change control specialist in [place] continue amiodarone and diltiazem for now and Eliquis low-dose. Documentation for date of: 06/19/24 Subjective Subjective Interval history: No acute overnight events reported. Patient continues to be on anticoagulation and oral diltiazem and amiodarone for rate control of her A-fib. Patient denies any complaints today. Patient currently waiting for insurance Auth. Slight increase in white count today, will have repeat labs in a.m. to compare patient continues to work with PT. Exam Vital Signs Temp Pulse Resp BP Pulse Ox O2 Del Method O2 Flow Rate 97.0 F 90 12 112/64 93 L Room Air 3 06/19/24 12:00 06/19/24 12:00 06/19/24 12:00 06/19/24 12:00 06/19/24 12:00 06/19/24 12:00 06/12/24 18:25 Narrative Exam General Appearance: Pt in NAD laying comfortably in bed. HEENT: NC/AT, no scleral icterus, no conjunctival pallor, MMM Lungs: CTAB, no wheezes or crackles appreciated CVS: Irregularly, irregular, S1/S2 heard, no murmurs or rubs appreciated ABD: Soft, non-tender, non-distended, BS + in all 4 quadrants EXT: No edema or deformities noted, radial pulses 2+ BL, DP pulses 2 + BL SKIN: Skin exam normal without any rashes. Neuro: A&O x 3. No gross neurological deficits. Motor and sensory grossly intact in B/L UL and LL except for right lower leg, but is able to bend with minimal pain. Psych: Appropriate mood and affect Objective Labs 06/19/24 09:05 06/19/24 09:05 Labs: Laboratory Results - last 24 hr 06/19/24 09:05 WBC 14.3 H RBC 4.10 Hgb 11.3 L Hct 33.3 L MCV 81 MCH 27.6 MCHC 33.9 RDW Std Deviation 43.1 Plt Count 329 D Neut % (Auto) 91 H Lymph % (Auto) 4 L [place] % (Auto) 4 Eos % (Auto) 1 Baso % (Auto) 0 Neut # (Auto) 13.0 H Lymph # (Auto) 0.6 L [place] # (Auto) 0.5 Eos # (Auto) 0.1 Baso # (Auto) 0.0 Immature Gran # (Auto) 0.11 H Absolute Nucleated RBC 0.00 Immature Gran % 1 H Nucleated RBC % 0 Sodium 133 L Potassium 3.9 Chloride 95 L Carbon Dioxide 29.0 Anion Gap 9 BUN 16 Creatinine 0.9 Estim Creat Clear Calc 39.5 L eGFR > 60 BUN/Creatinine Ratio 18 Glucose 102 Calculated Osmolality 267 L Calcium 8.8 Corrected Calcium 9.3 Total Bilirubin 0.8 AST 33 ALT 31 Alkaline Phosphatase 97 Total Protein 5.9 Albumin 3.4 Globulin 2.5 Albumin/Globulin Ratio 1.4 Quality Measures Quality Measures none Advance care planning discussed with:: patient Assessment & Plan Assessment Current Active Medications: Generic Name Dose Route Start Last Admin Trade Name Freq PRN Reason Stop Dose Admin Acetaminophen 650 mg 06/05/24 14:35 06/16/24 08:18 Acetaminophen 325 Mg Tablet PO 07/05/24 14:34 650 mg Q6H PRN Administration Pain (1-3) and Fever >101.5 Albuterol/Ipratropium 3 ml 06/10/24 13:53 Albuterol/Ipratropium (Duoneb) Rt Charline 3 Ml Nebu INH 07/07/24 10:59 Q4HRRT PRN SOB/Wheeze Amiodarone HCl 200 mg 06/09/24 10:00 06/19/24 08:39 Amiodarone Hcl 200 Mg Tablet PO 07/09/24 09:59 200 mg BID CLAUDY Administration Apixaban 2.5 mg 06/17/24 21:00 06/19/24 08:38 Apixaban 2.5 Mg Tablet PO 07/17/24 20:59 2.5 mg BID CLAUDY Administration Atorvastatin Calcium 40 mg 06/07/24 21:00 06/18/24 21:27 Atorvastatin Calcium 20 Mg Tablet PO 07/07/24 20:59 40 mg HS CLAUDY Administration Dextrose 25 ml 06/05/24 14:40 Dextrose 50%-Water Inj 50 Ml Syringe IV 07/05/24 14:39 Q15MIN PRN BG 50-70 responsive npo pt Dextrose 50 ml 06/05/24 14:40 Dextrose 50%-Water Inj 50 Ml Syringe IV 07/05/24 14:39 Q15MIN PRN BG <50 OR BG <70 & pt unresponsive Diltiazem HCl 360 mg 06/15/24 09:00 06/19/24 08:38 Diltiazem Cd 120 Mg Capcr PO 07/15/24 08:59 360 mg QDAY CLAUDY Administration Escitalopram Oxalate 10 mg 06/08/24 09:00 06/19/24 08:39 Escitalopram Oxalate 10 Mg Tablet PO 07/08/24 08:59 10 mg QDAY CLAUDY Administration Glucagon 1 mg 06/05/24 14:40 Glucagon Inj 1 Mg Vial IM Q15MIN PRN BG <70, and no IV access Insulin Human Lispro 0 unit 06/05/24 17:00 06/19/24 11:17 Insulin Lispro (Admelog) 1 Unit/0.01 Ml Unit SC 07/05/24 16:59 Not Given ACHS CLAUDY Protocol Ondansetron HCl 4 mg 06/12/24 18:19 06/19/24 14:04 Ondansetron Inj 2 Mg/Ml Inj 2 Ml IV 07/12/24 18:18 4 mg Q6H PRN Administration NAUSEA Pantoprazole Sodium 40 mg 06/06/24 09:00 06/19/24 08:38 Pantoprazole Inj 40 Mg Vial IVP 07/06/24 08:59 40 mg QDAY CLAUDY Administration Sennosides 1 tab 06/05/24 14:35 06/15/24 08:58 Senna Tablet PO 07/05/24 14:34 1 tab QDAY PRN Administration constipation Protocol Plan Patient is an 83-year-old female with past medical history of paroxysmal A-fib on Eliquis 2.5 mg and admitted to hospital service for further management of right hip intertrochanteric fracture. Cardiology was consulted for cardiac clearance prior to surgery. Patient continues to be in A-fib with RVR. At this time, cardiology will sign off at this time, and can f/u with cardiology in [place] near her SNF. #Atrial fibrillation with rapid ventricular response #History of paroxysmal A-fib #Hx of Hyperlipidemia Patient presented with right hip fracture status post [place]. Cardiology was initially consulted for cardiac clearance however started going into A-fib with RVR. Edward Vascore is 4. HAS-BLED score is 1. Patient takes home Rousvastatin 10mg HS. Unsuccessful cardioversion as patient unable to sustain sinus rhythm. Patient is currently off IV Diltiazem and heparin gtt. ORIF performed yesterday with Ortho. -Continue with Diltiazem 360mg QD -Continue with amiodarone 200 mg twice daily -Keep potassium above 4, magnesium above 2 -Continue to monitor on tele -Continue home Eliquis 2.5mg BID for both her current A-fib and anticoagulation s/p hip surgery -Continue with Atorvastatin 40mg HS Rest of problems continue as per primary team #Reactive Leukocytosis #Acute Intertrochanteric Fracture Right Hip s/p ORIF #Status post ground-level mechanical fall #Acute kidney injury, improving #Chronic kidney disease stage IIIb #Dehydration, prerenal #Diabetes mellitus #Pneumonia #COPD/Asthma #3 mm right thyroid nodule, incidental finding Patient's plan and care discussed with my attending, Dr. Tal Rich MD PGY-2
[2024-06-19] MEDS: ATORVASTATIN CALCIUM 20 MG TABLET 40 MG PO (20:22)
[2024-06-20] VITALS (12 sets, daily range): BP systolic 98–124; BP diastolic 60–67; PULSE 64–110; RESP 15–17; TEMP 36–37.4; O2SAT 90–97; BMI 23.6
[2024-06-20 05:51] LABS: Basophils % (Auto) 0 % (0-2.5); Eosinophils # (Auto) 0.1 Thou/mm3 (0.0-0.5); Eosinophils % (Auto) 1 % (0-10); Hematocrit 28.8 % (36.0-46.0); Hemoglobin 9.6 g/dL (12.0-16.0); Immature Granulocytes % (Auto) 1 % (0-0); Immature Granulocytes Auto 0.11 Thou/mm3 (0.00-0.00); Lymphocytes # (Auto) 0.7 Thou/mm3 (1.0-4.8); Lymphocytes % (Auto) 6 % (10-50); Mean Corpuscular HGB Conc 33.3 g/dl (31.0-37.0); Mean Corpuscular Hemoglobin 27.2 pg (25.0-35.0); Mean Corpuscular Volume 82 fL (80-100); Monocytes # (Auto) 0.6 Thou/mm3 (0.0-0.8); Monocytes % (Auto) 5 % (0-12); Neutrophils # (Auto) 11.7 Thou/mm3 (1.8-7.7); Neutrophils % (Auto) 88 % (37-80); Nucleated Red Blood Cell % 0 /100 WBC (0); Platelet Count 317 Thou/mm3 (140-440); Red Blood Count 3.53 Miln/mm3 (4.00-5.20); White Blood Count 13.3 Thou/mm3 (3.6-11.0)
[2024-06-20 06:33] LABS: Alanine Aminotransferase 27 U/L (10-49); Albumin/Globulin Ratio 1.4 (1.2-2.2); Alkaline Phosphatase 89 U/L (46-116); Anion Gap 7 (7-16); Aspartate Amino Transferase 26 U/L (0-34); BUN/Creatinine Ratio 19 Ratio (12-20); Bilirubin,Total 0.7 mg/dL (0.3-1.2); Blood Urea Nitrogen 17 mg/dL (9-23); Calcium 8.4 mg/dL (8.3-10.6); Calcium (Corrected) 9.2 mg/dL (8.5-10.1); Carbon Dioxide 26.9 mMol/L (20.0-31.0); Chloride 97 mMol/L (98-107); Creatinine (Component) 0.9 mg/dL (0.6-1.3); Estimated Creatinine Clearance 39.5 mL/min (>60); Globulin 2.1 gm/dL (2.3-3.5); Glucose 122 mg/dL (74-106); Osmolality,Calculated 265 (275-295); Potassium 3.8 mMol/L (3.4-5.1); Sodium 131 mMol/L (136-145); Total Protein 5.1 gm/dL (5.7-8.2); eGFR > 60 See Note
--- NOTE | 2024-06-20 08:16 | PC.SS ---
Addendum entered by SALLY Reed 06/20/24 17:27: [facility] staff confirmed patient can d/c to their facility today. Addendum entered by Janae Cardoso CLERICAL OFFICE WORKER 06/20/24 17:23: Faxed hard copy authorization SS received from patient's insurance to [facility] to fax #: [phone]. Addendum entered by Janae Cardoso [facility] 06/20/24 16:49: Spoke with Charli, admissions staff at [facility] in [place], he informs hard copy of authorization has not been received. Charli informs per their policy, they have to receive the hardcopy first. Contacted Candis, to identify if they can fax us the hard copy to provide to [facility]. Candis informed she would fax SS the authorization. Addendum entered by Janae Cardoso CLERICAL OFFICE WORKER 06/20/24 14:47: Contacted patient's daughter, Destiny, patient to d/c today to [facility] in [place]. Destiny confirmed the family will provide transportation for the patient via private vehicle as they have a bigger vehicle to assist. Updated bed side nurse on patient's discharge plan for today. Addendum entered by Janae Cardoso [facility] 06/20/24 14:41: Candis provided authorization number for SNF to be [id number]. Patient can discharge to [facility]. Addendum entered by Janae Cardoso [facility] 06/20/24 14:35: Spoke with Charli admissions staff at [facility] in [place], Main . Informs no authorization number via email or fax has been received. Provided him with [employer]is's contact number to touch basis if patient is fine to discharge to facility today. Addendum entered by Janae Cardoso [facility] 06/20/24 13:39: Spoke with Candis , who is aligned with patient's insurance. Candis informs clinicals were received and she will be providing authorization for SNF. They will fax confirmation once authorization number is received. Per Candis, the patient's insurance does not cover transportation means. Spoke with Charli at [facility] , he informs he will check if authorization has been received at their facility. Per Charli, they do not have transport services available for the patient upon discharge. Updated patient's daughter, Destiny on the current status. Notified her of financial responsibility for transportation services as patient's insurance does not provide transport services. Destiny informs the family will provide transportation for the patient via private vehicle as they have a bigger vehicle to assist. Destiny declined transport information-quotes for [facility] transport services. Addendum entered by SALLY Reed 06/20/24 12:04: Attempted contact with [employer]is , who is aligned with patient's insurance. Left her a voicemail to verify clinicals were received. Addendum entered by SALLY Reed 06/20/24 10:37: CLERICAL OFFICE WORKER Contacted and spoke with Candis, aligned with patient's insurance. Notified her that patient is ready for d/c simply pending authorization for [facility] in [place]. Candis is requesting PT notes and DC order faxed to her to review. CLERICAL OFFICE WORKER faxed clinicals. Faxed clinicals to Candis: Addendum entered by SALLY Reed 06/20/24 10:04: Contacted [facility] in [place]. Spoke with Charli and he informed insurance authorization remains pending. Charli provided contact for patient's insurance Contact: Eric ext [phone]. Addendum entered by SALLY Reed 06/20/24 09:20: Spoke with Jacy at the facility, she informs she is in a meeting, informed to reach out to Charli at for latest update. Attempted contact with Charli at [facility] in [place]. , he was unavailable and voicemail was provided. Original Note: SS follow up: Attempted contacted with admissions staff at [facility] in [place], Main . Was informed that the office is closed, call back after 9am.
[2024-06-20] MEDS: APIXABAN 2.5 MG TABLET PO ×2 (09:17→20:42)
[2024-06-20] MEDS: DILTIAZEM CD 120 MG CAPCR 360 MG PO (09:17)
[2024-06-20] MEDS: AMIODARONE HCL 200 MG TABLET PO ×2 (09:17→20:47)
[2024-06-20] MEDS: ESCITALOPRAM OXALATE 10 MG TABLET PO (09:18)
[2024-06-20] MEDS: PANTOPRAZOLE INJ 40 MG VIAL IVP (09:18)
[2024-06-20] MEDS: SODIUM CHLORIDE 0.9% 1000 ML 1,000 ML 75 ML IV (09:30)
[2024-06-20] MEDS: ACETAMINOPHEN 325 MG TABLET 650 MG PO (10:21)
[2024-06-20] MEDS: INSULIN LISPRO (AdmeLOG) 1 UNIT/0.01 ML UNIT SC ×2 (11:29→18:45)
--- NOTE | 2024-06-20 12:24 | ESPR_ITS ---
Addendum Progress Note Addendum Date of report being addended: 06/20/24 Narrative: I reviewed labs, imaging, EKG, home medications and prior available records. Face to face evaluation was performed by me. I have personally examined the patient and discussed assessment and plan with the IM team. I reviewed the resident note and agree with the plan with exceptions as below. Right hip fracture status post OR Leukocytosis, likely reactive CKD stage III Hyponatremia Chronic A-fib Debility Started maintenance fluids LR at 75 cc/h given the mild hyponatremia which is likely due to dehydration. Encourage oral intake Continue working with PT Management of pain as needed Continue amiodarone and apixaban. Discussed with cardiology: Added diltiazem 360 mg CD Trend WBC: Downtrending She is pending authorization to go to SNF in [place]. Discussed with social worker palliative care
--- NOTE | 2024-06-20 15:09 | PD.RESPRO ---
Documentation for date of: 06/20/24 Subjective Subjective Interval history: Patient seen at bedside today. She is resting comfortably in bed. She is still pending authorization for SNF in [place]. Patient may be discharged today due to the fact that authorization has been obtained from insurance. Exam Vital Signs Temp Pulse Resp BP Pulse Ox O2 Del Method O2 Flow Rate 97.3 F 76 15 99/65 93 L Room Air 3 06/20/24 12:00 06/20/24 12:06/20/24 12:06/20/24 12:06/20/24 12:06/20/24 12:06/12/24 18:25 Narrative Exam General Appearance: Pt in NAD laying comfortably in bed. HEENT: NC/AT, no scleral icterus, no conjunctival pallor, MMM Lungs: CTAB, no wheezes or crackles appreciated CVS: Irregularly, irregular, S1/S2 heard, no murmurs or rubs appreciated ABD: Soft, non-tender, non-distended, BS + in all 4 quadrants EXT: No edema or deformities noted, radial pulses 2+ BL, DP pulses 2 + BL SKIN: Skin exam normal without any rashes. Neuro: A&O x 3. No gross neurological deficits. Motor and sensory grossly intact in B/L UL and LL except for right lower leg, but is able to bend with minimal pain. Psych: Appropriate mood and affect Objective Labs 06/20/24 04:55 06/20/24 04:55 Labs: Laboratory Results - last 24 hr 06/20/24 04:55 WBC 13.3 H RBC 3.53 L Hgb 9.6 L Hct 28.8 L MCV 82 MCH 27.2 MCHC 33.3 RDW Std Deviation 43.0 Plt Count 317 Neut % (Auto) 88 H Lymph % (Auto) 6 L [place] % (Auto) 5 Eos % (Auto) 1 Baso % (Auto) 0 Neut # (Auto) 11.7 H Lymph # (Auto) 0.7 L [place] # (Auto) 0.6 Eos # (Auto) 0.1 Baso # (Auto) 0.0 Immature Gran # (Auto) 0.11 H Absolute Nucleated RBC 0.00 Immature Gran % 1 H Nucleated RBC % 0 Sodium 131 L Potassium 3.8 Chloride 97 L Carbon Dioxide 26.9 Anion Gap 7 BUN 17 Creatinine 0.9 Estim Creat Clear Calc 39.5 L eGFR > 60 BUN/Creatinine Ratio 19 Glucose 122 H Calculated Osmolality 265 L Calcium 8.4 Corrected Calcium 9.2 Total Bilirubin 0.7 AST 26 ALT 27 Alkaline Phosphatase 89 Total Protein 5.1 L Albumin 3.0 L Globulin 2.1 L Albumin/Globulin Ratio 1.4 Quality Measures Quality Measures none Advance care planning discussed with:: patient and child Assessment & Plan Assessment Current Active Medications: Generic Name Dose Route Start Last Admin Trade Name Freq PRN Reason Stop Dose Admin Acetaminophen 650 mg 06/05/24 14:35 06/20/24 10:21 Acetaminophen 325 Mg Tablet PO 07/05/24 14:34 650 mg Q6H PRN Administration Pain (1-3) and Fever >101.5 Albuterol/Ipratropium 3 ml 06/10/24 13:53 Albuterol/Ipratropium (Duoneb) Rt Charline 3 Ml Nebu INH 07/07/24 10:59 Q4HRRT PRN SOB/Wheeze Amiodarone HCl 200 mg 06/09/24 10:00 06/20/24 09:17 Amiodarone Hcl 200 Mg Tablet PO 07/09/24 09:59 200 mg BID CLAUDY Administration Apixaban 2.5 mg 06/17/24 21:00 06/20/24 09:17 Apixaban 2.5 Mg Tablet PO 07/17/24 20:59 2.5 mg BID CLAUDY Administration Atorvastatin Calcium 40 mg 06/07/24 21:00 06/19/24 20:22 Atorvastatin Calcium 20 Mg Tablet PO 07/07/24 20:59 40 mg HS CLAUDY Administration Dextrose 25 ml 06/05/24 14:40 Dextrose 50%-Water Inj 50 Ml Syringe IV 07/05/24 14:39 Q15MIN PRN BG 50-70 responsive npo pt Dextrose 50 ml 06/05/24 14:40 Dextrose 50%-Water Inj 50 Ml Syringe IV 07/05/24 14:39 Q15MIN PRN BG <50 OR BG <70 & pt unresponsive Diltiazem HCl 360 mg 06/15/24 09:00 06/20/24 09:17 Diltiazem Cd 120 Mg Capcr PO 07/15/24 08:59 360 mg QDAY CLAUDY Administration Escitalopram Oxalate 10 mg 06/08/24 09:00 06/20/24 09:18 Escitalopram Oxalate 10 Mg Tablet PO 07/08/24 08:59 10 mg QDAY CLAUDY Administration Glucagon 1 mg 06/05/24 14:40 Glucagon Inj 1 Mg Vial IM Q15MIN PRN BG <70, and no IV access Sodium Chloride 1,000 mls @ 75 mls/hr 06/20/24 09:07 06/20/24 09:30 Ns IV 06/20/24 22:26 75 mls/hr .[id number] CLAUDY Administration Insulin Human Lispro 0 unit 06/05/24 17:00 06/20/24 11:29 Insulin Lispro (Admelog) 1 Unit/0.01 Ml Unit SC 07/05/24 16:59 1 unit ACHS CLAUDY Administration Protocol Ondansetron HCl 4 mg 06/12/24 18:19 06/19/24 14:04 Ondansetron Inj 2 Mg/Ml Inj 2 Ml IV 07/12/24 18:18 4 mg Q6H PRN Administration NAUSEA Pantoprazole Sodium 40 mg 06/21/24 09:00 Pantoprazole 40 Mg Tablet PO 07/06/24 08:59 QDAY CLAUDY Sennosides 1 tab 06/05/24 14:35 06/15/24 08:58 Senna Tablet PO 07/05/24 14:34 1 tab QDAY PRN Administration constipation Protocol Plan Ms. Hogan is a 83-year-old female with past medical history of diabetes mellitus, atrial fibrillation and hyperlipidemia who presented to [facility] on 06[facility]05[facility]2024 status post ground-level mechanical fall with right hip pain and found to have right hip fracture. Pt is admitted for hip surgery. # Atrial fibrillation with RVR?rate controlled Patient has history of A-fib, on amiodarone and Eliquis 2.5 mg at home Cardiology consulted-we attempted cardioversion on June 09 but was unsuccessful to maintain sinus rhythm. Patient was transitioned over to Cardizem drip at 15 mg/h. Heart rate has been very well-controlled. Will transition to p.o. Cardizem following surgery and continue with amiodarone p.o. for further management of cardiac arrhythmia. Currently patient is on Lovenox and will resume Eliquis 2.5 mg p.o. twice daily on discharge with approval of both lumber stacker driver and orthopedic surgeon. Echo shows Normal LV size and function. Estimated EF 55-60% Normal RV size and function. Estimated RVSP 48mmHg Mild mitral and trace tricuspid regurgitation -Pt is switched from amiodarone drip to amiodarone 200mg PO BID -Cardizem CD 360 mg daily -Anticoagulation with apixaban 2.5 twice daily # Acute Intertrochanteric Fracture Right Hip # Status post ground-level mechanical fall # Status post hip surgery Presented with right hip pain reported tripping and falling secondary to loss of balance, denies hitting head, denies loss of consciousness. CT head and cervical spine negative for any acute changes. Hip/pelvis x-ray shows Acute intertrochanteric fracture right hip. Patient is given 1 L NS bolus in ED. Orthopedics was consulted. -Patient is status post open reduction internal fixation of right intertrochanteric hip fracture using [employer] TFN implant system on 06/12/2024 Plan: -Patient underwent uncomplicated ORIF of the right hip on June 12, [address] Romero -Physical therapy working with patient daily -Tylenol, [place], for pain control #Sepsis secondary to pyelonephritis?now resolved Sepsis SIRS 2/4 secondary to pyelonephritis, endorgan damage evidence noted by on and off altered mental status Atrial fibrillation triggered secondary to sepsis Patient is tachycardic elevated WBC count. Hypotension was noted. CT chest abdomen pelvis was ordered shows 3 mm right thyroid nodule, pulmonary artery hypertension, mild pneumonia versus atelectasis left base, mild fluid adjacent to tail of pancreas and around spleen suspicion of pancreatitis, atrophic kidney with perinephric stranding, severe osteopenia and acute intertrochanteric fracture right hip. Patient was given adequate fluid resuscitation, blood pressure has improved, was given 2 L IV fluid 06/07 Plan: -Completed IV ceftriaxone (06/06-06/12) -blood culture- no growth in 48 hours 07/09 -Monitor vitals closely # Acute kidney injury, improving # Chronic kidney disease stage IIIb # Dehydration, prerenal Pre-renal likely, patient's BUN 32, creatinine 1.8, GFR 28 on admission Baseline function not known, possible baseline GFR 50 Today BUN 44. Cr 1.2, eGFR 45 Plan: -Renally dose medication -Avoid nephrotoxic agents -Monitor daily CMP # Diabetes mellitus # Hyperlipidemia Blood glucose 184 on admission. Hgb A1c 6.0 on 06/06/24 Plan: -Sliding scale insulin -Hypoglycemia protocol in place # Pneumonia # COPD/Asthma Patient was discharged from [facility] for Pneumonia Patient discharged on Doxycycline PO 100mg BID Was prescribed Levalbuterol per records -Completed p.o. doxycycline course on 06/07 -Duonebs PRN -Supplemental oxygen as needed # 3 mm right thyroid nodule, incidental finding # Rule out pancreatitis -TSH on 06/06/24 is 0.73 -Consider outpatient workup for thyroid nodule -Suspicion of pancreatitis, per imaging, Lipase 42, patient denies abdominal pain, pancreatitis ruled out DVT prophylaxis: Lovenox BID GI prophylaxis: IV Protonix Diet: Carbohydrate consistent, cardiac Lines: Peripheral IV Code status: DNR Plan of care discussed with supervising attending Dr. Enid Washington M.D. PGY-3 Attending Provider Attestation/Addendum I reviewed labs, imaging, EKG, home medications and prior available records. Face to face evaluation was performed by me. I have personally examined the patient and discussed assessment and plan with the IM team. I reviewed the resident note and agree with the plan with exceptions as below. Right hip fracture status post OR Leukocytosis, likely reactive CKD stage III Chronic A-fib Debility Continue working with PT Management of pain as needed Continue amiodarone and apixaban. Discussed with cardiology: Added diltiazem 360 mg CD Trend WBC: Downtrending She is pending authorization to go to SNF in [place]. Discussed with 7th grade social studies teacher
--- NOTE | 2024-06-20 15:13 | PD.RESDS ---
Planned Discharge Date 06/20/24 DS: Providers Provider Date of admission: 06/05/24 14:35 Primary care physician: Montez Julian Admitting Provider: Amrit Mishra MD Attending Provider on Admission: Rambo Rossi MD Consults: 06/05/24 14:01 Consult to Orthopedic Stat Comment: Consulting Provider: Jabari Peña 06/05/24 14:42 Consult to Cardiology Routine Comment: Cardiac Clearance Consulting Provider: Isa Parada 06/06/24 22:14 Consult to Infectious Diseases Routine Comment: Consulting Provider: David Ansari Instructions: Patient white count 12,000 on admission. White count 29,000 today. Recently discharged with diagnosis pneumonia [place] on doxycycline. Thanks for your foy staff counselor. 06/07/24 19:51 Consult to Oncology Routine Comment: dr peña requested you for elevated wbc Consulting Provider: Jimbo Lei 06/11/24 00:24 Referral Registered Dietitian Urgent Comment: Instructions: PER MD REQUEST; REQUEST TO HELP INCREASE CALORIC INTAKE 06/12/24 18:24 Referral Physical Therapy Routine Comment: Gait Training Physician Instructions: Instructions: wbtt with walker Attending Provider on DC: Bharathi Washington MD Discharging Provider: Bharathi Washington MD DS: Diagnosis Problem List Completed Was Problem List Reviewed/Reconciled?: Yes Hospital Course Hospital Course Hospital course: Ms. Hogan is an 83-year-old female with past medical history of type 2 diabetes, A-fib, hyperlipidemia who presented to [facility] with a chief complaint of ground-level fall. Patient was going to [facility] and upon entry happened to have an accidental slip and fall at which point EMS services were called and she was brought to the emergency department. A CT was ordered along with a hip and pelvis x-ray which revealed an acute intertrochanteric fracture of the right hip so orthopedic surgery was consulted in regards to the fracture. Patient's hospital stay was complicated with atrial fibrillation with RVR leading to the use of Cardizem drip to assist in rate control which was initially unsuccessful requiring the patient to receive synchronized cardioversion which momentarily converted the patient to sinus rhythm but then transition her back into atrial fibrillation so Cardizem drip was resumed at a higher rate along with amiodarone and amiodarone drip. Over the course of a few days patient did convert into normal sinus rhythm and at following the surgery her Cardizem drip was discontinued and she was transitioned over to p.o. antiarrhythmics. Patient's hospitalization was also complicated with leukocytosis that had gone into the 40,000 range but's appeared to be reactive due to the fact that no source of infection was ever found and patient did not have any fevers and a significant improvement in her white count resulted over a short course of prophylactic antibiotic therapy. Patient underwent surgery with Dr. Jabari Peña without any complications and following surgery physical therapy services were ordered for the patient. Patient also had Eliquis resumed for management of atrial fibrillation and both DVT prophylaxis. Only source of infection was noted to be a pyelonephritis and Rocephin was given but blood cultures remain negative. Patient was requesting to be discharged to a long-term facility close to [place] due to logistical reasons and being close to family so we will attempt to discharge her to [place]. We recommend to continue with amiodarone 200 mg p.o. twice daily along with Cardizem 360 mg p.o. once daily. She is also recommended to continue with lifelong anticoagulation with Eliquis 2.5 mg twice daily. She is recommended to reconcile with her primary care physician with within 1 week to discuss recent hospitalization and with her orthopedic surgeon Dr. Jabari Peña in 2 weeks to assess for any postsurgical complications. Patient remained hospitalized for an extended period due to the fact that authorization was pending for long-term facility in [place]. Once patient's authorization was obtained she was medically cleared for discharge Plan of care discussed with supervising attending Dr. Enid Washington M.D. PGY-3 # Atrial fibrillation with RVR Patient has history of A-fib, on amiodarone and Eliquis 2.5 mg at home Trialed on amiodarone drip and failed to convert, later received synchronized cardioversion and failed to remain in sinus rhythm, Echo shows Normal LV size and function. Estimated EF 55-60% Normal RV size and function. Estimated RVSP 48mmHg Mild mitral and trace tricuspid regurgitation -Pt is switched from amiodarone drip to amiodarone 200mg PO BID -Cardizem 30 mg p.o. 4 times daily -Transition over Lovenox 60 mg twice daily -Telemonitoring -Cardiology consulted-we attempted cardioversion on June 09 but was unsuccessful to maintain sinus rhythm. Patient was transitioned over to Cardizem drip at 15 mg/h. Heart rate has been very well-controlled. Will transition to p.o. Cardizem following surgery and continue with amiodarone p.o. for further management of cardiac arrhythmia. Currently patient is on Lovenox and will resume Eliquis 2.5 mg p.o. twice daily on discharge with approval of both offset lithographic press operator and orthopedic surgeon. # Acute Intertrochanteric Fracture Right Hip # Status post ground-level mechanical fall #Status post hip surgery Presented with right hip pain reported tripping and falling secondary to loss of balance, denies hitting head, denies loss of consciousness. CT head and cervical spine negative for any acute changes. Hip/pelvis x-ray shows Acute intertrochanteric fracture right hip. Patient is given 1 L NS bolus in ED. Orthopedics was consulted. -Patient is status post open reduction internal fixation of right intertrochanteric hip fracture using [employer] TFN implant system on 06/12/2024 Plan: -Patient underwent uncomplicated ORIF of the right hip on June 12, [address] Peña -Physical therapy ordered -Tylenol, [place], hydromorphone for pain control -Patient is on Lovenox twice daily for DVT prophylaxis #Sepsis secondary to pyelonephritis Sepsis SIRS 2/4 secondary to pyelonephritis, endorgan damage evidence noted by on and off altered mental status Atrial fibrillation triggered secondary to sepsis Patient is tachycardic elevated WBC count. Hypotension was noted. CT chest abdomen pelvis was ordered shows 3 mm right thyroid nodule, pulmonary artery hypertension, mild pneumonia versus atelectasis left base, mild fluid adjacent to tail of pancreas and around spleen suspicion of pancreatitis, atrophic kidney with perinephric stranding, severe osteopenia and acute intertrochanteric fracture right hip. Patient was given adequate fluid resuscitation, blood pressure has improved, was given 2 L IV fluid 06/07 Plan: -Completed IV ceftriaxone (06/06-06/12) -blood culture- no growth in 48 hours 07/09 -Monitor vitals closely # Acute kidney injury, improving # Chronic kidney disease stage IIIb # Dehydration, prerenal Pre-renal likely, patient's BUN 32, creatinine 1.8, GFR 28 on admission Baseline function not known, possible baseline GFR 50 Today BUN 44. Cr 1.2, eGFR 45 Plan: -Renally dose medication -Avoid nephrotoxic agents -Monitor daily CMP # Diabetes mellitus # Hyperlipidemia Blood glucose 184 on admission. Hgb A1c 6.0 on 06/06/24 Plan: -Sliding scale insulin -Hypoglycemia protocol in place # Pneumonia # COPD/Asthma Patient was discharged from [facility] for Pneumonia Patient discharged on Doxycycline PO 100mg BID Was prescribed Levalbuterol per records -Completed p.o. doxycycline course on 06/07 -Duonebs PRN -Supplemental oxygen as needed # 3 mm right thyroid nodule, incidental finding # Rule out pancreatitis -TSH on 06/06/24 is 0.73 -Consider outpatient workup for thyroid nodule -Suspicion of pancreatitis, per imaging, Lipase 42, patient denies abdominal pain, pancreatitis ruled out DVT prophylaxis: Lovenox BID GI prophylaxis: IV Protonix Diet: Carbohydrate consistent, cardiac Lines: Peripheral IV Code status: DNR Status at Discharge Functional status at discharge: uses cane/walker Overall status at discharge: patient is progressing back to baseline Time Spent with Patient Time attestation: Total time spent providing and/or coordinating discharge services: Time spent: Greater than 30 minutes Exam Vital Signs Temp Pulse Resp BP Pulse Ox O2 Del Method O2 Flow Rate 97.3 F 76 15 99/65 93 L Room Air 3 06/20/24 12:00 06/20/24 12:00 06/20/24 12:00 06/20/24 12:00 06/20/24 12:00 06/20/24 12:00 06/12/24 18:25 Discharge Plan Plan Patient Disposition: [facility] [place] [facility] [place] Patient condition on transfer: Stable Care Plan Goals: Patient is recommended to follow-up with primary care within 1 week, and reconciled medications. Recommend to stop amlodipine, furosemide, lisinopril and glimepiride as well as metoprolol, EMS started on new medications to control heart rate which is Cardizem and amiodarone. Due to patient's history of A-fib we will send her on Eliquis for both atrial fibrillation and DVT prophylaxis Patient will be sent home on amiodarone 200 mg twice daily and Cardizem 360 mg p.o. daily Patient is recommended to follow-up with a strict bowel regimen including docusate and senna for soft stool passage especially the use of opioid narcotics for pain. Prescriptions/Referrals Prescriptions/Med Rec: New sennosides [Senna Lax] 8.6 mg Tablet 8.6 mg PO QDAY PRN (Reason: constipation) 30 Days Qty: 30 0RF amiodarone 200 mg tablet 200 mg PO BID Qty: 60 0RF Eliquis 2.5 mg tablet 2.5 mg PO BID Qty: 60 0RF diltiazem HCl [Cardizem CD] 360 mg capsule,extended release 24hr 360 mg PO Q24H Qty: 30 0RF Continued potassium chloride 10 mEq tablet extended release 10 meq PO AC escitalopram oxalate 10 mg tablet 10 mg PO QDAY rosuvastatin 10 mg tablet 10 mg PO QDAY Discontinued Eliquis 2.5 mg tablet 2.5 mg PO BID doxycycline hyclate 100 mg capsule 100 mg PO QDAY lisinopril 20 mg tablet 20 mg PO QDAY amlodipine 5 mg tablet 5 mg PO QDAY glimepiride 1 mg tablet 1 mg PO QDAY furosemide 20 mg tablet 20 mg PO QDAY metoprolol tartrate 25 mg tablet 50 mg PO QDAY Referrals: Montez Julian [Primary Care Provider] - Patient/Caregiver Discharge Instructions Discharge Activity: walk with walker only Other Discharge Activity Instructions:: Patient can weight-bear to tolerance right lower extremity with physical therapy. Would be nice to get her up twice a day while in [place]. She should take meals sitting if at all possible. Change dressing every other day x 2 weeks. If she gets marked increased redness heat erythema drainage please call me at [phone] or [phone] these are my cell phones(Jabari Peña). Office #[phone]. I would like to repeat her x-ray in 1 month. Education Materials: Surgery Anesthesia After, After a Hip Fracture: Common Questions, Preventing Surgical Site Infections Print Language: Norwegian Stand Alone Forms: Pretty Award Info., Patient Portal Info Letter Discharge Order Discharge Orders: Discharge (Routine); Ordered 06/20/24 Ordered By: Cynthia Viveros Quality Discharge Quality Measures VTE prophylaxis Attestestation MD Attestation I reviewed labs, imaging, EKG, home medications and prior available records. Face to face evaluation was performed by me. I have personally examined the patient and discussed assessment and plan with the IM team. I reviewed the resident note and agree with the plan with exceptions as below. See my addendum on 06/20
--- NOTE | 2024-06-20 16:30 | PC.NURSE ---
Dressing changed to right hip, incision closed and asymptomatic.
--- NOTE | 2024-06-20 18:30 | PC.NURSE ---
Patient ready to leave, all discharge paperwork signed, I Received a call from [facility] staff, stated they can't receive the patient today. no reason given, called and made MD aware. Patient's family also aware.
[2024-06-20] MEDS: ATORVASTATIN CALCIUM 20 MG TABLET 40 MG PO (20:43)
[2024-06-21] VITALS: BP 113/50; PULSE 79; RESP 16; TEMP 36.4; O2SAT 91
[2024-06-21 04:00] VITALS: BP 112/43; PULSE 69; RESP 16; TEMP 36.2; O2SAT 90
[2024-06-21 07:11] VITALS: PULSE 67; RESP 17; O2SAT 98
--- NOTE | 2024-06-21 07:31 | PC.SS ---
Addendum entered by Janae Cardoso [facility] 06/21/24 09:41: Family provided new ETA for 11am. Notified bed side nurseVerito JOSE sent via E-file exchange. Addendum entered by Janae Cardoso [facility] 06/21/24 09:06: Sent clinicals via [employer] to the facility and updated them on ETA. Addendum entered by aJnae Cardoso [facility] 06/21/24 08:58: Updated beside nurse on family's ETA. Addendum entered by Janae Cardoso [facility] 06/21/24 08:53: Received a call from Jacy with [facility] in [place], she apologized for the inconvenience from yesterday, informed they did not want to do a late admit to the facility yesterday, however was not relayed to SS or nursing staff yesterday as they had confirmed to accept the patient. Jacy states they can accept the patient today, room number provided for the patient is 1111B. Spoke with patient's daughter, Destiny to provide update. Destiny informs she and family can be here at noon to transport the patient to [facility]. Provided her with patient's assigned room number. Addendum entered by Janae Cardoso [facility] 06/21/24 08:02: Attempted contact with Charli at [facility] at . No answer and voicemail provided. Addendum entered by Janae Cardoso [facility] 06/21/24 07:59: Received call back from patient's insurance, spoke with Candis informing that the authorization was provided to admissions staff Jacy yesterday over the phone and was faxed out twice with confirmation complete. Candis informed if the facility cannot accept the patient she could give authorization to another SNF in [place] if necessary if that is what the patient and family would like. Addendum entered by Janae Cardoso [facility] 06/21/24 07:32: Attempted contact with Candis: with [employer]. No answer, voicemail provided. Original Note: SS follow up: Attempted contact with [facility] in [place], Main . No answer, voicemail provided.
[2024-06-21 08:00] VITALS: BP 122/76; PULSE 65; PULSE 72; RESP 17; TEMP 36.6; O2SAT 93
[2024-06-21 09:28] VITALS: BP 122/76; PULSE 65
[2024-06-21] MEDS: DILTIAZEM CD 120 MG CAPCR 360 MG PO (09:28)
[2024-06-21] MEDS: ESCITALOPRAM OXALATE 10 MG TABLET PO (09:29)
[2024-06-21] MEDS: ACETAMINOPHEN 325 MG TABLET 650 MG PO (09:29)
[2024-06-21] MEDS: PANTOPRAZOLE 40 MG TABLET PO (09:29)
[2024-06-21 09:30] VITALS: BP 122/76; PULSE 65
[2024-06-21] MEDS: APIXABAN 2.5 MG TABLET PO (09:30)
[2024-06-21] MEDS: AMIODARONE HCL 200 MG TABLET PO (09:30)
--- NOTE | 2024-06-21 10:12 | PC.NURSE ---
Spoke with Zenaida Louisewood regarding discharge instructions.
== END 2024-06-21 11:05 | disposition skilled nursing facility (03) | DRG 853 ==
LOC: SERX 13:49 → SERHOLD 15:09 → S3SX 06-06 06:07 → S2NX 06-07 10:07 → S3NX 06-12 23:33
PROVIDERS: Internal Medicine Infectious Disease; Orthopaedic Surgery; Registered Nurse General Practice; Student in an Organized Health Care Education/Training Program; Admitting Provider Student in an Organized Health Care Education/Training Program; Emergency Provider Emergency Medicine; PCP Family Medicine; Visit Provider Student in an Organized Health Care Education/Training Program
PROC: 0QS606Z Reposition Right Upper Femur with Intramedullary Internal Fixation Device, Open Approach (ICD-10-PCS; CPT 27245; principal; 2024-06-12 16:00)
DX: A41.9 Sepsis, unspecified organism (principal); J18.9 Pneumonia, unspecified organism; S72.141A Displaced intertrochanteric fracture of right femur, initial encounter for closed fracture; I48.20 Chronic atrial fibrillation, unspecified; N17.9 Acute kidney failure, unspecified; N10 Acute pyelonephritis; E87.1 Hypo-osmolality and hyponatremia; J44.0 Chronic obstructive pulmonary disease with (acute) lower respiratory infection; E78.5 Hyperlipidemia, unspecified; E11.22 Type 2 diabetes mellitus with diabetic chronic kidney disease; I12.9 Hypertensive chronic kidney disease with stage 1 through stage 4 chronic kidney disease, or unspecified chronic kidney disease; K21.9 Gastro-esophageal reflux disease without esophagitis; E83.42 Hypomagnesemia; Z79.01 Long term (current) use of anticoagulants; W01.0XXA Fall on same level from slipping, tripping and stumbling without subsequent striking against object, initial encounter; Y93.01 Activity, walking, marching and hiking; Y92.59 Other trade areas as the place of occurrence of the external cause; Z66 Do not resuscitate; E86.0 Dehydration; N18.32 Chronic kidney disease, stage 3b; E87.6 Hypokalemia; I27.21 Secondary pulmonary arterial hypertension; E04.1 Nontoxic single thyroid nodule; D63.1 Anemia in chronic kidney disease
CPT/HCPCS: 36415; 70450; 71045; 71250; 72125; 73501; 73502; 74176; 76000; 80053; 80061; 80069; 80307; 81001; 83036; 83605; 83615; 83690; 83735; 83880; 84100; 84145; 84443; 84484; 85014; 85018; 85025; 85610; 85730; 86803; 86850; 86900; 86901; 86923; 87040; 87493; 93005; 93225; 93306; 94640; 94664; 96360; 96372; 97162; 99285; A4217; A4649; A9270; C1713; C1769; C1776; J0283; J0690; J0696; J1100; J1160; J1643; J1644; J1650; J1815; J2250; J2371; J2405; J2470; J2704; J3010; J3371; J3475; J3490; J7030; J7040; J7120; P9016; J0665; J1805